=== PATIENT | male | born 1985 | race Caucasian/White ===

== ENCOUNTER 2018-01-01 16:23 | Emergency (ER) | payer MEDICAID ==
[2018-01-01 16:59] VITALS: BP 111/57; PULSE 98; RESP 16; TEMP 98.4; O2SAT 99
[2018-01-01] MEDS ORDERED: Lidocaine 5% Patch TD STA (17:43)
[2018-01-01] MEDS ORDERED: Lidocaine 5% Patch TD ONE (18:10)
--- NOTE | 2018-01-01 18:20 | ED PDOC ---
HPI: Back Time Seen by Provider: 01/01/18 17:09 Chief Complaint (Nursing): Back Pain History Per: Patient Additional Complaint(s): Pt. states for the past week he's had neck and upper back pain described as a stiffness. States he's been getting this pain since 2011 intermittently but has never sought medical attention till today. Denies trauma, chest pain, SOB, hemoptysis, fever, cough, hematuria, incontinence. Past Medical History Reviewed: Historical Data, Nursing Documentation, Vital Signs Vital Signs: Last Vital Signs Temp 98.4 F 01/01/18 16:54 Pulse 98 H 01/01/18 16:54 Resp 16 01/01/18 16:54 BP 111/57 L 01/01/18 16:54 Pulse Ox 99 01/01/18 16:54 - Surgical History Surgical History: No Surg Hx - Family History Family History: States: No Known Family Hx - Home Medications Home Medications: Ambulatory Orders Medication Instructions Recorded Naproxen [Naprosyn] 500 mg PO BID PRN #30 tab 08/03/14 Cyclobenzaprine [Cyclobenzaprine 10 mg PO Q8 PRN #10 tab 01/01/18 HCl] Naproxen [Naprosyn] 500 mg PO BID PRN #10 tab 01/01/18 - Allergies Allergies/Adverse Reactions: Allergies Allergy/AdvReac Type Severity Reaction Status Date / Time No Known Allergies Allergy Verified 01/01/18 16:54 Review of Systems ROS Statement: Except As Marked, All Systems Reviewed And Found Negative Musculoskeletal: Positive for: Back Pain Physical Exam - Physical Exam Appears: Positive for: Well, Non-toxic, No Acute Distress Skin: Positive for: Normal Color, Warm. Negative for: Rash Eye Exam: Positive for: Normal appearance Cardiovascular/Chest: Positive for: Regular Rate, Rhythm, Chest Non Tender Respiratory: Positive for: Normal Breath Sounds. Negative for: Respiratory Distress Gastrointestinal/Abdominal: Positive for: Soft. Negative for: Tenderness Back: Positive for: Normal Inspection, Decreased ROM, Muscle Spasm (b/l paracervical and parathoracic). Negative for: L CVA Tenderness, R CVA Tenderness, Vertebral Tenderness (entire spine including c-spine) Extremity: Positive for: Other (equal hand bender strenght b/l) Neurologic/Psych: Positive for: Alert, Oriented (x3). Negative for: Aphasia, Facial Droop - ECG O2 Sat by Pulse Oximetry: 99 - Radiology X-Ray: Read By Radiologist (C-spine, thoracic spine) X-Ray Interpretation: Other (moderate degenerate disc disease C6-7; reversal lordosis likely related to muscle spasm) - Progress Re-evaluation Time: 19:13 (Advised to f/u with [facility] for possible MRI. ) Condition: Re-examined, Improved Disposition - Clinical Impression Clinical Impression: Torticollis - Patient ED Disposition Is Patient to be Admitted: No - Disposition Referrals: [facility] [Outside] Disposition: Routine/Home Disposition Time: 19:13 Condition: IMPROVED Additional Instructions: FOLLOW UP WITH [facility] FOR FURTHER EVALUATION BUT RETURN TO ED IMMEDIATELY IF SYMPTOMS WORSEN. LUX AKHTAR, thank you for letting us take care of you today. Your provider was Shayy Hernandez MD and you were treated for NECK PAIN. The emergency medical care you received today was directed at your acute symptoms. If you were prescribed any medication, please fill it and take as directed. It may take several days for your symptoms to resolve. Return to the Emergency Department if your symptoms worsen, do not improve, or if you have any other problems. Please contact your doctor or call one of the physicians/clinics you have been referred to that are listed on the Patient Visit Information form that is inclu ded in your discharge packet. Bring any paperwork you were given at discharge with you along with any medications you are taking to your follow up visit. Our treatment cannot replace ongoing medical care by a primary care provider outside of the emergency department. Thank you for allowing the [facility] team to be part of your care today. If you had an X-Ray or CT scan: A Radiologist will review the ED reading if any change in treatment is needed we will contact you. If you had a blood, urine, or wound culture: It will take several days for the results, if any change in treatment is needed we will contact you. If you had an STI test: It will take 48 hours for the results. Please call after 1 week if you have not heard back. Prescriptions: Cyclobenzaprine [Cyclobenzaprine HCl] 10 mg PO Q8 PRN #10 tab PRN Reason: Muscle Spasm Naproxen [Naprosyn] 500 mg PO BID PRN #10 tab PRN Reason: Pain Instructions: Torticollis (DC) Forms: [employer] (Lebanese)
--- NOTE | 2018-01-01 18:29 | RAD ---
Date of service: 01/01/2018 PROCEDURE: Cervical Spine Radiographs. HISTORY: Pain. COMPARISON: None available. FINDINGS: BONES: There is normal alignment of the cervical vertebral bodies. There is reversal of normal cervical lordosis. Vertebral height is normal. Bone mineralization is normal. There is no acute fracture or traumatic anterior listhesis. The craniocervical junction is normal. The atlantoaxial joint normal. DISC SPACES: There is moderate degenerative disc disease at C6-7 with anterior spurring, severe reduced disc height and facet arthropathy. The remaining disc heights are maintained. SOFT TISSUES: Normal. No prevertebral soft tissue swelling. OTHER FINDINGS: None. IMPRESSION: Moderate degenerative disc disease at C6-7. Reversal of normal cervical lordosis may be related to muscle spasm.
--- NOTE | 2018-01-01 18:29 | RAD ---
Date of service: 01/01/2018 HISTORY: pain COMPARISON: No prior. FINDINGS: BONES: There is normal alignment of the thoracic vertebral bodies. There is normal thoracic kyphosis. Bone mineralization is normal. There is no acute fracture. DISC SPACES: Normal. SOFT TISSUES: Normal. OTHER FINDINGS: None. IMPRESSION: Normal radiographs of the thoracic spine.
== END 2018-01-01 19:25 | disposition home or self-care (01) ==
LOC: H.ER 16:23
DX: M43.6 Torticollis (principal)
CPT/HCPCS: 72040; 72070; 96372; 99283; J1885

== ENCOUNTER 2018-01-07 09:49 | Inpatient (IN) | payer MEDICAID ==
--- NOTE | 2018-01-07 10:34 | ED PDOC ---
HPI: Neurologic - General Time Seen by Provider: 01/07/18 10:03 Chief Complaint (Nursing): Lower Extremity Problem/Injury Chief Complaint (Provider): bilateral hand weakness, unable to ambulate Source: patient Exam Limitations: no limitations - History of Present Illness Timing/Duration: other (x4 days) Associated Symptoms: weakness (b/l hands), other Allergies/Adverse Reactions: Allergies No Known Allergies Allergy (Verified 01/01/18 16:54) Home Medications: Ambulatory Orders Cyclobenzaprine [Cyclobenzaprine HCl] 10 mg PO Q8 PRN #10 tab 01/01/18 Naproxen [Naprosyn] 500 mg PO BID PRN #10 tab 01/01/18 Additional Complaint(s): Warren Cornelius is a 32 year old male, with no significant past medical history, who was brought to the emergency department by EMS complaining of weakness in both hands and inability to ambulate onset for x4 days. Patient also reports urinary incontinence and urge to defecate but not being able to, last bowel movement was a week ago. Patient states he was seen here a week ago for neck pain. He was given a shot and Valium in the ER, and was sent home with muscle relaxants. However, patient reports symptoms got progressively worst and has not been able to ambulate since Sunday. He denies any trauma, headache or other medical complaints. PMD: Manisha Steinberg NIHSS Stroke Scale - Date/Time Evaluation Performed Date Performed: 01/07/18 Past Medical History Reviewed: Historical Data, Nursing Documentation, Vital Signs Vital Signs: Last Vital Signs Temp 98.4 F 01/07/18 09:52 Pulse 70 01/07/18 09:52 Resp 19 01/07/18 09:52 BP 127/67 01/07/18 09:52 Pulse Ox 96 01/07/18 09:52 - Medical History PMH: No Chronic Diseases - Surgical History Surgical History: Hernia Repair (umbilical) - Family History Family History: States: Unknown Family Hx - Social History Current smoker - smoking cessation education provided: Yes Alcohol: Social Drugs: Other (hx of IVDA) - Home Medications Home Medications: Ambulatory Orders Medication Instructions Recorded Cyclobenzaprine [Cyclobenzaprine 10 mg PO Q8 PRN #10 tab 01/01/18 HCl] Naproxen [Naprosyn] 500 mg PO BID PRN #10 tab 01/01/18 - Allergies Allergies/Adverse Reactions: Allergies Allergy/AdvReac Type Severity Reaction Status Date / Time No Known Allergies Allergy Verified 01/01/18 16:54 Review of Systems ROS Statement: Except As Marked, All Systems Reviewed And Found Negative Gastrointestinal: Positive for: Constipation Genitourinary Male: Positive for: Incontinence (urinary) Musculoskeletal: Positive for: Neck Pain Neurological: Positive for: Weakness (b/l hands), Other (unable to ambulate). Negative for: Headache Physical Exam - Reviewed Nursing Documentation Reviewed: Yes Vital Signs Reviewed: Yes - Physical Exam Appears: Positive for: No Acute Distress Head Exam: Positive for: ATRAUMATIC, NORMAL INSPECTION, NORMOCEPHALIC Skin: Positive for: Normal Color, Warm, Dry Eye Exam: Positive for: Normal appearance, EOMI, PERRL ENT: Positive for: Normal ENT Inspection Neck: Positive for: Normal, Painless ROM, Supple Cardiovascular/Chest: Positive for: Regular Rate, Rhythm. Negative for: Murmur Respiratory: Positive for: Normal Breath Sounds. Negative for: Respiratory Distress Gastrointestinal/Abdominal: Positive for: Normal Exam, Soft. Negative for: Tenderness, Guarding, Rebound Back: Positive for: Normal Inspection. Negative for: L CVA Tenderness, R CVA Tenderness, Vertebral Tenderness Extremity: Negative for: Deformity Neurologic/Psych: Positive for: Alert, Oriented, Motor/Sensory Deficits (Decreased hypertrichologist strength b/l. Muscle weakness to bilateral lower extremities), Other (Positive saddle anesthesia) - Laboratory Results Result Diagrams: 01/07/18 10:28 01/07/18 10:28 - ECG O2 Sat by Pulse Oximetry: 96 (RA) Pulse Ox Interpretation: Normal - Critical Care Total Time (In Min): 75 Documented Critical Care: Time excludes all time spent performint seperately billable procedures Medical Decision Making Medical Decision Making: Time: 10:03 Initial Impression: Initial Plan: --CMP --Urine dipstick --CBC w/ differential --PTT --PT --Spinal canal cervical w/o contrast [MRI] --Spinal canal lumbar w/o contrast [MRI] --Spinal canal thoracic w/o contrast [MRI] --Urinalysis --Reevaluation 10:30 -Spoke with Dr. Rosas, she recommends a cervical collar and getting an MRI of the spine. 11:15 -Patient was brought back from MRI, he is refusing secondary to neck pain. Ordered 4mg of Morphine. 11:30 -Patient refusing MRI again stating he is not sure. He agreed to try for the MRI given Ativan 2 mg. -Pt. placed on monitor. 13:31 Cervical spine MRI FINDINGS: There is a subtle reversal of the cervical curvature without fracture or spondylolisthesis appreciated. Diffuse disc desiccation is identified however, fluid is seen in the posterior and central portion of the C6-7 intervertebral disc with edema associated with the surrounding endplates posteriorly, at the same level as the fluid. Anterior disc and endplates appear unaffected at this level. Fluid is suggested at the posterior epidural space, and mildly anteriorly in a pattern suspicious for discitis osteomyelitis. Posterior epidural fluid extends as cephalad potentially as C4 and as caudad as T1. C2-C3: No disc herniation, spinal canal stenosis or neural foraminal narrowing. C3-C4: No disc herniation, spinal canal stenosis or neural foraminal narrowing. C4-C5: No disc herniation, spinal canal stenosis or neural foraminal narrowing. C5-C6: While there is no disc herniation or neural foraminal stenosis identified, epidural fluid or soft tissue is seen circumferentially but more posteriorly and toward the left and anteriorly. This is likely reflective of epidural abscess related to C6-7 discitis osteomyelitis. The cervical cord appears flattened at the left side more so than the right. C6-C7: No disc herniation or neural foraminal stenosis. Presumed fluid or epidural soft tissue impresses the thecal sac and the cervical cord greater the left and right sides stenosing the central canal. Trace reactive cord signal changes associated. There is a potential annular tear posteriorly at C6-7 disc though this is not definite. C7-T1: No disc herniation although fluid/soft tissue impresses the cord at the upper to mid T1 level with this finding minimal at the inferior T1 endplate level. No neural foraminal stenosis. OTHER FINDINGS: None. IMPRESSION: 1. C6-7 intervertebral disc fluid with edema at C6 and C7 vertebral bodies related to the mid to posterior endplate distribution suspicious for discitis osteomyelitis. Epidural fluid is identified more posteriorly than anteriorly from at least C4-T1 levels with cord compressed at C6 and C7. Contrast MRI cervical spine can be utilized for added characterization. 2. No definitive disc herniation appreciable though an annular tear is not excluded at the C6-7 disc posteriorly. 3. Mild reversal cervical curvature. Definitive fracture or spondylolisthesis appreciable. Findings discussed with Dr. Sanchez with written down and read back verification 01/07/2018 1:25 p.m.. 13:30 -Paged Dr. Granado, ID. [id number] -Paged Dr. Denny, neurosurgery. 13:38 Lumbar Spine MRI FINDINGS: Normal lumbar lordosis. Vertebral body heights are preserved. Marrow signal unremarkable. Conus medullaris unremarkable at the level of L2 vertebral body. Prevertebral and paraspinal soft tissues are unremarkable. T12-L1: No disc herniation, spinal canal stenosis or neural foraminal narrowing. L1-2: No disc herniation, spinal canal stenosis or neural foraminal narrowing. L2-3: No disc herniation, spinal canal stenosis or neural foraminal narrowing. L3-4: No disc herniation, spinal canal stenosis or neural foraminal narrowing. L4-5: No disc herniation, spinal canal stenosis or neural foraminal narrowing. Minimal disc bulge and rkgs-ct-dkoyjgre facet joint degenerative change. L5-S1: There is a small right paracentral disc protrusion without indenting the ventral thecal sac or causing significant stenosis. [id number]-pd-[id number] facet joint degenerative changes are seen symmetrically. No definite neural foraminal stenosis bilaterally. OTHER FINDINGS: None. IMPRESSION: 1. Small right paracentral disc protrusion L5-S1 without significant stenosis resulting. 2. Minimal disc bulge L4-5 without stenosis. 3. Widely patent central canal and bilateral neural foramina throughout. 13:40 -Spoke with Dr. Denny, recommends ESR, CRP, preop orders. 13:42 Thoracic Spine MRI FINDINGS: ALIGNMENT: Normal thoracic spinal alignment. Normal thoracic kyphosis. VERTEBRA: Vertebral body height are preserved. No fracture appreciable. MARROW: Marrow signal unremarkable. PARASPINAL SOFT TISSUES: Unremarkable. CORD: Unremarkable thoracic cord. No volume loss, signal abnormality or syrinx. DISCS: No disc herniation, spinal canal stenosis, or neuroforaminal narrowing. OTHER FINDINGS: Edema is identified at the C7 vertebral body with the C6 not included in this exam. Please see separate cervical spine MRI report 01/07/2018 for added details. IMPRESSION: Unremarkable non-contrast enhanced MRI of the thoracic spine. Incidental edema at C7 vertebral body is detailed in separate cervical spine MRI also performed 01/07/2018. Please see separate report. Findings discussed with Dr. Sanchez with written down and read back verification 01/07/2018 1:44 p.m.. 14:20 -Case discussed with Dr. Granado, recommends Vancomycin 1 g q8h and Cefepime 2 g q8h. 14:36 CXR FINDINGS: LUNGS: No active pulmonary disease. PLEURA: No significant pleural effusion identified, no pneumothorax apparent. CARDIOVASCULAR: No atherosclerotic calcification present Normal. OSSEOUS STRUCTURES: No significant abnormalities. VISUALIZED UPPER ABDOMEN: Normal. OTHER FINDINGS: None. IMPRESSION: No active disease. ------- Scribe Attestation: Documented by Shahram Shi, acting as a scribe for Shelley Sanchez MD. Provider Scribe Attestation: All medical record entries made by the Scribe were at my direction and per sonally dictated by me. I have reviewed the chart and agree that the record accurately reflects my personal performance of the history, physical exam, medical decision making, and the department course for this patient. I have also personally directed, reviewed, and agree with the discharge instructions and disposition. Disposition - Clinical Impression Clinical Impression: Epidural abscess, Discitis of cervical region, Osteomyelitis of cervical spine - Patient ED Disposition Is Patient to be Admitted: Yes - Disposition Disposition Time: 14:15 Condition: GUARDED - Pt Status Changed To: Hospital Disposition Of: Inpatient - Admit Certification Admit to Inpatient:: After my assessment, the patient will require hospitalization for at least two midnights. This is because of the severity of symptoms shown, intensity of services needed, and/or the medical risk in this patient being treated as an outpatient. - POA Present On Arrival: None
[2018-01-07 10:38] LABS: BASO % 0.3 % (0.0-2.0); EOS # 0.2 K/uL (0.0-0.7); EOS % 1.8 % (0.0-4.0); HEMOGLOBIN 12.4 g/dL (12.0-18.0); LYMPH # 1.1 K/uL (1.0-4.3); LYMPH % 9.4 % (20.0-40.0); MEAN CELL VOLUME 93.4 fl (80.0-94.0); MEAN CORPUSCULAR HEMOGLOBIN 30.5 pg (27.0-31.0); MEAN CORPUSCULAR HGB CONC 32.6 g/dL (33.0-37.0); MEAN PLATELET VOLUME 7.3 fl (7.2-11.7); NEUT # 9.8 K/uL (1.8-7.0); NEUT % 80.5 % (50.0-75.0); PLATELET COUNT 370 K/uL (130-400); RBC 4.06 Mil/uL (4.40-5.90); RED CELL DISTRIBUTION WIDTH 13.2 % (11.5-14.5); WHITE BLOOD COUNT 12.2 K/uL (4.8-10.8)
[2018-01-07 10:44] LABS: INR 1.2
[2018-01-07 10:46] LABS: PARTIAL THROMBOPLASTIN TIME 26.1 Seconds (25.6-37.1)
[2018-01-07 10:50] LABS: ALB/GLOB RATIO 0.9 (1.0-2.1); ALBUMIN 3.6 g/dL (3.5-5.0); ALT/SGPT 26 U/L (21-72); AST/SGOT 46 U/L (17-59); BLOOD UREA NITROGEN 11 mg/dl (9-20); CALCIUM 9.1 mg/dL (8.4-10.2); GFR NON-AFRICAN AMERICAN > 60
[2018-01-07 11:04] LABS: PROTHROMBIN TIME 14.1 Seconds (9.8-13.1)
[2018-01-07] MEDS ORDERED: Morphine 4 MG/ML VIAL ONE (11:11)
[2018-01-07] MEDS ORDERED: Morphine 4 MG/ML VIAL IVP STA (11:30)
[2018-01-07 12:25] LABS: LYMPHOCYTE 13 % (20-50); MONOCYTE 11 % (0-10); NEUTROPHIL 76 % (42-75); OVALOCYTES SLIGHT; PLATELET ESTIMATE NORMAL (NORMAL); TEARDROP CELLS SLIGHT; TOTAL CELLS COUNTED 100
--- NOTE | 2018-01-07 13:34 | MRI ---
Date of service: 01/07/2018 PROCEDURE: MR CERVICAL SPINE WITHOUT CONTRAST HISTORY: BLE weakness COMPARISON: None available. TECHNIQUE: Multiecho multiplanar sequences were performed through the cervical spine without the use of intravenous contrast. Examination was delayed to completion due to pain (primarily in the neck but also in the pelvis) with patient laying on the MR table with patient receiving pain control in the middle of the initial examination. FINDINGS: There is a subtle reversal of the cervical curvature without fracture or spondylolisthesis appreciated. Diffuse disc desiccation is identified however, fluid is seen in the posterior and central portion of the C6-7 intervertebral disc with edema associated with the surrounding endplates posteriorly, at the same level as the fluid. Anterior disc and endplates appear unaffected at this level. Fluid is suggested at the posterior epidural space, and mildly anteriorly in a pattern suspicious for discitis osteomyelitis. Posterior epidural fluid extends as cephalad potentially as C4 and as caudad as T1. C2-C3: No disc herniation, spinal canal stenosis or neural foraminal narrowing. C3-C4: No disc herniation, spinal canal stenosis or neural foraminal narrowing. C4-C5: No disc herniation, spinal canal stenosis or neural foraminal narrowing. C5-C6: While there is no disc herniation or neural foraminal stenosis identified, epidural fluid or soft tissue is seen circumferentially but more posteriorly and toward the left and anteriorly. This is likely reflective of epidural abscess related to C6-7 discitis osteomyelitis. The cervical cord appears flattened at the left side more so than the right. C6-C7: No disc herniation or neural foraminal stenosis. Presumed fluid or epidural soft tissue impresses the thecal sac and the cervical cord greater the left and right sides stenosing the central canal. Trace reactive cord signal changes associated. There is a potential annular tear posteriorly at C6-7 disc though this is not definite. C7-T1: No disc herniation although fluid/soft tissue impresses the cord at the upper to mid T1 level with this finding minimal at the inferior T1 endplate level. No neural foraminal stenosis. OTHER FINDINGS: None. IMPRESSION: 1. C6-7 intervertebral disc fluid with edema at C6 and C7 vertebral bodies related to the mid to posterior endplate distribution suspicious for discitis osteomyelitis. Epidural fluid is identified more posteriorly than anteriorly from at least C4-T1 levels with cord compressed at C6 and C7. Contrast MRI cervical spine can be utilized for added characterization. 2. No definitive disc herniation appreciable though an annular tear is not excluded at the C6-7 disc posteriorly. 3. Mild reversal cervical curvature. Definitive fracture or spondylolisthesis appreciable. Findings discussed with Dr. Sanchez with written down and read back verification 01/07/2018 1:25 p.m..
[2018-01-07] MEDS ORDERED: cefTRIAXone 2 GM in Sodium Chloride 0.9% 100 ML IVPB STA (13:38)
--- NOTE | 2018-01-07 13:41 | MRI ---
Date of service: 01/07/2018 PROCEDURE: MR LUMBAR SPINE WITHOUT CONTRAST HISTORY: BLE weakness COMPARISON: None available. TECHNIQUE: Multiecho multiplanar sequences were performed through the lumbar spine without the use of intravenous contrast. FINDINGS: Normal lumbar lordosis. Vertebral body heights are preserved. Marrow signal unremarkable. Conus medullaris unremarkable at the level of L2 vertebral body. Prevertebral and paraspinal soft tissues are unremarkable. T12-L1: No disc herniation, spinal canal stenosis or neural foraminal narrowing. L1-2: No disc herniation, spinal canal stenosis or neural foraminal narrowing. L2-3: No disc herniation, spinal canal stenosis or neural foraminal narrowing. L3-4: No disc herniation, spinal canal stenosis or neural foraminal narrowing. L4-5: No disc herniation, spinal canal stenosis or neural foraminal narrowing. Minimal disc bulge and dixd-cs-fegajqul facet joint degenerative change. L5-S1: There is a small right paracentral disc protrusion without indenting the ventral thecal sac or causing significant stenosis. Dalg-fk-xnlwhnhv facet joint degenerative changes are seen symmetrically. No definite neural foraminal stenosis bilaterally. OTHER FINDINGS: None. IMPRESSION: 1. Small right paracentral disc protrusion L5-S1 without significant stenosis resulting. 2. Minimal disc bulge L4-5 without stenosis. 3. Widely patent central canal and bilateral neural foramina throughout.
[2018-01-07] MEDS ORDERED: Vancomycin 1 g Inj ONE (13:42)
[2018-01-07] MEDS ORDERED: Cefepime 2 GM in Sodium Chloride 0.9% 100 ML IVPB STA (14:19)
--- NOTE | 2018-01-07 14:39 | RAD ---
Date of service: 01/07/2018 HISTORY: Pre-op COMPARISON: No prior. FINDINGS: LUNGS: No active pulmonary disease. PLEURA: No significant pleural effusion identified, no pneumothorax apparent. CARDIOVASCULAR: No atherosclerotic calcification present Normal. OSSEOUS STRUCTURES: No significant abnormalities. VISUALIZED UPPER ABDOMEN: Normal. OTHER FINDINGS: None. IMPRESSION: No active disease.
[2018-01-07 14:53] LABS: SQUAMOUS EPITHIAL 1 /hpf (0-5); URINE BILIRUBIN NEGATIVE (NEGATIVE); URINE BLOOD NEGATIVE (NEGATIVE); URINE CLARITY SLIGHTY-CLOUDY (Clear); URINE COLOR AMBER (YELLOW); URINE GLUCOSE (UA) NEG (Normal); URINE LEUKOCYTE ESTERASE NEG Leu/uL (Negative); URINE PROTEIN NEGATIVE (NEGATIVE)
[2018-01-07 15:04] LABS: BARBITURATES, UR NEGATIVE (NEGATIVE); BENZODIAZEPINES, UR POSITIVE (NEGATIVE); OPIATES, UR POSITIVE (NEGATIVE); PHENCYCLIDINE, UR NEGATIVE (NEGATIVE)
--- NOTE | 2018-01-07 15:59 | CP.PCM.CON ---
History of Present Illness - History of Present Illness History of Present Illness: dictated paraplegia x 4 days - c4 -7 epidural abscess rec posterior cervical decompression as best chance to preserve upper extremity function do not believe LE/B/B function can be restored at this late stage Pt wants to think over recommendation/disc with family await decision agree with Abcs,steroids,collar in interem Past Patient History - Past Social History Alcohol: Social Drugs: Other (hx of IVDA) - CARDIAC Hx Cardiac Disorders: No - PULMONARY Hx Respiratory Disorders: No - PSYCHIATRIC Hx Substance Use: Yes - SURGICAL HISTORY Hx Surgeries: Yes Other/Comment: hernia surgery Meds Allergies/Adverse Reactions: Allergies Allergy/AdvReac Type Severity Reaction Status Date / Time No Known Allergies Allergy Verified 01/01/18 16:54 Results - Vital Signs Recent Vital Signs: Last Vital Signs Temp 99.3 F 01/07/18 14:35 Pulse 60 01/07/18 14:35 Resp 18 01/07/18 14:35 BP 113/62 01/07/18 14:35 Pulse Ox 96 01/07/18 15:17 - Labs Result Diagrams: 01/07/18 10:28 01/07/18 10:28 Labs: Laboratory Results - last 24 hr 01/07/18 01/07/18 01/07/18 10:28 10:28 10:28 WBC 12.2 H RBC 4.06 L Hgb 12.4 Hct 37.9 MCV 93.4 MCH 30.5 MCHC 32.6 L RDW 13.2 Plt Count 370 MPV 7.3 Neut % (Auto) 80.5 H Lymph % (Auto) 9.4 L [place] % (Auto) 8.0 Eos % (Auto) 1.8 Baso % (Auto) 0.3 Neut # (Auto) 9.8 H Lymph # (Auto) 1.1 [place] # (Auto) 1.0 H Eos # (Auto) 0.2 Baso # (Auto) 0.0 Neutrophils % (Manual) 76 H Lymphocytes % (Manual) 13 L Monocytes % (Manual) 11 H Platelet Estimate Normal Tear Drop Cells Slight Ovalocytes Slight ESR PT 14.1 H INR 1.2 APTT 26.1 Sodium 137 Potassium 4.0 Chloride 101 Carbon Dioxide 26 Anion Gap 14 BUN 11 Creatinine 0.8 Est GFR ( Amer) > 60 Est GFR (Non-Af Amer) > 60 Random Glucose 106 Calcium 9.1 Total Bilirubin 0.5 AST 46 ALT 26 Alkaline Phosphatase 56 Total Protein 7.5 Albumin 3.6 Globulin 3.9 Albumin/Globulin Ratio 0.9 L Urine Color Urine Clarity Urine pH Ur Specific [place] Urine Protein Urine Glucose (UA) Urine Ketones Urine Blood Urine Nitrate Urine Bilirubin Urine Urobilinogen Ur Leukocyte Esterase Urine RBC (Auto) Urine Microscopic WBC Ur Squamous Epith Cells Urine Opiates Screen Urine Methadone Screen Ur Barbiturates Screen Ur Phencyclidine Scrn Ur Amphetamines Screen U Benzodiazepines Scrn U Oth Cocaine Metabols U Cannabinoids Screen 01/07/18 01/07/18 01/07/18 14:00 14:38 14:38 WBC RBC Hgb Hct MCV MCH MCHC RDW Plt Count MPV Neut % (Auto) Lymph % (Auto) [place] % (Auto) Eos % (Auto) Baso % (Auto) Neut # (Auto) Lymph # (Auto) [place] # (Auto) Eos # (Auto) Baso # (Auto) Neutrophils % (Manual) Lymphocytes % (Manual) Monocytes % (Manual) Platelet Estimate Tear Drop Cells Ovalocytes ESR 61 H PT INR APTT Sodium Potassium Chloride Carbon Dioxide Anion Gap BUN Creatinine Est GFR ( Amer) Est GFR (Non-Af Amer) Random Glucose Calcium Total Bilirubin AST ALT Alkaline Phosphatase Total Protein Albumin Globulin Albumin/Globulin Ratio Urine Color [place]en Urine Clarity Slighty-cloudy Urine pH 5.0 Ur Specific [place] 1.026 Urine Protein Negative Urine Glucose (UA) Neg Urine Ketones Trace Urine Blood Negative Urine Nitrate Negative Urine Bilirubin Negative Urine Urobilinogen 4.0 Ur Leukocyte Esterase Neg Urine RBC (Auto) 1 Urine Microscopic WBC 2 Ur Squamous Epith Cells 1 Urine Opiates Screen Positive H Urine Methadone Screen Negative Ur Barbiturates Screen Negative Ur Phencyclidine Scrn Negative Ur Amphetamines Screen Negative U Benzodiazepines Scrn Positive U Oth Cocaine Metabols Negative U Cannabinoids Screen Positive H
[2018-01-07] MEDS ORDERED: Dexamethasone 10 MG in Sodium Chloride 0.9% 50 ML IVPB ONE (16:01)
--- NOTE | 2018-01-07 16:13 | MRI ---
Date of service: 01/07/2018 PROCEDURE: MR THORACIC SPINE WITHOUT CONTRAST HISTORY: BLE weakness COMPARISON: None available. TECHNIQUE: Multiecho multiplanar sequences were performed through the thoracic spine without the use of intravenous contrast. FINDINGS: ALIGNMENT: Normal thoracic spinal alignment. Normal thoracic kyphosis. VERTEBRA: Vertebral body height are preserved. No fracture appreciable. MARROW: Marrow signal unremarkable. PARASPINAL SOFT TISSUES: Unremarkable. CORD: Unremarkable thoracic cord. No volume loss, signal abnormality or syrinx. DISCS: No disc herniation, spinal canal stenosis, or neuroforaminal narrowing. OTHER FINDINGS: Edema is identified at the C7 vertebral body with the C6 not included in this exam. Please see separate cervical spine MRI report 01/07/2018 for added details. IMPRESSION: Unremarkable non-contrast enhanced MRI of the thoracic spine. Incidental edema at C7 vertebral body is detailed in separate cervical spine MRI also performed 01/07/2018. Please see separate report. Findings discussed with Dr. Sanchez with written down and read back verification 01/07/2018 1:44 p.m..
--- NOTE | 2018-01-07 18:41 | CP.CCUPN ---
CCU Subjective - Physician Review Events Since Last Encounter (Free Text): 01/07/18 18:42 The patient was Seen and examined by me at the bedside Medical records reviewed and Management issues were discussed and formulated with the house staff. Events reviewed Mr Cornelius is a 32 Years old active smoker Male with no significant Past medical history Who was brought to the Emergency department by EMS with complaint of Bilateral lower extremities Weakness, numbness, weakness in both hands and unable to ambulate for the past 4 days. Patient also reports urinary incontinence and urge to defecate but not being able to, last bowel movement was a week ago. Also admits fall at home Patient was seen in the ER week ago for neck pain, he was given a shot, NSAIDs and muscle relaxant. Pt placed on a cervical collar and getting and underwent MRI of the spine. In the ER, he underwent MRI revealed C6-7 intervertebral disc fluid with edema at C6 and C7 vertebral bodies related to the mid to posterior endplate distribution suspicious for discitis osteomyelitis. Epidural fluid is identified more posteriorly than anteriorly from at least C4- T1 levels with cord compressed at C6 and C7. Patient was evaluated by neurology, ID and neurosurgery Pt was started on IV Vanco and Cefapime Awake, Comfortable, NAD Pt AAO x3. Afebrile, NSR on the monitor Social Hx: Tobacco - Active smoker 1PPD x 8 years Alcohol - occasional Illicit Drugs - No IVDA, + marijuana CCU Objective - Vital Signs / Intake & Output Vital Signs (Last 4 hours): Vital Signs Pulse Resp BP Pulse Ox 01/07/18 18:14 71 16 111/66 01/07/18 18:12 71 16 111/66 99 01/07/18 16:47 96 Intake and Output (Last 8hrs): Intake & Output 01/07/18 01/07/18 01/07/18 06:59 14:59 22:59 Weight 173 lb - Physical Exam Head: Positive for: Atraumatic, Normocephalic. Negative for: Tenderness, Contusion, Swelling Pupils: Positive for: PERRL. Negative for: Sluggish, Non-Reactive, Pinpoint Extroacular Muscles: Positive for: EOMI Conjunctiva: Positive for: Normal. Negative for: Injected, Icteric Neck: Positive for: Meningeal Signs, MIDLINE TENDERNESS, Paraspinal Tenderness, Trachea Midline. Negative for: Bruit Respiratory/Chest: Positive for: Clear to Auscultation, Good Air Exchange. Negative for: Respiratory Distress, Accessory Muscle Use, Wheezes, Decreased Breath Sounds, Rales, Retracting Cardiovascular: Positive for: Regular Rate and Rhythm, Normal S1, S2, Peripheal Pulses Present. Negative for: Murmurs Abdomen: Positive for: Normal Bowel Sounds. Negative for: Tenderness, Distention, Peritoneal Signs Neurological: Positive for: GCS=15, CN II-XII Intact, Speech Normal, Memory Normal, Other (Decreased photographer portrait strength). Negative for: Motor Func Grossly Intact (Muscle weakness to bilateral lower extremities), Normal Sensory Function (Decreased sensations to bilateral lower extremities), Norm Deep Tendon Reflexes, Gait Normal - Medications Active Medications: Active Medications Generic Name Dose Route Start Last Admin Trade Name Freq PRN Reason Stop Dose Admin Dexamethasone 4 mg 01/07/18 22:00 Decadron Inj IVP Q6 DEMI - Patient Studies Lab Studies: Lab Studies 01/07/18 01/07/18 01/07/18 Range/Units 15:53 14:38 14:38 WBC (4.8-10.8) K/uL RBC (4.40-5.90) Mil/uL Hgb (12.0-18.0) g/dL Hct (35.0-51.0) % MCV (80.0-94.0) fl MCH (27.0-31.0) pg MCHC (33.0-37.0) g/dL RDW (11.5-14.5) % Plt Count (130-400) K/uL MPV (7.2-11.7) fl Neut % (Auto) (50.0-75.0) % Lymph % (Auto) (20.0-40.0) % [place] % (Auto) (0.0-10.0) % Eos % (Auto) (0.0-4.0) % Baso % (Auto) (0.0-2.0) % Neut # (Auto) (1.8-7.0) K/uL Lymph # (Auto) (1.0-4.3) K/uL [place] # (Auto) (0.0-0.8) K/uL Eos # (Auto) (0.0-0.7) K/uL Baso # (Auto) (0.0-0.2) K/uL Neutrophils % (Manual) (42-75) % Lymphocytes % (Manual) (20-50) % Monocytes % (Manual) (0-10) % Platelet Estimate (NORMAL) Tear Drop Cells Ovalocytes ESR (0-15) mm/hr PT (9.8-13.1) Seconds INR APTT (25.6-37.1) Seconds Sodium (132-148) mmol/l Potassium (3.6-5.0) MMOL/L Chloride (98-107) mmol/L Carbon Dioxide (22-30) mmol/L Anion Gap (10-20) BUN (9-20) mg/dl Creatinine (0.8-1.5) mg/dl Est GFR ( Amer) Est GFR (Non-Af Amer) Random Glucose (75-110) mg/dL Calcium (8.4-10.2) mg/dL Total Bilirubin (0.2-1.3) mg/dl AST (17-59) U/L ALT (21-72) U/L Alkaline Phosphatase (38-126) U/L Total Protein (6.3-8.2) G/DL Albumin (3.5-5.0) g/dL Globulin (2.2-3.9) gm/dL Albumin/Globulin Ratio (1.0-2.1) Urine Color [place] (YELLOW) Urine Clarity Slighty-cloudy (Clear) Urine pH 5.0 (5.0-8.0) Ur Specific [place] 1.026 (1.003-1.030) Urine Protein Negative (NEGATIVE) mg/dL Urine Glucose (UA) Neg (Normal) mg/dL Urine Ketones Trace (NEGATIVE) mg/dL Urine Blood Negative (NEGATIVE) Urine Nitrate Negative (NEGATIVE) Urine Bilirubin Negative (NEGATIVE) Urine Urobilinogen 4.0 (0.2-1.0) mg/dL Ur Leukocyte Esterase Neg (Negative) [place]/uL Urine RBC (Auto) 1 (0-3) /hpf Urine Microscopic WBC 2 (0-5) /hpf Ur Squamous Epith Cells 1 (0-5) /hpf Urine Opiates Screen Positive H (NEGATIVE) Urine Methadone Screen Negative (NEGATIVE) Ur Barbiturates Screen Negative (NEGATIVE) Ur Phencyclidine Scrn Negative (NEGATIVE) Ur Amphetamines Screen Negative (NEGATIVE) U Benzodiazepines Scrn Positive (NEGATIVE) U Oth Cocaine Metabols Negative (NEGATIVE) U Cannabinoids Screen Positive H (NEGATIVE) HIV-1 Ab Rapid Screen Non reactive (NON REAC) 01/07/18 01/07/18 01/07/18 Range/Units 14:00 10:28 10:28 WBC (4.8-10.8) K/uL RBC (4.40-5.90) Mil/uL Hgb (12.0-18.0) g/dL Hct (35.0-51.0) % MCV (80.0-94.0) fl MCH (27.0-31.0) pg MCHC (33.0-37.0) g/dL RDW (11.5-14.5) % Plt Count (130-400) K/uL MPV (7.2-11.7) fl Neut % (Auto) (50.0-75.0) % Lymph % (Auto) (20.0-40.0) % [place] % (Auto) (0.0-10.0) % Eos % (Auto) (0.0-4.0) % Baso % (Auto) (0.0-2.0) % Neut # (Auto) (1.8-7.0) K/uL Lymph # (Auto) (1.0-4.3) K/uL [place] # (Auto) (0.0-0.8) K/uL Eos # (Auto) (0.0-0.7) K/uL Baso # (Auto) (0.0-0.2) K/uL Neutrophils % (Manual) (42-75) % Lymphocytes % (Manual) (20-50) % Monocytes % (Manual) (0-10) % Platelet Estimate (NORMAL) Tear Drop Cells Ovalocytes ESR 61 H (0-15) mm/hr PT 14.1 H (9.8-13.1) Seconds INR 1.2 APTT 26.1 (25.6-37.1) Seconds Sodium 137 (132-148) mmol/l Potassium 4.0 (3.6-5.0) MMOL/L Chloride 101 (98-107) mmol/L Carbon Dioxide 26 (22-30) mmol/L Anion Gap 14 (10-20) BUN 11 (9-20) mg/dl Creatinine 0.8 (0.8-1.5) mg/dl Est GFR ( Amer) > 60 Est GFR (Non-Af Amer) > 60 Random Glucose 106 (75-110) mg/dL Calcium 9.1 (8.4-10.2) mg/dL Total Bilirubin 0.5 (0.2-1.3) mg/dl AST 46 (17-59) U/L ALT 26 (21-72) U/L Alkaline Phosphatase 56 (38-126) U/L Total Protein 7.5 (6.3-8.2) G/DL Albumin 3.6 (3.5-5.0) g/dL Globulin 3.9 (2.2-3.9) gm/dL Albumin/Globulin Ratio 0.9 L (1.0-2.1) Urine Color (YELLOW) Urine Clarity (Clear) Urine pH (5.0-8.0) Ur Specific [place] (1.003-1.030) Urine Protein (NEGATIVE) mg/dL Urine Glucose (UA) (Normal) mg/dL Urine Ketones (NEGATIVE) mg/dL Urine Blood (NEGATIVE) Urine Nitrate (NEGATIVE) Urine Bilirubin (NEGATIVE) Urine Urobilinogen (0.2-1.0) mg/dL Ur Leukocyte Esterase (Negative) [place]/uL Urine RBC (Auto) (0-3) /hpf Urine Microscopic WBC (0-5) /hpf Ur Squamous Epith Cells (0-5) /hpf Urine Opiates Screen (NEGATIVE) Urine Methadone Screen (NEGATIVE) Ur Barbiturates Screen (NEGATIVE) Ur Phencyclidine Scrn (NEGATIVE) Ur Amphetamines Screen (NEGATIVE) U Benzodiazepines Scrn (NEGATIVE) U Oth Cocaine Metabols (NEGATIVE) U Cannabinoids Screen (NEGATIVE) HIV-1 Ab Rapid Screen (NON REAC) 01/07/18 Range/Units 10:28 WBC 12.2 H (4.8-10.8) K/uL RBC 4.06 L (4.40-5.90) Mil/uL Hgb 12.4 (12.0-18.0) g/dL Hct 37.9 (35.0-51.0) % MCV 93.4 (80.0-94.0) fl MCH 30.5 (27.0-31.0) pg MCHC 32.6 L (33.0-37.0) g/dL RDW 13.2 (11.5-14.5) % Plt Count 370 (130-400) K/uL MPV 7.3 (7.2-11.7) fl Neut % (Auto) 80.5 H (50.0-75.0) % Lymph % (Auto) 9.4 L (20.0-40.0) % [place] % (Auto) 8.0 (0.0-10.0) % Eos % (Auto) 1.8 (0.0-4.0) % Baso % (Auto) 0.3 (0.0-2.0) % Neut # (Auto) 9.8 H (1.8-7.0) K/uL Lymph # (Auto) 1.1 (1.0-4.3) K/uL [place] # (Auto) 1.0 H (0.0-0.8) K/uL Eos # (Auto) 0.2 (0.0-0.7) K/uL Baso # (Auto) 0.0 (0.0-0.2) K/uL Neutrophils % (Manual) 76 H (42-75) % Lymphocytes % (Manual) 13 L (20-50) % Monocytes % (Manual) 11 H (0-10) % Platelet Estimate Normal (NORMAL) Tear Drop Cells Slight Ovalocytes Slight ESR (0-15) mm/hr PT (9.8-13.1) Seconds INR APTT (25.6-37.1) Seconds Sodium (132-148) mmol/l Potassium (3.6-5.0) MMOL/L Chloride (98-107) mmol/L Carbon Dioxide (22-30) mmol/L Anion Gap (10-20) BUN (9-20) mg/dl Creatinine (0.8-1.5) mg/dl Est GFR ( Amer) Est GFR (Non-Af Amer) Random Glucose (75-110) mg/dL Calcium (8.4-10.2) mg/dL Total Bilirubin (0.2-1.3) mg/dl AST (17-59) U/L ALT (21-72) U/L Alkaline Phosphatase (38-126) U/L Total Protein (6.3-8.2) G/DL Albumin (3.5-5.0) g/dL Globulin (2.2-3.9) gm/dL Albumin/Globulin Ratio (1.0-2.1) Urine Color (YELLOW) Urine Clarity (Clear) Urine pH (5.0-8.0) Ur Specific [place] (1.003-1.030) Urine Protein (NEGATIVE) mg/dL Urine Glucose (UA) (Normal) mg/dL Urine Ketones (NEGATIVE) mg/dL Urine Blood (NEGATIVE) Urine Nitrate (NEGATIVE) Urine Bilirubin (NEGATIVE) Urine Urobilinogen (0.2-1.0) mg/dL Ur Leukocyte Esterase (Negative) [place]/uL Urine RBC (Auto) (0-3) /hpf Urine Microscopic WBC (0-5) /hpf Ur Squamous Epith Cells (0-5) /hpf Urine Opiates Screen (NEGATIVE) Urine Methadone Screen (NEGATIVE) Ur Barbiturates Screen (NEGATIVE) Ur Phencyclidine Scrn (NEGATIVE) Ur Amphetamines Screen (NEGATIVE) U Benzodiazepines Scrn (NEGATIVE) U Oth Cocaine Metabols (NEGATIVE) U Cannabinoids Screen (NEGATIVE) HIV-1 Ab Rapid Screen (NON REAC) Laboratory Results - last 24 hr 01/07/18 01/07/18 01/07/18 10:28 10:28 10:28 WBC 12.2 H RBC 4.06 L Hgb 12.4 Hct 37.9 MCV 93.4 MCH 30.5 MCHC 32.6 L RDW 13.2 Plt Count 370 MPV 7.3 Neut % (Auto) 80.5 H Lymph % (Auto) 9.4 L [place] % (Auto) 8.0 Eos % (Auto) 1.8 Baso % (Auto) 0.3 Neut # (Auto) 9.8 H Lymph # (Auto) 1.1 [place] # (Auto) 1.0 H Eos # (Auto) 0.2 Baso # (Auto) 0.0 Neutrophils % (Manual) 76 H Lymphocytes % (Manual) 13 L Monocytes % (Manual) 11 H Platelet Estimate Normal Tear Drop Cells Slight Ovalocytes Slight ESR PT 14.1 H INR 1.2 APTT 26.1 Sodium 137 Potassium 4.0 Chloride 101 Carbon Dioxide 26 Anion Gap 14 BUN 11 Creatinine 0.8 Est GFR ( Amer) > 60 Est GFR (Non-Af Amer) > 60 Random Glucose 106 Calcium 9.1 Total Bilirubin 0.5 AST 46 ALT 26 Alkaline Phosphatase 56 Total Protein 7.5 Albumin 3.6 Globulin 3.9 Albumin/Globulin Ratio 0.9 L Urine Color Urine Clarity Urine pH Ur Specific [place] Urine Protein Urine Glucose (UA) Urine Ketones Urine Blood Urine Nitrate Urine Bilirubin Urine Urobilinogen Ur Leukocyte Esterase Urine RBC (Auto) Urine Microscopic WBC Ur Squamous Epith Cells Urine Opiates Screen Urine Methadone Screen Ur Barbiturates Screen Ur Phencyclidine Scrn Ur Amphetamines Screen U Benzodiazepines Scrn U Oth Cocaine Metabols U Cannabinoids Screen HIV-1 Ab Rapid Screen 01/07/18 01/07/18 01/07/18 14:00 14:38 14:38 WBC RBC Hgb Hct MCV MCH MCHC RDW Plt Count MPV Neut % (Auto) Lymph % (Auto) [place] % (Auto) Eos % (Auto) Baso % (Auto) Neut # (Auto) Lymph # (Auto) [place] # (Auto) Eos # (Auto) Baso # (Auto) Neutrophils % (Manual) Lymphocytes % (Manual) Monocytes % (Manual) Platelet Estimate Tear Drop Cells Ovalocytes ESR 61 H PT INR APTT Sodium Potassium Chloride Carbon Dioxide Anion Gap BUN Creatinine Est GFR ( Amer) Est GFR (Non-Af Amer) Random Glucose Calcium Total Bilirubin AST ALT Alkaline Phosphatase Total Protein Albumin Globulin Albumin/Globulin Ratio Urine Color [place] Urine Clarity Slighty-cloudy Urine pH 5.0 Ur Specific [place] 1.026 Urine Protein Negative Urine Glucose (UA) Neg Urine Ketones Trace Urine Blood Negative Urine Nitrate Negative Urine Bilirubin Negative Urine Urobilinogen 4.0 Ur Leukocyte Esterase Neg Urine RBC (Auto) 1 Urine Microscopic WBC 2 Ur Squamous Epith Cells 1 Urine Opiates Screen Positive H Urine Methadone Screen Negative Ur Barbiturates Screen Negative Ur Phencyclidine Scrn Negative Ur Amphetamines Screen Negative U Benzodiazepines Scrn Positive U Oth Cocaine Metabols Negative U Cannabinoids Screen Positive H HIV-1 Ab Rapid Screen 01/07/18 15:53 WBC RBC Hgb Hct MCV MCH MCHC RDW Plt Count MPV Neut % (Auto) Lymph % (Auto) [place] % (Auto) Eos % (Auto) Baso % (Auto) Neut # (Auto) Lymph # (Auto) [place] # (Auto) Eos # (Auto) Baso # (Auto) Neutrophils % (Manual) Lymphocytes % (Manual) Monocytes % (Manual) Platelet Estimate Tear Drop Cells Ovalocytes ESR PT INR APTT Sodium Potassium Chloride Carbon Dioxide Anion Gap BUN Creatinine Est GFR ( Amer) Est GFR (Non-Af Amer) Random Glucose Calcium Total Bilirubin AST ALT Alkaline Phosphatase Total Protein Albumin Globulin Albumin/Globulin Ratio Urine Color Urine Clarity Urine pH Ur Specific [place] Urine Protein Urine Glucose (UA) Urine Ketones Urine Blood Urine Nitrate Urine Bilirubin Urine Urobilinogen Ur Leukocyte Esterase Urine RBC (Auto) Urine Microscopic WBC Ur Squamous Epith Cells Urine Opiates Screen Urine Methadone Screen Ur Barbiturates Screen Ur Phencyclidine Scrn Ur Amphetamines Screen U Benzodiazepines Scrn U Oth Cocaine Metabols U Cannabinoids Screen HIV-1 Ab Rapid Screen Non reactive EKG/Cardiology Studies: Cardiology / EKG Studies 01/07/18 13:49 EKG [ELECTROCARDIOGRAM] Stat Comment: Mode Of Transportation: PORTABLE Reason For Exam: SOB Review of Systems - Cardiovascular Cardiovascular: absent: As Per HPI, Acrocyanosis, Chest Pain, Chest Pain at Rest, Chest Pain with Activity, Claudication, Diaphoresis, Dyspnea, Dyspnea on Exertion, Edema, Irregular Heart Rhythm, Pain Radiating to Arm/Neck/Jaw, Leg Edema, Leg Ulcers, Lightheadedness, Orthopnea, Palpitations, Paroxysmal Nocturnal Dyspnea, Pedal Edema, Radiating Pain, Rapid Heart Rate, Slow Heart Rate, Syncope, Other, UNREMARKABLE - Respiratory Respiratory: absent: As Per HPI, Cough, Dyspnea, Hemoptysis, Dyspnea on Exertion, Wheezing, Snoring, Stridor, Pain on Inspiration, Chest Congestion, Excessive Mucous Production, Change in Mucous Color, Pain with Coughing, Other, UNREMARKABLE - Neurological Neurological: Abnormal Gait, Numbness, Focal Weakness (Bilateral LE), Frequent Falls, Lack of Coordination, Paresthesias, Sensory Deficit, Tingling, Weakness. absent: Abnormal Speech, Behavioral Changes, Burning Sensations, Confusion, Convulsions, Disequilibrium, Dizziness, Headaches, Loss of Vision, Memory Loss, Restless Legs, Syncope, Tremor, Vertigo Assessment/Plan (1) Discitis of cervical region Current Visit: Yes Status: Acute (2) Epidural abscess Current Visit: Yes Status: Acute (3) Osteomyelitis of cervical spine Current Visit: Yes Status: Acute (4) Back pain Current Visit: No Status: Acute - Assessment and Plan (Free Text) Assessment: On Exam, there is no symptoms or signs of raised intracranial pressure ICU care for hemodynamic and for frequent neuro checks ID/Neurology/Neurosurgery Consult appreciated Continue steroids Cefepime 2 gm IVPB Q8 DEMI Vancomycin HCl 1 gm IVPB Q8 Discussed with the Patient in details his diagnosis, treatment plans and alternative and stressed on the fact that successful treatment of usually requires a combination of Neurosurgerical drainage procedure and antibiotic therapy, He agrees with surgical intervension NPO after midnight Neurosurgery notified, OR in AM
--- NOTE | 2018-01-07 18:43 | CARD ---
APPROVED REPORT Date of service: 01/07/2018 EKG Measurement Heart [id number] <Conclusion> Sinus bradycardia Otherwise normal ECG
[2018-01-07 19:12] VITALS: BMI 18.9
[2018-01-07] MEDS: Potassium Ch 20mEq in D5-1/2NS 1,000 ML IV SCH (21:04)
[2018-01-07] MEDS: Dexamethasone 4 mg/1 ml IVP SCH (21:06)
[2018-01-07] MEDS ORDERED: Dexamethasone 4 MG in Sodium Chloride 0.9% 50 ML IVPB SCH (22:00)
[2018-01-08] MEDS: Cefepime 2 GM in Sodium Chloride 0.9% 100 ML IVPB SCH ×3 (00:22→16:04)
[2018-01-08 05:43] LABS: HEMOGLOBIN 12.8 g/dL (12.0-18.0); MEAN CELL VOLUME 93.2 fl (80.0-94.0); MEAN CORPUSCULAR HEMOGLOBIN 31.2 pg (27.0-31.0); MEAN CORPUSCULAR HGB CONC 33.5 g/dL (33.0-37.0); RBC 4.1 Mil/uL (4.40-5.90); RED CELL DISTRIBUTION WIDTH 12.9 % (11.5-14.5); WHITE BLOOD COUNT 10.2 K/uL (4.8-10.8)
[2018-01-08] MEDS: Dexamethasone 4 mg/1 ml IVP SCH ×4 (05:52→21:39)
[2018-01-08 06:02] LABS: BLOOD UREA NITROGEN 14 mg/dl (9-20); CALCIUM 9.2 mg/dL (8.4-10.2); GFR NON-AFRICAN AMERICAN > 60
--- NOTE | 2018-01-08 09:31 | CP.PCM.HP ---
History of Present Illness - History of Present Illness History of Present Illness: 32 YR OLD MALE ADMITTED TO ICU BECAUSE OF WEAKNESS OF EXTREMITIES,UNSTEADY GAIT,URINARY AND FECAL INCONTENENENCE X 4VDAYS HE WAS SEEN IN ER RECENTLY TREATED AND D/MARILIN BUT SYMPTOMS WORSENED HE WAS DIAGNOSED WITH EPIDURALM ABSCESS AND DISCITIS IN THE ER AND IS SCHEULED FOR NEOROSURGICAL INTERVENTION Present on Admission - Present on Admission Any Indicators Present on Admission: No Past Patient History - Past Medical History & Family History Past Medical History?: Yes - Past Social History Smoking Status: Heavy Smoker > 10 Cigarettes Daily - CARDIAC Hx Cardiac Disorders: No - PULMONARY Hx Respiratory Disorders: No - MUSCULOSKELETAL/RHEUMATOLOGICAL Hx Falls: Yes - PSYCHIATRIC Hx Substance Use: No - SURGICAL HISTORY Hx Surgeries: Yes Other/Comment: hernia surgery - ANESTHESIA Hx Anesthesia: Yes Hx Anesthesia Reactions: No Hx Malignant Hyperthermia: No Has any member of the family had a problem w/ anesthesia?: No Meds Allergies/Adverse Reactions: Allergies Allergy/AdvReac Type Severity Reaction Status Date / Time No Known Allergies Allergy Verified 01/01/18 16:54 Physical Exam - Constitutional Appears: Well, No Acute Distress - Head Exam Head Exam: ATRAUMATIC, NORMAL INSPECTION, NORMOCEPHALIC - Eye Exam Eye Exam: EOMI, Normal appearance, PERRL Pupil Exam: NORMAL ACCOMODATION, PERRL - ENT Exam ENT Exam: Mucous Membranes Moist, Normal Exam - Neck Exam Neck exam: Positive for: Normal Inspection - Respiratory Exam Respiratory Exam: Clear to Auscultation Bilateral, NORMAL BREATHING PATTERN - Cardiovascular Exam Cardiovascular Exam: REGULAR RHYTHM - GI/Abdominal Exam GI & Abdominal Exam: Normal Bowel Sounds, Soft. absent: Tenderness - Rectal Exam Rectal Exam: NORMAL INSPECTION - Extremities Exam Extremities exam: Positive for: normal inspection Additional comments: WEAKNESS OF EXTREMITIES[LE WORSE THAN UPPER] - Back Exam Back exam: NORMAL INSPECTION - Neurological Exam Neurological exam: Abnormal Gait, Alert, CN II-XII Intact, Motor Sensory Deficit, Oriented x3, Reflexes Normal - Psychiatric Exam Psychiatric exam: Normal Affect, Normal Mood - Skin Skin Exam: Dry, Intact, Normal Color, Warm Results - Vital Signs Recent Vital Signs: Last Vital Signs Temp 98.2 F 01/08/18 07:52 Pulse 55 L 01/08/18 08:57 Resp 21 01/08/18 08:57 BP 113/57 L 01/08/18 08:57 Pulse Ox 94 L 01/08/18 08:57 - Labs Result Diagrams: 01/08/18 04:30 01/08/18 04:30 Labs: Laboratory Results - last 24 hr 01/07/18 01/07/18 01/07/18 10:28 10:28 10:28 WBC 12.2 H RBC 4.06 L Hgb 12.4 Hct 37.9 MCV 93.4 MCH 30.5 MCHC 32.6 L RDW 13.2 Plt Count 370 MPV 7.3 Neut % (Auto) 80.5 H Lymph % (Auto) 9.4 L [place] % (Auto) 8.0 Eos % (Auto) 1.8 Baso % (Auto) 0.3 Neut # (Auto) 9.8 H Lymph # (Auto) 1.1 [place] # (Auto) 1.0 H Eos # (Auto) 0.2 Baso # (Auto) 0.0 Neutrophils % (Manual) 76 H Lymphocytes % (Manual) 13 L Monocytes % (Manual) 11 H Platelet Estimate Normal Tear Drop Cells Slight Ovalocytes Slight ESR PT 14.1 H INR 1.2 APTT 26.1 Sodium 137 Potassium 4.0 Chloride 101 Carbon Dioxide 26 Anion Gap 14 BUN 11 Creatinine 0.8 Est GFR ( Amer) > 60 Est GFR (Non-Af Amer) > 60 Random Glucose 106 Calcium 9.1 Total Bilirubin 0.5 AST 46 ALT 26 Alkaline Phosphatase 56 C-Reactive Protein Total Protein 7.5 Albumin 3.6 Globulin 3.9 Albumin/Globulin Ratio 0.9 L Urine Color Urine Clarity Urine pH Ur Specific [place] Urine Protein Urine Glucose (UA) Urine Ketones Urine Blood Urine Nitrate Urine Bilirubin Urine Urobilinogen Ur Leukocyte Esterase Urine RBC (Auto) Urine Microscopic WBC Ur Squamous Epith Cells Urine Opiates Screen Urine Methadone Screen Ur Barbiturates Screen Ur Phencyclidine Scrn Ur Amphetamines Screen U Benzodiazepines Scrn U Oth Cocaine Metabols U Cannabinoids Screen HIV-1 Ab Rapid Screen 01/07/18 01/07/18 01/07/18 14:00 14:03 14:38 WBC RBC Hgb Hct MCV MCH MCHC RDW Plt Count MPV Neut % (Auto) Lymph % (Auto) [place] % (Auto) Eos % (Auto) Baso % (Auto) Neut # (Auto) Lymph # (Auto) [place] # (Auto) Eos # (Auto) Baso # (Auto) Neutrophils % (Manual) Lymphocytes % (Manual) Monocytes % (Manual) Platelet Estimate Tear Drop Cells Ovalocytes ESR 61 H PT INR APTT Sodium Potassium Chloride Carbon Dioxide Anion Gap BUN Creatinine Est GFR ( Amer) Est GFR (Non-Af Amer) Random Glucose Calcium Total Bilirubin AST ALT Alkaline Phosphatase C-Reactive Protein 58.40 H Total Protein Albumin Globulin Albumin/Globulin Ratio Urine Color [place] Urine Clarity Slighty-cloudy Urine pH 5.0 Ur Specific [place] 1.026 Urine Protein Negative Urine Glucose (UA) Neg Urine Ketones Trace Urine Blood Negative Urine Nitrate Negative Urine Bilirubin Negative Urine Urobilinogen 4.0 Ur Leukocyte Esterase Neg Urine RBC (Auto) 1 Urine Microscopic WBC 2 Ur Squamous Epith Cells 1 Urine Opiates Screen Urine Methadone Screen Ur Barbiturates Screen Ur Phencyclidine Scrn Ur Amphetamines Screen U Benzodiazepines Scrn U Oth Cocaine Metabols U Cannabinoids Screen HIV-1 Ab Rapid Screen 01/07/18 01/07/18 01/08/18 14:38 15:53 04:30 WBC 10.2 RBC 4.10 L Hgb 12.8 Hct 38.2 MCV 93.2 MCH 31.2 H MCHC 33.5 RDW 12.9 Plt Count 412 H MPV Neut % (Auto) Lymph % (Auto) [place] % (Auto) Eos % (Auto) Baso % (Auto) Neut # (Auto) Lymph # (Auto) [place] # (Auto) Eos # (Auto) Baso # (Auto) Neutrophils % (Manual) Lymphocytes % (Manual) Monocytes % (Manual) Platelet Estimate Tear Drop Cells Ovalocytes ESR PT INR APTT Sodium Potassium Chloride Carbon Dioxide Anion Gap BUN Creatinine Est GFR ( Amer) Est GFR (Non-Af Amer) Random Glucose Calcium Total Bilirubin AST ALT Alkaline Phosphatase C-Reactive Protein Total Protein Albumin Globulin Albumin/Globulin Ratio Urine Color Urine Clarity Urine pH Ur Specific [place] Urine Protein Urine Glucose (UA) Urine Ketones Urine Blood Urine Nitrate Urine Bilirubin Urine Urobilinogen Ur Leukocyte Esterase Urine RBC (Auto) Urine Microscopic WBC Ur Squamous Epith Cells Urine Opiates Screen Positive H Urine Methadone Screen Negative Ur Barbiturates Screen Negative Ur Phencyclidine Scrn Negative Ur Amphetamines Screen Negative U Benzodiazepines Scrn Positive U Oth Cocaine Metabols Negative U Cannabinoids Screen Positive H HIV-1 Ab Rapid Screen Non reactive 01/08/18 04:30 WBC RBC Hgb Hct MCV MCH MCHC RDW Plt Count MPV Neut % (Auto) Lymph % (Auto) [place] % (Auto) Eos % (Auto) Baso % (Auto) Neut # (Auto) Lymph # (Auto) [place] # (Auto) Eos # (Auto) Baso # (Auto) Neutrophils % (Manual) Lymphocytes % (Manual) Monocytes % (Manual) Platelet Estimate Tear Drop Cells Ovalocytes ESR PT INR APTT Sodium 136 Potassium 4.6 Chloride 101 Carbon Dioxide 27 Anion Gap 13 BUN 14 Creatinine 0.8 Est GFR ( Amer) > 60 Est GFR (Non-Af Amer) > 60 Random Glucose 142 H Calcium 9.2 Total Bilirubin AST ALT Alkaline Phosphatase C-Reactive Protein Total Protein Albumin Globulin Albumin/Globulin Ratio Urine Color Urine Clarity Urine pH Ur Specific [place] Urine Protein Urine Glucose (UA) Urine Ketones Urine Blood Urine Nitrate Urine Bilirubin Urine Urobilinogen Ur Leukocyte Esterase Urine RBC (Auto) Urine Microscopic WBC Ur Squamous Epith Cells Urine Opiates Screen Urine Methadone Screen Ur Barbiturates Screen Ur Phencyclidine Scrn Ur Amphetamines Screen U Benzodiazepines Scrn U Oth Cocaine Metabols U Cannabinoids Screen HIV-1 Ab Rapid Screen Assessment & Plan - Assessment and Plan (Free Text) Assessment: EPIODURAL ABSCESS DISCITIS Plan: FOR NEUROSURGICAL INTERVENTION IV ANTIBIOTICS - Date & Time Date: 01/08/18 Time: 09:34
--- NOTE | 2018-01-08 10:35 | CP.PCM.CON ---
History of Present Illness - History of Present Illness History of Present Illness: 32 yo male admitted with 1-2 wk hx of back pain recently progressing to leg weakness and incontinence of bowel/bladder Admitted to ICU with dicitis/ epidural abscess C4-C7 Going to OR today for abscess drainage / decompression empiric IV antibiotics on board PMH- back pain SH + smoker IVDA FH N/C NKDA Review of Systems - Review of Systems All systems: reviewed and no additional remarkable complaints except - Constitutional Constitutional: As Per HPI. absent: Chills, Fever - EENT Eyes: absent: As Per HPI, Blind Spots, Blurred Vision, Change in Vision, Decreased Night Vision, Diplopia, Discharge, Dry Eye, Exophthalmos, Floaters, Irritation, Itchy Eyes, Loss of Peripheral Vision, Pain, Photophobia, Requires Corrective Lenses, Sees Flashes, Spots in Vision, Tunnel Vision, Other Visual Disturbances, Loss of Vision, Other Ears: absent: As Per HPI, Decreased Hearing, Ear Discharge, Ear Pain, Tinnitus, Abnormal Hearing, Disequilibrium, Dizziness, Other Nose/Mouth/Throat: absent: As Per HPI, Epistaxis, Nasal Congestion, Nasal Discharge, Nasal Obstruction, Nasal Trauma, Nose Pain, Post Nasal Drip, Sinus Pain, Sinus Pressure, Bleeding Gums, Change in Voice, Dental Pain, Dry Mouth, Dysphagia, Halitosis, Hoarsness, Lip Swelling, Mouth Lesions, Mouth Pain, Odynophagia, Sore Throat, Throat Swelling, Tongue Swelling, Facial Pain, Neck Pain, Neck Mass, Other - Cardiovascular Cardiovascular: absent: As Per HPI, Acrocyanosis, Chest Pain, Chest Pain at Rest, Chest Pain with Activity, Claudication, Diaphoresis, Dyspnea, Dyspnea on Exertion, Edema, Irregular Heart Rhythm, Pain Radiating to Arm/Neck/Jaw, Leg Edema, Leg Ulcers, Lightheadedness, Orthopnea, Palpitations, Paroxysmal Noctu rnal Dyspnea, Pedal Edema, Radiating Pain, Rapid Heart Rate, Slow Heart Rate, Syncope, Other - Respiratory Respiratory: absent: As Per HPI, Cough, Dyspnea, Hemoptysis, Dyspnea on Exertion, Wheezing, Snoring, Stridor, Pain on Inspiration, Chest Congestion, Excessive Mucous Production, Change in Mucous Color, Pain with Coughing, Other - Gastrointestinal Gastrointestinal: absent: As Per HPI, Abdominal Pain, Belching, Bloating, Change in Bowel Habits, Change in Stool Character, Coffee Ground Emesis, Constipation, Cramping, Diarrhea, Dyspepsia, Dysphagia, Early Satiety, Excessive Flatus, Fecal Incontinence, Heartburn, Hematemesis, Hematochezia, Loose Stools, Melena, Nausea, Odynophagia, Temesmus, Vomiting, Other - Genitourinary Genitourinary: absent: As Per HPI, Change in Urinary Stream, Difficulty Urinating, Dysuria, Flank Pain, Hematuria, Pyuria, Nocturia, Urinary Incontine nce, Urinary Frequency, Urinary Hesitance, Urinary Urgency, Voiding Freq/Small Amts, Freq UTI, Hx Renal/Bladder Calculi, Hx /Renal Surgery, Bladder Distension, Other - Musculoskeletal Musculoskeletal: As Per HPI - Integumentary Integumentary: As Per HPI - Neurological Neurological: As Per HPI - Psychiatric Psychiatric: absent: As Per HPI, Abnormal Sleep Pattern, Anhedonia, Anxiety, Auditory Hallucinations, Behavioral Changes, Change in Appetite, Change in Libido, Confusion, Depression, Difficulty Concentrating, Hallucinations, Homicidal Ideation, Hopelessness, Irritability, Memory Loss, Mood Swings, Panic Attacks, Paranoia, Suicidal Ideation, Visual Hallucinations, Tactile Hallucinations, Other - Endocrine Endocrine: absent: As Per HPI, Change in Body Appearance, Change in Libido, Cold Intolorance, Deepening of Voice, Excessive Sweating, Fatigue, Flushing, Heat Intolorance, Increase in Ring/Shoe/Hat Size, Palpitations, Polydipsia, Polyphagia, Polyuria, Other - Hematologic/Lymphatic Hematologic: absent: As Per HPI, Easy Bleeding, Easy Bruising, Lymphadenopathy, Other Past Patient History - Past Medical History & Family History Past Medical History?: Yes - Past Social History Smoking Status: Heavy Smoker > 10 Cigarettes Daily - CARDIAC Hx Cardiac Disorders: No - PULMONARY Hx Respiratory Disorders: No - MUSCULOSKELETAL/RHEUMATOLOGICAL Hx Falls: Yes - PSYCHIATRIC Hx Substance Use: No - SURGICAL HISTORY Hx Surgeries: Yes Other/Comment: hernia surgery - ANESTHESIA Hx Anesthesia: Yes Hx Anesthesia Reactions: No Hx Malignant Hyperthermia: No Has any member of the family had a problem w/ anesthesia?: No Meds Allergies/Adverse Reactions: Allergies Allergy/AdvReac Type Severity Reaction Status Date / Time No Known Allergies Allergy Verified 01/01/18 16:54 - Medications Medications: Current Medications Dexamethasone (Decadron Inj) 4 mg IVP Q6 DEMI Last Admin: 01/08/18 09:10 Dose: 4 mg Potassium Chloride/Dextrose/Sod Cl (Potassium Chl 20 Meq In D5-1/2ns) 1,000 mls @ 70 mls/hr IV .[id number] DEMI Stop: 01/08/18 19:06 Last Admin: 01/07/18 21:04 Dose: 70 mls/hr Cefepime HCl 2 gm/ Sodium (Chloride) 100 mls @ 100 mls/hr IVPB Q8 DEMI; Protocol Last Admin: 01/08/18 08:15 Dose: 100 mls/hr Vancomycin HCl 1 gm/ Sodium (Chloride) 250 mls @ 125 mls/hr IVPB Q12@0100,1300 DEMI; Protocol Last Admin: 01/08/18 00:42 Dose: 125 mls/hr Physical Exam - Constitutional Appears: Non-toxic, No Acute Distress - Head Exam Head Exam: ATRAUMATIC, NORMAL INSPECTION, NORMOCEPHALIC - Eye Exam Eye Exam: EOMI, PERRL. absent: Scleral icterus - ENT Exam ENT Exam: Mucous Membranes Dry - Neck Exam Neck exam: Negative for: Lymphadenopathy - Respiratory Exam Respiratory Exam: Decreased Breath Sounds, Clear to Auscultation Bilateral - Cardiovascular Exam Cardiovascular Exam: REGULAR RHYTHM, +S1, +S2 - GI/Abdominal Exam GI & Abdominal Exam: Diminished Bowel Sounds, Soft. absent: Tenderness - Rectal Exam Rectal Exam: Deferred - Exam Exam: NORMAL INSPECTION - Extremities Exam Extremities exam: Positive for: pedal pulses present. Negative for: calf tenderness, pedal edema, tenderness - Back Exam Back exam: absent: CVA tenderness (L), CVA tenderness (R), paraspinal tenderness - Neurological Exam Neurological exam: Alert, CN II-XII Intact, Oriented x3 Additional comments: weakness both lower extremities 1-2/5 with diminished sensation moves upper extrem 4/5 - Psychiatric Exam Psychiatric exam: Depressed - Skin Skin Exam: Dry Results - Vital Signs Recent Vital Signs: Last Vital Signs Temp 98.2 F 01/08/18 07:52 Pulse 51 L 01/08/18 09:58 Resp 22 01/08/18 09:58 BP 110/38 L 01/08/18 09:58 Pulse Ox 96 01/08/18 09:58 - Labs Result Diagrams: 01/08/18 04:30 01/08/18 04:30 Labs: Laboratory Results - last 24 hr 01/07/18 01/07/18 01/07/18 10:28 10:28 10:28 WBC 12.2 H RBC 4.06 L Hgb 12.4 Hct 37.9 MCV 93.4 MCH 30.5 MCHC 32.6 L RDW 13.2 Plt Count 370 MPV 7.3 Neut % (Auto) 80.5 H Lymph % (Auto) 9.4 L [place] % (Auto) 8.0 Eos % (Auto) 1.8 Baso % (Auto) 0.3 Neut # (Auto) 9.8 H Lymph # (Auto) 1.1 [place] # (Auto) 1.0 H Eos # (Auto) 0.2 Baso # (Auto) 0.0 Neutrophils % (Manual) 76 H Lymphocytes % (Manual) 13 L Monocytes % (Manual) 11 H Platelet Estimate Normal Tear Drop Cells Slight Ovalocytes Slight ESR PT 14.1 H INR 1.2 APTT 26.1 Sodium 137 Potassium 4.0 Chloride 101 Carbon Dioxide 26 Anion Gap 14 BUN 11 Creatinine 0.8 Est GFR ( Amer) > 60 Est GFR (Non-Af Amer) > 60 Random Glucose 106 Calcium 9.1 Total Bilirubin 0.5 AST 46 ALT 26 Alkaline Phosphatase 56 C-Reactive Protein Total Protein 7.5 Albumin 3.6 Globulin 3.9 Albumin/Globulin Ratio 0.9 L Urine Color Urine Clarity Urine pH Ur Specific [place] Urine Protein Urine Glucose (UA) Urine Ketones Urine Blood Urine Nitrate Urine Bilirubin Urine Urobilinogen Ur Leukocyte Esterase Urine RBC (Auto) Urine Microscopic WBC Ur Squamous Epith Cells Urine Opiates Screen Urine Methadone Screen Ur Barbiturates Screen Ur Phencyclidine Scrn Ur Amphetamines Screen U Benzodiazepines Scrn U Oth Cocaine Metabols U Cannabinoids Screen HIV-1 Ab Rapid Screen 01/07/18 01/07/18 01/07/18 14:00 14:03 14:38 WBC RBC Hgb Hct MCV MCH MCHC RDW Plt Count MPV Neut % (Auto) Lymph % (Auto) [place] % (Auto) Eos % (Auto) Baso % (Auto) Neut # (Auto) Lymph # (Auto) [place] # (Auto) Eos # (Auto) Baso # (Auto) Neutrophils % (Manual) Lymphocytes % (Manual) Monocytes % (Manual) Platelet Estimate Tear Drop Cells Ovalocytes ESR 61 H PT INR APTT Sodium Potassium Chloride Carbon Dioxide Anion Gap BUN Creatinine Est GFR ( Amer) Est GFR (Non-Af Amer) Random Glucose Calcium Total Bilirubin AST ALT Alkaline Phosphatase C-Reactive Protein 58.40 H Total Protein Albumin Globulin Albumin/Globulin Ratio Urine Color Eileen Urine Clarity Slighty-cloudy Urine pH 5.0 Ur Specific [place] 1.026 Urine Protein Negative Urine Glucose (UA) Neg Urine Ketones Trace Urine Blood Negative Urine Nitrate Negative Urine Bilirubin Negative Urine Urobilinogen 4.0 Ur Leukocyte Esterase Neg Urine RBC (Auto) 1 Urine Microscopic WBC 2 Ur Squamous Epith Cells 1 Urine Opiates Screen Urine Methadone Screen Ur Barbiturates Screen Ur Phencyclidine Scrn Ur Amphetamines Screen U Benzodiazepines Scrn U Oth Cocaine Metabols U Cannabinoids Screen HIV-1 Ab Rapid Screen 01/07/18 01/07/18 01/08/18 14:38 15:53 04:30 WBC 10.2 RBC 4.10 L Hgb 12.8 Hct 38.2 MCV 93.2 MCH 31.2 H MCHC 33.5 RDW 12.9 Plt Count 412 H MPV Neut % (Auto) Lymph % (Auto) [place] % (Auto) Eos % (Auto) Baso % (Auto) Neut # (Auto) Lymph # (Auto) [place] # (Auto) Eos # (Auto) Baso # (Auto) Neutrophils % (Manual) Lymphocytes % (Manual) Monocytes % (Manual) Platelet Estimate Tear Drop Cells Ovalocytes ESR PT INR APTT Sodium Potassium Chloride Carbon Dioxide Anion Gap BUN Creatinine Est GFR ( Amer) Est GFR (Non-Af Amer) Random Glucose Calcium Total Bilirubin AST ALT Alkaline Phosphatase C-Reactive Protein Total Protein Albumin Globulin Albumin/Globulin Ratio Urine Color Urine Clarity Urine pH Ur Specific [place] Urine Protein Urine Glucose (UA) Urine Ketones Urine Blood Urine Nitrate Urine Bilirubin Urine Urobilinogen Ur Leukocyte Esterase Urine RBC (Auto) Urine Microscopic WBC Ur Squamous Epith Cells Urine Opiates Screen Positive H Urine Methadone Screen Negative Ur Barbiturates Screen Negative Ur Phencyclidine Scrn Negative Ur Amphetamines Screen Negative U Benzodiazepines Scrn Positive U Oth Cocaine Metabols Negative U Cannabinoids Screen Positive H HIV-1 Ab Rapid Screen Non reactive 01/08/18 04:30 WBC RBC Hgb Hct MCV MCH MCHC RDW Plt Count MPV Neut % (Auto) Lymph % (Auto) [place] % (Auto) Eos % (Auto) Baso % (Auto) Neut # (Auto) Lymph # (Auto) [place] # (Auto) Eos # (Auto) Baso # (Auto) Neutrophils % (Manual) Lymphocytes % (Manual) Monocytes % (Manual) Platelet Estimate Tear Drop Cells Ovalocytes ESR PT INR APTT Sodium 136 Potassium 4.6 Chloride 101 Carbon Dioxide 27 Anion Gap 13 BUN 14 Creatinine 0.8 Est GFR ( Amer) > 60 Est GFR (Non-Af Amer) > 60 Random Glucose 142 H Calcium 9.2 Total Bilirubin AST ALT Alkaline Phosphatase C-Reactive Protein Total Protein Albumin Globulin Albumin/Globulin Ratio Urine Color Urine Clarity Urine pH Ur Specific [place] Urine Protein Urine Glucose (UA) Urine Ketones Urine Blood Urine Nitrate Urine Bilirubin Urine Urobilinogen Ur Leukocyte Esterase Urine RBC (Auto) Urine Microscopic WBC Ur Squamous Epith Cells Urine Opiates Screen Urine Methadone Screen Ur Barbiturates Screen Ur Phencyclidine Scrn Ur Amphetamines Screen U Benzodiazepines Scrn U Oth Cocaine Metabols U Cannabinoids Screen HIV-1 Ab Rapid Screen Assessment & Plan (1) Discitis of cervical region Status: Acute (2) Epidural abscess Status: Acute (3) Osteomyelitis of cervical spine Status: Acute - Assessment and Plan (Free Text) Assessment: 32 yo male admitted with 1-2 wk hx of back pain recently progressing to leg weakness and incontinence of bowel/bladder Admitted to ICU with dicitis/ epidural abscess C4-C7 Going to OR today for abscess drainage / decompression OR cultures to be sent consider echo / WALT when stable neurologically cont IV antibiotics / neuro eval PT /OT prognosis guarded from outset
[2018-01-08] MEDS: Potassium Ch 20mEq in D5-1/2NS 1,000 ML IV SCH (10:49)
[2018-01-08] MEDS ORDERED: Bupivacaine 0.5% Inj(30mL) ONE (10:56)
[2018-01-08] MEDS ORDERED: Absorbable Gelatin Sponge Size 12-7 ONE (10:56)
[2018-01-08] MEDS ORDERED: Lidocaine 1% w Epi 1:100,000 Inj ONE (10:56)
[2018-01-08] MEDS ORDERED: MethylPREDNISolone Depo 40 mg/ml Inj ONE (10:56)
[2018-01-08] MEDS ORDERED: Succinylcholine 200 mg/10 ml Inj IV ONE (11:03)
[2018-01-08] MEDS ORDERED: Lidocaine 2% Jelly (5 ml) TOP ONE (11:03)
[2018-01-08] MEDS ORDERED: Propofol 10 mg/ml Inj (20 ML) ONE ×3 (11:03→12:37)
[2018-01-08] MEDS ORDERED: Liquid Adhesive TOP ONE (11:09)
[2018-01-08] MEDS ORDERED: Bacitracin Ointment 30 GM TUBE ONE (11:09)
[2018-01-08] MEDS ORDERED: Remifentanil 2 MG PDS IV ONE ×2 (11:42→13:03)
[2018-01-08] MEDS ORDERED: Ketamine 50 mg/ml Inj (10 ml) ONE (11:45)
[2018-01-08] MEDS ORDERED: Midazolam 2 MG/2 ML VIAL ONE (11:46)
[2018-01-08] MEDS ORDERED: Lactated Ringer's 1,000 ML IV ONE (11:48)
[2018-01-08] MEDS ORDERED: Bacitracin OINT 15GM TOP ONE (12:30)
[2018-01-08] MEDS ORDERED: Vancomycin 1 g Inj IVPB ONE (12:30)
[2018-01-08] MEDS ORDERED: Lidocaine/Epi 1% 1:100000 20 ML IJ ONE (12:35)
[2018-01-08] MEDS ORDERED: HEMOSTATIC MATRIX 10 ML DIS.NEEDLE TOP ONE (12:40)
[2018-01-08] MEDS ORDERED: APROTININ/FIBRINOGEN(TISSEEL) ONE (12:53)
[2018-01-08] MEDS ORDERED: Desflurane Inhalation Anesthetic Liq (240 ml) ONE (13:30)
[2018-01-08] MEDS: Lactated Ringer's 1,000 ML IV SCH (14:10)
[2018-01-08] MEDS ORDERED: HYDROmorphone 0.5 mg/0.5 ml ISec IVP PRN (14:17)
[2018-01-08] MEDS ORDERED: Naloxone 0.4 mg/ml Inj (Adult) IVP PRN (14:19)
--- NOTE | 2018-01-08 15:37 | CP.CCUPN ---
CCU Subjective - Physician Review Events Since Last Encounter (Free Text): 01/08/18 15:38 The patient was Seen and examined by me at the bedside Medical records reviewed and Management issues were discussed and formulated with the house staff. Events reviewed Mr Cornelius is a 32 Years old active smoker Male with no significant Past medical history Who was brought to the Emergency department by EMS with complaint of Bilateral lower extremities Weakness, numbness, weakness in both hands and unable to ambulate for the past 4 days. Patient also reports urinary incontinence and urge to defecate but not being able to, last bowel movement was a week ago. Also admits fall at home Patient was seen in the ER week ago for neck pain, he was given a shot, NSAIDs and muscle relaxant. Pt placed on a cervical collar and getting and underwent MRI of the spine. In the ER, he underwent MRI revealed C6-7 intervertebral disc fluid with edema at C6 and C7 vertebral bodies related to the mid to posterior endplate distribution suspicious for discitis osteomyelitis. Epidural fluid is identified more posteriorly than anteriorly from at least C4- T1 levels with cord compressed at C6 and C7. Patient was evaluated by neurology, ID and neurosurgery Pt was started on IV Vanco and Cefapime Patient underwent Neurosurgerical drainage procedure and just returned back to ICU Procedure done under General Anesthesia and was uneventful Minimal EBL Awake, denies any chest pain or SOB Comfortable, NAD Pt AAO x3. Afebrile, NSR on the monitor Has DELIVERER FOOD for pain On Exam, there is no symptoms or signs of raised intracranial pressure CCU Objective - Vital Signs / Intake & Output Vital Signs (Last 4 hours): Vital Signs Temp Pulse Resp BP Pulse Ox 01/08/18 14:55 97.6 F 62 19 125/67 100 01/08/18 14:40 97.3 F L 65 18 125/73 100 01/08/18 14:25 97 F L 70 18 126/77 100 01/08/18 14:10 96.8 F L 88 16 134/78 100 Intake and Output (Last 8hrs): Intake & Output 01/08/18 01/08/18 01/08/18 06:59 14:59 22:59 Intake Total 770 1310 Balance 770 1310 Weight 165 lb Intake: IV 420 1210 Intake, Piggyback 350 100 - Physical Exam Head: Positive for: Atraumatic, Normocephalic. Negative for: Tenderness, Contusion, Swelling Pupils: Positive for: PERRL. Negative for: Sluggish, Non-Reactive, Pinpoint Extroacular Muscles: Positive for: EOMI Conjunctiva: Positive for: Normal. Negative for: Injected, Icteric Neck: Positive for: Meningeal Signs, MIDLINE TENDERNESS, Paraspinal Tenderness, Trachea Midline. Negative for: Bruit Respiratory/Chest: Positive for: Clear to Auscultation, Good Air Exchange. Negative for: Respiratory Distress, Accessory Muscle Use, Wheezes, Decreased Breath Sounds, Rales, Retracting Cardiovascular: Positive for: Regular Rate and Rhythm, Normal S1, S2, Peripheal Pulses Present. Negative for: Murmurs Abdomen: Positive for: Normal Bowel Sounds. Negative for: Tenderness, Distention, Peritoneal Signs Back: Negative for: CVA Tenderness, Midline Tenderness Upper Extremity: Positive for: Normal Inspection, NORMAL PULSES, Other (Decreased union organizer strength, B/L hands Weakness ). Negative for: Cyanosis, Edema, Tenderness, Swelling Lower Extremity: Positive for: Normal Inspection, NORMAL PULSES, Other (Decreased sensations and power to bilateral lower extremities). Negative for: Edema, CALF TENDERNESS, Cyanosis Neurological: Positive for: GCS=15, CN II-XII Intact, Speech Normal, Memory Normal, Other (Decreased union organizer strength, B/L hands Weakness ). Negative for: Motor Func Grossly Intact (Muscle weakness to bilateral lower extremities), Normal Sensory Function (Decreased sensations and power to bilateral lower extremities), Norm Deep Tendon Reflexes, Gait Normal Psychiatric: Positive for: Alert, Oriented x 3, Normal Insight, Normal Concentration, Normal Affect, Normal Mood. Negative for: Anxious, Agitated - Medications Active Medications: Active Medications Generic Name Dose Route Start Last Admin Trade Name Freq PRN Reason Stop Dose Admin Dexamethasone 4 mg 01/07/18 22:00 01/08/18 09:10 Decadron Inj IVP 4 mg Q6 DEMI Administration Hydromorphone HCl 0.5 mg 01/08/18 14:17 Dilaudid IVP 01/08/18 16:18 Q5M PRN Pain, moderate (4-7) Hydromorphone HCl 0 mg 01/08/18 14:19 01/08/18 14:46 Dilaudid 0.2 Mg/Ml Log Data Technician IV 0 mg PRN PRN Administration Pain, moderate (4-7) Protocol Potassium Chloride/Dextrose/Sod Cl 1,000 mls @ 70 mls/hr 01/07/18 19:15 01/08/18 10:49 Potassium Chl 20 Meq In D5-1/2ns IV 01/08/18 19:06 70 mls/hr .[id number] DEMI Administration Cefepime HCl 2 gm/ Sodium 100 mls @ 100 mls/hr 01/08/18 01:00 01/08/18 08:15 Chloride IVPB 100 mls/hr Q8 DEMI Administration Protocol Vancomycin HCl 1 gm/ Sodium 250 mls @ 125 mls/hr 01/08/18 01:00 01/08/18 00:42 Chloride IVPB 125 mls/hr Q12@0100,1300 DEMI Administration Protocol Lactated Ringer's 1,000 mls @ 100 mls/hr 01/08/18 14:30 01/08/18 14:10 Lactated Ringer's IV 0 mls .Q10H DEMI Administration Naloxone HCl 0.1 mg 01/08/18 14:19 Narcan IVP Q2M PRN Shortness of Breath Ondansetron HCl 4 mg 01/08/18 14:17 Zofran Inj IVP 01/08/18 16:18 ONCE PRN Nausea/Vomiting - Patient Studies Lab Studies: Microbiology Studies 01/07/18 14:00 Blood Culture - Preliminary Blood NO GROWTH AFTER 24 HOURS 01/07/18 14:00 Blood Culture - Preliminary Blood NO GROWTH AFTER 24 HOURS Lab Studies 01/08/18 01/08/18 01/07/18 Range/Units 04:30 04:30 15:53 WBC 10.2 (4.8-10.8) K/uL RBC 4.10 L (4.40-5.90) Mil/uL Hgb 12.8 (12.0-18.0) g/dL Hct 38.2 (35.0-51.0) % MCV 93.2 (80.0-94.0) fl MCH 31.2 H (27.0-31.0) pg MCHC 33.5 (33.0-37.0) g/dL RDW 12.9 (11.5-14.5) % Plt Count 412 H (130-400) K/uL Sodium 136 (132-148) mmol/l Potassium 4.6 (3.6-5.0) MMOL/L Chloride 101 (98-107) mmol/L Carbon Dioxide 27 (22-30) mmol/L Anion Gap 13 (10-20) BUN 14 (9-20) mg/dl Creatinine 0.8 (0.8-1.5) mg/dl Est GFR ( Amer) > 60 Est GFR (Non-Af Amer) > 60 Random Glucose 142 H (75-110) mg/dL Calcium 9.2 (8.4-10.2) mg/dL C-Reactive Protein (0.0-9.9) mg/L HIV-1 Ab Rapid Screen Non reactive (NON REAC) 01/07/18 Range/Units 14:03 WBC (4.8-10.8) K/uL RBC (4.40-5.90) Mil/uL Hgb (12.0-18.0) g/dL Hct (35.0-51.0) % MCV (80.0-94.0) fl MCH (27.0-31.0) pg MCHC (33.0-37.0) g/dL RDW (11.5-14.5) % Plt Count (130-400) K/uL Sodium (132-148) mmol/l Potassium (3.6-5.0) MMOL/L Chloride (98-107) mmol/L Carbon Dioxide (22-30) mmol/L Anion Gap (10-20) BUN (9-20) mg/dl Creatinine (0.8-1.5) mg/dl Est GFR ( Amer) Est GFR (Non-Af Amer) Random Glucose (75-110) mg/dL Calcium (8.4-10.2) mg/dL C-Reactive Protein 58.40 H (0.0-9.9) mg/L HIV-1 Ab Rapid Screen (NON REAC) Laboratory Results - last 24 hr 01/07/18 01/07/18 01/08/18 14:03 15:53 04:30 WBC 10.2 RBC 4.10 L Hgb 12.8 Hct 38.2 MCV 93.2 MCH 31.2 H MCHC 33.5 RDW 12.9 Plt Count 412 H Sodium Potassium Chloride Carbon Dioxide Anion Gap BUN Creatinine Est GFR ( Amer) Est GFR (Non-Af Amer) Random Glucose Calcium C-Reactive Protein 58.40 H HIV-1 Ab Rapid Screen Non reactive 01/08/18 04:30 WBC RBC Hgb Hct MCV MCH MCHC RDW Plt Count Sodium 136 Potassium 4.6 Chloride 101 Carbon Dioxide 27 Anion Gap 13 BUN 14 Creatinine 0.8 Est GFR ( Amer) > 60 Est GFR (Non-Af Amer) > 60 Random Glucose 142 H Calcium 9.2 C-Reactive Protein HIV-1 Ab Rapid Screen Critical Care Progress Note - Nutrition Nutrition: Nutrition Category Date Time Status NPO Diet [DIET] Diets 01/08/18 Breakfast Active Assessment/Plan (1) Discitis of cervical region Current Visit: Yes Status: Acute (2) Epidural abscess Current Visit: Yes Status: Acute (3) Osteomyelitis of cervical spine Current Visit: Yes Status: Acute (4) Back pain Current Visit: No Status: Acute - Assessment and Plan (Free Text) Assessment: Neurosurgerical drainage procedure for dicitis/ epidural abscess C4-C7 ICU care for hemodynamic and for frequent neuro checks IV Hydration NPO until fully awake and can pass the nurse bedside swallow evaluation. Pain control with MORPHIN DELIVERER FOOD Continue steroids Cefepime 2 gm IVPB Q8 DEMI Vancomycin HCl 1 gm IVPB Q8 ID/Neurology/Neurosurgery Consult appreciated Fall/aspiration /Seizures precautions GI/DVT PPX with SCDs PT/OT Discussed with the Patient in details his diagnosis, treatment plans and alternative.
[2018-01-09] MEDS: Cefepime 2 GM in Sodium Chloride 0.9% 100 ML IVPB SCH ×3 (01:10→16:00)
[2018-01-09] MEDS: Lactated Ringer's 1,000 ML IV SCH ×2 (02:10→10:38)
[2018-01-09] MEDS: Dexamethasone 4 mg/1 ml IVP SCH ×4 (03:45→21:06)
[2018-01-09 05:20] LABS: BASO % 0.1 % (0.0-2.0); HEMOGLOBIN 11.7 g/dL (12.0-18.0); LYMPH # 0.6 K/uL (1.0-4.3); LYMPH % 3.2 % (20.0-40.0); MEAN CELL VOLUME 93.5 fl (80.0-94.0); MEAN CORPUSCULAR HEMOGLOBIN 30.1 pg (27.0-31.0); MEAN CORPUSCULAR HGB CONC 32.2 g/dL (33.0-37.0); MEAN PLATELET VOLUME 7.8 fl (7.2-11.7); MONO # 1.1 K/uL (0.0-0.8); NEUT % 90.7 % (50.0-75.0); PLATELET COUNT 388 K/uL (130-400); RBC 3.89 Mil/uL (4.40-5.90); RED CELL DISTRIBUTION WIDTH 13.2 % (11.5-14.5); WHITE BLOOD COUNT 17.6 K/uL (4.8-10.8)
[2018-01-09 05:39] LABS: ALB/GLOB RATIO 0.8 (1.0-2.1); ALT/SGPT 36 U/L (21-72); AST/SGOT 46 U/L (17-59); BLOOD UREA NITROGEN 16 mg/dl (9-20); CALCIUM 8.8 mg/dL (8.4-10.2); GFR NON-AFRICAN AMERICAN > 60
--- NOTE | 2018-01-09 08:32 | OP ---
PROCEDURE DATE: 01/08/2018 PREOPERATIVE DIAGNOSIS: Cervical epidural abscess. POSTOPERATIVE DIAGNOSIS: Cervical epidural abscess. PROCEDURES: C4 through T1 laminectomy, debridement of epidural abscess. SURGEON: Derrell Denny MD BEAM MACHINE OPERATOR: Daniel Coreas MD ANESTHESIA: General endotracheal. ESTIMATED BLOOD LOSS: 50 mL. COMPLICATIONS: None. JUSTIFICATION: The patient unfortunately developed severe leg weakness, bowel and bladder incontinence 5 days prior he only presented himself to the hospital after 4 days of being unable to walk, urinate, etc. He was found to have a diskitis at C6-C7 with a posterior epidural abscess, predominantly from C5 through C7. The patient was offered the possibility of decompression by a posterior laminectomy debridement with the understanding that this would really not benefit him as far as his lower extremities or bowel or bladder function go but hopefully preserved his upper extremity function and to treat the nature of the procedure, the rationale behind it, potential risks, complications, and alternatives were discussed with the patient at length. All his questions were answered. He fully understood all of the above and elected to proceed as offered. DESCRIPTION OF PROCEDURE: The patient was taken to the operating room. He was intubated, anesthetized, hooked up to the neurophysiological monitoring, he was placed in a Jean head fixator. He was turned into a prone position on chest bolsters on the OR table and placed in a prone position with head fixated in neutral position. The entire cervical region was then scrubbed with acetone and scrub painted and draped in the usual sterile manner. Incision was localized with lateral fluoroscopy overlying the spinous processes at C4 through T1. Incision was made with 10-blade knife, carried down to the level of the fascia. The Bovie cautery was used to incise the fascia and then stripped the paraspinal muscles off the spinous processes or lamina of C4 through T1. Confirmatory x-ray was taken. The self-retaining retractors were placed. At this point, we selected our rongeurs to remove the spinous processes of C5, C6, and C7 as well as double down the bottom of C4 and top of C1. We then used a high speed drill to thin down the lamina. At this point, a 2 mm Kerrison rongeur was used to begin the laminectomy at the inferior margin of C7, this was taken through C7. I used a blunt nerve hook between the ligamentum flavum, which unroofed a rather fibrinous abscess like material. A laminectomy was then carried out through C6, C5, and the inferior C4, at which point we noticed that there was far more room between the lamina and dura. Similarly, the top of C1 was removed as well, but again noted to be relatively not compressed. At this point, I nerve hook directly into the middle of the abscess which was quite thick and adherent to the dura, but able to cut upon it. I removed several pieces of piecemeal, which were sent for pathology. This was done after a standard culture was taken. I was able to gently put it down the middle of fair amount of abscess of the posterior dura on both sides, thereby revealing normal dura. Lastly, at this point, we slightly widen our decompression which was done on both sides, but not to really violate much of the facet joints on either side. Lastly, we paid particular attention to the foramina on the left at C6-C7 and C7-T1, which is where we did have a little bit of weakness where we performed a foraminotomy with the Kerrison rongeurs. We used little bit amounts of antibiotic irrigation after which a layer of Gelfoam was placed in the posterior epidural space. Retractors were removed. The muscle was reapproximated using interrupted 0 Vicryl. The fascia was closed using a tight interrupted 0 Vicryl stitch. The wound was again irrigated with antibiotic solution. Subcutaneous was closed in two separate layers and interrupted inverted 2-0 Vicryl, and the skin was closed with marina. Bacitracin ointment and a self-securing dressing was placed. The patient was [place] J collar. He was disconnected from the table, carefully turned back in supine position on the bed. Warren head fixator was removed. The patient was aroused from the anesthesia, brought to recovery room in satisfactory condition. He was noted to be moving his upper extremities with excellent strength throughout as he did preop with no movement at all in lower extremities in the recovery room. All counts were correct. Neurophysiological monitoring which was only able to obtain motor and sensory responses in the upper extremities remained stable over the procedure. There were no complications. Derrell Denny MD [facility] # [id number]
--- NOTE | 2018-01-09 08:37 | CON ---
DATE: 01/08/2018 HISTORY OF PRESENT ILLNESS: This is a 32-year-old individual that apparently noticed left leg weakness, difficulty walking, already on Thanksgiving that is 4 days before, being seen in the [facility] ER. He states that he had been unable to walk since then. The next day, he developed urinary incontinence, and basically inability to move his leg. He has not had a bowel movement now for a week, and for a completely unclear reason, he has delayed it 4 days, but presenting himself to the emergency room where he was found to be incontinent and paraplegic. The patient is complaining of neck pain. He also notes a little bit of weakness in the fingers of his left hand, but otherwise, does not have upper extremity symptoms. The patient denies any IV drug use; however, his urine positive for opiates. He does admit to significant marijuana use. He also smokes tobacco. PAST MEDICAL HISTORY: Denies other medical history. PHYSICAL EXAMINATION: GENERAL: The patient has minimal twitches of his quads. MUSCULATURE: Cannot break gravity with anything in his lower extremities, states he has vague sensation, but it is quite inconsistent. His proprioception is quite well bilaterally. Right upper extremity is completely intact as is the left upper extremity but has some very mild questionable weakness in the interossei. LABORATORY DATA: MRI of the cervical spine documents a posterior epidural abscess, especially from the bottom of C4 through C7. There is significant posterior spinal cord compression. There is diskitis involving the C7, a little bit of anterior compression but that is relatively minimal compared to the posterior. IMPRESSION AND PLAN: I did have a long talk with the patient. I explained to him that after 4 days of not walking, his chances of recovery or his ordinary function is close to nil. However, I still as dictated posterior decompression by multilevel laminectomy to get him perhaps the best chance of preventing loss of function in the upper extremities. He indicated he want to think about it and discuss with his family. Overnight, he did study, wants to go ahead with the procedure and thus he will be brought to the operating room in the a.m. for the above. The nature of the procedure, the role of the chance of success, potential risks and complications were discussed with the family, and questions were answered. Derrell Denny MD
[2018-01-09 10:24] LABS: HYPOCHROMIC SLIGHT; LYMPHOCYTE 5 % (20-50); MONOCYTE 5 % (0-10); NEUTROPHIL 90 % (42-75); PLATELET ESTIMATE NORMAL (NORMAL); TOTAL CELLS COUNTED 100
--- NOTE | 2018-01-09 10:49 | CP.PCM.PN ---
Subjective - Date & Time of Evaluation Date of Evaluation: 01/09/18 Time of Evaluation: 10:51 - Subjective Subjective: S/P NEROSURGICAL INTERVENTION STILL UNABLE TO MOVE LOWER EXTREMITIES SOME MOVEMENT OF ARMS AWAKE AND ALERT PAIN CONTROLLED BY MS VSS Objective - Vital Signs/Intake and Output Vital Signs (last 24 hours): Temp Pulse Resp BP Pulse Ox 98.5 F 56 L 18 108/66 99 01/09/18 08:00 01/09/18 10:00 01/09/18 10:00 01/09/18 10:00 01/09/18 10:00 Intake and Output: 01/09/18 01/09/18 06:59 18:59 Intake Total 1550 760 Output Total 1300 Balance 250 760 - Medications Medications: Current Medications Dexamethasone (Decadron Inj) 4 mg IVP Q6 DEMI Last Admin: 01/09/18 09:16 Dose: 4 mg Docusate Sodium (Colace) 100 mg PO BID DEMI Last Admin: 01/09/18 08:14 Dose: 100 mg Hydromorphone HCl (Dilaudid 0.2 Mg/Ml Director Financial Planning) 0 mg IV PRN PRN; Protocol PRN Reason: Pain, moderate (4-7) Last Admin: 01/08/18 15:25 Dose: 6 mg Cefepime HCl 2 gm/ Sodium (Chloride) 100 mls @ 100 mls/hr IVPB Q8 DEMI; Protocol Last Admin: 01/09/18 08:15 Dose: 100 mls/hr Vancomycin HCl 1 gm/ Sodium (Chloride) 250 mls @ 125 mls/hr IVPB Q12@0100,1300 DEMI; Protocol Last Admin: 01/09/18 01:09 Dose: 125 mls/hr Lactated Ringer's (Lactated Ringer's) 1,000 mls @ 100 mls/hr IV .Q10H DEMI Last Admin: 01/09/18 10:38 Dose: 100 mls/hr Naloxone HCl (Narcan) 0.1 mg IVP Q2M PRN PRN Reason: Shortness of Breath - Labs Labs: 01/09/18 04:35 01/09/18 04:35 PT 14.1 Seconds (9.8-13.1) H 01/07/18 10:28 INR 1.2 01/07/18 10:28 APTT 26.1 Seconds (25.6-37.1) 01/07/18 10:28 - Constitutional Appears: No Acute Distress - Head Exam Head Exam: ATRAUMATIC, NORMAL INSPECTION, NORMOCEPHALIC - Eye Exam Eye Exam: EOMI, Normal appearance, PERRL Pupil Exam: NORMAL ACCOMODATION, PERRL - ENT Exam ENT Exam: Mucous Membranes Moist, Normal Exam - Neck Exam Neck Exam: Full ROM, Normal Inspection. absent: Lymphadenopathy - Respiratory Exam Respiratory Exam: Clear to Ausculation Bilateral, NORMAL BREATHING PATTERN - Cardiovascular Exam Cardiovascular Exam: REGULAR RHYTHM, +S1, +S2. absent: Murmur - GI/Abdominal Exam GI & Abdominal Exam: Soft, Normal Bowel Sounds. absent: Tenderness - Rectal Exam Rectal Exam: NORMAL INSPECTION - Extremities Exam Extremities Exam: Full ROM, Normal Capillary Refill, Normal Inspection. absent: Joint Swelling, Pedal Edema Additional comments: POOR RANGE OF MOTION OF LEGS - Back Exam Back Exam: NORMAL INSPECTION - Neurological Exam Neurological Exam: Alert, Awake, CN II-XII Intact, Oriented x3 - Psychiatric Exam Psychiatric exam: Normal Affect, Normal Mood - Skin Skin Exam: Dry, Intact, Normal Color, Warm Assessment and Plan - Assessment and Plan (Free Text) Assessment: DISCITIS EPIDUARAL ABSCESS PARAPLEGIA Plan: CONTINUE CURRENT RX PT/OT EVAL WILL NEED ACUTE REHAB
--- NOTE | 2018-01-09 12:21 | CP.PCM.PN ---
Subjective - Date & Time of Evaluation Date of Evaluation: 01/09/18 Time of Evaluation: 07:00 - Subjective Subjective: awake alert moving upper extremities lower extrem weak but lifting off bed Objective - Vital Signs/Intake and Output Vital Signs (last 24 hours): Temp Pulse Resp BP Pulse Ox 98 F 54 L 18 114/60 99 01/09/18 12:00 01/09/18 12:00 01/09/18 12:00 01/09/18 12:00 01/09/18 12:00 Intake and Output: 01/09/18 01/09/18 06:59 18:59 Intake Total 1550 1080 Output Total 1300 Balance 250 1080 - Medications Medications: Current Medications Dexamethasone (Decadron Inj) 4 mg IVP Q6 DEMI Last Admin: 01/09/18 09:16 Dose: 4 mg Docusate Sodium (Colace) 100 mg PO BID DEMI Last Admin: 01/09/18 08:14 Dose: 100 mg Hydromorphone HCl (Dilaudid 0.2 Mg/Ml Rubber Trimmer) 0 mg IV PRN PRN; Protocol PRN Reason: Pain, moderate (4-7) Last Admin: 01/08/18 15:25 Dose: 6 mg Cefepime HCl 2 gm/ Sodium (Chloride) 100 mls @ 100 mls/hr IVPB Q8 DEMI; Protocol Last Admin: 01/09/18 08:15 Dose: 100 mls/hr Vancomycin HCl 1 gm/ Sodium (Chloride) 250 mls @ 125 mls/hr IVPB Q12@0100,1300 DEMI; Protocol Last Admin: 01/09/18 12:02 Dose: 125 mls/hr Lactated Ringer's (Lactated Ringer's) 1,000 mls @ 100 mls/hr IV .Q10H DEMI Last Admin: 01/09/18 10:38 Dose: 100 mls/hr Naloxone HCl (Narcan) 0.1 mg IVP Q2M PRN PRN Reason: Shortness of Breath - Labs Labs: 01/09/18 04:35 01/09/18 04:35 PT 14.1 Seconds (9.8-13.1) H 01/07/18 10:28 INR 1.2 01/07/18 10:28 APTT 26.1 Seconds (25.6-37.1) 01/07/18 10:28 - Constitutional Appears: Non-toxic, Chronically Ill - Head Exam Head Exam: NORMOCEPHALIC - Eye Exam Eye Exam: absent: Scleral icterus - ENT Exam ENT Exam: Mucous Membranes Dry - Neck Exam Neck Exam: absent: Lymphadenopathy - Respiratory Exam Respiratory Exam: Decreased Breath Sounds - Cardiovascular Exam Cardiovascular Exam: REGULAR RHYTHM - GI/Abdominal Exam GI & Abdominal Exam: Distended, Soft - Rectal Exam Rectal Exam: Deferred - Back Exam Back Exam: absent: CVA tenderness (L), CVA tenderness (R) - Neurological Exam Neurological Exam: Alert, Awake, Oriented x3 Neuro motor strength exam: Left Upper Extremity: 4, Right Upper Extremity: 4, Left Lower Extremity: 2/1, Right Lower Extremity: 2/1 - Psychiatric Exam Psychiatric exam: Depressed - Skin Skin Exam: Dry Assessment and Plan (1) Discitis of cervical region Status: Acute (2) Epidural abscess Status: Acute (3) Osteomyelitis of cervical spine Status: Acute - Assessment and Plan (Free Text) Assessment: will repeat vanco level needs echo consider WALT when stable neurologically
--- NOTE | 2018-01-09 12:44 | CP.PCM.PN ---
Subjective - Date & Time of Evaluation Date of Evaluation: 01/09/18 Time of Evaluation: 12:40 - Subjective Subjective: SPINE - POD #1 Pt OOB in chair. [place]-J collar in place. States post-op pain not too bad. VSS. Afebrile. Moves both upper extremities actively. Neiro grossly intact. Remarkably, he is now actively moving both LE's! Has good quad strength bilat, able to lift each leg off the chair. Not much ant tib movement but does have EHL activity bilat. Plan: OK from our viewpoint for pt to be on Med/Surg floor. Needs extensive rehab now that he has appeared to regain motor in his legs. Objective - Vital Signs/Intake and Output Vital Signs (last 24 hours): Temp Pulse Resp BP Pulse Ox 98 F 54 L 18 114/60 99 01/09/18 12:00 01/09/18 12:00 01/09/18 12:00 01/09/18 12:00 01/09/18 12:00 Intake and Output: 01/09/18 01/09/18 06:59 18:59 Intake Total 1550 1080 Output Total 1300 Balance 250 1080 - Medications Medications: Current Medications Dexamethasone (Decadron Inj) 4 mg IVP Q6 DEMI Last Admin: 01/09/18 09:16 Dose: 4 mg Docusate Sodium (Colace) 100 mg PO BID DEMI Last Admin: 01/09/18 08:14 Dose: 100 mg Hydromorphone HCl (Dilaudid 0.2 Mg/Ml Reference And Instruction Librarian) 0 mg IV PRN PRN; Protocol PRN Reason: Pain, moderate (4-7) Last Admin: 01/08/18 15:25 Dose: 6 mg Cefepime HCl 2 gm/ Sodium (Chloride) 100 mls @ 100 mls/hr IVPB Q8 DEMI; Protocol Last Admin: 01/09/18 08:15 Dose: 100 mls/hr Vancomycin HCl 1 gm/ Sodium (Chloride) 250 mls @ 125 mls/hr IVPB Q12@0100,1300 DEMI; Protocol Last Admin: 01/09/18 12:02 Dose: 125 mls/hr Lactated Ringer's (Lactated Ringer's) 1,000 mls @ 100 mls/hr IV .Q10H DEMI Last Admin: 01/09/18 10:38 Dose: 100 mls/hr Naloxone HCl (Narcan) 0.1 mg IVP Q2M PRN PRN Reason: Shortness of Breath - Labs Labs: 01/09/18 04:35 01/09/18 04:35 PT 14.1 Seconds (9.8-13.1) H 01/07/18 10:28 INR 1.2 01/07/18 10:28 APTT 26.1 Seconds (25.6-37.1) 01/07/18 10:28
--- NOTE | 2018-01-09 14:02 | CP.PCM.PN ---
<Trudi Minaya - Last Filed: 01/09/18 14:22> Subjective - Date & Time of Evaluation Date of Evaluation: 01/09/18 Time of Evaluation: 13:59 - Subjective Subjective: Neurology Consultation Follow-Up Note: Mr. Cornelius was seen this afternoon in ICU with significant other at bedside. He is POD#1 C4-T1 laminectomy and debridement of epidural abscess with neurosurgery. Today he states he is feeling "much better" and he is in a much better mood (more talkative during interview/exam). He admits that he still has neck pain, however, it is improving. He is happy that he has regained movement in his lower extremities. Currently, he denies headache, dizziness, visual changes, chest pain, shortness of breath, nausea/vomiting, paresthesias. Per patient, he attempted to ambulate with PT today but found it painful and difficult. Objective - Vital Signs/Intake and Output Vital Signs (last 24 hours): Temp Pulse Resp BP Pulse Ox 98 F 60 18 110/55 L 97 01/09/18 12:00 01/09/18 13:33 01/09/18 13:00 01/09/18 13:00 01/09/18 13:33 Intake and Output: 01/09/18 01/09/18 06:59 18:59 Intake Total 1550 1080 Output Total 1300 Balance 250 1080 - Medications Medications: Current Medications Dexamethasone (Decadron Inj) 4 mg IVP Q6 [facility] Last Admin: 01/09/18 09:16 Dose: 4 mg Docusate Sodium (Colace) 100 mg PO BID [facility] Last Admin: 01/09/18 08:14 Dose: 100 mg Hydromorphone HCl (Dilaudid 0.2 Mg/Ml Medical Office Supervisor) 0 mg IV PRN PRN; Protocol PRN Reason: Pain, moderate (4-7) Last Admin: 01/08/18 15:25 Dose: 6 mg Cefepime HCl 2 gm/ Sodium (Chloride) 100 mls @ 100 mls/hr IVPB Q8 [facility]; Protocol Last Admin: 01/09/18 08:15 Dose: 100 mls/hr Vancomycin HCl 1 gm/ Sodium (Chloride) 250 mls @ 125 mls/hr IVPB Q12@0100,1300 [facility]; Protocol Last Admin: 01/09/18 12:02 Dose: 125 mls/hr Lactated Ringer's (Lactated Ringer's) 1,000 mls @ 100 mls/hr IV .Q10H [facility] Last Admin: 01/09/18 10:38 Dose: 100 mls/hr Naloxone HCl (Narcan) 0.1 mg IVP Q2M PRN PRN Reason: Shortness of Breath - Labs Labs: 01/09/18 04:35 01/09/18 04:35 PT 14.1 Seconds (9.8-13.1) H 01/07/18 10:28 INR 1.2 01/07/18 10:28 APTT 26.1 Seconds (25.6-37.1) 01/07/18 10:28 - Constitutional Appears: Well, Non-toxic, No Acute Distress - Head Exam Head Exam: ATRAUMATIC, NORMAL INSPECTION, NORMOCEPHALIC Additional comments: patient has on [place] J-collar. - Eye Exam Eye Exam: EOMI, Normal appearance, PERRL Pupil Exam: NORMAL ACCOMODATION, PERRL - ENT Exam ENT Exam: Mucous Membranes Moist - Neck Exam Additional comments: patient has on [place] J-Collar, limited movement. - Respiratory Exam Respiratory Exam: NORMAL BREATHING PATTERN - Extremities Exam Extremities Exam: Normal Inspection. absent: Pedal Edema - Neurological Exam Neurological Exam: Alert, Awake, CN II-XII Intact, Oriented x3 Neuro motor strength exam: Left Upper Extremity: 5, Right Upper Extremity: 5, Le ft Lower Extremity: 5 (see additional comments), Right Lower Extremity: 5 (see additional comments) Additional comments: Speech clear, fluid. Sensation intact and equal bilaterally, however, slightly diminished to both LE compared to UE and face. Able to raise LLE and RLE independently and against resistance 5/5. Bilateral quad strength 5/5. Dorsiflexion bilaterally 5/5. Anterior tibial movement 3/5 against resistance bilaterally. Overall strength is strong and equal which is a huge improvement compared to day of admission. Reflexes brisk. Gait not assessed due to patient's condition. - Psychiatric Exam Psychiatric exam: Normal Affect, Normal Mood - Skin Skin Exam: Normal Color Assessment and Plan (1) Epidural abscess Assessment & Plan: Imaging: -MRI C-Spine (01/07/18): 1. C6-7 intervertebral disc fluid with edema at C6 and C7 vertebral bodies related to the mid to posterior endplate distribution suspicious for discitis osteomyelitis. Epidural fluid is identified more posteriorly than anteriorly from at least C4-T1 levels with cord compressed at C6 and C7. Contrast MRI cervical spine can be utilized for added characte rization. 2. No definitive disc herniation appreciable though an annular tear is not excluded at the C6-7 disc posteriorly. 3. Mild reversal cervical curvature. Definitive fracture or spondylolisthesis appreciable. -MRI L-Spine (01/07/18): 1. Small right paracentral disc protrusion L5-S1 withou t significant stenosis resulting. 2. Minimal disc bulge L4-5 without stenosis. 3. Widely patent central canal and bilateral neural foramina throughout. -MRI T-Spine (01/07/18): Unremarkable non-contrast enhanced MRI of the thoracic spine. Incidental edema at C7 vertebral body is detailed in separate cervical spine MRI also performed 01/07/2018. Please see separate report. -Mr. Cornelius is improving. He is POD#1 C4-T1 laminectomy and debridement of epidural abscess with neurosurgery. -Maintain [place] J-Collar per neurosurgery -PT/OT -Fall precautions. -ID on case for antibiotic management. Recommending a WALT once patient is stable. -Please notify neuro team of any acute changes in patient's condition -We will continue to follow the patient while he is in the hospital. Case discussed with Dr. Álvarez. Thank you for allowing us to participate in this patient's care. Status: Acute <Kerri Álvarez - Last Filed: 01/11/18 00:47> Objective - Vital Signs/Intake and Output Vital Signs (last 24 hours): Temp Pulse Resp BP Pulse Ox 98.2 F 51 L 14 118/71 98 01/10/18 20:00 01/10/18 20:00 01/10/18 20:00 01/10/18 20:00 01/10/18 20:00 Intake and Output: 01/10/18 01/11/18 18:59 06:59 Intake Total 1667 120 Output Total 1150 Balance 517 120 - Medications Medications: Current Medications Dexamethasone (Decadron Inj) 4 mg IVP Q6 [facility] Last Admin: 01/10/18 21:29 Dose: 4 mg Docusate Sodium (Colace) 100 mg PO BID [facility] Last Admin: 01/10/18 17:27 Dose: 100 mg Hydromorphone HCl (Dilaudid) 1 mg IVP Q6 PRN PRN Reason: Pain, moderate (4-7) Last Admin: 01/10/18 21:48 Dose: 1 mg Cefepime HCl 2 gm/ Sodium (Chloride) 100 mls @ 100 mls/hr IVPB Q8 [facility]; Protocol Last Admin: 01/11/18 00:31 Dose: 100 mls/hr Vancomycin HCl 1 gm/ Sodium (Chloride) 250 mls @ 125 mls/hr IVPB Q12@0100,1300 [facility]; Protocol Last Admin: 01/11/18 00:32 Dose: 125 mls/hr Lactated Ringer's (Lactated Ringer's) 1,000 mls @ 100 mls/hr IV .Q10H [facility] Last Admin: 01/09/18 10:38 Dose: 100 mls/hr Naloxone HCl (Narcan) 0.1 mg IVP Q2M PRN PRN Reason: Shortness of Breath - Labs Labs: 01/10/18 04:40 01/10/18 04:40 PT 14.1 Seconds (9.8-13.1) H 01/07/18 10:28 INR 1.2 01/07/18 10:28 APTT 26.1 Seconds (25.6-37.1) 01/07/18 10:28 Assessment and Plan - Assessment and Plan (Free Text) Assessment: agree with assessment and plan. Thank you Dr. álvarez
[2018-01-10] MEDS: Cefepime 2 GM in Sodium Chloride 0.9% 100 ML IVPB SCH ×3 (01:43→17:32)
[2018-01-10] MEDS: Dexamethasone 4 mg/1 ml IVP SCH ×4 (04:58→21:29)
[2018-01-10 05:14] LABS: HEMOGLOBIN 11.2 g/dL (12.0-18.0); MEAN CELL VOLUME 93.4 fl (80.0-94.0); MEAN CORPUSCULAR HEMOGLOBIN 30.8 pg (27.0-31.0); RBC 3.63 Mil/uL (4.40-5.90); RED CELL DISTRIBUTION WIDTH 13.1 % (11.5-14.5); WHITE BLOOD COUNT 14.6 K/uL (4.8-10.8)
[2018-01-10 05:23] LABS: BLOOD UREA NITROGEN 17 mg/dl (9-20); GFR NON-AFRICAN AMERICAN > 60
--- NOTE | 2018-01-10 08:53 | CP.PCM.PN ---
Subjective - Date & Time of Evaluation Date of Evaluation: 01/10/18 Time of Evaluation: 08:54 - Subjective Subjective: AWAKE/ALERT AND ORIENTED X 3 FEELS BETTER MOVES ALL EXTREMITIES AGAINST GRAVITY ALL CULTURES PENDING Objective - Vital Signs/Intake and Output Vital Signs (last 24 hours): Temp Pulse Resp BP Pulse Ox 97.9 F 47 L 17 117/64 100 01/10/18 08:00 01/10/18 08:00 01/10/18 08:00 01/10/18 08:00 01/10/18 08:00 Intake and Output: 01/10/18 01/10/18 06:59 18:59 Intake Total 1390 Output Total 800 Balance 590 - Medications Medications: Current Medications Dexamethasone (Decadron Inj) 4 mg IVP Q6 [facility] Last Admin: 01/10/18 04:58 Dose: 4 mg Docusate Sodium (Colace) 100 mg PO BID [facility] Last Admin: 01/09/18 15:59 Dose: 100 mg Cefepime HCl 2 gm/ Sodium (Chloride) 100 mls @ 100 mls/hr IVPB Q8 [facility]; Protocol Last Admin: 01/10/18 01:43 Dose: 100 mls/hr Vancomycin HCl 1 gm/ Sodium (Chloride) 250 mls @ 125 mls/hr IVPB Q12@0100,1300 [facility]; Protocol Last Admin: 01/10/18 02:13 Dose: 125 mls/hr Lactated Ringer's (Lactated Ringer's) 1,000 mls @ 100 mls/hr IV .Q10H [facility] Last Admin: 01/09/18 10:38 Dose: 100 mls/hr Naloxone HCl (Narcan) 0.1 mg IVP Q2M PRN PRN Reason: Shortness of Breath - Labs Labs: 01/10/18 04:40 01/10/18 04:40 PT 14.1 Seconds (9.8-13.1) H 01/07/18 10:28 INR 1.2 01/07/18 10:28 APTT 26.1 Seconds (25.6-37.1) 01/07/18 10:28 - Constitutional Appears: No Acute Distress - Head Exam Head Exam: ATRAUMATIC, NORMAL INSPECTION, NORMOCEPHALIC - Eye Exam Eye Exam: EOMI, Normal appearance, PERRL Pupil Exam: NORMAL ACCOMODATION, PERRL - ENT Exam ENT Exam: Mucous Membranes Moist, Normal Exam - Neck Exam Neck Exam: Full ROM, Normal Inspection. absent: Lymphadenopathy - Respiratory Exam Respiratory Exam: Clear to Ausculation Bilateral, NORMAL BREATHING PATTERN - Cardiovascular Exam Cardiovascular Exam: REGULAR RHYTHM, +S1, +S2. absent: Murmur - GI/Abdominal Exam GI & Abdominal Exam: Soft, Normal Bowel Sounds. absent: Tenderness - Rectal Exam Rectal Exam: NORMAL INSPECTION - Extremities Exam Extremities Exam: Full ROM, Normal Capillary Refill, Normal Inspection. absent: Joint Swelling, Pedal Edema - Back Exam Back Exam: NORMAL INSPECTION - Neurological Exam Neurological Exam: Alert, Awake, CN II-XII Intact, Oriented x3 Neuro motor strength exam: Left Upper Extremity: 3, Right Upper Extremity: 2/1, Left Lower Extremity: 3, Right Lower Extremity: 2/1 - Psychiatric Exam Psychiatric exam: Normal Affect, Normal Mood - Skin Skin Exam: Dry, Intact, Normal Color, Warm Assessment and Plan - Assessment and Plan (Free Text) Assessment: S/P LAMINECTOMY AND DRAINAGE OF ABSCESS PARAPARESES IMPROVING Plan: MAY GO TO ACUTE REHAB CONTINUE IV ANTIBIOTIC RX
--- NOTE | 2018-01-10 14:18 | CP.PCM.CON ---
History of Present Illness - History of Present Illness History of Present Illness: Dr Goldberg PMR consultation on Warren Cornelius, born 1985 who has been admitted to [facility] for acute onset of LE>UE weakness and urinary incont. Noted to have a cervical epidural abscess and underwent urgent surgery and has already had a very good LE recovery. Still with catheter for urinary issue, not sure if it was overflow incontinence. Seen by ID and on ABX treatment. Having some spasms but not constant spasticity and no real pain. Review of Systems - Constitutional Constitutional: absent: Chills, Excessive Sweating - EENT Eyes: absent: Change in Vision Ears: absent: Ear Discharge, Ear Pain Nose/Mouth/Throat: absent: Nasal Congestion, Nasal Discharge - Cardiovascular Cardiovascular: absent: Chest Pain - Respiratory Respiratory: absent: Dyspnea, Hemoptysis - Gastrointestinal Gastrointestinal: Constipation - Musculoskeletal Musculoskeletal: Muscle Weakness - Neurological Neurological: Paresthesias, Weakness. absent: Dizziness, Radicular Pain Past Patient History - Past Medical History & Family History Past Medical History?: Yes - Past Social History Smoking Status: Heavy Smoker > 10 Cigarettes Daily Drugs: Cannabis Home Situation {Lives}: With Family - CARDIAC Hx Cardiac Disorders: No - PULMONARY Hx Respiratory Disorders: No - MUSCULOSKELETAL/RHEUMATOLOGICAL Hx Falls: Yes - PSYCHIATRIC Hx Substance Use: No - SURGICAL HISTORY Hx Surgeries: Yes Other/Comment: hernia surgery - ANESTHESIA Hx Anesthesia: Yes Hx Anesthesia Reactions: No Hx Malignant Hyperthermia: No Has any member of the family had a problem w/ anesthesia?: No Meds Allergies/Adverse Reactions: Allergies Allergy/AdvReac Type Severity Reaction Status Date / Time No Known Allergies Allergy Verified 01/01/18 16:54 - Medications Medications: Current Medications Cyclobenzaprine HCl (Flexeril) 10 mg PO Q8 [facility] Last Admin: 01/10/18 12:52 Dose: 10 mg Dexamethasone (Decadron Inj) 4 mg IVP Q6 [facility] Last Admin: 01/10/18 09:33 Dose: 4 mg Docusate Sodium (Colace) 100 mg PO BID [facility] Last Admin: 01/10/18 08:49 Dose: 100 mg Cefepime HCl 2 gm/ Sodium (Chloride) 100 mls @ 100 mls/hr IVPB Q8 [facility]; Protocol Last Admin: 01/10/18 08:51 Dose: 100 mls/hr Vancomycin HCl 1 gm/ Sodium (Chloride) 250 mls @ 125 mls/hr IVPB Q12@0100,1300 [facility]; Protocol Last Admin: 01/10/18 12:52 Dose: 125 mls/hr Lactated Ringer's (Lactated Ringer's) 1,000 mls @ 100 mls/hr IV .Q10H [facility] Last Admin: 01/09/18 10:38 Dose: 100 mls/hr Naloxone HCl (Narcan) 0.1 mg IVP Q2M PRN PRN Reason: Shortness of Breath Physical Exam - Constitutional Appears: Non-toxic - Head Exam Head Exam: ATRAUMATIC, NORMAL INSPECTION, NORMOCEPHALIC - Eye Exam Eye Exam: EOMI - ENT Exam ENT Exam: Mucous Membranes Moist - Respiratory Exam Respiratory Exam: NORMAL BREATHING PATTERN - Cardiovascular Exam Cardiovascular Exam: REGULAR RHYTHM - GI/Abdominal Exam GI & Abdominal Exam: absent: Distended, Firm, Guarding - Rectal Exam Rectal Exam: Deferred (he was sitting at this time) - Extremities Exam Extremities exam: Negative for: calf tenderness, joint swelling, pedal edema - Neurological Exam Neurological exam: Alert, CN II-XII Intact, Oriented x3 - Psychiatric Exam Psychiatric exam: Normal Affect, Normal Mood - Skin Skin Exam: Warm Results - Vital Signs Recent Vital Signs: Last Vital Signs Temp 97.9 F 01/10/18 08:00 Pulse 62 01/10/18 12:00 Resp 14 01/10/18 09:00 BP 117/64 01/10/18 08:00 Pulse Ox 100 01/10/18 09:00 - Labs Result Diagrams: 01/10/18 04:40 01/10/18 04:40 Labs: Laboratory Results - last 24 hr 01/09/18 01/10/18 01/10/18 18:30 04:40 04:40 WBC 14.6 H RBC 3.63 L Hgb 11.2 L Hct 33.9 L MCV 93.4 MCH 30.8 MCHC 33.0 RDW 13.1 Plt Count 361 Sodium 134 Potassium 4.5 Chloride 101 Carbon Dioxide 29 Anion Gap 9 L BUN 17 Creatinine 0.8 Est GFR ( Amer) > 60 Est GFR (Non-Af Amer) > 60 Random Glucose 138 H Calcium 9.0 Vancomycin Trough 12.4 H Assessment & Plan - Assessment and Plan (Free Text) Assessment: 32 year old male with cervical epidural abscess s/p debridement and fixation. Post op early recovery is impressive based on the early documentation. He is an ideal rehab candidate and I hope that each day will provide further significant neurological return. I do not want to give anything for these occasional spasms and no need for pain medication at this time. I strongly recommend [facility] transfer when medically ready.
--- NOTE | 2018-01-10 15:00 | CP.PCM.PN ---
<Trudi Minaya - Last Filed: 01/10/18 16:10> Subjective - Date & Time of Evaluation Date of Evaluation: 01/10/18 Time of Evaluation: 15:00 - Subjective Subjective: Neurology Consultation Follow-Up Note: Attempted to see Mr. Cornelius this afternoon in ICU. He is POD#2 C4-T1 laminectomy and debridement of epidural abscess with neurosurgery. He could not be assessed by me; pt was asleep. Per nursing staff pt was OOB to chair today with PT for approximately 4-5 hours today and just just polaced back in bed prior to my arrival to the unit. Per nursing, the plan is to observe him in the ICU for one more night then d/c him to rehab on the 6th floor tomorrow. Objective - Vital Signs/Intake and Output Vital Signs (last 24 hours): Temp Pulse Resp BP Pulse Ox 97.9 F 62 14 117/64 100 01/10/18 08:00 01/10/18 12:00 01/10/18 09:00 01/10/18 08:00 01/10/18 09:00 Intake and Output: 01/10/18 01/10/18 06:59 18:59 Intake Total 1390 1079 Output Total 800 Balance 590 1079 - Medications Medications: Current Medications Cyclobenzaprine HCl (Flexeril) 10 mg PO Q8 [facility] Last Admin: 01/10/18 12:52 Dose: 10 mg Dexamethasone (Decadron Inj) 4 mg IVP Q6 [facility] Last Admin: 01/10/18 09:33 Dose: 4 mg Docusate Sodium (Colace) 100 mg PO BID [facility] Last Admin: 01/10/18 08:49 Dose: 100 mg Cefepime HCl 2 gm/ Sodium (Chloride) 100 mls @ 100 mls/hr IVPB Q8 [facility]; Protocol Last Admin: 01/10/18 08:51 Dose: 100 mls/hr Vancomycin HCl 1 gm/ Sodium (Chloride) 250 mls @ 125 mls/hr IVPB Q12@0100,1300 [facility]; Protocol Last Admin: 01/10/18 12:52 Dose: 125 mls/hr Lactated Ringer's (Lactated Ringer's) 1,000 mls @ 100 mls/hr IV .Q10H [facility] Last Admin: 01/09/18 10:38 Dose: 100 mls/hr Naloxone HCl (Narcan) 0.1 mg IVP Q2M PRN PRN Reason: Shortness of Breath - Labs Labs: 01/10/18 04:40 01/10/18 04:40 PT 14.1 Seconds (9.8-13.1) H 01/07/18 10:28 INR 1.2 01/07/18 10:28 APTT 26.1 Seconds (25.6-37.1) 01/07/18 10:28 - Constitutional Appears: Well (sleeping; could not assess), Toxic, No Acute Distress Assessment and Plan (1) Epidural abscess Assessment & Plan: Imaging: -MRI C-Spine (01/07/18): 1. C6-7 intervertebral disc fluid with edema at C6 and C7 vertebral bodies related to the mid to posterior endplate distribution suspicious for discitis osteomyelitis. Epidural fluid is identified more posteriorly than anteriorly from at least C4-T1 levels with cord compressed at C6 and C7. Contrast MRI cervical spine can be utilized for added characterization. 2. No definitive disc herniation appreciable though an annular tear is not excluded at the C6-7 disc posteriorly. 3. Mild reversal cervical curvature. Definitive fracture or spondylolisthesis appreciable. -MRI L-Spine (01/07/18): 1. Small right paracentral disc protrusion L5-S1 without significant stenosis resulting. 2. Minimal disc bulge L4-5 without stenosis. 3. Widely patent central canal and bilateral neural foramina throughout. -MRI T-Spine (01/07/18): Unremarkable non-contrast enhanced MRI of the thoracic spine. Incidental edema at C7 vertebral body is detailed in separate cervical spine MRI also performed 01/07/2018. Please see separate report. -Mr. Cornelius is doing well considering his condition upon admission. He is POD#2 C4-T1 laminectomy and debridement of epidural abscess with neurosurgery. -Maintain [place] J-Collar per neurosurgery -PT/OT; discharge to rehab is planned for tomorrow. -Fall precautions. -ID on case for antibiotic management and is recommending a WALT once patient is stable. -Please notify neuro team of any acute changes in patient's condition -We will continue to follow the patient while he is in the hospital as well as in rehab if consulted. -Dr. Álvarez to see the pt this evening for full physical exam. Case discussed with Dr. Álvarez. Thank you for allowing us to participate in this patient's care. Status: Acute <Kerri Álvarez - Last Filed: 01/10/18 23:45> Objective - Vital Signs/Intake and Output Vital Signs (last 24 hours): Temp Pulse Resp BP Pulse Ox 98.2 F 51 L 14 118/71 98 01/10/18 20:00 01/10/18 20:00 01/10/18 20:00 01/10/18 20:00 01/10/18 20:00 Intake and Output: 01/10/18 01/11/18 18:59 06:59 Intake Total 1667 120 Output Total 1150 Balance 517 120 - Medications Medications: Current Medications Dexamethasone (Decadron Inj) 4 mg IVP Q6 [facility] Last Admin: 01/10/18 21:29 Dose: 4 mg Docusate Sodium (Colace) 100 mg PO BID [facility] Last Admin: 01/10/18 17:27 Dose: 100 mg Hydromorphone HCl (Dilaudid) 1 mg IVP Q6 PRN PRN Reason: Pain, moderate (4-7) Last Admin: 01/10/18 21:48 Dose: 1 mg Cefepime HCl 2 gm/ Sodium (Chloride) 100 mls @ 100 mls/hr IVPB Q8 [facility]; Protocol Last Admin: 01/10/18 17:32 Dose: 100 mls/hr Vancomycin HCl 1 gm/ Sodium (Chloride) 250 mls @ 125 mls/hr IVPB Q12@0100,1300 [facility]; Protocol Last Admin: 01/10/18 12:52 Dose: 125 mls/hr Lactated Ringer's (Lactated Ringer's) 1,000 mls @ 100 mls/hr IV .Q10H [facility] Last Admin: 01/09/18 10:38 Dose: 100 mls/hr Naloxone HCl (Narcan) 0.1 mg IVP Q2M PRN PRN Reason: Shortness of Breath - Labs Labs: 01/10/18 04:40 01/10/18 04:40 PT 14.1 Seconds (9.8-13.1) H 01/07/18 10:28 INR 1.2 01/07/18 10:28 APTT 26.1 Seconds (25.6-37.1) 01/07/18 10:28 Assessment and Plan - Assessment and Plan (Free Text) Assessment: Agree with above assessment and plan. Patient examined and noted to be 3+/5 proximally in lower limbs with brisk reflexes. 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 G[address] not tested. Dr. álvarez
[2018-01-10] MEDS ORDERED: HYDROmorphone 1 mg/ml ISec IVP PRN (18:03)
--- NOTE | 2018-01-10 18:19 | CP.PCM.PN ---
Subjective - Date & Time of Evaluation Date of Evaluation: 01/10/18 Time of Evaluation: 10:00 - Subjective Subjective: moving all 4 extrmities cultures so far negative echo pending Objective - Vital Signs/Intake and Output Vital Signs (last 24 hours): Temp Pulse Resp BP Pulse Ox 97.8 F 48 L 14 117/66 100 01/10/18 16:00 01/10/18 17:00 01/10/18 09:00 01/10/18 16:00 01/10/18 09:00 Intake and Output: 01/10/18 01/10/18 06:59 18:59 Intake Total 1390 1667 Output Total 800 1150 Balance 590 517 - Medications Medications: Current Medications Dexamethasone (Decadron Inj) 4 mg IVP Q6 [facility] Last Admin: 01/10/18 17:27 Dose: 4 mg Docusate Sodium (Colace) 100 mg PO BID [facility] Last Admin: 01/10/18 17:27 Dose: 100 mg Hydromorphone HCl (Dilaudid) 1 mg IVP Q6 PRN PRN Reason: Pain, moderate (4-7) Cefepime HCl 2 gm/ Sodium (Chloride) 100 mls @ 100 mls/hr IVPB Q8 [facility]; Protocol Last Admin: 01/10/18 17:32 Dose: 100 mls/hr Vancomycin HCl 1 gm/ Sodium (Chloride) 250 mls @ 125 mls/hr IVPB Q12@0100,1300 [facility]; Protocol Last Admin: 01/10/18 12:52 Dose: 125 mls/hr Lactated Ringer's (Lactated Ringer's) 1,000 mls @ 100 mls/hr IV .Q10H [facility] Last Admin: 01/09/18 10:38 Dose: 100 mls/hr Naloxone HCl (Narcan) 0.1 mg IVP Q2M PRN PRN Reason: Shortness of Breath - Labs Labs: 01/10/18 04:40 01/10/18 04:40 PT 14.1 Seconds (9.8-13.1) H 01/07/18 10:28 INR 1.2 01/07/18 10:28 APTT 26.1 Seconds (25.6-37.1) 01/07/18 10:28 - Constitutional Appears: Non-toxic, Chronically Ill - Head Exam Head Exam: NORMOCEPHALIC - Eye Exam Eye Exam: absent: Scleral icterus - ENT Exam ENT Exam: Mucous Membranes Dry - Neck Exam Neck Exam: absent: Lymphadenopathy - Respiratory Exam Respiratory Exam: Decreased Breath Sounds - Cardiovascular Exam Cardiovascular Exam: REGULAR RHYTHM - GI/Abdominal Exam GI & Abdominal Exam: Distended, Soft - Rectal Exam Rectal Exam: Deferred - Exam Exam: NORMAL INSPECTION - Extremities Exam Extremities Exam: absent: Pedal Edema - Back Exam Back Exam: absent: CVA tenderness (L), CVA tenderness (R) - Neurological Exam Neurological Exam: Alert, Awake, Oriented x3 Neuro motor strength exam: Left Upper Extremity: 4, Right Upper Extremity: 4, Left Lower Extremity: 3, Right Lower Extremity: 3 - Psychiatric Exam Psychiatric exam: Normal Mood - Skin Skin Exam: Dry Assessment and Plan (1) Discitis of cervical region Status: Acute (2) Epidural abscess Status: Acute (3) Osteomyelitis of cervical spine Status: Acute
--- NOTE | 2018-01-10 18:34 | CARD ---
APPROVED REPORT Date of service: 01/10/2018 EXAM: Two-dimensional and M-mode echocardiogram with Doppler and color Doppler. Other Information Quality : ExcellentRhythm : NSR INDICATION Infection:Subacute bacterial endocarditis 2D DIMENSIONS IVSd1.15 (0.7-1.1cm)LVDd5.39 (3.9-5.9cm) LVOT Diameter2.35 (1.8-2.4cm)PWd0.85 (0.7-1.1cm) IVSs1.31 (0.8-1.2cm)LVDs3.65 (2.5-4.0cm) FS (%) 32.3 %PWs1.52 (0.8-1.2cm) M-Mode DIMENSIONS Left Atrium (MM)3.53 (2.5-4.0cm)IVSd0.50 (0.7-1.1cm) Aortic Root3.20 (2.2-3.7cm)LVDd6.09 (4.0-5.6cm) Aortic Cusp Exc.2.59 (1.5-2.0cm)PWd0.83 (0.7-1.1cm) IVSs1.38 cmFS (%) 36 % LVDs3.89 (2.0-3.8cm)PWs1.32 cm Aortic Valve AoV Peak Veksqghy115.7cm/sAoV VTI19.6cmAO Peak GR.4mmHg LVOT Peak Gvtobiuo76.9cm/sLVOT VTI18.50cmAO Mean GR.2mmHg CELIO (VMAX)1.86az2HZI (VTI)1.95cm2 Mitral Valve MV E Kfsywnie03.4cm/sMV DECEL [id number] A Kfaceebo47.7cm/s MV HJQ84iwK/A ratio1.7MVA (PHT)2.25cm2 TDI Lateral E' Peak V16.30cm/sMedial E' Peak V14.67cm/sE/Lateral E'3.6 E/Medial E'4.0 Tricuspid Valve TR Peak Kiazdikf708nh/sRAP QLPDGIRN50qnXePA Peak Gr.17mmHg QKON09yjEl LEFT VENTRICLE The left ventricle is normal size. There is normal left ventricular wall thickness. The left ventricular systolic function is normal. The estimated ejection fraction is 55-60% No regional wall motion abnormalities noted.. The left ventricular diastolic function is normal. No left ventricle thrombus noted on this study. There is no ventricular septal defect visualized. There is no left ventricular aneurysm. There is no mass noted in the left ventricle. RIGHT VENTRICLE The right ventricle is normal size. There is normal right ventricular wall thickness. The right ventricular systolic function is normal. ATRIA The left atrium size is normal. The right atrium size is normal. The interatrial septum is intact with no evidence for an atrial septal defect. AORTIC VALVE The aortic valve is normal in structure. No aortic regurgitation is present. There is no aortic valvular stenosis. There is no aortic valvular vegetation. MITRAL VALVE The mitral valve is normal in structure. There is no evidence of mitral valve prolapse. There is no mitral valve stenosis. There is no mitral valve regurgitation noted. TRICUSPID VALVE The tricuspid valve is normal in structure. There is mild tricuspid valve regurgitation noted. RVSP is calculated at 26 mm Hg. There is no tricuspid valve prolapse or vegetation. There is no tricuspid valve stenosis. PULMONIC VALVE The pulmonary valve is normal in structure. There is no pulmonic valvular regurgitation. There is no pulmonic valvular stenosis. GREAT VESSELS The aortic root is normal in size. The ascending aorta is normal in size. The pulmonary artery is normal. The IVC is normal in size and collapses >50% with inspiration. PERICARDIAL EFFUSION There is no pericardial effusion. There is no pleural effusion. <Conclusion> The estimated ejection fraction is 55-60% The left ventricular diastolic function is normal. The left atrium size is normal. There is mild tricuspid valve regurgitation noted. RVSP is calculated at 26 mm Hg. No valvular vegetations are found on this study. Correlate clinically.
[2018-01-11] MEDS: Cefepime 2 GM in Sodium Chloride 0.9% 100 ML IVPB SCH ×2 (00:31→08:57)
[2018-01-11 00:45] VITALS: O2SAT 97
[2018-01-11] MEDS: Dexamethasone 4 mg/1 ml IVP SCH ×2 (04:40→09:00)
[2018-01-11 05:24] LABS: HEMOGLOBIN 11.6 g/dL (12.0-18.0); MEAN CELL VOLUME 93.6 fl (80.0-94.0); MEAN CORPUSCULAR HEMOGLOBIN 30.6 pg (27.0-31.0); MEAN CORPUSCULAR HGB CONC 32.7 g/dL (33.0-37.0); RBC 3.79 Mil/uL (4.40-5.90)
[2018-01-11 05:32] LABS: ALB/GLOB RATIO 0.9 (1.0-2.1); ALBUMIN 3.1 g/dL (3.5-5.0); ALT/SGPT 36 U/L (21-72); AST/SGOT 46 U/L (17-59); BLOOD UREA NITROGEN 15 mg/dl (9-20); CALCIUM 9.3 mg/dL (8.4-10.2); GFR NON-AFRICAN AMERICAN > 60
--- NOTE | 2018-01-11 10:06 | RAD ---
Date of service: 01/08/2018 PROCEDURE: Fluoroscopy up to 1 hr. HISTORY: Discitis/osteomyelitis lower cervical spine COMPARISON: None TECHNIQUE: Standard protocol for this study/examination. FINDINGS: Total fluoroscopic time (continuous mode) utilized during the procedure 9.3 seconds. Total exam DLP: 0.65 (mGy). IMPRESSION: Less than 1 hr fluoroscopic assistance provided during performance of the procedure.
--- NOTE | 2018-01-11 12:44 | CP.PCM.PN ---
Subjective - Date & Time of Evaluation Date of Evaluation: 01/11/18 Time of Evaluation: 12:43 - Subjective Subjective: POD 3 doing well breaks gravity throughout BLEs ex DF excellent proprioception bilat agree with trans to rehab susu Objective - Vital Signs/Intake and Output Vital Signs (last 24 hours): Temp Pulse Resp BP Pulse Ox 97.9 F 50 L 12 131/62 97 01/11/18 09:00 01/11/18 04:00 01/11/18 04:00 01/11/18 04:00 01/11/18 04:00 Intake and Output: 01/11/18 01/11/18 06:59 18:59 Intake Total 830 286 Output Total 1200 700 Balance -370 -414 - Medications Medications: Current Medications Dexamethasone (Decadron Inj) 4 mg IVP Q6 DEMI Last Admin: 01/11/18 09:00 Dose: 4 mg Docusate Sodium (Colace) 100 mg PO BID DEMI Last Admin: 01/11/18 08:57 Dose: 100 mg Hydromorphone HCl (Dilaudid) 1 mg IVP Q6 PRN PRN Reason: Pain, moderate (4-7) Last Admin: 01/11/18 11:24 Dose: 1 mg Cefepime HCl 2 gm/ Sodium (Chloride) 100 mls @ 100 mls/hr IVPB Q8 DEMI; Protocol Last Admin: 01/11/18 08:57 Dose: 100 mls/hr Vancomycin HCl 1 gm/ Sodium (Chloride) 250 mls @ 125 mls/hr IVPB Q12@0100,1300 DEMI; Protocol Last Admin: 01/11/18 12:32 Dose: 125 mls/hr Lactated Ringer's (Lactated Ringer's) 1,000 mls @ 100 mls/hr IV .Q10H DEMI Last Admin: 01/09/18 10:38 Dose: 100 mls/hr Naloxone HCl (Narcan) 0.1 mg IVP Q2M PRN PRN Reason: Shortness of Breath - Labs Labs: 01/11/18 04:45 01/11/18 04:45 PT 14.1 Seconds (9.8-13.1) H 01/07/18 10:28 INR 1.2 01/07/18 10:28 APTT 26.1 Seconds (25.6-37.1) 01/07/18 10:28
--- NOTE | 2018-01-11 12:56 | CP.PCM.PN ---
Subjective - Date & Time of Evaluation Date of Evaluation: 01/11/18 Time of Evaluation: 07:00 - Subjective Subjective: neuro status improving growing Acinetobacter from wound- source unclear May need to r/o Perforated Foramen Ovale - consider cardio eval ? contraindication for WALT Objective - Vital Signs/Intake and Output Vital Signs (last 24 hours): Temp Pulse Resp BP Pulse Ox 97.9 F 50 L 12 131/62 97 01/11/18 09:00 01/11/18 04:00 01/11/18 04:00 01/11/18 04:00 01/11/18 04:00 Intake and Output: 01/11/18 01/11/18 06:59 18:59 Intake Total 830 286 Output Total 1200 700 Balance -370 -414 - Medications Medications: Current Medications Dexamethasone (Decadron Inj) 4 mg IVP Q6 DEMI Last Admin: 01/11/18 09:00 Dose: 4 mg Docusate Sodium (Colace) 100 mg PO BID DEMI Last Admin: 01/11/18 08:57 Dose: 100 mg Hydromorphone HCl (Dilaudid) 1 mg IVP Q6 PRN PRN Reason: Pain, moderate (4-7) Last Admin: 01/11/18 11:24 Dose: 1 mg Cefepime HCl 2 gm/ Sodium (Chloride) 100 mls @ 100 mls/hr IVPB Q8 DEMI; Protocol Last Admin: 01/11/18 08:57 Dose: 100 mls/hr Vancomycin HCl 1 gm/ Sodium (Chloride) 250 mls @ 125 mls/hr IVPB Q12@0100,1300 DEMI; Protocol Last Admin: 01/11/18 12:32 Dose: 125 mls/hr Lactated Ringer's (Lactated Ringer's) 1,000 mls @ 100 mls/hr IV .Q10H DEMI Last Admin: 01/09/18 10:38 Dose: 100 mls/hr Naloxone HCl (Narcan) 0.1 mg IVP Q2M PRN PRN Reason: Shortness of Breath - Labs Labs: 01/11/18 04:45 01/11/18 04:45 PT 14.1 Seconds (9.8-13.1) H 01/07/18 10:28 INR 1.2 01/07/18 10:28 APTT 26.1 Seconds (25.6-37.1) 01/07/18 10:28 - Constitutional Appears: Non-toxic, Chronically Ill - Head Exam Head Exam: NORMOCEPHALIC - Eye Exam Eye Exam: absent: Scleral icterus - ENT Exam ENT Exam: Mucous Membranes Dry - Neck Exam Neck Exam: absent: Lymphadenopathy - Respiratory Exam Respiratory Exam: Decreased Breath Sounds - Cardiovascular Exam Cardiovascular Exam: REGULAR RHYTHM - GI/Abdominal Exam GI & Abdominal Exam: Distended, Soft - Rectal Exam Rectal Exam: Deferred - Extremities Exam Extremities Exam: absent: Pedal Edema - Back Exam Back Exam: absent: CVA tenderness (L), CVA tenderness (R) Assessment and Plan (1) Discitis of cervical region Status: Acute (2) Epidural abscess Status: Acute (3) Osteomyelitis of cervical spine Status: Acute - Assessment and Plan (Free Text) Assessment: neuro status improving growing Acinetobacter from wound- source unclear as all blood cultures negative - consider CT abd / pelvis May need to r/o Perforated Foramen Ovale - consider cardio eval ? contraindica tion for WALT
--- NOTE | 2018-01-11 13:17 | CP.PCM.PN ---
Subjective - Date & Time of Evaluation Date of Evaluation: 01/11/18 Time of Evaluation: 13:17 - Subjective Subjective: CLINICALLY IMPROVING FAIR RANGE OF MOTION OVER EXTREMITIES WOUND CULTURE=ACINETOBACTER WILL CONTINUE ANTIBIOTIC TX FOR TRANSFER TO ACUTE REHAB Objective - Vital Signs/Intake and Output Vital Signs (last 24 hours): Temp Pulse Resp BP Pulse Ox 97.9 F 50 L 12 131/62 97 01/11/18 09:00 01/11/18 04:00 01/11/18 04:00 01/11/18 04:00 01/11/18 04:00 Intake and Output: 01/11/18 01/11/18 06:59 18:59 Intake Total 830 286 Output Total 1200 700 Balance -370 -414 - Medications Medications: Current Medications Dexamethasone (Decadron Inj) 4 mg IVP Q6 DEMI Last Admin: 01/11/18 09:00 Dose: 4 mg Docusate Sodium (Colace) 100 mg PO BID DEMI Last Admin: 01/11/18 08:57 Dose: 100 mg Hydromorphone HCl (Dilaudid) 1 mg IVP Q6 PRN PRN Reason: Pain, moderate (4-7) Last Admin: 01/11/18 11:24 Dose: 1 mg Cefepime HCl 2 gm/ Sodium (Chloride) 100 mls @ 100 mls/hr IVPB Q8 DEMI; Protocol Last Admin: 01/11/18 08:57 Dose: 100 mls/hr Vancomycin HCl 1 gm/ Sodium (Chloride) 250 mls @ 125 mls/hr IVPB Q12@0100,1300 DEMI; Protocol Last Admin: 01/11/18 12:32 Dose: 125 mls/hr Lactated Ringer's (Lactated Ringer's) 1,000 mls @ 100 mls/hr IV .Q10H DEMI Last Admin: 01/09/18 10:38 Dose: 100 mls/hr Naloxone HCl (Narcan) 0.1 mg IVP Q2M PRN PRN Reason: Shortness of Breath - Labs Labs: 01/11/18 04:45 01/11/18 04:45 PT 14.1 Seconds (9.8-13.1) H 01/07/18 10:28 INR 1.2 01/07/18 10:28 APTT 26.1 Seconds (25.6-37.1) 01/07/18 10:28
[2018-01-11 14:38] VITALS: BP 118/62; PULSE 65; RESP 16; TEMP 98.2
--- NOTE | 2018-01-11 16:19 | CP.PCM.PN ---
Subjective - Date & Time of Evaluation Date of Evaluation: 01/11/18 Time of Evaluation: 16:17 - Subjective Subjective: Neurology Consultation Follow-Up Note: Mr. Cornelius was seen this afternoon in acute rehab. He is POD#3 C4-T1 laminectomy and debridement of epidural abscess with neurosurgery. Today he is in great spirits, he is smiling, laughing, and generally looks happy. He states that he is feeling much better and feels great considering recent events. He admits that his neck pain is mild and it is improving. Today he denies headache, dizziness, visual changes, chest pain, shortness of breath, nausea/vomiting, paresthesias. He participated in PT today. No acute events overnight per nursing. Objective - Vital Signs/Intake and Output Vital Signs (last 24 hours): Temp Pulse Resp BP Pulse Ox 98.2 F 65 16 118/62 97 01/11/18 14:00 01/11/18 14:00 01/11/18 14:00 01/11/18 14:00 01/11/18 04:00 Intake and Output: 01/11/18 01/11/18 06:59 18:59 Intake Total 830 616 Output Total 1200 830 Balance -370 -214 - Medications Medications: Current Medications Dexamethasone (Decadron Inj) 4 mg IVP Q6 DEMI Last Admin: 01/11/18 09:00 Dose: 4 mg Docusate Sodium (Colace) 100 mg PO BID DEMI Last Admin: 01/11/18 08:57 Dose: 100 mg Hydromorphone HCl (Dilaudid) 1 mg IVP Q6 PRN PRN Reason: Pain, moderate (4-7) Last Admin: 01/11/18 11:24 Dose: 1 mg Cefepime HCl 2 gm/ Sodium (Chloride) 100 mls @ 100 mls/hr IVPB Q8 DEMI; Protocol Last Admin: 01/11/18 08:57 Dose: 100 mls/hr Vancomycin HCl 1 gm/ Sodium (Chloride) 250 mls @ 125 mls/hr IVPB Q12@0100,1300 DEMI; Protocol Last Admin: 01/11/18 12:32 Dose: 125 mls/hr Lactated Ringer's (Lactated Ringer's) 1,000 mls @ 100 mls/hr IV .Q10H DEMI Last Admin: 01/09/18 10:38 Dose: 100 mls/hr Naloxone HCl (Narcan) 0.1 mg IVP Q2M PRN PRN Reason: Shortness of Breath - Labs Labs: 01/11/18 04:45 01/11/18 04:45 PT 14.1 Seconds (9.8-13.1) H 01/07/18 10:28 INR 1.2 01/07/18 10:28 APTT 26.1 Seconds (25.6-37.1) 01/07/18 10:28 - Constitutional Appears: Well, Non-toxic, No Acute Distress - Head Exam Head Exam: ATRAUMATIC, NORMAL INSPECTION, NORMOCEPHALIC - Eye Exam Eye Exam: EOMI, Normal appearance, PERRL Pupil Exam: NORMAL ACCOMODATION, PERRL - ENT Exam ENT Exam: Mucous Membranes Moist - Neck Exam Additional comments: [place] J- Collar on; limited movement. - Respiratory Exam Respiratory Exam: NORMAL BREATHING PATTERN - Extremities Exam Extremities Exam: Normal Inspection. absent: Calf Tenderness, Pedal Edema Additional comments: Decreased ROM to BLE; FROM BUE - Neurological Exam Neurological Exam: Alert, Awake, CN II-XII Intact, Oriented x3 Neuro motor strength exam: Left Upper Extremity: 5, Right Upper Extremity: 5, Left Lower Extremity: 5 (see additional comments), Right Lower Extremity: 5 (see additional comments) Additional comments: Speech is clear, fluid. Sensation intact and equal bilaterally, however, still slightly diminished to both LE compared to UE and face. Able to raise LLE and RLE independently and against resistance 4/5. Bilateral quad strength 5/5. Dorsiflexion bilaterally 5/5. Anterior tibial still 3/5 against resistance bilaterally. Label Stamper b/l 4/5. Overall huge improvement compared to day of admission. Reflexes brisk b/l. Gait not assessed due to patient's condition, however, PT notes reviewed. - Psychiatric Exam Psychiatric exam: Normal Affect, Normal Mood - Skin Skin Exam: Normal Color Assessment and Plan (1) Epidural abscess Assessment & Plan: Imaging: -MRI C-Spine (01/07/18): 1. C6-7 intervertebral disc fluid with edema at C6 and C7 vertebral bodies related to the mid to posterior endplate distribution suspicious for discitis osteomyelitis. Epidural fluid is identified more po steriorly than anteriorly from at least C4-T1 levels with cord compressed at C6 and C7. Contrast MRI cervical spine can be utilized for added characterization. 2. No definitive disc herniation appreciable though an annular tear is not excluded at the C6-7 disc posteriorly. 3. Mild reversal cervical curvature. Definitive fracture or spondylolisthesis appreciable. -MRI L-Spine (01/07/18): 1. Small right paracentral disc protrusion L5-S1 without significant stenosis resulting. 2. Minimal disc bulge L4-5 without stenosis. 3. Widely patent central canal and bilateral neural foramina througho ut. -MRI T-Spine (01/07/18): Unremarkable non-contrast enhanced MRI of the thoracic spine. Incidental edema at C7 vertebral body is detailed in separate cervical spine MRI also performed 01/07/2018. Please see separate report. -Mr. Cornelius is doing well considering his condition upon admission. He is POD#3 C4-T1 laminectomy and debridement of epidural abscess with neurosurgery. -Maintain [place] J-Collar per neurosurgery -Continue PT/OT in acute rehab. -Fall precautions. -Please notify neuro team of any acute changes in patient's condition -We will continue to follow the patient. Case discussed with Dr. Rosas. Thank you for allowing us to participate in this patient's care. Status: Acute
--- NOTE | 2018-01-13 11:16 | CP.PCM.DIS ---
Provider - Provider Date of Admission: 01/07/18 14:30 Attending physician: Ryder Guerra MD Consults: 01/07/18 14:50 Infectious Disease Consult Stat Comment: Consulting Provider: Ant Granado Consulting Physician: Ant Granado Reason for Consult: Epidural abscess Neuro Surgery Consult Stat Comment: Consulting Provider: Derrell Denny Consulting Physician: Derrell Denny Reason for Consult: Epidural abscess Neurology Consult Stat Comment: Consulting Provider: Kerri Rosas Consulting Physician: Kerri Rosas Reason for Consult: Epidural abscess 01/08/18 09:00 Nursing Referral for Wound Care Routine Comment: Physician Instructions: Reason For Exam: nsg screen Pastoral Care Referral Routine Comment: Physician Instructions: Reason For Exam: nsg screen Social Work Referral Routine Comment: advance directive Physician Instructions: Reason For Exam: nsg screen 01/08/18 10:00 Nursing Referral for Palliative Care Routine Comment: Consulting Provider: Cintia Ritter Physician Instructions: Reason For Exam: nsg screen 01/10/18 10:08 Physiatry Consult Routine Comment: Consulting Provider: Yoandy Goldberg Consulting Physician: Yoandy Goldberg Reason for Consult: s/p Cervical Lami C4-C7 Time Spent in preparation of Discharge (in minutes): 30 Diagnosis - Discharge Diagnosis (1) Back pain Status: Acute (2) Discitis of cervical region Status: Acute (3) Epidural abscess Status: Acute (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 (5) Torticollis Status: Acute Hospital Course - Lab Results Lab Results: Micro Results 01/07/18 14:00 Blood Blood Culture - Final NO GROWTH AFTER 5 DAYS 01/07/18 14:00 Blood Gram Stain - Final TEST NOT PERFORMED 01/07/18 14:00 Blood Blood Culture - Final NO GROWTH AFTER 5 DAYS 01/07/18 14:00 Blood Gram Stain - Final TEST NOT PERFORMED 01/09/18 14:00 Other: Please Indicate Gram Stain - Final 01/09/18 14:00 Other: Please Indicate Wound Culture - Final Acinetobacter Baumannii 01/07/18 17:37 Naris MRSA Culture (Admit) - Final MRSA NOT DETECTED Most Recent Lab Values WBC 13.0 K/uL (4.8-10.8) H 01/11/18 04:45 RBC 3.79 Mil/uL (4.40-5.90) L 01/11/18 04:45 Hgb 11.6 g/dL (12.0-18.0) L 01/11/18 04:45 Hct 35.4 % (35.0-51.0) 01/11/18 04:45 MCV 93.6 fl (80.0-94.0) 01/11/18 04:45 MCH 30.6 pg (27.0-31.0) 01/11/18 04:45 MCHC 32.7 g/dL (33.0-37.0) L 01/11/18 04:45 RDW 13.0 % (11.5-14.5) 01/11/18 04:45 Plt Count 361 K/uL (130-400) 01/11/18 04:45 MPV 7.8 fl (7.2-11.7) 01/09/18 04:35 Neut % (Auto) 90.7 % (50.0-75.0) H 01/09/18 04:35 Lymph % (Auto) 3.2 % (20.0-40.0) L 01/09/18 04:35 [place] % (Auto) 6.0 % (0.0-10.0) 01/09/18 04:35 Eos % (Auto) 0.0 % (0.0-4.0) 01/09/18 04:35 Baso % (Auto) 0.1 % (0.0-2.0) 01/09/18 04:35 Neut # (Auto) 16.0 K/uL (1.8-7.0) H 01/09/18 04:35 Lymph # (Auto) 0.6 K/uL (1.0-4.3) L 01/09/18 04:35 [place] # (Auto) 1.1 K/uL (0.0-0.8) H 01/09/18 04:35 Eos # (Auto) 0.0 K/uL (0.0-0.7) 01/09/18 04:35 Baso # (Auto) 0.0 K/uL (0.0-0.2) 01/09/18 04:35 Neutrophils % (Manual) 90 % (42-75) H 01/09/18 04:35 Lymphocytes % (Manual) 5 % (20-50) L 01/09/18 04:35 Monocytes % (Manual) 5 % (0-10) 01/09/18 04:35 Platelet Estimate Normal (NORMAL) 01/09/18 04:35 Hypochromasia (manual) Slight 01/09/18 04:35 Tear Drop Cells Slight 01/07/18 10:28 Ovalocytes Slight 01/07/18 10:28 ESR 61 mm/hr (0-15) H 01/07/18 14:00 PT 14.1 Seconds (9.8-13.1) H 01/07/18 10:28 INR 1.2 01/07/18 10:28 APTT 26.1 Seconds (25.6-37.1) 01/07/18 10:28 Sodium 136 mmol/l (132-148) 01/11/18 04:45 Potassium 4.4 MMOL/L (3.6-5.0) 01/11/18 04:45 Chloride 101 mmol/L (98-107) 01/11/18 04:45 Carbon Dioxide 30 mmol/L (22-30) 01/11/18 04:45 Anion Gap 9 (10-20) L 01/11/18 04:45 BUN 15 mg/dl (9-20) 01/11/18 04:45 Creatinine 0.7 mg/dl (0.8-1.5) L 01/11/18 04:45 Est GFR ( Amer) > 60 01/11/18 04:45 Est GFR (Non-Af Amer) > 60 01/11/18 04:45 Random Glucose 117 mg/dL (75-110) H 01/11/18 04:45 Calcium 9.3 mg/dL (8.4-10.2) 01/11/18 04:45 Total Bilirubin 0.1 mg/dl (0.2-1.3) L 01/11/18 04:45 AST 46 U/L (17-59) 01/11/18 04:45 ALT 36 U/L (21-72) 01/11/18 04:45 Alkaline Phosphatase 47 U/L (38-126) 01/11/18 04:45 C-Reactive Protein 58.40 mg/L (0.0-9.9) H 01/07/18 14:03 Total Protein 6.7 G/DL (6.3-8.2) 01/11/18 04:45 Albumin 3.1 g/dL (3.5-5.0) L 01/11/18 04:45 Globulin 3.6 gm/dL (2.2-3.9) 01/11/18 04:45 Albumin/Globulin Ratio 0.9 (1.0-2.1) L 01/11/18 04:45 Procalcitonin < 0.05 NG/ML (0.19-0.49) L 01/11/18 14:05 Urine Color Eileen (YELLOW) 01/07/18 14:38 Urine Clarity Slighty-cloudy (Clear) 01/07/18 14:38 Urine pH 5.0 (5.0-8.0) 01/07/18 14:38 Ur Specific [place] 1.026 (1.003-1.030) 01/07/18 14:38 Urine Protein Negative mg/dL (NEGATIVE) 01/07/18 14:38 Urine Glucose (UA) Neg mg/dL (Normal) 01/07/18 14:38 Urine Ketones Trace mg/dL (NEGATIVE) 01/07/18 14:38 Urine Blood Negative (NEGATIVE) 01/07/18 14:38 Urine Nitrate Negative (NEGATIVE) 01/07/18 14:38 Urine Bilirubin Negative (NEGATIVE) 01/07/18 14:38 Urine Urobilinogen 4.0 mg/dL (0.2-1.0) 01/07/18 14:38 Ur Leukocyte Esterase Neg Carolyn/uL (Negative) 01/07/18 14:38 Urine RBC (Auto) 1 /hpf (0-3) 01/07/18 14:38 Urine Microscopic WBC 2 /hpf (0-5) 01/07/18 14:38 Ur Squamous Epith Cells 1 /hpf (0-5) 01/07/18 14:38 Vancomycin Trough 12.4 ug/mL (5.0-10.0) H 01/09/18 18:30 Urine Opiates Screen Positive (NEGATIVE) H 01/07/18 14:38 Urine Methadone Screen Negative (NEGATIVE) 01/07/18 14:38 Ur Barbiturates Screen Negative (NEGATIVE) 01/07/18 14:38 Ur Phencyclidine Scrn Negative (NEGATIVE) 01/07/18 14:38 Ur Amphetamines Screen Negative (NEGATIVE) 01/07/18 14:38 U Benzodiazepines Scrn Positive (NEGATIVE) 01/07/18 14:38 U Oth Cocaine Metabols Negative (NEGATIVE) 01/07/18 14:38 U Cannabinoids Screen Positive (NEGATIVE) H 01/07/18 14:38 HIV-1 Ab Rapid Screen Non reactive (NON REAC) 01/07/18 15:53 TB Test (QFT) Nil 0.21 IU/mL 01/10/18 10:56 TB Test Mitogen - Nil 0.07 IU/mL 01/10/18 10:56 TB Test TB - Nil <0.00 IU/mL 01/10/18 10:56 TB Test (QFT) Indeterminate (Negative) H 01/10/18 10:56 - Hospital Course Hospital Course: MOVEMENT OF EXTREMITIES IMPROVED WITH SURGERY Discharge Exam - Head Exam Head Exam: ATRAUMATIC, NORMAL INSPECTION, NORMOCEPHALIC - Eye Exam Eye Exam: EOMI, Normal appearance, PERRL Pupil Exam: NORMAL ACCOMODATION, PERRL - GI/Abdominal Exam GI & Abdominal Exam: Normal Bowel Sounds - Rectal Exam Rectal Exam: NORMAL INSPECTION - Extremities Exam Additional comments: RANGE OF MOTION IMPROVED - Neurological Exam Neurological exam: Abnormal Gait, Alert, CN II-XII Intact, Oriented x3, Reflexes Normal - Psychiatric Exam Psychiatric exam: Normal Affect, Normal Mood - Skin Skin Exam: Dry, Intact, Normal Color, Warm Discharge Plan - Follow Up Plan Condition: GUARDED Disposition: REHAB FACILITY/REHAB UNIT Patient education suggested?: Yes Additional Instructions: TRANSFER TO ACUTE REHAB
== END 2018-01-11 18:09 | DRG 836 ==
LOC: H.ER 09:49 → H.ERHOLD 14:30 → H.ICU/CCU 18:30
PROVIDERS: ADMIT Internal Medicine Pulmonary Disease; ATTEND Internal Medicine Pulmonary Disease
PROC: 0RB10ZZ Excision of Cervical Vertebral Joint, Open Approach (ICD-10-PCS; 2018-01-08)
PROC: 00BW0ZZ Excision of Cervical Spinal Cord, Open Approach (ICD-10-PCS; principal; 2018-01-08 11:30)
DX: G06.1 Intraspinal abscess and granuloma (principal); R32 Unspecified urinary incontinence; M46.22 Osteomyelitis of vertebra, cervical region; M46.42 Discitis, unspecified, cervical region; G82.20 Paraplegia, unspecified; M43.6 Torticollis; F12.90 Cannabis use, unspecified, uncomplicated; F17.210 Nicotine dependence, cigarettes, uncomplicated

== ENCOUNTER 2018-01-11 15:49 | Inpatient (IN) | payer MEDICAID ==
[2018-01-11 15:54] VITALS: BMI 19.5
[2018-01-11] MEDS ORDERED: Naloxone HCl 2mg/2ml syr IVP PRN (16:49)
[2018-01-11] MEDS ORDERED: Cefepime 2 GM in Sodium Chloride 0.9% 100 ML IVPB SCH (17:00)
--- NOTE | 2018-01-11 17:04 | CP.PCM.CON ---
History of Present Illness - History of Present Illness History of Present Illness: Dr Goldberg PMR consultation on Warren Cornelius, born 1985 who has been admitted to [facility] for acute onset of LE>UE weakness and urinary incont. Noted to have a cervical epidural abscess and underwent urgent surgery and has already had a very good LE recovery. Still with catheter for urinary issue, not sure if it was overflow incontinence. Seen by ID and on ABX treatment. Having some spasms but not constant spasticity and no real pain. He has come up from the ICU to the [facility] acute rehab floor Review of Systems - Constitutional Constitutional: absent: Chills, Daytime Sleepiness - EENT Eyes: absent: Blurred Vision, Change in Vision Ears: absent: Ear Discharge, Ear Pain, Dizziness Nose/Mouth/Throat: absent: Nasal Congestion, Nasal Discharge - Cardiovascular Cardiovascular: absent: Chest Pain - Respiratory Respiratory: absent: Cough, Hemoptysis - Gastrointestinal Gastrointestinal: Constipation (likely neurogenic bowel). absent: Belching - Genitourinary Genitourinary: Other (+ acosta) - Musculoskeletal Musculoskeletal: absent: Back Pain - Integumentary Integumentary: absent: Bleeding Lesions - Neurological Neurological: Abnormal Movements (goes into spasms typically when attempting weight bearing). absent: Abnormal Hearing, Behavioral Changes - Psychiatric Psychiatric: absent: Anxiety Past Patient History - Past Medical History & Family History Past Medical History?: Yes - Past Social History Smoking Status: Current Some Days Smoker Alcohol: < 2 Drinks/Day Drugs: Cannabis Home Situation {Lives}: With Family - CARDIAC Hx Cardiac Disorders: No - PULMONARY Hx Respiratory Disorders: No - HEMATOLOGICAL/ONCOLOGICAL Hx AIDS: No Hx Human Immunodeficiency Virus (HIV): No - MUSCULOSKELETAL/RHEUMATOLOGICAL Hx Falls: Yes (few days ago) - PSYCHIATRIC Hx Substance Use: Yes (claimed smoke Marijuana) - SURGICAL HISTORY Hx Surgeries: Yes Other/Comment: hernia surgery - ANESTHESIA Hx Anesthesia: Yes Hx Anesthesia Reactions: No Hx Malignant Hyperthermia: No Meds Allergies/Adverse Reactions: Allergies Allergy/AdvReac Type Severity Reaction Status Date / Time No Known Allergies Allergy Verified 01/11/18 15:54 - Medications Medications: Current Medications Dexamethasone (Decadron Inj) 4 mg IVP Q6 DEMI Docusate Sodium (Colace) 100 mg PO BID DEMI Hydromorphone HCl (Dilaudid) 1 mg IVP Q6 PRN PRN Reason: Pain, moderate (4-7) Cefepime HCl 2 gm/ Sodium (Chloride) 100 mls @ 100 mls/hr IVPB Q8@0600,1400,2200 DEMI Vancomycin HCl 1 gm/ Sodium (Chloride) 250 mls @ 166.667 mls/hr IVPB Q12H DEMI Naloxone HCl (Narcan 2mg/2ml) 1 mg IVP Q2M PRN PRN Reason: Shortness of Breath Physical Exam - Constitutional Appears: Non-toxic, No Acute Distress - Head Exam Head Exam: ATRAUMATIC, NORMAL INSPECTION, NORMOCEPHALIC - Eye Exam Eye Exam: EOMI - ENT Exam ENT Exam: Mucous Membranes Moist - Respiratory Exam Respiratory Exam: NORMAL BREATHING PATTERN - Cardiovascular Exam Cardiovascular Exam: REGULAR RHYTHM - GI/Abdominal Exam GI & Abdominal Exam: absent: Distended - Extremities Exam Extremities exam: Negative for: calf tenderness, pedal edema - Neurological Exam Neurological exam: Alert, CN II-XII Intact, Oriented x3 - Psychiatric Exam Psychiatric exam: Normal Affect, Normal Mood - Skin Skin Exam: Warm Results - Vital Signs Recent Vital Signs: Last Vital Signs Temp Pulse Resp 20 01/11/18 15:58 BP Pulse Ox 98 01/11/18 15:58 Assessment & Plan - Assessment and Plan (Free Text) Assessment: 32 year old with SCI neurogenic bowel and bladder he is able to activate his gluteal muscles more than his sphincter he has sensation but reduced to light touch. I did not have time to do a complete SHANA examination at this time. will get a trapeze consider d/c acosta trial sunday depending on examination. pain is controlled will give a dulcolax supp in the -am to have a BM Patient is an excellent acute rehabilitation candidate and will have focused SCI, pain management, wound care, PT, OT and recreational therapy to help facilitate a safe and appropriate d/c plan Impairment code: 04.111
--- NOTE | 2018-01-11 17:13 | PCM.OPOC ---
Physiatry Overall Plan of Care - Overall Plan of Care Estimated Length of Stay in Weeks: 6 Rehab Impairment: Mobility, Gait, Coordination Etiologic Diagnosis: Other (SCI) - Anticipated Interventions Physical Therapy:: Yes Occupational Therapy:: Yes Speech Therapy:: No Recreational Therapy:: Yes - Therapy Goals Bed Mobility: Supervision Ambulation: Contact Guard - Discharge Plan Discharge Destination: Home
[2018-01-11] MEDS: Dexamethasone 4 mg/1 ml IVP SCH (18:29)
[2018-01-11] MEDS ORDERED: Patient's Own Med (Cefepime Iv 2 Gm In Ns [Maxipime 2gm] 2 GM) IVPB SCH (22:00)
[2018-01-11] MEDS: Cefepime 2 GM in Sodium Chloride 0.9% 100 ML IVPB SCH (22:01)
[2018-01-12] MEDS: Dexamethasone 4 mg/1 ml IVP SCH ×5 (00:02→23:09)
[2018-01-12] MEDS ORDERED: Patient's Own Med (Vancomycin 1gm In Ns 250ml [Vancomycin 1gm] 1 GM) IVPB SCH (01:00)
[2018-01-12] MEDS: Cefepime 2 GM in Sodium Chloride 0.9% 100 ML IVPB SCH ×3 (06:27→21:34)
[2018-01-12 07:20] LABS: HEMOGLOBIN 11.6 g/dL (12.0-18.0); MEAN CELL VOLUME 93.8 fl (80.0-94.0); MEAN CORPUSCULAR HEMOGLOBIN 30.2 pg (27.0-31.0); MEAN CORPUSCULAR HGB CONC 32.3 g/dL (33.0-37.0); RBC 3.84 Mil/uL (4.40-5.90); WHITE BLOOD COUNT 11.9 K/uL (4.8-10.8)
[2018-01-12 07:24] LABS: BLOOD UREA NITROGEN 16 mg/dl (9-20); CALCIUM 9.2 mg/dL (8.4-10.2); GFR NON-AFRICAN AMERICAN > 60
--- NOTE | 2018-01-12 12:28 | CP.PCM.HP ---
History of Present Illness - History of Present Illness History of Present Illness: 32 yr old male admitted from the icu following therapy for epidural abscess--s/p neurosurgery intervention.He had paralysis of lower extremities which has improved with surgery. Present on Admission - Present on Admission Any Indicators Present on Admission: Yes Past Patient History - Past Medical History & Family History Past Medical History?: Yes - Past Social History Smoking Status: Current Some Days Smoker Alcohol: < 2 Drinks/Day Drugs: Cannabis Home Situation {Lives}: With Family - CARDIAC Hx Cardiac Disorders: No - PULMONARY Hx Respiratory Disorders: No - HEMATOLOGICAL/ONCOLOGICAL Hx AIDS: No Hx Human Immunodeficiency Virus (HIV): No - MUSCULOSKELETAL/RHEUMATOLOGICAL Hx Falls: Yes (few days ago) - PSYCHIATRIC Hx Substance Use: Yes (claimed smoke Marijuana) - SURGICAL HISTORY Hx Surgeries: Yes Other/Comment: hernia surgery - ANESTHESIA Hx Anesthesia: Yes Hx Anesthesia Reactions: No Hx Malignant Hyperthermia: No Meds Allergies/Adverse Reactions: Allergies Allergy/AdvReac Type Severity Reaction Status Date / Time No Known Allergies Allergy Verified 01/11/18 15:54 Physical Exam - Constitutional Appears: No Acute Distress - Head Exam Head Exam: ATRAUMATIC, NORMAL INSPECTION, NORMOCEPHALIC - Eye Exam Eye Exam: EOMI, Normal appearance, PERRL Pupil Exam: NORMAL ACCOMODATION, PERRL - ENT Exam ENT Exam: Mucous Membranes Moist, Normal Exam - Neck Exam Neck exam: Positive for: Normal Inspection Additional comments: brace in place - Respiratory Exam Respiratory Exam: Clear to Auscultation Bilateral, NORMAL BREATHING PATTERN - Cardiovascular Exam Cardiovascular Exam: REGULAR RHYTHM - GI/Abdominal Exam GI & Abdominal Exam: Normal Bowel Sounds, Soft. absent: Tenderness - Rectal Exam Rectal Exam: NORMAL INSPECTION - Extremities Exam Extremities exam: Positive for: normal inspection - Back Exam Back exam: NORMAL INSPECTION - Neurological Exam Neurological exam: Alert, CN II-XII Intact, Oriented x3, Reflexes Normal Additional comments: moves all extremities against gravity - Psychiatric Exam Psychiatric exam: Normal Affect, Normal Mood - Skin Skin Exam: Dry, Intact, Normal Color, Warm Results - Vital Signs Recent Vital Signs: Last Vital Signs Temp 98 F 01/12/18 09:00 Pulse 89 01/12/18 09:00 Resp 20 01/12/18 09:00 BP 120/80 01/12/18 09:00 Pulse Ox 98 01/12/18 09:00 - Labs Result Diagrams: 01/12/18 06:30 01/12/18 06:30 Labs: Laboratory Results - last 24 hr 01/12/18 01/12/18 01/12/18 06:30 06:30 08:00 WBC 11.9 H RBC 3.84 L Hgb 11.6 L Hct 36.1 MCV 93.8 MCH 30.2 MCHC 32.3 L RDW 13.0 Plt Count 360 Sodium 137 Potassium 4.2 Chloride 100 Carbon Dioxide 31 H Anion Gap 10 BUN 16 Creatinine 0.7 L Est GFR ( Amer) > 60 Est GFR (Non-Af Amer) > 60 Random Glucose 109 Calcium 9.2 Vancomycin Trough 8.3 Assessment & Plan - Assessment and Plan (Free Text) Assessment: discitis epidural abscess--s/p neurosurgical intervention paraplegia improving iv antibiotics Plan: agressive pt/ot - Date & Time Date: 01/12/18 Time: 12:31
[2018-01-12] MEDS: oxyCODONE 5 mg Immediate Release Tab PO PRN (16:54)
[2018-01-13] MEDS: oxyCODONE 5 mg Immediate Release Tab PO PRN (04:57)
[2018-01-13] MEDS: Dexamethasone 4 mg/1 ml IVP SCH ×4 (05:16→23:53)
[2018-01-13] MEDS: Cefepime 2 GM in Sodium Chloride 0.9% 100 ML IVPB SCH ×3 (05:22→21:06)
--- NOTE | 2018-01-13 10:36 | CP.PCM.PN ---
Subjective - Date & Time of Evaluation Date of Evaluation: 01/13/18 Time of Evaluation: 10:36 - Subjective Subjective: DENIES PAIN MOVING ALL EXTREMITIES MOVED BOWELS ALERT AND ORIENTED X 3 Objective - Vital Signs/Intake and Output Vital Signs (last 24 hours): Temp Pulse Resp BP Pulse Ox 97.9 F 64 19 122/70 98 01/13/18 09:50 01/13/18 09:50 01/13/18 09:50 01/13/18 09:50 01/13/18 09:50 Intake and Output: 01/13/18 01/13/18 06:59 18:59 Intake Total 1200 Output Total 2100 Balance -900 - Medications Medications: Current Medications Acetaminophen (Tylenol 325mg Tab) 650 mg PO Q6 PRN PRN Reason: for pain scale 3-4 Baclofen (Lioresal) 5 mg PO TID [facility] Last Admin: 01/13/18 08:26 Dose: 5 mg Dexamethasone (Decadron Inj) 4 mg IVP Q6 [facility] Last Admin: 01/13/18 05:16 Dose: 4 mg Docusate Sodium (Colace) 100 mg PO BID [facility] Last Admin: 01/13/18 08:25 Dose: 100 mg Cefepime HCl 2 gm/ Sodium (Chloride) 100 mls @ 100 mls/hr IVPB Q8@0600,1400,2200 [facility] Last Admin: 01/13/18 05:22 Dose: 100 mls/hr Vancomycin HCl 1 gm/ Sodium (Chloride) 250 mls @ 166.667 mls/hr IVPB Q12H [facility] Last Admin: 01/13/18 00:06 Dose: 166.667 mls/hr Oxycodone HCl (Oxycodone Immediate Release Tab) 5 mg PO Q6 PRN PRN Reason: pain 5-10/10 Last Admin: 01/13/18 04:57 Dose: 5 mg - Labs Labs: 01/12/18 06:30 01/12/18 06:30 - Constitutional Appears: No Acute Distress - Head Exam Head Exam: ATRAUMATIC, NORMAL INSPECTION, NORMOCEPHALIC - Eye Exam Eye Exam: EOMI, Normal appearance, PERRL Pupil Exam: NORMAL ACCOMODATION, PERRL - ENT Exam ENT Exam: Mucous Membranes Moist, Normal Exam - Neck Exam Neck Exam: Full ROM, Normal Inspection. absent: Lymphadenopathy - Respiratory Exam Respiratory Exam: Clear to Ausculation Bilateral, NORMAL BREATHING PATTERN - Cardiovascular Exam Cardiovascular Exam: REGULAR RHYTHM, +S1, +S2. absent: Murmur - GI/Abdominal Exam GI & Abdominal Exam: Soft, Normal Bowel Sounds. absent: Tenderness - Rectal Exam Rectal Exam: NORMAL INSPECTION - Extremities Exam Extremities Exam: Full ROM, Normal Capillary Refill, Normal Inspection. absent: Joint Swelling, Pedal Edema - Back Exam Back Exam: NORMAL INSPECTION - Neurological Exam Neurological Exam: Alert, Awake, CN II-XII Intact, Normal Gait, Oriented x3 Neuro motor strength exam: Left Upper Extremity: 3, Right Upper Extremity: 3, Left Lower Extremity: 3, Right Lower Extremity: 3 - Psychiatric Exam Psychiatric exam: Normal Affect, Normal Mood - Skin Skin Exam: Dry, Intact, Normal Color, Warm Assessment and Plan - Assessment and Plan (Free Text) Assessment: DISCITIS S/P NEUROSURGICAL DECOMPRESSION AND RAINAGE OF ABSCESS PARAPLEGIA IMPROVED Plan: CONTINUE AGGRESSIVE PT/OT
--- NOTE | 2018-01-13 13:23 | CP.PCM.CON ---
History of Present Illness - History of Present Illness History of Present Illness: 32 yo male admitted to rehab from ICU Presented here with 1-2 wk hx of back pain progressing to leg weakness and incontinence of bowel/bladder Admitted to ICU with discitis/ epidural abscess C4-C7 Went to OR today for abscess drainage / decompression Post op course shows improvement in weakness and cultures + for Acinetobacter Now transferreed to rehab for aggressive PT and continuation of antibiotic rx PMH- back pain SH + smoker génesis IVDA FH N/C NKDA Review of Systems - Review of Systems All systems: reviewed and no additional remarkable complaints except - Constitutional Constitutional: As Per HPI. absent: Chills, Fever - EENT Eyes: absent: As Per HPI, Blind Spots, Blurred Vision, Change in Vision, Decreased Night Vision, Diplopia, Discharge, Dry Eye, Exophthalmos, Floaters, Irritation, Itchy Eyes, Loss of Peripheral Vision, Pain, Photophobia, Requires Corrective Lenses, Sees Flashes, Spots in Vision, Tunnel Vision, Other Visual Disturbances, Loss of Vision, Other Ears: absent: As Per HPI, Decreased Hearing, Ear Discharge, Ear Pain, Tinnitus, Abnormal Hearing, Disequilibrium, Dizziness, Other Nose/Mouth/Throat: absent: As Per HPI, Epistaxis, Nasal Congestion, Nasal Discharge, Nasal Obstruction, Nasal Trauma, Nose Pain, Post Nasal Drip, Sinus Pain, Sinus Pressure, Bleeding Gums, Change in Voice, Dental Pain, Dry Mouth, Dysphagia, Halitosis, Hoarsness, Lip Swelling, Mouth Lesions, Mouth Pain, Odynophagia, Sore Throat, Throat Swelling, Tongue Swelling, Facial Pain, Neck Pain, Neck Mass, Other - Cardiovascular Cardiovascular: absent: As Per HPI, Acrocyanosis, Chest Pain, Chest Pain at Rest, Chest Pain with Activity, Claudication, Diaphoresis, Dyspnea, Dyspnea on Exertion, Edema, Irregular Heart Rhythm, Pain Radiating to Arm/Neck/Jaw, Leg Edema, Leg Ulcers, Lightheadedness, Orthopnea, Palpitations, Paroxysmal Nocturnal Dyspnea, Pedal Edema, Radiating Pain, Rapid Heart Rate, Slow Heart Rate, Syncope, Other - Respiratory Respiratory: absent: As Per HPI, Cough, Dyspnea, Hemoptysis, Dyspnea on Exertion, Wheezing, Snoring, Stridor, Pain on Inspiration, Chest Congestion, Excessive Mucous Production, Change in Mucous Color, Pain with Coughing, Other - Gastrointestinal Gastrointestinal: absent: As Per HPI, Abdominal Pain, Belching, Bloating, Change in Bowel Habits, Change in Stool Character, Coffee Ground Emesis, Constipation, Cramping, Diarrhea, Dyspepsia, Dysphagia, Early Satiety, Excessive Flatus, Fecal Incontinence, Heartburn, Hematemesis, Hematochezia, Loose Stools, Melena, Nausea, Odynophagia, Temesmus, Vomiting, Other - Genitourinary Genitourinary: absent: As Per HPI, Change in Urinary Stream, Difficulty Urinating, Dysuria, Flank Pain, Hematuria, Pyuria, Nocturia, Urinary Incontinence, Urinary Frequency, Urinary Hesitance, Urinary Urgency, Voiding Freq/Small Amts, Freq UTI, Hx Renal/Bladder Calculi, Hx /Renal Surgery, Bladder Distension, Other - Musculoskeletal Musculoskeletal: As Per HPI - Integumentary Integumentary: As Per HPI - Neurological Neurological: As Per HPI - Psychiatric Psychiatric: absent: As Per HPI, Abnormal Sleep Pattern, Anhedonia, Anxiety, Auditory Hallucinations, Behavioral Changes, Change in Appetite, Change in Libido, Confusion, Depression, Difficulty Concentrating, Hallucinations, Homicidal Ideation, Hopelessness, Irritability, Memory Loss, Mood Swings, Panic Attacks, Paranoia, Suicidal Ideation, Visual Hallucinations, Tactile Hallucinations, Other - Endocrine Endocrine: absent: As Per HPI, Change in Body Appearance, Change in Libido, Cold Intolorance, Deepening of Voice, Excessive Sweating, Fatigue, Flushing, Heat Intolorance, Increase in Ring/Shoe/Hat Size, Palpitations, Polydipsia, Polyphagia, Polyuria, Other - Hematologic/Lymphatic Hematologic: absent: As Per HPI, Easy Bleeding, Easy Bruising, Lymphadenopathy, Other Past Patient History - Past Medical History & Family History Past Medical History?: Yes - Past Social History Smoking Status: Current Some Days Smoker Alcohol: < 2 Drinks/Day Drugs: Cannabis Home Situation {Lives}: With Family - CARDIAC Hx Cardiac Disorders: No - PULMONARY Hx Respiratory Disorders: No - HEMATOLOGICAL/ONCOLOGICAL Hx AIDS: No Hx Human Immunodeficiency Virus (HIV): No - MUSCULOSKELETAL/RHEUMATOLOGICAL Hx Falls: Yes (few days ago) - PSYCHIATRIC Hx Substance Use: Yes (claimed smoke Marijuana) - SURGICAL HISTORY Hx Surgeries: Yes Other/Comment: hernia surgery - ANESTHESIA Hx Anesthesia: Yes Hx Anesthesia Reactions: No Hx Malignant Hyperthermia: No Meds Allergies/Adverse Reactions: Allergies Allergy/AdvReac Type Severity Reaction Status Date / Time No Known Allergies Allergy Verified 01/11/18 15:54 - Medications Medications: Current Medications Acetaminophen (Tylenol 325mg Tab) 650 mg PO Q6 PRN PRN Reason: for pain scale 3-4 Baclofen (Lioresal) 5 mg PO TID [facility] Last Admin: 01/13/18 08:26 Dose: 5 mg Dexamethasone (Decadron Inj) 4 mg IVP Q6 [facility] Last Admin: 01/13/18 12:05 Dose: 4 mg Docusate Sodium (Colace) 100 mg PO BID [facility] Last Admin: 01/13/18 08:25 Dose: 100 mg Cefepime HCl 2 gm/ Sodium (Chloride) 100 mls @ 100 mls/hr IVPB Q 8@0600,1400,2200 [facility] Last Admin: 01/13/18 05:22 Dose: 100 mls/hr Vancomycin HCl 1 gm/ Sodium (Chloride) 250 mls @ 166.667 mls/hr IVPB Q12H [facility] Last Admin: 01/13/18 12:14 Dose: 166.667 mls/hr Lactulose (Enulose) 20 gm PO DAILY PRN PRN Reason: Constipation Oxycodone HCl (Oxycodone Immediate Release Tab) 5 mg PO Q6 PRN PRN Reason: pain 5-10/10 Last Admin: 01/13/18 04:57 Dose: 5 mg Physical Exam - Constitutional Appears: Non-toxic, No Acute Distress - Head Exam Head Exam: ATRAUMATIC, NORMAL INSPECTION, NORMOCEPHALIC - Eye Exam Eye Exam: EOMI, PERRL. absent: Scleral icterus - ENT Exam ENT Exam: Mucous Membranes Dry Additional comments: Neck collar in place - Neck Exam Neck exam: Negative for: Lymphadenopathy - Respiratory Exam Respiratory Exam: Decreased Breath Sounds, Clear to Auscultation Bilateral - Cardiovascular Exam Cardiovascular Exam: REGULAR RHYTHM, +S1, +S2 - GI/Abdominal Exam GI & Abdominal Exam: Diminished Bowel Sounds, Soft. absent: Tenderness - Rectal Exam Rectal Exam: Deferred - Exam Exam: NORMAL INSPECTION - Extremities Exam Extremities exam: Negative for: pedal edema - Back Exam Back exam: absent: CVA tenderness (L), CVA tenderness (R) - Neurological Exam Neurological exam: Alert, CN II-XII Intact, Motor Sensory Deficit, Oriented x3 Additional comments: weakness in lower extremities persists 4/5 upper 3/5 lower - Psychiatric Exam Psychiatric exam: Normal Mood - Skin Skin Exam: Dry Results - Vital Signs Recent Vital Signs: Last Vital Signs Temp 97.9 F 01/13/18 09:50 Pulse 64 01/13/18 09:50 Resp 19 01/13/18 09:50 BP 122/70 01/13/18 09:50 Pulse Ox 98 01/13/18 09:50 - Labs Result Diagrams: 01/12/18 06:30 01/12/18 06:30 Assessment & Plan (1) Back pain Status: Acute (2) Discitis of cervical region Status: Acute (3) Epidural abscess Status: Acute (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 - Assessment and Plan (Free Text) Assessment: cont iv antibiotics for min 6 weeks consider WALT if neuro status allows
--- NOTE | 2018-01-13 21:24 | CP.PCM.CON ---
History of Present Illness - History of Present Illness History of Present Illness: 32 yr old male, well known to our service, who was initially admitted to [facility] with a several day onset of neck pain with progressive weakness and inability to walk. MRI showed epidural abcess, which was subsequently evacuated by neur osurgery Dr. Denny, and he was in the ICU for several days. He recovered strength well and is now in rehab for further management. PMH/PSH: as above, no hiv or hepatitits. FH/SH: no tobacco, no etoh. ALl: nkda. ON exam: AAOx3. PERRL. CN 2-12normal. NO facial asymmetry. Past Patient History - Past Medical History & Family History Past Medical History?: Yes - Past Social History Smoking Status: Current Some Days Smoker Alcohol: < 2 Drinks/Day Drugs: Cannabis Home Situation {Lives}: With Family - CARDIAC Hx Cardiac Disorders: No - PULMONARY Hx Respiratory Disorders: No - HEMATOLOGICAL/ONCOLOGICAL Hx AIDS: No Hx Human Immunodeficiency Virus (HIV): No - MUSCULOSKELETAL/RHEUMATOLOGICAL Hx Falls: Yes (few days ago) - PSYCHIATRIC Hx Substance Use: Yes (claimed smoke Marijuana) - SURGICAL HISTORY Hx Surgeries: Yes Other/Comment: hernia surgery - ANESTHESIA Hx Anesthesia: Yes Hx Anesthesia Reactions: No Hx Malignant Hyperthermia: No Meds Allergies/Adverse Reactions: Allergies Allergy/AdvReac Type Severity Reaction Status Date / Time No Known Allergies Allergy Verified 01/11/18 15:54 - Medications Medications: Current Medications Acetaminophen (Tylenol 325mg Tab) 650 mg PO Q6 PRN PRN Reason: for pain scale 3-4 Baclofen (Lioresal) 5 mg PO TID [facility] Last Admin: 01/13/18 17:21 Dose: 5 mg Dexamethasone (Decadron Inj) 4 mg IVP Q6 [facility] Last Admin: 01/13/18 17:37 Dose: 4 mg Docusate Sodium (Colace) 100 mg PO BID [facility] Last Admin: 01/13/18 17:20 Dose: 100 mg Cefepime HCl 2 gm/ Sodium (Chloride) 100 mls @ 100 mls/hr IVPB Q8@060 0,1400,2200 [facility] Last Admin: 01/13/18 21:06 Dose: 100 mls/hr Vancomycin HCl 1 gm/ Sodium (Chloride) 250 mls @ 166.667 mls/hr IVPB Q12H [facility] Last Admin: 12/02/18 12:14 Dose: 166.667 mls/hr Lactulose (Enulose) 20 gm PO DAILY PRN PRN Reason: Constipation Last Admin: 01/13/18 13:29 Dose: 20 gm Oxycodone HCl (Oxycodone Immediate Release Tab) 5 mg PO Q6 PRN PRN Reason: pain 5-10/10 Last Admin: 01/13/18 04:57 Dose: 5 mg Results - Vital Signs Recent Vital Signs: Last Vital Signs Temp 98.6 F 01/13/18 19:52 Pulse 52 L 01/13/18 19:52 Resp 16 01/13/18 19:52 BP 123/65 01/13/18 19:52 Pulse Ox 97 01/13/18 19:52 - Labs Result Diagrams: 01/14/18 05:35 01/14/18 05:35 Assessment & Plan - Assessment and Plan (Free Text) Assessment: 32 yr old male who is s/p epidural abcess removal, now stable and in rehab. Plan: 1. Rehab as per protocol. 2. Neurontin 300 mg po daily for neuropathic pain. Our team will follow Thank you Dr. Rosas
[2018-01-14] MEDS: Cefepime 2 GM in Sodium Chloride 0.9% 100 ML IVPB SCH ×3 (05:00→21:43)
[2018-01-14] MEDS: Dexamethasone 4 mg/1 ml IVP SCH ×3 (06:21→17:01)
[2018-01-14 06:35] LABS: EOS % 0.1 % (0.0-4.0); HEMOGLOBIN 12.2 g/dL (12.0-18.0); LYMPH # 0.8 K/uL (1.0-4.3); LYMPH % 4.7 % (20.0-40.0); MEAN CELL VOLUME 93.5 fl (80.0-94.0); MEAN CORPUSCULAR HEMOGLOBIN 30.9 pg (27.0-31.0); MEAN CORPUSCULAR HGB CONC 33.1 g/dL (33.0-37.0); MEAN PLATELET VOLUME 7.6 fl (7.2-11.7); MONO # 0.9 K/uL (0.0-0.8); MONO % 5.4 % (0.0-10.0); NEUT # 15.2 K/uL (1.8-7.0); NEUT % 89.8 % (50.0-75.0); PLATELET COUNT 413 K/uL (130-400); RBC 3.94 Mil/uL (4.40-5.90); WHITE BLOOD COUNT 16.9 K/uL (4.8-10.8)
[2018-01-14 07:04] LABS: ALB/GLOB RATIO 0.9 (1.0-2.1); ALBUMIN 3.1 g/dL (3.5-5.0); ALT/SGPT 43 U/L (21-72); AST/SGOT 26 U/L (17-59); BLOOD UREA NITROGEN 13 mg/dl (9-20); CALCIUM 9.2 mg/dL (8.4-10.2); GFR NON-AFRICAN AMERICAN > 60
[2018-01-14 07:20] LABS: ERYTHROCYTE SEDIMENTATION RATE 33 mm/hr (0-15)
--- NOTE | 2018-01-14 09:17 | CP.PCM.PN ---
Subjective - Date & Time of Evaluation Date of Evaluation: 01/14/18 Time of Evaluation: 09:17 - Subjective Subjective: UPSET AND REFUSING TO SPEAK PER NURSES,WANTS TO GO HOME NO NEW CLINICAL FINDINGS WILL OBTAIN PSYCH CONSULT NURSES TO REACH OUT TO FAMILY RE-DISPOSITION Objective - Vital Signs/Intake and Output Vital Signs (last 24 hours): Temp Pulse Resp BP Pulse Ox 98.4 F 50 L 18 126/77 97 01/14/18 08:35 01/14/18 08:35 01/14/18 08:35 01/14/18 08:35 01/14/18 08:35 Intake and Output: 01/14/18 01/14/18 06:59 18:59 Intake Total 1450 Output Total 1500 Balance -50 - Medications Medications: Current Medications Acetaminophen (Tylenol 325mg Tab) 650 mg PO Q6 PRN PRN Reason: for pain scale 3-4 Baclofen (Lioresal) 5 mg PO TID [facility] Last Admin: 01/14/18 08:08 Dose: 5 mg Dexamethasone (Decadron Inj) 4 mg IVP Q6 [facility] Last Admin: 01/14/18 06:21 Dose: 4 mg Docusate Sodium (Colace) 100 mg PO BID [facility] Last Admin: 01/14/18 08:07 Dose: 100 mg Cefepime HCl 2 gm/ Sodium (Chloride) 100 mls @ 100 mls/hr IVPB Q8@0600,1400,2200 [facility] Last Admin: 01/14/18 05:00 Dose: 100 mls/hr Vancomycin HCl 1 gm/ Sodium (Chloride) 250 mls @ 166.667 mls/hr IVPB Q12H [facility] Last Admin: 01/14/18 00:02 Dose: 166.667 mls/hr Lactulose (Enulose) 20 gm PO DAILY PRN PRN Reason: Constipation Last Admin: 01/13/18 13:29 Dose: 20 gm Oxycodone HCl (Oxycodone Immediate Release Tab) 5 mg PO Q6 PRN PRN Reason: pain 5-10/10 Last Admin: 01/13/18 04:57 Dose: 5 mg - Labs Labs: 01/14/18 05:35 01/14/18 05:35
[2018-01-14 09:41] LABS: LYMPHOCYTE 6 % (20-50); MONOCYTE 5 % (0-10); NEUTROPHIL 89 % (42-75); TOTAL CELLS COUNTED 100
[2018-01-14 09:42] LABS: PLATELET ESTIMATE SLIGHTLY INCREASED (NORMAL)
[2018-01-14] MEDS: oxyCODONE 5 mg Immediate Release Tab PO PRN (11:25)
--- NOTE | 2018-01-14 12:15 | CP.PCM.PN ---
Subjective - Date & Time of Evaluation Date of Evaluation: 01/14/18 Time of Evaluation: 12:15 - Subjective Subjective: Neurology Consultation Follow-Up Note: Mr. Cornelius is well known to our service. He was initially admitted to [facility] with a several day onset of neck pain with progressive weakness and inability to walk. MRI showed epidural abcess, which was evacuated by neurosurgery (today he is POD # 6). Mr. Cornelius was in the ICU for several days, recovered strength, and now being managed in acute rehab. Today pt is in good spirits. He was evaluated during PT session but is doing well overall. Pt admits that his neck pain has resolved. He admits to left hand and fingers tingling/numbness. Dr. Rosas's note reviewed from the weekend and she recommends Neurontin daily. Pt denies headache, dizziness, visual changes, chest pain, shortness of breath, abd pain, n/v/d. Objective - Vital Signs/Intake and Output Vital Signs (last 24 hours): Temp Pulse Resp BP Pulse Ox 98.4 F 50 L 18 126/77 97 01/14/18 08:35 01/14/18 08:35 01/14/18 08:35 01/14/18 08:35 01/14/18 08:35 Intake and Output: 01/14/18 01/14/18 06:59 18:59 Intake Total 1450 Output Total 1500 Balance -50 - Medications Medications: Current Medications Acetaminophen (Tylenol 325mg Tab) 650 mg PO Q6 PRN PRN Reason: for pain scale 3-4 Baclofen (Lioresal) 5 mg PO TID [facility] Last Admin: 01/14/18 08:08 Dose: 5 mg Dexamethasone (Decadron Inj) 4 mg IVP Q6 [facility] Last Admin: 01/14/18 11:26 Dose: 4 mg Docusate Sodium (Colace) 100 mg PO BID [facility] Last Admin: 01/14/18 08:07 Dose: 100 mg Cefepime HCl 2 gm/ Sodium (Chloride) 100 mls @ 100 mls/hr IVPB Q8@0600,1400,2200 [facility] Last Admin: 01/14/18 05:00 Dose: 100 mls/hr Vancomycin HCl 1 gm/ Sodium (Chloride) 250 mls @ 166.667 mls/hr IVPB Q12H [facility] Last Admin: 01/14/18 00:02 Dose: 166.667 mls/hr Lactulose (Enulose) 20 gm PO DAILY PRN PRN Reason: Constipation Last Admin: 01/13/18 13:29 Dose: 20 gm Oxycodone HCl (Oxycodone Immediate Release Tab) 5 mg PO Q6 PRN PRN Reason: pain 5-10/10 Last Admin: 01/14/18 11:25 Dose: 5 mg - Labs Labs: 01/14/18 05:35 01/14/18 05:35 - Constitutional Appears: Well, Non-toxic, No Acute Distress - Head Exam Head Exam: ATRAUMATIC, NORMAL INSPECTION, NORMOCEPHALIC - Eye Exam Eye Exam: EOMI, Normal appearance, PERRL Pupil Exam: NORMAL ACCOMODATION, PERRL - ENT Exam ENT Exam: Mucous Membranes Moist - Neck Exam Additional comments: [place] j-collar maintained - Respiratory Exam Respiratory Exam: NORMAL BREATHING PATTERN - Extremities Exam Extremities Exam: Full ROM (FROM to all extremities; still has weakness to BLE), Normal Inspection. absent: Calf Tenderness, Pedal Edema - Neurological Exam Neurological Exam: Alert, Awake, CN II-XII Intact, Oriented x3 Neuro motor strength exam: Left Upper Extremity: 5 (web services developer 4/5), Right Upper E xtremity: 5 (web services developer 4/5), Left Lower Extremity: 3 (hypertonicity noted), Right Lower Extremity: 3 (hypertonicity noted) Additional comments: speech clear and fluid sensation intact and equal BLE and BUE hyperflexia BLE - Psychiatric Exam Psychiatric exam: Normal Affect, Normal Mood - Skin Skin Exam: Normal Color Assessment and Plan (1) Epidural abscess Assessment & Plan: -Mr. Cornelius is improving. -Paresthesias to left hand and fingers likely neuropathic---will start Neurontin [address] Rosas's recommendations over the weekend--pt agrees. -Continue PT/OT therapy. -Please notify neuro team of any acute changes in condition. -We will continue to follow the pt while in rehab. Case discussed with Dr. Brown. Status: Acute
--- NOTE | 2018-01-14 18:13 | CP.PCM.PN ---
Subjective - Date & Time of Evaluation Date of Evaluation: 01/14/18 Time of Evaluation: 18:11 - Subjective Subjective: Patient seen in the room. C-collar in place discussed with staff that he had some increased spasms in the mid back with UE erg. + constipation. Will give dulcolax supp. suspected neurogenic bladder with retention will maintain acosta over the next couple of days then will consider to d/c acosta and do a PVR check. 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 Objective - Vital Signs/Intake and Output Vital Signs (last 24 hours): Temp Pulse Resp BP Pulse Ox 98.4 F 50 L 18 126/77 97 01/14/18 08:35 01/14/18 08:35 01/14/18 08:35 01/14/18 08:35 01/14/18 08:35 Intake and Output: 01/14/18 01/14/18 06:59 18:59 Intake Total 1450 1250 Output Total 1500 1120 Balance -50 130 - Medications Medications: Current Medications Acetaminophen (Tylenol 325mg Tab) 650 mg PO Q6 PRN PRN Reason: for pain scale 3-4 Baclofen (Lioresal) 5 mg PO TID [facility] Last Admin: 01/14/18 17:01 Dose: 5 mg Bisacodyl (Dulcolax) 10 mg [place] DAILY PRN PRN Reason: Constipation Dexamethasone (Decadron Inj) 4 mg IVP Q6 [facility] Last Admin: 01/14/18 17:01 Dose: 4 mg Docusate Sodium (Colace) 100 mg PO BID [facility] Last Admin: 01/14/18 17:01 Dose: 100 mg Gabapentin (Neurontin) 300 mg PO HS [facility] Cefepime HCl 2 gm/ Sodium (Chloride) 100 mls @ 100 mls/hr IVPB Q8@0600,1400,220 0 [facility] Last Admin: 01/14/18 14:14 Dose: 100 mls/hr Vancomycin HCl 1 gm/ Sodium (Chloride) 250 mls @ 166.667 mls/hr IVPB Q12H [facility] Last Admin: 01/14/18 12:34 Dose: 166.667 mls/hr Lactulose (Enulose) 20 gm PO DAILY PRN PRN Reason: Constipation Last Admin: 01/14/18 12:35 Dose: 20 gm Oxycodone HCl (Oxycodone Immediate Release Tab) 5 mg PO Q6 PRN PRN Reason: pain -11/21 Last Admin: 01/14/18 11:25 Dose: 5 mg - Labs Labs: 01/14/18 05:35 01/14/18 05:35
[2018-01-15] MEDS: Dexamethasone 4 mg/1 ml IVP SCH ×3 (00:16→12:47)
[2018-01-15] MEDS: Cefepime 2 GM in Sodium Chloride 0.9% 100 ML IVPB SCH ×3 (06:17→21:28)
--- NOTE | 2018-01-15 09:10 | CP.PCM.CON ---
History of Present Illness - History of Present Illness History of Present Illness: consult requested for depression 32 yr old male admitted from the icu following therapy for epidural abscess--s/p neurosurgery intervention.He had paralysis of lower extremities which has improved with surgery. on reviewing the chart pt has history of cannabis abuse pt on evaluation denied any current symptoms of depression and declined to be interviewed by psychiatry Past Patient History - Past Medical History & Family History Past Medical History?: Yes - Past Social History Smoking Status: Current Some Days Smoker Alcohol: < 2 Drinks/Day Drugs: Cannabis Home Situation {Lives}: With Family - CARDIAC Hx Cardiac Disorders: No - PULMONARY Hx Respiratory Disorders: No - HEMATOLOGICAL/ONCOLOGICAL Hx AIDS: No Hx Human Immunodeficiency Virus (HIV): No - MUSCULOSKELETAL/RHEUMATOLOGICAL Hx Falls: Yes (few days ago) - PSYCHIATRIC Hx Substance Use: Yes (claimed smoke Marijuana) - SURGICAL HISTORY Hx Surgeries: Yes Other/Comment: hernia surgery - ANESTHESIA Hx Anesthesia: Yes Hx Anesthesia Reactions: No Hx Malignant Hyperthermia: No Meds Allergies/Adverse Reactions: Allergies Allergy/AdvReac Type Severity Reaction Status Date / Time No Known Allergies Allergy Verified 01/11/18 15:54 - Medications Medications: Current Medications Acetaminophen (Tylenol 325mg Tab) 650 mg PO Q6 PRN PRN Reason: for pain scale 3-4 Baclofen (Lioresal) 5 mg PO TID [facility] Last Admin: 01/15/18 08:10 Dose: 5 mg Bisacodyl (Dulcolax) 10 mg [place] DAILY PRN PRN Reason: Constipation Last Admin: 01/15/18 06:15 Dose: 10 mg Dexamethasone (Decadron Inj) 4 mg IVP Q6 [facility] Last Admin: 01/15/18 06:14 Dose: 4 mg Docusate Sodium (Colace) 100 mg PO BID [facility] Last Admin: 01/15/18 08:09 Dose: 100 mg Gabapentin (Neurontin) 300 mg PO HS [facility] Last Admin: 01/14/18 21:43 Dose: 300 mg Cefepime HCl 2 gm/ Sodium (Chloride) 100 mls @ 100 mls/hr IVPB Q8@0600,1400,2200 [facility] Last Admin: 01/15/18 06:17 Dose: 100 mls/hr Vancomycin HCl 1 gm/ Sodium (Chloride) 250 mls @ 166.667 mls/hr IVPB Q12H [facility] Last Admin: 01/15/18 00:20 Dose: 166.667 mls/hr Lactulose (Enulose) 20 gm PO DAILY PRN PRN Reason: Constipation Last Admin: 01/14/18 12:35 Dose: 20 gm Oxycodone HCl (Oxycodone Immediate Release Tab) 5 mg PO Q6 PRN PRN Reason: pain 5-11/21 Last Admin: 01/14/18 11:25 Dose: 5 mg Results - Vital Signs Recent Vital Signs: Last Vital Signs Temp 98.1 F 01/15/18 08:40 Pulse 51 L 01/15/18 08:40 Resp 20 01/15/18 08:40 BP 128/57 L 01/15/18 08:40 Pulse Ox 97 01/14/18 21:00 - Labs Result Diagrams: 01/14/18 05:35 01/14/18 05:35 Labs: Laboratory Results - last 24 hr 01/14/18 01/14/18 01/14/18 05:35 05:35 12:22 Neutrophils % (Manual) 89 H Lymphocytes % (Manual) 6 L Monocytes % (Manual) 5 Platelet Estimate Slightly increased H RBC Morphology Normal C-Reactive Protein 5.50 Vancomycin Trough 5.4
--- NOTE | 2018-01-15 10:06 | CP.PCM.PN ---
Subjective - Date & Time of Evaluation Date of Evaluation: 01/15/18 Time of Evaluation: 10:06 - Subjective Subjective: RESPONDS TO VERBAL COMMANDS TODAY BUT IS APPREHENSIVE--WANTS MORE FOOD AND CLAIMS THAT THE FOOD IS NASTY ANYWAY MOVING ALL EXTREMITIES Objective - Vital Signs/Intake and Output Vital Signs (last 24 hours): Temp Pulse Resp BP Pulse Ox 98.1 F 51 L 20 128/57 L 97 01/15/18 08:40 01/15/18 08:40 01/15/18 08:40 01/15/18 08:40 01/14/18 21:00 Intake and Output: 01/15/18 01/15/18 06:59 18:59 Intake Total 880 Output Total 1600 Balance -720 - Medications Medications: Current Medications Acetaminophen (Tylenol 325mg Tab) 650 mg PO Q6 PRN PRN Reason: for pain scale 3-4 Baclofen (Lioresal) 5 mg PO TID [facility] Last Admin: 01/15/18 08:10 Dose: 5 mg Bisacodyl (Dulcolax) 10 mg [place] DAILY PRN PRN Reason: Constipation Last Admin: 01/15/18 06:15 Dose: 10 mg Dexamethasone (Decadron Inj) 4 mg IVP Q6 [facility] Last Admin: 01/15/18 06:14 Dose: 4 mg Docusate Sodium (Colace) 100 mg PO BID [facility] Last Admin: 01/15/18 08:09 Dose: 100 mg Gabapentin (Neurontin) 300 mg PO HS [facility] Last Admin: 01/14/18 21:43 Dose: 300 mg Cefepime HCl 2 gm/ Sodium (Chloride) 100 mls @ 100 mls/hr IVPB Q8@0600,1400,2200 [facility] Last Admin: 01/15/18 06:17 Dose: 100 mls/hr Vancomycin HCl 1 gm/ Sodium (Chloride) 250 mls @ 166.667 mls/hr IVPB Q12H [facility] Last Admin: 01/15/18 00:20 Dose: 166.667 mls/hr Lactulose (Enulose) 20 gm PO DAILY PRN PRN Reason: Constipation Last Admin: 01/14/18 12:35 Dose: 20 gm Oxycodone HCl (Oxycodone Immediate Release Tab) 5 mg PO Q6 PRN PRN Reason: pain 5-10/10 Last Admin: 01/14/18 11:25 Dose: 5 mg - Labs Labs: 01/14/18 05:35 01/14/18 05:35 - Constitutional Appears: No Acute Distress - Head Exam Head Exam: ATRAUMATIC, NORMAL INSPECTION, NORMOCEPHALIC - Eye Exam Eye Exam: EOMI, Normal appearance, PERRL Pupil Exam: NORMAL ACCOMODATION, PERRL - ENT Exam ENT Exam: Mucous Membranes Moist, Normal Exam - Neck Exam Neck Exam: Full ROM, Normal Inspection. absent: Lymphadenopathy - Respiratory Exam Respiratory Exam: Clear to Ausculation Bilateral, NORMAL BREATHING PATTERN - Cardiovascular Exam Cardiovascular Exam: REGULAR RHYTHM, +S1, +S2. absent: Murmur - GI/Abdominal Exam GI & Abdominal Exam: Soft, Normal Bowel Sounds. absent: Tenderness - Rectal Exam Rectal Exam: NORMAL INSPECTION - Extremities Exam Extremities Exam: Full ROM, Normal Capillary Refill, Normal Inspection. absent: Joint Swelling, Pedal Edema - Back Exam Back Exam: NORMAL INSPECTION - Neurological Exam Neurological Exam: Alert, Awake, CN II-XII Intact, Oriented x3 - Psychiatric Exam Psychiatric exam: Normal Affect, Normal Mood - Skin Skin Exam: Dry, Intact, Normal Color, Warm Assessment and Plan - Assessment and Plan (Free Text) Assessment: S/P SPINE SURGERY DISCITIS--IMPROVED Plan: CONTINUE AGGRESSIVE PT/OT
--- NOTE | 2018-01-15 12:59 | CP.PCM.PN ---
Subjective - Date & Time of Evaluation Date of Evaluation: 01/15/18 Time of Evaluation: 12:59 - Subjective Subjective: Neurology Consultation Follow-Up Note: Mr. Cornelius was evaluated this afternoon sitting OOB in a chair with family at bedside. Today pt is in good spirits, smiling and laughing. He states that he was able to stand up today with PT. Pt admits that his neck pain has resolved. He admits that he still has left hand and fingers tingling/numbness. Pt denies headache, dizziness, visual changes, chest pain, shortness of breath, abd pain, n/v/d. Objective - Vital Signs/Intake and Output Vital Signs (last 24 hours): Temp Pulse Resp BP Pulse Ox 98.1 F 51 L 20 128/57 L 98 01/15/18 10:00 01/15/18 10:00 01/15/18 10:00 01/15/18 10:00 01/15/18 10:00 Intake and Output: 01/15/18 01/15/18 06:59 18:59 Intake Total 880 Output Total 1600 Balance -720 - Medications Medications: Current Medications Acetaminophen (Tylenol 325mg Tab) 650 mg PO Q6 PRN PRN Reason: for pain scale 3-4 Baclofen (Lioresal) 5 mg PO TID [facility] Last Admin: 01/15/18 12:51 Dose: 5 mg Bisacodyl (Dulcolax) 10 mg [place] DAILY PRN PRN Reason: Constipation Last Admin: 01/15/18 06:15 Dose: 10 mg Dexamethasone (Decadron Inj) 4 mg IVP Q6 [facility] Last Admin: 01/15/18 12:47 Dose: 4 mg Docusate Sodium (Colace) 100 mg PO BID [facility] Last Admin: 01/15/18 08:09 Dose: 100 mg Gabapentin (Neurontin) 300 mg PO HS [facility] Last Admin: 01/14/18 21:43 Dose: 300 mg Cefepime HCl 2 gm/ Sodium (Chloride) 100 mls @ 100 mls/hr IVPB Q8@0600,1400,2200 [facility] Last Admin: 01/15/18 06:17 Dose: 100 mls/hr Vancomycin HCl 1 gm/ Sodium (Chloride) 250 mls @ 166.667 mls/hr IVPB Q12H [facility] Last Admin: 01/15/18 12:47 Dose: 166.667 mls/hr Lactulose (Enulose) 20 gm PO DAILY PRN PRN Reason: Constipation Last Admin: 01/14/18 12:35 Dose: 20 gm Oxycodone HCl (Oxycodone Immediate Release Tab) 5 mg PO Q6 PRN PRN Reason: pain 5-10/10 Last Admin: 01/14/18 11:25 Dose: 5 mg - Labs Labs: 01/14/18 05:35 01/14/18 05:35 - Constitutional Appears: Well, Non-toxic, No Acute Distress - Head Exam Head Exam: ATRAUMATIC, NORMAL INSPECTION, NORMOCEPHALIC - Eye Exam Eye Exam: EOMI, Normal appearance, PERRL Pupil Exam: NORMAL ACCOMODATION, PERRL - ENT Exam ENT Exam: Mucous Membranes Moist - Neck Exam Additional comments: [place] j-collar maintained. - Respiratory Exam Respiratory Exam: NORMAL BREATHING PATTERN - Extremities Exam Extremities Exam: absent: Calf Tenderness, Pedal Edema - Neurological Exam Neurological Exam: Alert, Awake, Oriented x3 Neuro motor strength exam: Left Upper Extremity: 5 (operating room technologist 4/5), Right Upper Extremity: 5 (operating room technologist 4/5), Left Lower Extremity: 3 (hypertonicity still present but less than yesterday), Right Lower Extremity: 3 (hypertonicity still present but less than yesterday) Additional comments: Speech clear and fluid. Sensation intact and equal BLE and BUE. Still slightly decreased over T12, which he had upon admission. Vibration intact BUE. Hyperflexia BLE noted; hypertonicity is still present but less/improved compared to yesterday. - Psychiatric Exam Psychiatric exam: Normal Affect, Normal Mood - Skin Skin Exam: Normal Color Assessment and Plan (1) Epidural abscess Assessment & Plan: -Mr. Cornelius is improving and coming along well. -Paresthesias to left hand and fingers likely neuropathic---continue Neurontin 300 mg PO HS. -Continue PT/OT therapy. -Decadron taper recommendations: Decardon 4mg IV Q8 x2 days (started today, last day to be given is on 01/17/18), followed by Decadron 4 mg IV Q12 x2 days (start on 01/18/18; last day to be given is on 01/20/18), followed by Decadron 4 mg IV daily x2 days (start on 01/20/18, last day to be given is on 01/22/18), followed by Decadron 2 mg IV daily x2 days (start on 01/23/18, last day to be given is 01/25/18). -Please notify neuro team of any acute changes in condition. -We will continue to follow the pt while in rehab. Case discussed with Dr. Brown. Status: Acute
--- NOTE | 2018-01-15 13:29 | PCM.PSYTMC ---
Acute Rehab Team Conference - - Vital Signs: Vital Signs (Last 8 Hours): Vital Signs 01/15/18 01/15/18 08:40 10:00 Temperature 98.1 F 98.1 F Pulse Rate 51 L 51 L Respiratory 20 20 Rate Blood Pressure 128/57 L 128/57 L O2 Sat by Pulse 98 Oximetry Pain: 0 - Precautions: Precautions: Fall Prevention - Medications/Other Issues: Comment: - Last BM 01/08/18, Despite Lactulose dose and colace. Started on Dulcolax supp daily. - On Baclofen, no drowsiness noted. - Started on Neurontin last night. - Consults: Comment: Dr. Goldberg, Dr. Rosas ,Dr. Rivas, Dr. Granado, Dr. Denny, Dr. Katherine Sheth - Toileting: Toileting: Dependent - Bladder Management: Bladder Pattern: Retention Voiding Method: Indwelling Catheter Bladder Management: Dependent Other Intervention:: 0 - Transfers: Transfers: Dependent - ADL's: ADL's: Dependent - Pain Management: Other Intervention:: MSIR q6h PRN - Patient/Family Teaching: Other Intervention:: Care post Laminectomy and safety precautions - Goals/Time Frame: Comment: per multidisciplinary care plan and goals - Provider: Registered Nurse:: Debra Galvan Physical Therapy - Bed Mobility Comment: -rolling L: CG. -rolling R: min/mod A. -supine to sit: min A. -sit to supine: total A. -supine to/from long sit: min A - Transfers Wheelchair to Mat: Maximum Assistance, Dependent Sit to Stand: Dependent Comment: -slide board transfer with assist of 2; min/CG A of 1 anterior and 1 posterior - Ambulation Level of Assistance: Not Tested - Stair Negotiation Stairs: Level of Assistance: Not Tested - Standing Balance Static Stand: Unable to perform Comment: static standing limited by flexor tone in LEs with trunk flexion in sitting - Pain Pain (assessed during therapy session): 4 Alleviating Techniques: Medication, Distraction, Relaxation Techniques Comment: cervical region - Insight/Carryover Insight/Carryover: Fair - Patient/Family Education Comment: -safety, therapy schedule, therapy goals, mobility, pain management, WC propulsion, transfers, use of collar, importance of family encouragement - Assessment/Plan Assessment: Mr. Cornelius presents with impaired strength, impaired sensation, poor postural control, alterations in tone from normal and pain s/p cervical abscess with subsequent cervical laminectomy. Patients impairments are more evident in the LEs and pelvis compared to UEs and abdomen and more prominent on the left side than the right side. Patients primarily barrier to participate in functional mobility at this time is his hypertonicity and spasms in the LE. Patient is slowly improving but continues to be limited by this motions as he is unable to maintain feet in contact with the ground to progress towards any mobility or weight bearing with maximal assistance and presence of 2 people. PT recommends medical management to assist with tone to improve patients ability to actively participate in functional mobility as well as psychology and psychiatry consultation to assist patient with adjustment s/p acute injury and resulting impairments. PT recommends intensive skilled therapy services 5-6x per week for 5-6 weeks to maximize safety and I with all mobility with emphasis on education and reduction of burden of care. PT recommends discharge home with 24 hour care vs. [facility] pending progress and care-taker/family support. Pt will require continued therapy services in the appropriate setting to continue addressing skilled needs. PT also recommends social support groups for patients manage life with a similar injury to assist with community re-integration. Recommended discharge DME (to be updated as appropriate): specialized WC & hospital bed; possible need for bracing, slide board and gait devices - Goals Timeframe: 7 days Goals: -TRANSFERS: lateral transfers with slide board with consistent CG A of 1 to both R and L side. -TRANSFERS: SPT with max A of 1 and mod A of 2nd person for safety. -BED MOBILITY: rolling L w/ CS. -BED MOBILITY: rolling R w/ CG. - BED MOBILITY: supine to sit w/ CG. -BED MOBILITY: sit to supine w/ mod A with use of appropriate assistive/lifting device. -BED MOBILITY: supine to/from long sitting w/ supervision without use of bed rails. -BALANCE: dynamic long sitting with alternating UE support: x 10 minutes with supervision. -BALANCE: sitting edge of bed with posterior UE propping x 15 minutes with supervision. -BALANCE: sitting edge of bed with UE support lateral to patient x 5 minutes with min A. -BALANCE: standing tolerance in standing frame for 10 minutes with stable vitals. -BALANCE: static standing with max A of 1 and mod A of 2nd person for safety x 30 seconds. -WHEELCHAIR: propel manual wheelchair x 200 feet on level surface with BUE with supervision. -WHEELCHAIR: manage brakes & seatbelt on manual WC with supervision without cueing. -WHEELCHAIR: perform pressure relief with cueing with min A and assistance to ensure stability of wheelchair. - EDUCATION: care-taker to assist patient with bed/mat mobility and positioning with contact guard assistance from therapist - Provider Physical Therapist:: Melia Gómez License Number:: [id number] Occupational Therapy - Arousal/Attention/Orientation Level of Consciousness: Awake, Alert Patient Orientation: Person, Place, Time, Appropriate to Age, Appropriate to Situation - ADL/IADL Self Feeding: Independent, Set-up Help Grooming: Independent, Set-up Help Dressing-Upper Ext: Supervision, Verbal Cues, Set-up Help Dressing-Lower Ext: Verbal Cues, Set-up Help, Moderate Assistance Comment: uses assistive devices for lower body dressing--dressing stick & editor managing newspaper - Sitting Balance Static Sitting: Contact Guard Assist Dynamic Sitting: Reaches across midline, Reaches out of base of support, Reaches within base of support, Minimal Assistance, Moderate Assistance Comment: seated unsupported - Transfers Wheelchair to Bed Transfers: Verbal Cues, Set-up Help, Contact Guard, Minimal Assistance Comment: commode transfers TBA whn safe, spasms under control - Wheelchair Management Level of Assistance: Supervision, Verbal Cues, Set-up Help Distance (ft.): 75 - Upper Extremity Status Right Upper Extremity Comment: AROM is WNLS, 4/5 Left Upper Extremity Comment: ROMis WNLS, 4/5 - Pain Pain (assessed during therapy session): 5 Alleviating Techniques: Position Change, Distraction, Inactivity Comment: cervical region, upper back - Insight/Carryover Insight/Carryover: Good - Patient/Family Education Comment: -rehab/OT goals, limitations & plan of care. -self care, transfers/mobility training uisng adaptive/compensatory strategies. -w/c propulsion/management. -pressure relief techniques in w/c & bed. -adaptive devices: editor managing newspaper, dressing for lower body dressing, leglifter for bed mobility/positioning BLES while in bed. -caregiver education-bed & w/c positioning(Geovanni 2 cushion). -skin checks/inspections B heel, sacral area - Assessment/Plan Assessment: Pt is a 32 year old R handed male with dx: cervical abcess, osteomylelitis s/p C5-C6 and C6-C7 laminectomy. *Precautions: falls, spinal precautions, pressure relief considerations,. +spasms in BLES & trunk, pressure relief strategies. Pt limited by the following impairments: ++spasms in B LEs & trunk. -impaired BUES core/trunk strength. -impaired BLES strength, involuntary movements. -impaired safety. -impaired activity tolerance/endurance--which imapct on functional performance of self care, transfers/mobility and IAdls. Pt will continue skilled OT to adddress functional impairments to maxmize function in self care/mobility using compensatory strategies. Pt will benefit from intensive acute rehab to maximize function in self care, transfers/mobility. Pt seated in 18x18 high back recliner with Geovanni 2 cushion, slight recline with seatbelt; pt able to maintain body in w/c with BLES on floor with intermittent min assist today. Pt may benefit from dycem palcement to minimize sliding & increase safety/positioning. Pt presents with increased B LES spasms with weightbearing thus slide board transfers safer a this time. Pt benefits from inhibitory stretches/weightbearing prior to transfers & bed mobility. Pt continues to demostrate increased overall function in self care, transfers during today's treatment session. Pt with increased fatigue /sleepiness this pm along with increased trunk, BLES spasms thus more sliding in w/c. Pt able to correct posture in w/c--may benfit from dycem on cushion to minimize sliding. Skin on sacral area, BLES/heels continue to be intact. *Goal: Mod I from w/c level for self care, transfers/mobility and Iadls with assistive devices & Caregiver to be I assisting pt as needed with adls, functional transfers/mobility - Goals Timeframe: 8 days Comment: *UPPER BODY DRESSING: I/setup. *LOWER BODY DRESSING: Min assist and verbal cues with assistive devices. *TRANSFERS:w/c<->bed with Supervision/CS and verbal cues setup of slide board; min assist slide board to commode OR mod assist lateral transfers. *BED MOBILITY: supine->sit with Close S & verbal cues with bedrails, sit->supine with min assist and verbal cues with bedrails, leglifter. *BATHING: moderate assist and verbal cues--sponge bathe. *STATIC SItTING: Mod I with BUE support, DYNAMIC with min displacement Bilaterally, anteriorly/posteriorly with min assist and verbal cues--compensatory strategies. *TOILETING: Mod assist & verbal cues. *PRESSURE RELIEF COMPLETION WITH CS and verbal cues while in bed and/or w/c. *W/C PROPULSION/MANAGEMENT: 150 feet with [place], manage B brakes with Mod I - Provider Occupational Therapist:: Nellie Paredes License Number: [id number] Recreational Therapy - Participation Participation: Participates in Individual and/or Group Sessions, Monitors His/Her Own Leisure Time - Attendance Attendance: 3-5 times per week - Activities Leisure Activities: Cards and Games - Socialization Level of Socialization: Initiates/interacts freely with care givers and peer - Diversional Time Diversional Time: likes to watch television, play video games - Assessment Assessment/Plan: Pt was oriented to benefits and purpose of participating in recreation therapy sessions throughout stay on unit. Pt verbalized understanding and agreement to participate in sessions throughout stay on unit. Encouraged pt to stay out of bed longer throughout the day for pt to participate in recreation therapy sessions. Pt would benefit from participating in sessions to improve diversion from pain, improve activity tolerance level, and improve leisure awareness level. Pt will benefit from leisure education for leisure alternatives at home. Pt with hx of cannabis use as per PMH. Problems Currently Limiting Participation: spinal precautions, neck collar brace to be worn at all times, B/L LE weakness, decrease leisure awareness level, decrease leisure awareness level, decrease activity tolerance level Goals and Time Frame: Pt will be encouraged to participate in 1:1 and group recreation therapy sessions in wheelchair or at bedside 3-5x week to improve activity tolerance level, leisure awareness level, diversion, and attention to task by date of discharge. - Provider Therapist: Nidhi Garces Nutrition - Current Diet Current Diet/Supplement/Feedings: Regular Diet - Appetite Percent Meal Consumed: 75-100% - Comments Comments: Pt reports constipation x 1 week. - Assessment/Goals/Time Frame Assessments/Goals/Time Frame: Seen 01/14, planned follow up 01/21. Goals: 1) Pt to consume at least 75% meals without GI upset x 5-7 days. 2) Pt to have resolution of constipation by follow up. - Provider Provider: Ganga Latham Case Management - Psychosocial Assessment Support Systems: Meredithleonela Mercado (significant other)- Psychological Interventions/Needs: Patient is AAOx3 and able to verbalize needs. Discharge Concerns: Patient has 12 steps to navigate to enter his building. Patient is unemployed. Patient/Family Meeting: CM met with patient and rehab team. Intervention/Goal/Outcome: 1. Goal: Contact guard 2. Plan: meet with team to discuss 3. DME needs 4. schedule f/u appointments 5. continued emotional support 6. continued authorization - Discharge Plan Discharge Plan: Home with significant other/family Home Services: [facility]? - Provider Provider: June Ramírez License Number: [id number] Rehabilitation Plan - Treatment Plan Treatment Plan: Physical Therapy, Occupational Therapy, Dietary, Patient/Family Education - Discharge Plan Discharge to: Home
--- NOTE | 2018-01-15 19:03 | CP.PCM.PN ---
Subjective - Date & Time of Evaluation Date of Evaluation: 01/15/18 Time of Evaluation: 19:01 - Subjective Subjective: discussed with Warren at length issues that are important to him I will increase the Baclofen to 10mg tid to help with his tone issues and will increase as necessary I will also give him zanaflex at night and go up to 8mg if necessary as he usually is smoking marijuana throughout the day and has some prior psych issues and anger issues that he uses this to help control I will consider Valium if necessary as well at night NO BM yet and I have written for fleets enema Objective - Vital Signs/Intake and Output Vital Signs (last 24 hours): Temp Pulse Resp BP Pulse Ox 98.1 F 51 L 20 128/57 L 98 01/15/18 10:00 01/15/18 10:00 01/15/18 10:00 01/15/18 10:00 01/15/18 10:00 Intake and Output: 01/15/18 01/16/18 18:59 06:59 Intake Total 1250 Output Total 1050 Balance 200 - Medications Medications: Current Medications Acetaminophen (Tylenol 325mg Tab) 650 mg PO Q6 PRN PRN Reason: for pain scale 3-4 Baclofen (Lioresal) 10 mg PO TID [facility] Last Admin: 01/15/18 17:09 Dose: 10 mg Bisacodyl (Dulcolax) 10 mg [place] DAILY PRN PRN Reason: Constipation Last Admin: 01/15/18 06:15 Dose: 10 mg Dexamethasone (Decadron) 4 mg PO Q8 [facility] Docusate Sodium (Colace) 100 mg PO BID [facility] Last Admin: 01/15/18 17:09 Dose: 100 mg Gabapentin (Neurontin) 300 mg PO HS [facility] Last Admin: 01/14/18 21:43 Dose: 300 mg Cefepime HCl 2 gm/ Sodium (Chloride) 100 mls @ 100 mls/hr IVPB Q8@0600,1400,2200 [facility] Last Admin: 01/15/18 14:23 Dose: 100 mls/hr Vancomycin HCl 1 gm/ Sodium (Chloride) 250 mls @ 166.667 mls/hr IVPB Q12H [facility] Last Admin: 01/15/18 12:47 Dose: 166.667 mls/hr Lactulose (Enulose) 20 gm PO DAILY PRN PRN Reason: Constipation Last Admin: 01/15/18 17:11 Dose: 20 gm Oxycodone HCl (Oxycodone Immediate Release Tab) 5 mg PO Q6 PRN PRN Reason: pain 5-11/21 Last Admin: 01/14/18 11:25 Dose: 5 mg Tizanidine HCl (Zanaflex) 4 mg PO DEMI - Labs Labs: 01/14/18 05:35 01/14/18 05:35
[2018-01-16] MEDS: Cefepime 2 GM in Sodium Chloride 0.9% 100 ML IVPB SCH ×3 (05:27→21:59)
--- NOTE | 2018-01-16 08:26 | CP.PCM.CON ---
History of Present Illness - History of Present Illness History of Present Illness: Podiatry consult note for Dr. Sheth 32 yr old male was seen and evaluated at bedside for elongated, dystrophic toenails X 10. Patient was resting comfortably in bed, denied any pain to his feet and was in NAD. Patient was admitted from the icu for therapy for epidural abscess--s/p neurosurgery intervention. He had paralysis of lower extremities. Patient still reports numbness to bilaterally lower extremities with muscle spasms, that he states he is unable control. Review of Systems - Review of Systems All systems: reviewed and no additional remarkable complaints except Review of Systems: As per HPI Past Patient History - Past Medical History & Family History Past Medical History?: Yes - Past Social History Smoking Status: Current Some Days Smoker Alcohol: < 2 Drinks/Day Drugs: Cannabis Home Situation {Lives}: With Family - CARDIAC Hx Cardiac Disorders: No - PULMONARY Hx Respiratory Disorders: No - HEMATOLOGICAL/ONCOLOGICAL Hx AIDS: No Hx Human Immunodeficiency Virus (HIV): No - MUSCULOSKELETAL/RHEUMATOLOGICAL Hx Falls: Yes (few days ago) - PSYCHIATRIC Hx Substance Use: Yes (claimed smoke Marijuana) - SURGICAL HISTORY Hx Surgeries: Yes Other/Comment: hernia surgery - ANESTHESIA Hx Anesthesia: Yes Hx Anesthesia Reactions: No Hx Malignant Hyperthermia: No Meds Allergies/Adverse Reactions: Allergies Allergy/AdvReac Type Severity Reaction Status Date / Time No Known Allergies Allergy Verified 01/11/18 15:54 - Medications Medications: Current Medications Acetaminophen (Tylenol 325mg Tab) 650 mg PO Q6 PRN PRN Reason: for pain scale 3-4 Baclofen (Lioresal) 10 mg PO TID [facility] Last Admin: 01/15/18 17:09 Dose: 10 mg Bisacodyl (Dulcolax) 10 mg [place] DAILY PRN PRN Reason: Constipation Last Admin: 01/15/18 06:15 Dose: 10 mg Dexamethasone (Decadron) 4 mg PO Q8 [facility] Last Admin: 01/16/18 05:30 Dose: 4 mg Docusate Sodium (Colace) 100 mg PO BID [facility] Last Admin: 01/15/18 17:09 Dose: 100 mg Gabapentin (Neurontin) 300 mg PO HS [facility] Last Admin: 01/15/18 21:27 Dose: 300 mg Cefepime HCl 2 gm/ Sodium (Chloride) 100 mls @ 100 mls/hr IVPB Q8@0600,1400,2200 [facility] Last Admin: 01/16/18 05:27 Dose: 100 mls/hr Vancomycin HCl 1 gm/ Sodium (Chloride) 250 mls @ 166.667 mls/hr IVPB Q12H [facility] Last Admin: 01/16/18 00:15 Dose: 166.667 mls/hr Lactulose (Enulose) 20 gm PO DAILY PRN PRN Reason: Constipation Last Admin: 01/15/18 17:11 Dose: 20 gm Oxycodone HCl (Oxycodone Immediate Release Tab) 5 mg PO Q6 PRN PRN Reason: pain 5-1010 Last Admin: 01/14/18 11:25 Dose: 5 mg Tizanidine HCl (Zanaflex) 4 mg PO HS [facility] Last Admin: 01/15/18 21:27 Dose: 4 mg Physical Exam - Constitutional Appears: Well, Non-toxic, No Acute Distress - Head Exam Head Exam: ATRAUMATIC, NORMOCEPHALIC - Extremities Exam Additional comments: Bilateral Lower Extremity Exam VASC: DP/PT 2/4 B/L; CFT < 3sec X10; Temperature gradient warm to cool; no erythema, no edema, no varicosities. NEURO: Diminished sensation B/L. ORTHO: Contracted digits 2-5 B/L. Mild HAV B/L. Muscular spasms to LE B/L. DERM: Diffuse xerosis to anterior tibia, dorsal and plantar foot B/L. Hyperkeratosis submet 1 on right and at PIPJ of digit 3 on left. Toe nails dyst rophic and elongated X10. No open lesions; no clinical signs of infection. - Neurological Exam Neurological exam: Alert, Oriented x3 - Psychiatric Exam Psychiatric exam: Normal Affect, Normal Mood Results - Vital Signs Recent Vital Signs: Last Vital Signs Temp 97.2 F L 01/16/18 08:03 Pulse 64 01/16/18 08:03 Resp 19 01/16/18 08:03 BP 120/67 01/16/18 08:03 Pulse Ox 98 01/16/18 08:03 - Labs Result Diagrams: 01/14/18 05:35 01/14/18 05:35 Assessment & Plan - Assessment and Plan (Free Text) Assessment: 32 y.o male patient seen and evaluated for elongated, dystrophic toenails X 10 Plan: Patient seen and evaluated Plan discussed with Dr. Sheth Chart, labs and vitals were reviewed- positive leukocytosis, not from lower extremities Patient toenails and calluses debrided with sterile instruments Patient tolerated well Ordered ammonium lactate for xerosis bilaterally NO other podiatric intervention at this time Please re consult as needed Thank you for the consult
--- NOTE | 2018-01-16 11:09 | CP.PCM.PN ---
Subjective - Date & Time of Evaluation Date of Evaluation: 01/16/18 Time of Evaluation: 11:09 - Subjective Subjective: CLINICALLY IMPROVING NO NEW CLINICAL FINDINGS WILL CONTINUE RX ORDERED WILL REPEAT LABS Objective - Vital Signs/Intake and Output Vital Signs (last 24 hours): Temp Pulse Resp BP Pulse Ox 97.2 F L 64 19 120/67 98 01/16/18 08:03 01/16/18 08:03 01/16/18 08:03 01/16/18 08:03 01/16/18 08:03 Intake and Output: 01/16/18 01/16/18 06:59 18:59 Intake Total 950 Output Total 1600 Balance -650 - Medications Medications: Current Medications Acetaminophen (Tylenol 325mg Tab) 650 mg PO Q6 PRN PRN Reason: for pain scale 3-4 Baclofen (Lioresal) 10 mg PO TID [facility] Last Admin: 01/16/18 08:46 Dose: 10 mg Bisacodyl (Dulcolax) 10 mg [place] DAILY PRN PRN Reason: Constipation Last Admin: 01/15/18 06:15 Dose: 10 mg Dexamethasone (Decadron) 4 mg PO Q8 [facility] Last Admin: 01/16/18 05:30 Dose: 4 mg Docusate Sodium (Colace) 100 mg PO BID [facility] Last Admin: 01/16/18 08:46 Dose: 100 mg Gabapentin (Neurontin) 300 mg PO HS [facility] Last Admin: 01/15/18 21:27 Dose: 300 mg Cefepime HCl 2 gm/ Sodium (Chloride) 100 mls @ 100 mls/hr IVPB Q8@0600,1400,2200 [facility] Last Admin: 01/16/18 05:27 Dose: 100 mls/hr Vancomycin HCl 1 gm/ Sodium (Chloride) 250 mls @ 166.667 mls/hr IVPB Q12H [facility] Last Admin: 01/16/18 00:15 Dose: 166.667 mls/hr Lactulose (Enulose) 20 gm PO DAILY PRN PRN Reason: Constipation Last Admin: 01/15/18 17:11 Dose: 20 gm Oxycodone HCl (Oxycodone Immediate Release Tab) 5 mg PO Q6 PRN PRN Reason: pain 5-10/10 Last Admin: 01/14/18 11:25 Dose: 5 mg Tizanidine HCl (Zanaflex) 4 mg PO HS [facility] Last Admin: 01/15/18 21:27 Dose: 4 mg - Labs Labs: 01/14/18 05:35 01/14/18 05:35
--- NOTE | 2018-01-16 12:25 | CP.PCM.PN ---
Subjective - Date & Time of Evaluation Date of Evaluation: 01/16/18 Time of Evaluation: 07:00 - Subjective Subjective: afebrile on IV antibiotics still wheel chair bound but legs are stronger Objective - Vital Signs/Intake and Output Vital Signs (last 24 hours): Temp Pulse Resp BP Pulse Ox 97.2 F L 64 19 120/67 98 01/16/18 08:03 01/16/18 08:03 01/16/18 08:03 01/16/18 08:03 01/16/18 08:03 Intake and Output: 01/16/18 01/16/18 06:59 18:59 Intake Total 950 Output Total 1600 Balance -650 - Medications Medications: Current Medications Acetaminophen (Tylenol 325mg Tab) 650 mg PO Q6 PRN PRN Reason: for pain scale 3-4 Baclofen (Lioresal) 10 mg PO TID [facility] Last Admin: 01/16/18 08:46 Dose: 10 mg Bisacodyl (Dulcolax) 10 mg [place] DAILY PRN PRN Reason: Constipation Last Admin: 01/15/18 06:15 Dose: 10 mg Dexamethasone (Decadron) 4 mg PO Q8 [facility] Last Admin: 01/16/18 05:30 Dose: 4 mg Docusate Sodium (Colace) 100 mg PO BID [facility] Last Admin: 01/16/18 08:46 Dose: 100 mg Gabapentin (Neurontin) 300 mg PO HS [facility] Last Admin: 01/15/18 21:27 Dose: 300 mg Cefepime HCl 2 gm/ Sodium (Chloride) 100 mls @ 100 mls/hr IVPB Q8@0600,1400,2200 [facility] Last Admin: 01/16/18 05:27 Dose: 100 mls/hr Vancomycin HCl 1 gm/ Sodium (Chloride) 250 mls @ 166.667 mls/hr IVPB Q12H [facility] Last Admin: 01/16/18 00:15 Dose: 166.667 mls/hr Lactulose (Enulose) 20 gm PO DAILY PRN PRN Reason: Constipation Last Admin: 01/15/18 17:11 Dose: 20 gm Oxycodone HCl (Oxycodone Immediate Release Tab) 5 mg PO Q6 PRN PRN Reason: pain 5-10/10 Last Admin: 01/14/18 11:25 Dose: 5 mg Tizanidine HCl (Zanaflex) 4 mg PO HS [facility] Last Admin: 01/15/18 21:27 Dose: 4 mg - Labs Labs: 01/14/18 05:35 01/14/18 05:35 - Constitutional Appears: Non-toxic, Chronically Ill - Head Exam Head Exam: NORMOCEPHALIC - Eye Exam Eye Exam: absent: Scleral icterus - ENT Exam ENT Exam: Mucous Membranes Dry - Neck Exam Neck Exam: absent: Lymphadenopathy - Respiratory Exam Respiratory Exam: Decreased Breath Sounds - Cardiovascular Exam Cardiovascular Exam: REGULAR RHYTHM - GI/Abdominal Exam GI & Abdominal Exam: Distended - Rectal Exam Rectal Exam: Deferred - Exam Exam: NORMAL INSPECTION - Extremities Exam Extremities Exam: absent: Pedal Edema - Back Exam Back Exam: absent: CVA tenderness (L), CVA tenderness (R) - Neurological Exam Neurological Exam: Alert, Awake, CN II-XII Intact, Motor Sensory Deficit, Oriented x3. 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
[2018-01-16] MEDS ORDERED: Magnesium Citrate Oral SOL (300 ml) PO ONE (17:23)
--- NOTE | 2018-01-16 17:36 | CP.PCM.PN ---
Subjective - Date & Time of Evaluation Date of Evaluation: 01/16/18 Time of Evaluation: 17:28 - Subjective Subjective: Patient with a much better day in therapy today and slept much better at night. still with no BM could not hold the enema. I will order a "magic bullet" supp. will reach out to pharmacy Objective - Vital Signs/Intake and Output Vital Signs (last 24 hours): Temp Pulse Resp BP Pulse Ox 97.2 F L 64 19 120/67 98 01/16/18 08:03 01/16/18 08:03 01/16/18 08:03 01/16/18 08:03 01/16/18 08:03 Intake and Output: 01/16/18 01/16/18 06:59 18:59 Intake Total 950 1350 Output Total 1600 1200 Balance -650 150 - Medications Medications: Current Medications Acetaminophen (Tylenol 325mg Tab) 650 mg PO Q6 PRN PRN Reason: for pain scale 3-4 Baclofen (Lioresal) 10 mg PO TID [facility] Last Admin: 01/16/18 17:00 Dose: 10 mg Bisacodyl (Dulcolax) 10 mg [place] DAILY PRN PRN Reason: Constipation Last Admin: 01/15/18 06:15 Dose: 10 mg Dexamethasone (Decadron) 4 mg PO Q8 [facility] Last Admin: 01/16/18 14:18 Dose: 4 mg Docusate Sodium (Colace) 100 mg PO BID [facility] Last Admin: 01/16/18 17:00 Dose: 100 mg Gabapentin (Neurontin) 300 mg PO HS [facility] Last Admin: 01/15/18 21:27 Dose: 300 mg Cefepime HCl 2 gm/ Sodium (Chloride) 100 mls @ 100 mls/hr IVPB Q8@0600,1400,2200 [facility] Last Admin: 01/16/18 14:15 Dose: 100 mls/hr Vancomycin HCl 1 gm/ Sodium (Chloride) 250 mls @ 166.667 mls/hr IVPB Q12H [facility] Last Admin: 01/16/18 12:25 Dose: 166.667 mls/hr Lactulose (Enulose) 20 gm PO DAILY PRN PRN Reason: Constipation Last Admin: 01/16/18 12:24 Dose: 20 gm Magnesium Citrate (Citrate Of Mag) 150 ml PO ONCE ONE Stop: 01/16/18 17:24 Magnesium Citrate (Citrate Of Mag) 150 ml PO ONCE ONE Stop: 01/17/18 12:01 Oxycodone HCl (Oxycodone Immediate Release Tab) 5 mg PO Q6 PRN PRN Reason: pain -11/21 Last Admin: 01/14/18 11:25 Dose: 5 mg Tizanidine HCl (Zanaflex) 4 mg PO HS [facility] Last Admin: 01/15/18 21:27 Dose: 4 mg - Labs Labs: 01/14/18 05:35 01/14/18 05:35
[2018-01-17] MEDS: Cefepime 2 GM in Sodium Chloride 0.9% 100 ML IVPB SCH ×3 (06:05→21:47)
[2018-01-17 06:15] LABS: BASO % 0.1 % (0.0-2.0); EOS % 0.1 % (0.0-4.0); HEMOGLOBIN 11.4 g/dL (12.0-18.0); LYMPH # 0.9 K/uL (1.0-4.3); LYMPH % 5.1 % (20.0-40.0); MEAN CELL VOLUME 94.7 fl (80.0-94.0); MEAN CORPUSCULAR HEMOGLOBIN 30.6 pg (27.0-31.0); MEAN CORPUSCULAR HGB CONC 32.3 g/dL (33.0-37.0); MEAN PLATELET VOLUME 7.6 fl (7.2-11.7); MONO # 1.2 K/uL (0.0-0.8); MONO % 7.4 % (0.0-10.0); NEUT # 14.5 K/uL (1.8-7.0); NEUT % 87.3 % (50.0-75.0); NRBC % 0.1 % (0.0-0.0); RBC 3.73 Mil/uL (4.40-5.90); RED CELL DISTRIBUTION WIDTH 13.1 % (11.5-14.5); WHITE BLOOD COUNT 16.6 K/uL (4.8-10.8)
--- NOTE | 2018-01-17 09:34 | CP.PCM.PN ---
Subjective - Date & Time of Evaluation Date of Evaluation: 01/17/18 Time of Evaluation: 09:33 - Subjective Subjective: NO COMPLAINTS EXCEPT FOR CONSTIPATION Objective - Vital Signs/Intake and Output Vital Signs (last 24 hours): Temp Pulse Resp BP Pulse Ox 97.3 F L 55 L 20 126/72 97 01/17/18 08:32 01/17/18 08:32 01/17/18 08:32 01/17/18 08:32 01/17/18 08:32 Intake and Output: 01/17/18 01/17/18 06:59 18:59 Intake Total 930 Output Total 1600 Balance -670 - Medications Medications: Current Medications Acetaminophen (Tylenol 325mg Tab) 650 mg PO Q6 PRN PRN Reason: for pain scale 3-4 Baclofen (Lioresal) 10 mg PO TID [facility] Last Admin: 01/16/18 17:00 Dose: 10 mg Bisacodyl (Dulcolax) 10 mg [place] DAILY PRN PRN Reason: Constipation Last Admin: 01/15/18 06:15 Dose: 10 mg Dexamethasone (Decadron) 4 mg PO Q8 [facility] Last Admin: 01/17/18 06:04 Dose: 4 mg Docusate Sodium (Colace) 100 mg PO BID [facility] Last Admin: 01/16/18 17:00 Dose: 100 mg Gabapentin (Neurontin) 300 mg PO HS [facility] Last Admin: 01/16/18 21:59 Dose: 300 mg Cefepime HCl 2 gm/ Sodium (Chloride) 100 mls @ 100 mls/hr IVPB Q8@0600,1400,2200 [facility] Last Admin: 01/17/18 06:05 Dose: 100 mls/hr Vancomycin HCl 1 gm/ Sodium (Chloride) 250 mls @ 166.667 mls/hr IVPB Q12H [facility] Last Admin: 01/17/18 01:00 Dose: 166.667 mls/hr Lactic Acid (Lac-Hydrin 12% Lotion (225 G)) 1 applic TOP 0600,1800 [facility] Last Admin: 01/17/18 06:06 Dose: 1 applic Lactulose (Enulose) 20 gm PO DAILY PRN PRN Reason: Constipation Last Admin: 01/16/18 12:24 Dose: 20 gm Magnesium Citrate (Citrate Of Mag) 150 ml PO ONCE ONE Stop: 12/06/18 12:01 Oxycodone HCl (Oxycodone Immediate Release Tab) 5 mg PO Q6 PRN PRN Reason: pain 5-11/21 Last Admin: 01/14/18 11:25 Dose: 5 mg Tizanidine HCl (Zanaflex) 4 mg PO HS [facility] Last Admin: 01/16/18 21:59 Dose: 4 mg - Labs Labs: 01/17/18 05:15 01/14/18 05:35 - Constitutional Appears: No Acute Distress - Head Exam Head Exam: ATRAUMATIC, NORMAL INSPECTION, NORMOCEPHALIC - Eye Exam Eye Exam: EOMI, Normal appearance, PERRL Pupil Exam: NORMAL ACCOMODATION, PERRL - ENT Exam ENT Exam: Mucous Membranes Moist, Normal Exam - Neck Exam Neck Exam: Full ROM, Normal Inspection. absent: Lymphadenopathy - Respiratory Exam Respiratory Exam: Clear to Ausculation Bilateral, NORMAL BREATHING PATTERN - Cardiovascular Exam Cardiovascular Exam: REGULAR RHYTHM, +S1, +S2. absent: Murmur - GI/Abdominal Exam GI & Abdominal Exam: Soft, Normal Bowel Sounds. absent: Tenderness - Rectal Exam Rectal Exam: NORMAL INSPECTION - Extremities Exam Extremities Exam: Full ROM, Normal Capillary Refill, Normal Inspection. absent: Joint Swelling, Pedal Edema - Back Exam Back Exam: NORMAL INSPECTION - Neurological Exam Neurological Exam: Alert, Awake, CN II-XII Intact, Oriented x3 - Psychiatric Exam Psychiatric exam: Normal Affect, Normal Mood - Skin Skin Exam: Dry, Intact, Normal Color, Warm Assessment and Plan - Assessment and Plan (Free Text) Assessment: DISCITIS S/P SPINE SURGERY CONSTIPATION Plan: LAXATIVES CONTINUE PRESENT RX
[2018-01-17] MEDS ORDERED: Magnesium Citrate Oral SOL (300 ml) PO ONE (12:00)
--- NOTE | 2018-01-17 16:40 | CP.PCM.PN ---
Subjective - Date & Time of Evaluation Date of Evaluation: 01/17/18 Time of Evaluation: 16:39 - Subjective Subjective: Patient seen in rec room in good spirits discussed at length with PT and having issues with flexor tone On Baclofen 10mg tid I will look to increase this as well tomorrow didn't sleep increasing the zanaflex to 8mg qhs Objective - Vital Signs/Intake and Output Vital Signs (last 24 hours): Temp Pulse Resp BP Pulse Ox 97.3 F L 55 L 20 126/72 97 01/17/18 08:32 01/17/18 08:32 01/17/18 08:32 01/17/18 08:32 01/17/18 08:32 Intake and Output: 01/17/18 01/17/18 06:59 18:59 Intake Total 930 Output Total 1600 Balance -670 - Medications Medications: Current Medications Acetaminophen (Tylenol 325mg Tab) 650 mg PO Q6 PRN PRN Reason: for pain scale 3-4 Baclofen (Lioresal) 10 mg PO TID [facility] Last Admin: 01/17/18 12:56 Dose: 10 mg Bisacodyl (Dulcolax) 10 mg [place] DAILY PRN PRN Reason: Constipation Last Admin: 01/15/18 06:15 Dose: 10 mg Dexamethasone (Decadron) 4 mg PO Q8 [facility] Last Admin: 01/17/18 13:06 Dose: 4 mg Docusate Sodium (Colace) 100 mg PO BID [facility] Last Admin: 01/17/18 09:00 Dose: 100 mg Gabapentin (Neurontin) 300 mg PO HS [facility] Last Admin: 01/16/18 21:59 Dose: 300 mg Cefepime HCl 2 gm/ Sodium (Chloride) 100 mls @ 100 mls/hr IVPB Q8@06 00,1400,2200 [facility] Last Admin: 01/17/18 14:31 Dose: 100 mls/hr Vancomycin HCl 1 gm/ Sodium (Chloride) 250 mls @ 166.667 mls/hr IVPB Q12H [facility] Last Admin: 01/17/18 12:57 Dose: 166.667 mls/hr Lactic Acid (Lac-Hydrin 12% Lotion (225 G)) 1 applic TOP 0600,1800 [facility] Last Admin: 01/17/18 06:06 Dose: 1 applic Lactulose (Enulose) 20 gm PO DAILY PRN PRN Reason: Constipation Last Admin: 01/16/18 12:24 Dose: 20 gm Oxycodone HCl (Oxycodone Immediate Release Tab) 5 mg PO Q6 PRN PRN Reason: pain 5-11/21 Last Admin: 01/14/18 11:25 Dose: 5 mg - Labs Labs: 01/17/18 05:15 01/14/18 05:35
[2018-01-17] MEDS ORDERED: Alum-Mag Hydrox-Simethicone Susp (30 mL) PO ONE (22:03)
[2018-01-18] MEDS: Cefepime 2 GM in Sodium Chloride 0.9% 100 ML IVPB SCH ×3 (06:12→21:40)
--- NOTE | 2018-01-18 11:40 | CP.PCM.CON ---
History of Present Illness - History of Present Illness History of Present Illness: consult requested for depression pt is a 32 yo male , no previous formal psychiatric treatment , admitted to ICU with discitis/ epidural abscess pt had abscess drainage / decompression and transferred to rehab for aggressive PT and continuation of antibiotic on evaluation pt reported feeling depressed and down, relates that to his current medical condition as he has a hard time to ambulate and hard time to adjusting being in the hospital for a long time pt denied any previous formal psychiatric treatment, reported he has always had mood swings with episodes of depression alternating with episodes of anger and irritability, pt reported having self harm behaviour by superficially cutting his arm , last was about three years ago, pt has been in custodial for three years for burglary , was placed on medications but was non compliant , stated he self medicates by using cannabis almost daily at the current mental status patient reported feeling down, no reported changes in sleep or appetite, mood reported upset, affect constricted , thought form coherent denied any current suicidal or homicidal ideation, denied perceptual disturbances, non elicited alert awake ox3 Past Patient History - Past Medical History & Family History Past Medical History?: Yes - Past Social History Smoking Status: Current Some Days Smoker Alcohol: < 2 Drinks/Day Drugs: Cannabis Home Situation {Lives}: With Family - CARDIAC Hx Cardiac Disorders: No - PULMONARY Hx Respiratory Disorders: No - HEMATOLOGICAL/ONCOLOGICAL Hx AIDS: No Hx Human Immunodeficiency Virus (HIV): No - MUSCULOSKELETAL/RHEUMATOLOGICAL Hx Falls: Yes (few days ago) - PSYCHIATRIC Hx Substance Use: Yes (claimed smoke Marijuana) - SURGICAL HISTORY Hx Surgeries: Yes Other/Comment: hernia surgery - ANESTHESIA Hx Anesthesia: Yes Hx Anesthesia Reactions: No Hx Malignant Hyperthermia: No Meds Allergies/Adverse Reactions: Allergies Allergy/AdvReac Type Severity Reaction Status Date / Time No Known Allergies Allergy Verified 01/11/18 15:54 - Medications Medications: Current Medications Acetaminophen (Tylenol 325mg Tab) 650 mg PO Q6 PRN PRN Reason: for pain scale 3-4 Baclofen (Lioresal) 10 mg PO TID [facility] Last Admin: 01/18/18 09:15 Dose: 10 mg Bisacodyl (Dulcolax) 10 mg [place] DAILY PRN PRN Reason: Constipation Last Admin: 01/15/18 06:15 Dose: 10 mg Dexamethasone (Decadron) 4 mg PO Q8 [facility] Last Admin: 01/18/18 06:12 Dose: 4 mg Docusate Sodium (Colace) 100 mg PO BID [facility] Last Admin: 01/18/18 09:13 Dose: 100 mg Gabapentin (Neurontin) 300 mg PO [facility] Last Admin: 01/17/18 21:46 Dose: 300 mg Cefepime HCl 2 gm/ Sodium (Chloride) 100 mls @ 100 mls/hr IVPB Q8@0600,1400,2200 [facility] Last Admin: 01/18/18 06:12 Dose: 100 mls/hr Vancomycin HCl 1 gm/ Sodium (Chloride) 250 mls @ 166.667 mls/hr IVPB Q12H [facility] Last Admin: 01/18/18 01:04 Dose: 166.667 mls/hr Lactic Acid (Lac-Hydrin 12% Lotion (225 G)) 1 applic TOP 0600,1800 [facility] Last Admin: 01/18/18 06:47 Dose: 1 applic Lactulose (Enulose) 20 gm PO DAILY PRN PRN Reason: Constipation Last Admin: 01/17/18 17:10 Dose: 20 gm Oxycodone HCl (Oxycodone Immediate Release Tab) 5 mg PO Q6 PRN PRN Reason: pain 5-1010 Last Admin: 01/14/18 11:25 Dose: 5 mg Tizanidine HCl (Zanaflex) 8 mg PO [facility] Last Admin: 01/17/18 21:46 Dose: 8 mg Results - Vital Signs Recent Vital Signs: Last Vital Signs Temp 98.2 F 01/17/18 20:06 Pulse 66 01/17/18 20:06 Resp 20 01/17/18 20:06 BP 131/78 01/17/18 20:06 Pulse Ox 99 01/17/18 20:06 - Labs Result Diagrams: 01/17/18 05:15 01/14/18 05:35 Assessment & Plan - Assessment and Plan (Free Text) Assessment: depression rule out bipolar disorder depressed cannabis abuse continuous Plan: recommend to start abilify 5mg daily for depression and mood stabilization recommend that social studies department chair to arrange for outpatient psychiatric treatment / and therapy on discharge
--- NOTE | 2018-01-18 12:16 | CP.PCM.PN ---
Subjective - Date & Time of Evaluation Date of Evaluation: 01/18/18 Time of Evaluation: 12:14 - Subjective Subjective: Neurology Consultation Follow-Up Note: Mr. Cornelius was evaluated this afternoon sitting in chair and participating with therapy. He is in good spirits, smiling and laughing. He admits that his left hand paresthesias are improving with the Gabapentin. However, he now admits to same paresthesias to the left foot. He is requesting Hinds J-collar to be removed as his skin feels irritated. Pt denies headache, dizziness, neck pain, visual changes, chest pain, shortness of breath, abd pain, n/v/d. Objective - Vital Signs/Intake and Output Vital Signs (last 24 hours): Temp Pulse Resp BP Pulse Ox 98.2 F 66 20 131/78 99 01/17/18 20:06 01/17/18 20:06 01/17/18 20:06 01/17/18 20:06 01/17/18 20:06 Intake and Output: 01/18/18 01/18/18 06:59 18:59 Intake Total 950 Output Total 2400 Balance -1450 - Medications Medications: Current Medications Acetaminophen (Tylenol 325mg Tab) 650 mg PO Q6 PRN PRN Reason: for pain scale 3-4 Baclofen (Lioresal) 10 mg PO TID [facility] Last Admin: 01/18/18 09:15 Dose: 10 mg Bisacodyl (Dulcolax) 10 mg [place] DAILY PRN PRN Reason: Constipation Last Admin: 01/15/18 06:15 Dose: 10 mg Dexamethasone (Decadron) 4 mg PO Q8 [facility] Last Admin: 01/18/18 06:12 Dose: 4 mg Docusate Sodium (Colace) 100 mg PO BID [facility] Last Admin: 01/18/18 09:13 Dose: 100 mg Gabapentin (Neurontin) 300 mg PO HS [facility] Last Admin: 01/17/18 21:46 Dose: 300 mg Cefepime HCl 2 gm/ Sodium (Chloride) 100 mls @ 100 mls/hr IVPB Q8@0600,1400,2200 [facility] Last Admin: 01/18/18 06:12 Dose: 100 mls/hr Vancomycin HCl 1 gm/ Sodium (Chloride) 250 mls @ 166.667 mls/hr IVPB Q12H [facility] Last Admin: 01/18/18 01:04 Dose: 166.667 mls/hr Lactic Acid (Lac-Hydrin 12% Lotion (225 G)) 1 applic TOP 0600,1800 [facility] Last Admin: 01/18/18 06:47 Dose: 1 applic Lactulose (Enulose) 20 gm PO DAILY PRN PRN Reason: Constipation Last Admin: 01/17/18 17:10 Dose: 20 gm Oxycodone HCl (Oxycodone Immediate Release Tab) 5 mg PO Q6 PRN PRN Reason: pain 5-10/10 Last Admin: 01/14/18 11:25 Dose: 5 mg Tizanidine HCl (Zanaflex) 8 mg PO HS [facility] Last Admin: 01/17/18 21:46 Dose: 8 mg - Labs Labs: 01/17/18 05:15 01/14/18 05:35 - Constitutional Appears: Well, Non-toxic, No Acute Distress - Head Exam Head Exam: ATRAUMATIC, NORMOCEPHALIC - Eye Exam Eye Exam: EOMI, Normal appearance, PERRL Pupil Exam: NORMAL ACCOMODATION, PERRL - ENT Exam ENT Exam: Mucous Membranes Moist - Neck Exam Neck Exam: absent: Full ROM Additional comments: has [place] j-collar maintained - Respiratory Exam Respiratory Exam: NORMAL BREATHING PATTERN - Extremities Exam Extremities Exam: absent: Calf Tenderness, Pedal Edema - Neurological Exam Neurological Exam: Abnormal Gait, Alert, Awake, Oriented x3. absent: Reflexes Normal (hyperflexia BLE) Neuro motor strength exam: Left Upper Extremity: 5 (program trainer 4/5), Right Upper Extremity: 5 (program trainer 5/5), Left Lower Extremity: 3 (hypertonicity still present but improving), Right Lower Extremity: 5 (hypertonicity still present but improving) Additional comments: speech clear, fluid sensation is intact and equal b/l. Pt states sensation improving over T12 area Hyperflexia noted BLE and hypertonicity is still note BLE but it is improving. - Psychiatric Exam Psychiatric exam: Normal Affect, Normal Mood - Skin Skin Exam: Normal Color Assessment and Plan (1) Epidural abscess Assessment & Plan: Mr. Cornelius is improving and coming along well since admission with epidural abscess. -Paresthesias to left hand and left foot likely neuropathic. Pt has no sensory loss on exam to LUE and LLE---We will increase Neurontin to 600 mg PO HS. If pt becomes too sleepy in the morning following the medication and has difficulty participating in therapy, we can decrease the dose to 300 mg po hs again. -Continue PT/OT therapy. -Decadron taper ordered and dates adjusted: Decadron 4 mg PO Q12 x2 days (01/18/18-01/20/18), followed by Decadron 4 mg PO daily x2 days (01/21/18-01/23/18), followed by Decadron 2 mg PO daily x2 days (01/24/18-01/26/18). -Recommend that acosta be removed to prevent any unwanted infection. Bladder scan orders placed as well as indications to reinsert acosta if needed. -Removal of Hinds J-collar deferred to neurosurgery. -Please notify neuro team of any acute changes in condition. -We will continue to follow the pt while in rehab. -Plan discussed with nursing. Case discussed in detail with Dr. Rosas Status: Acute
--- NOTE | 2018-01-18 12:46 | CP.PCM.PN ---
Subjective - Date & Time of Evaluation Date of Evaluation: 01/18/18 Time of Evaluation: 12:50 - Subjective Subjective: ATTITUDE IMPROVING MOVED BOWELS STILL HAS A BARTLETT IN PLACE Objective - Vital Signs/Intake and Output Vital Signs (last 24 hours): Temp Pulse Resp BP Pulse Ox 98.2 F 66 20 131/78 99 01/17/18 20:06 01/17/18 20:06 01/17/18 20:06 01/17/18 20:06 01/17/18 20:06 Intake and Output: 01/18/18 01/18/18 06:59 18:59 Intake Total 950 Output Total 2400 Balance -1450 - Medications Medications: Current Medications Acetaminophen (Tylenol 325mg Tab) 650 mg PO Q6 PRN PRN Reason: for pain scale 3-4 Aripiprazole (Abilify) 5 mg PO DAILY [facility] Baclofen (Lioresal) 10 mg PO TID [facility] Last Admin: 01/18/18 09:15 Dose: 10 mg Bisacodyl (Dulcolax) 10 mg [place] DAILY PRN PRN Reason: Constipation Last Admin: 01/15/18 06:15 Dose: 10 mg Dexamethasone (Decadron) 4 mg PO Q12 [facility] Stop: 01/20/18 18:01 Dexamethasone (Decadron) 4 mg PO DAILY [facility] Stop: 01/23/18 09:01 Dexamethasone (Decadron) 2 mg PO DAILY [facility] Stop: 01/26/18 09:01 Docusate Sodium (Colace) 100 mg PO BID [facility] Last Admin: 01/18/18 09:13 Dose: 100 mg Gabapentin (Neurontin) 300 mg PO HS [facility] Last Admin: 01/17/18 21:46 Dose: 300 mg Cefepime HCl 2 gm/ Sodium (Chloride) 100 mls @ 100 mls/hr IVPB Q8@0600,1400 ,2200 [facility] Last Admin: 01/18/18 06:12 Dose: 100 mls/hr Vancomycin HCl 1 gm/ Sodium (Chloride) 250 mls @ 166.667 mls/hr IVPB Q12H [facility] Last Admin: 01/18/18 01:04 Dose: 166.667 mls/hr Lactic Acid (Lac-Hydrin 12% Lotion (225 G)) 1 applic TOP 0600,1800 [facility] Last Admin: 01/18/18 06:47 Dose: 1 applic Lactulose (Enulose) 20 gm PO DAILY PRN PRN Reason: Constipation Last Admin: 01/17/18 17:10 Dose: 20 gm Oxycodone HCl (Oxycodone Immediate Release Tab) 5 mg PO Q6 PRN PRN Reason: pain 5-10/10 Last Admin: 01/14/18 11:25 Dose: 5 mg Tizanidine HCl (Zanaflex) 8 mg PO HS [facility] Last Admin: 01/17/18 21:46 Dose: 8 mg - Labs Labs: 01/17/18 05:15 01/14/18 05:35 - Constitutional Appears: No Acute Distress - Head Exam Head Exam: ATRAUMATIC, NORMAL INSPECTION, NORMOCEPHALIC - Eye Exam Eye Exam: EOMI, Normal appearance, PERRL Pupil Exam: NORMAL ACCOMODATION, PERRL - ENT Exam ENT Exam: Mucous Membranes Moist, Normal Exam - Neck Exam Neck Exam: Full ROM, Normal Inspection. absent: Lymphadenopathy - Respiratory Exam Respiratory Exam: Clear to Ausculation Bilateral, NORMAL BREATHING PATTERN - Cardiovascular Exam Cardiovascular Exam: REGULAR RHYTHM, +S1, +S2. absent: Murmur - GI/Abdominal Exam GI & Abdominal Exam: Soft, Normal Bowel Sounds. absent: Tenderness - Rectal Exam Rectal Exam: NORMAL INSPECTION - Extremities Exam Extremities Exam: Full ROM, Normal Capillary Refill, Normal Inspection. absent: Joint Swelling, Pedal Edema - Back Exam Back Exam: NORMAL INSPECTION - Neurological Exam Neurological Exam: Alert, Awake, CN II-XII Intact, Normal Gait, Oriented x3 Additional comments: MOVING EXTREMITIES AGAINST GRAVITY - Psychiatric Exam Psychiatric exam: Normal Affect, Normal Mood - Skin Skin Exam: Dry, Intact, Normal Color, Warm Assessment and Plan - Assessment and Plan (Free Text) Assessment: S/P SPINE SURGERY DISCITIS URINARY RETENTION CONSTIPATION DEPRESSION Plan: BLADDER TRAIN AND D/C BARTLETT CATH LAXATIVES FOR CONSTIPATION ABILIFY FOR DEPRESSION
--- NOTE | 2018-01-18 12:48 | CP.PCM.PN ---
Subjective - Date & Time of Evaluation Date of Evaluation: 01/18/18 Time of Evaluation: 09:00 - Subjective Subjective: IV rx renewed will check vanco level Objective - Vital Signs/Intake and Output Vital Signs (last 24 hours): Temp Pulse Resp BP Pulse Ox 98.2 F 66 20 131/78 99 01/17/18 20:06 01/17/18 20:06 01/17/18 20:06 01/17/18 20:06 01/17/18 20:06 Intake and Output: 01/18/18 01/18/18 06:59 18:59 Intake Total 950 Output Total 2400 Balance -1450 - Medications Medications: Current Medications Acetaminophen (Tylenol 325mg Tab) 650 mg PO Q6 PRN PRN Reason: for pain scale 3-4 Aripiprazole (Abilify) 5 mg PO DAILY [facility] Baclofen (Lioresal) 10 mg PO TID [facility] Last Admin: 01/18/18 09:15 Dose: 10 mg Bisacodyl (Dulcolax) 10 mg [place] DAILY PRN PRN Reason: Constipation Last Admin: 01/15/18 06:15 Dose: 10 mg Dexamethasone (Decadron) 4 mg PO Q12 [facility] Stop: 01/20/18 18:01 Dexamethasone (Decadron) 4 mg PO DAILY [facility] Stop: 01/23/18 09:01 Dexamethasone (Decadron) 2 mg PO DAILY [facility] Stop: 01/26/18 09:01 Docusate Sodium (Colace) 100 mg PO BID [facility] Last Admin: 01/18/18 09:13 Dose: 100 mg Gabapentin (Neurontin) 300 mg PO HS [facility] Last Admin: 01/17/18 21:46 Dose: 300 mg Cefepime HCl 2 gm/ Sodium (Chloride) 100 mls @ 100 mls/hr IVPB Q8@0600,1400,2200 [facility] Last Admin: 01/18/18 06:12 Dose: 100 mls/hr Vancomycin HCl 1 gm/ Sodium (Chloride) 250 mls @ 166.667 mls/hr IVPB Q12H [facility] Last Admin: 01/18/18 01:04 Dose: 166.667 mls/hr Lactic Acid (Lac-Hydrin 12% Lotion (225 G)) 1 applic TOP 0600,1800 [facility] Last Admin: 01/18/18 06:47 Dose: 1 applic Lactulose (Enulose) 20 gm PO DAILY PRN PRN Reason: Constipation Last Admin: 01/17/18 17:10 Dose: 20 gm Oxycodone HCl (Oxycodone Immediate Release Tab) 5 mg PO Q6 PRN PRN Reason: pain 5-11/21 Last Admin: 01/14/18 11:25 Dose: 5 mg Tizanidine HCl (Zanaflex) 8 mg PO HS [facility] Last Admin: 01/17/18 21:46 Dose: 8 mg - Labs Labs: 01/17/18 05:15 01/14/18 05:35 Assessment and Plan (1) Back pain Status: Acute (2) Discitis of cervical region Status: Acute (3) Epidural abscess Status: Acute (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
--- NOTE | 2018-01-18 17:57 | CP.PCM.PN ---
Subjective - Date & Time of Evaluation Date of Evaluation: 01/18/18 Time of Evaluation: 17:56 - Subjective Subjective: Patient seen in the room had a good night sleep with the Zanaflex 8mg very happy had a BM as well may have contributed to a decrease in tone today did well in therapies and documented improvement with longer and better standing continue current care Objective - Vital Signs/Intake and Output Vital Signs (last 24 hours): Temp Pulse Resp BP Pulse Ox 98 F 82 20 140/80 98 01/18/18 08:00 01/18/18 08:00 01/18/18 08:00 01/18/18 08:00 01/18/18 08:00 Intake and Output: 01/18/18 01/18/18 06:59 18:59 Intake Total 950 950 Output Total 2400 800 Balance -1450 150 - Medications Medications: Current Medications Acetaminophen (Tylenol 325mg Tab) 650 mg PO Q6 PRN PRN Reason: for pain scale 3-4 Aripiprazole (Abilify) 5 mg PO HS [facility] Baclofen (Lioresal) 10 mg PO TID [facility] Last Admin: 01/18/18 13:41 Dose: 10 mg Bisacodyl (Dulcolax) 10 mg [place] DAILY PRN PRN Reason: Constipation Last Admin: 01/15/18 06:15 Dose: 10 mg Dexamethasone (Decadron) 4 mg PO Q12 [facility] Stop: 01/20/18 18:01 Dexamethasone (Decadron) 4 mg PO DAILY [facility] Stop: 01/23/18 09:01 Dexamethasone (Decadron) 2 mg PO DAILY [facility] Stop: 01/26/18 09:01 Docusate Sodium (Colace) 100 mg PO BID [facility] Last Admin: 01/18/18 09:13 Dose: 100 mg Gabapentin (Neurontin) 600 mg PO HS [facility] Cefepime HCl 2 gm/ Sodium (Chloride) 100 mls @ 100 mls/hr IVPB Q8@0600,1400,2200 [facility] Last Admin: 01/18/18 15:22 Dose: 100 mls/hr Vancomycin HCl 1 gm/ Sodium (Chloride) 250 mls @ 166.667 mls/hr IVPB Q12H [facility] Last Admin: 01/18/18 13:00 Dose: 166.667 mls/hr Lactic Acid (Lac-Hydrin 12% Lotion (225 G)) 1 applic TOP 0600,1800 [facility] Last Admin: 01/18/18 06:47 Dose: 1 applic Lactulose (Enulose) 20 gm PO DAILY PRN PRN Reason: Constipation Last Admin: 01/17/18 17:10 Dose: 20 gm Oxycodone HCl (Oxycodone Immediate Release Tab) 5 mg PO Q6 PRN PRN Reason: pain 5-11/21 Last Admin: 01/14/18 11:25 Dose: 5 mg Tizanidine HCl (Zanaflex) 8 mg PO HS [facility] Last Admin: 01/17/18 21:46 Dose: 8 mg - Labs Labs: 01/17/18 05:15 01/14/18 05:35
[2018-01-19] MEDS: Cefepime 2 GM in Sodium Chloride 0.9% 100 ML IVPB SCH ×3 (05:57→21:08)
--- NOTE | 2018-01-19 11:00 | CP.PCM.PN ---
Subjective - Date & Time of Evaluation Date of Evaluation: 01/19/18 Time of Evaluation: 11:06 - Subjective Subjective: [place] CATH REMOVED ABLE TO VOID Objective - Vital Signs/Intake and Output Vital Signs (last 24 hours): Temp Pulse Resp BP Pulse Ox 97.9 F 57 L 20 116/61 98 01/19/18 08:00 01/19/18 08:00 01/19/18 08:00 01/19/18 08:00 01/19/18 08:00 Intake and Output: 01/19/18 01/19/18 06:59 18:59 Intake Total 980 Output Total 1750 Balance -770 - Medications Medications: Current Medications Acetaminophen (Tylenol 325mg Tab) 650 mg PO Q6 PRN PRN Reason: for pain scale 3-4 Aripiprazole (Abilify) 5 mg PO HS [facility] Last Admin: 01/18/18 21:36 Dose: 5 mg Baclofen (Lioresal) 10 mg PO TID [facility] Last Admin: 01/19/18 08:25 Dose: 10 mg Bisacodyl (Dulcolax) 10 mg [place] DAILY PRN PRN Reason: Constipation Last Admin: 01/15/18 06:15 Dose: 10 mg Dexamethasone (Decadron) 4 mg PO Q12 [facility] Stop: 01/20/18 18:01 Last Admin: 01/19/18 08:25 Dose: 4 mg Dexamethasone (Decadron) 4 mg PO DAILY [facility] Stop: 01/23/18 09:01 Dexamethasone (Decadron) 2 mg PO DAILY [facility] Stop: 01/26/18 09:01 Docusate Sodium (Colace) 100 mg PO BID [facility] Last Admin: 01/19/18 08:24 Dose: 100 mg Gabapentin (Neurontin) 600 mg PO HS [facility] Last Admin: 01/18/18 21:46 Dose: 600 mg Cefepime HCl 2 gm/ Sodium (Chloride) 100 mls @ 100 mls/hr IVPB Q8@0600,1400,2200 [facility] Last Admin: 01/19/18 05:57 Dose: 100 mls/hr Vancomycin HCl 1 gm/ Sodium (Chloride) 250 mls @ 166.667 mls/hr IVPB Q12H [facility] Last Admin: 01/19/18 00:30 Dose: 166.667 mls/hr Lactic Acid (Lac-Hydrin 12% Lotion (225 G)) 1 applic TOP 0600,1800 [facility] Last Admin: 01/19/18 05:57 Dose: 1 applic Lactulose (Enulose) 20 gm PO DAILY PRN PRN Reason: Constipation Last Admin: 01/17/18 17:10 Dose: 20 gm Oxycodone HCl (Oxycodone Immediate Release Tab) 5 mg PO Q6 PRN PRN Reason: pain 5-10/10 Last Admin: 01/14/18 11:25 Dose: 5 mg Tizanidine HCl (Zanaflex) 8 mg PO HS [facility] Last Admin: 01/18/18 21:37 Dose: 8 mg - Labs Labs: 01/17/18 05:15 01/14/18 05:35 - Constitutional Appears: No Acute Distress - Head Exam Head Exam: ATRAUMATIC, NORMAL INSPECTION, NORMOCEPHALIC - Eye Exam Eye Exam: EOMI, Normal appearance, PERRL Pupil Exam: NORMAL ACCOMODATION, PERRL - ENT Exam ENT Exam: Mucous Membranes Moist, Normal Exam - Neck Exam Neck Exam: Full ROM, Normal Inspection. absent: Lymphadenopathy - Respiratory Exam Respiratory Exam: Clear to Ausculation Bilateral, NORMAL BREATHING PATTERN - Cardiovascular Exam Cardiovascular Exam: REGULAR RHYTHM, +S1, +S2. absent: Murmur - GI/Abdominal Exam GI & Abdominal Exam: Soft, Normal Bowel Sounds. absent: Tenderness - Rectal Exam Rectal Exam: NORMAL INSPECTION - Extremities Exam Extremities Exam: Full ROM, Normal Capillary Refill, Normal Inspection. absent: Joint Swelling, Pedal Edema - Back Exam Back Exam: NORMAL INSPECTION - Neurological Exam Neurological Exam: Abnormal Gait, Alert, Awake, CN II-XII Intact, Oriented x3 - Psychiatric Exam Psychiatric exam: Normal Affect, Normal Mood - Skin Skin Exam: Dry, Intact, Normal Color, Warm Assessment and Plan - Assessment and Plan (Free Text) Assessment: DISCITIS S/P SPINE SURGERY WITH EVACUATION OF ABSCESS Plan: CONTINUE CURRENT RX
[2018-01-20] MEDS: Cefepime 2 GM in Sodium Chloride 0.9% 100 ML IVPB SCH ×3 (05:22→21:28)
[2018-01-20 07:39] LABS: BASO % 0.2 % (0.0-2.0); EOS # 0.1 K/uL (0.0-0.7); EOS % 0.5 % (0.0-4.0); HEMOGLOBIN 11.7 g/dL (12.0-18.0); LYMPH % 6.2 % (20.0-40.0); MEAN CELL VOLUME 95.5 fl (80.0-94.0); MEAN CORPUSCULAR HEMOGLOBIN 30.8 pg (27.0-31.0); MEAN CORPUSCULAR HGB CONC 32.3 g/dL (33.0-37.0); MEAN PLATELET VOLUME 7.1 fl (7.2-11.7); MONO # 1.3 K/uL (0.0-0.8); MONO % 7.6 % (0.0-10.0); NEUT # 14.1 K/uL (1.8-7.0); NEUT % 85.5 % (50.0-75.0); PLATELET COUNT 298 K/uL (130-400); RBC 3.78 Mil/uL (4.40-5.90); RED CELL DISTRIBUTION WIDTH 13.8 % (11.5-14.5); WHITE BLOOD COUNT 16.5 K/uL (4.8-10.8)
[2018-01-20 07:59] LABS: ALBUMIN 3.3 g/dL (3.5-5.0); ALT/SGPT 34 U/L (21-72); AST/SGOT 22 U/L (17-59); BLOOD UREA NITROGEN 20 mg/dl (9-20); CALCIUM 9.1 mg/dL (8.4-10.2); GFR NON-AFRICAN AMERICAN > 60
[2018-01-20 08:49] LABS: LYMPHOCYTE 6 % (20-50); MONOCYTE 4 % (0-10); NEUTROPHIL 90 % (42-75); PLATELET ESTIMATE NORMAL (NORMAL); TOTAL CELLS COUNTED 100
[2018-01-20 08:50] LABS: ANISOCYTOSIS SLIGHT; MICROCYTOSIS SLIGHT
--- NOTE | 2018-01-20 10:12 | CP.PCM.PN ---
Subjective - Date & Time of Evaluation Date of Evaluation: 01/20/18 Time of Evaluation: 10:12 - Subjective Subjective: clinically improving denies pain able to move all extremities poor bowel movement but able to urinate labs reviewed Objective - Vital Signs/Intake and Output Vital Signs (last 24 hours): Temp Pulse Resp BP Pulse Ox 97.9 F 67 20 130/68 98 01/20/18 09:58 01/20/18 09:58 01/20/18 09:58 01/20/18 09:58 01/20/18 09:58 - Medications Medications: Current Medications Acetaminophen (Tylenol 325mg Tab) 650 mg PO Q6 PRN PRN Reason: for pain scale 3-4 Aripiprazole (Abilify) 5 mg PO HS [facility] Last Admin: 01/19/18 21:08 Dose: 5 mg Baclofen (Lioresal) 10 mg PO TID [facility] Last Admin: 01/20/18 08:31 Dose: 10 mg Bisacodyl (Dulcolax) 10 mg [place] DAILY PRN PRN Reason: Constipation Last Admin: 01/15/18 06:15 Dose: 10 mg Dexamethasone (Decadron) 4 mg PO Q12 [facility] Stop: 01/20/18 18:01 Last Admin: 01/20/18 08:32 Dose: 4 mg Dexamethasone (Decadron) 4 mg PO DAILY [facility] Stop: 01/23/18 09:01 Dexamethasone (Decadron) 2 mg PO DAILY [facility] Stop: 01/26/18 09:01 Docusate Sodium (Colace) 100 mg PO BID [facility] Last Admin: 01/20/18 08:31 Dose: 100 mg Gabapentin (Neurontin) 600 mg PO HS [facility] Last Admin: 01/19/18 21:08 Dose: 600 mg Cefepime HCl 2 gm/ Sodium (Chloride) 100 mls @ 100 mls/hr IVPB Q8@0600,1400,2200 [facility] Last Admin: 01/20/18 05:22 Dose: 100 mls/hr Vancomycin HCl 1 gm/ Sodium (Chloride) 250 mls @ 166.667 mls/hr IVPB Q12H [facility] Last Admin: 01/20/18 00:14 Dose: 166.667 mls/hr Lactic Acid (Lac-Hydrin 12% Lotion (225 G)) 1 applic TOP 0600,1800 [facility] Last Admin: 01/20/18 05:23 Dose: 1 applic Lactulose (Enulose) 20 gm PO DAILY PRN PRN Reason: Constipation Last Admin: 01/19/18 17:35 Dose: 20 gm Oxycodone HCl (Oxycodone Immediate Release Tab) 5 mg PO Q6 PRN PRN Reason: pain 5-10/10 Last Admin: 01/14/18 11:25 Dose: 5 mg Tizanidine HCl (Zanaflex) 8 mg PO HS [facility] Last Admin: 01/19/18 21:08 Dose: 8 mg - Labs Labs: 01/20/18 06:00 01/20/18 06:00 - Constitutional Appears: No Acute Distress - Head Exam Head Exam: ATRAUMATIC, NORMAL INSPECTION, NORMOCEPHALIC - Eye Exam Eye Exam: EOMI, Normal appearance, PERRL Pupil Exam: NORMAL ACCOMODATION, PERRL - ENT Exam ENT Exam: Mucous Membranes Moist, Normal Exam - Neck Exam Neck Exam: Full ROM, Normal Inspection. absent: Lymphadenopathy - Respiratory Exam Respiratory Exam: Clear to Ausculation Bilateral, NORMAL BREATHING PATTERN - Cardiovascular Exam Cardiovascular Exam: REGULAR RHYTHM, +S1, +S2. absent: Murmur - GI/Abdominal Exam GI & Abdominal Exam: Soft, Normal Bowel Sounds. absent: Tenderness - Rectal Exam Rectal Exam: NORMAL INSPECTION - Extremities Exam Extremities Exam: Full ROM, Normal Capillary Refill, Normal Inspection. absent: Joint Swelling, Pedal Edema - Back Exam Back Exam: NORMAL INSPECTION - Neurological Exam Neurological Exam: Alert, Awake, CN II-XII Intact, Oriented x3 Neuro motor strength exam: Left Upper Extremity: 3, Right Upper Extremity: 2/1, Left Lower Extremity: 3, Right Lower Extremity: 2/1 - Psychiatric Exam Psychiatric exam: Normal Affect, Normal Mood - Skin Skin Exam: Dry, Intact, Normal Color, Warm Assessment and Plan - Assessment and Plan (Free Text) Assessment: s/p spine surgery and evacuation of abscess paraplegia--improving leukocytosis due to spine abscess and steroids Plan: continue current rx
--- NOTE | 2018-01-20 12:25 | CP.PCM.PN ---
Subjective - Date & Time of Evaluation Date of Evaluation: 01/20/18 Time of Evaluation: 08:00 - Subjective Subjective: improved but still not ambulatory no fever or pain moves all extremities Objective - Vital Signs/Intake and Output Vital Signs (last 24 hours): Temp Pulse Resp BP Pulse Ox 97.9 F 67 20 130/68 98 01/20/18 09:58 01/20/18 09:58 01/20/18 09:58 01/20/18 09:58 01/20/18 09:58 - Medications Medications: Current Medications Acetaminophen (Tylenol 325mg Tab) 650 mg PO Q6 PRN PRN Reason: for pain scale 3-4 Aripiprazole (Abilify) 5 mg PO HS [facility] Last Admin: 01/19/18 21:08 Dose: 5 mg Baclofen (Lioresal) 10 mg PO TID [facility] Last Admin: 01/20/18 12:04 Dose: 10 mg Bisacodyl (Dulcolax) 10 mg [place] DAILY PRN PRN Reason: Constipation Last Admin: 01/15/18 06:15 Dose: 10 mg Dexamethasone (Decadron) 4 mg PO Q12 [facility] Stop: 01/20/18 18:01 Last Admin: 01/20/18 08:32 Dose: 4 mg Dexamethasone (Decadron) 4 mg PO DAILY [facility] Stop: 01/23/18 09:01 Dexamethasone (Decadron) 2 mg PO DAILY [facility] Stop: 01/26/18 09:01 Docusate Sodium (Colace) 100 mg PO BID [facility] Last Admin: 01/20/18 08:31 Dose: 100 mg Gabapentin (Neurontin) 600 mg PO [facility] Last Admin: 01/19/18 21:08 Dose: 600 mg Cefepime HCl 2 gm/ Sodium (Chloride) 100 mls @ 100 mls/hr IVPB Q8@0600,1400,2200 [facility] Last Admin: 01/20/18 05:22 Dose: 100 mls/hr Vancomycin HCl 1 gm/ Sodium (Chloride) 250 mls @ 166.667 mls/hr IVPB Q12H [facility] Last Admin: 01/20/18 12:05 Dose: 166.667 mls/hr Lactic Acid (Lac-Hydrin 12% Lotion (225 G)) 1 applic TOP 0600,1800 [facility] Last Admin: 01/20/18 05:23 Dose: 1 applic Lactulose (Enulose) 20 gm PO DAILY PRN PRN Reason: Constipation Last Admin: 01/19/18 17:35 Dose: 20 gm Oxycodone HCl (Oxycodone Immediate Release Tab) 5 mg PO Q6 PRN PRN Reason: pain 5-10/10 Last Admin: 01/14/18 11:25 Dose: 5 mg Tizanidine HCl (Zanaflex) 8 mg PO HS [facility] Last Admin: 01/19/18 21:08 Dose: 8 mg - Labs Labs: 01/20/18 06:00 01/20/18 06:00 - Constitutional Appears: Non-toxic, Chronically Ill - Head Exam Head Exam: NORMOCEPHALIC - Eye Exam Eye Exam: absent: Scleral icterus - ENT Exam ENT Exam: Mucous Membranes Dry - Neck Exam Neck Exam: absent: Lymphadenopathy - Respiratory Exam Respiratory Exam: Decreased Breath Sounds - Cardiovascular Exam Cardiovascular Exam: REGULAR RHYTHM - GI/Abdominal Exam GI & Abdominal Exam: Distended, Soft - Rectal Exam Rectal Exam: Deferred - Exam Exam: NORMAL INSPECTION - Extremities Exam Extremities Exam: absent: Pedal Edema - Back Exam Back Exam: absent: CVA tenderness (L), CVA tenderness (R) - Neurological Exam Neurological Exam: Alert, Awake, CN II-XII Intact, Motor Sensory Deficit, Oriented x3. 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
[2018-01-21] MEDS: Cefepime 2 GM in Sodium Chloride 0.9% 100 ML IVPB SCH ×3 (05:57→21:38)
--- NOTE | 2018-01-21 09:30 | CP.PCM.PN ---
Subjective - Date & Time of Evaluation Date of Evaluation: 01/21/18 Time of Evaluation: 09:31 - Subjective Subjective: STILL UNABLE TO MOVE BOWELS LOWER EXTREMITIES STILL WEAK BUT IMPROVING Objective - Vital Signs/Intake and Output Vital Signs (last 24 hours): Temp Pulse Resp BP Pulse Ox 98.1 F 83 19 128/68 97 01/21/18 08:20 01/21/18 08:20 01/21/18 08:20 01/21/18 08:20 01/21/18 08:20 - Medications Medications: Current Medications Acetaminophen (Tylenol 325mg Tab) 650 mg PO Q6 PRN PRN Reason: for pain scale 3-4 Aripiprazole (Abilify) 5 mg PO HS [facility] Last Admin: 01/20/18 21:28 Dose: 5 mg Baclofen (Lioresal) 10 mg PO TID [facility] Last Admin: 01/21/18 08:15 Dose: 10 mg Bisacodyl (Dulcolax) 10 mg [place] DAILY PRN PRN Reason: Constipation Last Admin: 01/15/18 06:15 Dose: 10 mg Dexamethasone (Decadron) 4 mg PO DAILY [facility] Stop: 01/23/18 09:01 Last Admin: 01/21/18 08:15 Dose: 4 mg Dexamethasone (Decadron) 2 mg PO DAILY [facility] Stop: 01/26/18 09:01 Docusate Sodium (Colace) 100 mg PO BID [facility] Last Admin: 01/21/18 08:15 Dose: 100 mg Gabapentin (Neurontin) 600 mg PO [facility] Last Admin: 01/20/18 21:28 Dose: 600 mg Cefepime HCl 2 gm/ Sodium (Chloride) 100 mls @ 100 mls/hr IVPB Q8@0600,1400,2200 [facility] Last Admin: 01/21/18 05:57 Dose: 100 mls/hr Vancomycin HCl 1 gm/ Sodium (Chloride) 250 mls @ 166.667 mls/hr IVPB Q12H [facility] Last Admin: 01/21/18 00:05 Dose: 166.667 mls/hr Lactic Acid (Lac-Hydrin 12% Lotion (225 G)) 1 applic TOP 0600,1800 [facility] Last Admin: 01/21/18 05:59 Dose: 1 applic Lactulose (Enulose) 20 gm PO DAILY PRN PRN Reason: Constipation Last Admin: 01/19/18 17:35 Dose: 20 gm Oxycodone HCl (Oxycodone Immediate Release Tab) 5 mg PO Q6 PRN PRN Reason: pain 5-11/21 Last Admin: 01/14/18 11:25 Dose: 5 mg Tizanidine HCl (Zanaflex) 8 mg PO HS [facility] Last Admin: 01/20/18 21:28 Dose: 8 mg - Labs Labs: 01/20/18 06:00 01/20/18 06:00 - Constitutional Appears: No Acute Distress - Head Exam Head Exam: ATRAUMATIC, NORMAL INSPECTION, NORMOCEPHALIC - Eye Exam Eye Exam: EOMI, Normal appearance, PERRL Pupil Exam: NORMAL ACCOMODATION, PERRL - ENT Exam ENT Exam: Mucous Membranes Moist, Normal Exam - Neck Exam Neck Exam: Full ROM, Normal Inspection. absent: Lymphadenopathy - Respiratory Exam Respiratory Exam: Clear to Ausculation Bilateral, NORMAL BREATHING PATTERN - Cardiovascular Exam Cardiovascular Exam: REGULAR RHYTHM, +S1, +S2. absent: Murmur - GI/Abdominal Exam GI & Abdominal Exam: Soft, Normal Bowel Sounds. absent: Tenderness - Rectal Exam Rectal Exam: NORMAL INSPECTION - Extremities Exam Extremities Exam: Full ROM, Normal Capillary Refill, Normal Inspection. absent: Joint Swelling, Pedal Edema - Back Exam Back Exam: NORMAL INSPECTION - Neurological Exam Neurological Exam: Abnormal Gait, Alert, Awake, CN II-XII Intact, Oriented x3 Neuro motor strength exam: Left Upper Extremity: 3, Right Upper Extremity: 2/1, Left Lower Extremity: 3, Right Lower Extremity: 2/1 - Psychiatric Exam Psychiatric exam: Normal Affect, Normal Mood - Skin Skin Exam: Dry, Intact, Normal Color, Warm Assessment and Plan - Assessment and Plan (Free Text) Assessment: S/P SPINE SURGERY S/P DRAINAGE OF EPIDURAL ABSCESS PARAPLEGIA IMPROVING CONSTIPATION--PROBABLY NEUROGENIC IN ORIGIN Plan: CONTINUE CURRENT RX MAY NEED TRIAL OF LINZES IF CONSTIPATION PERSISTS
--- NOTE | 2018-01-21 18:04 | CP.PCM.PN ---
Subjective - Date & Time of Evaluation Date of Evaluation: 01/21/18 Time of Evaluation: 18:02 - Subjective Subjective: Patient seen in the room no pain at this time in good spirits working on AROM of the LEs throughout the day No BM for 4 days again I have given his friend a script for the magic bullet since the pharmacy cannot get this voiding now without acosta. will get f/u PVR continue current care Objective - Vital Signs/Intake and Output Vital Signs (last 24 hours): Temp Pulse Resp BP Pulse Ox 98.1 F 83 19 128/68 97 01/21/18 08:20 01/21/18 08:20 01/21/18 08:20 01/21/18 08:20 01/21/18 08:20 Intake and Output: 01/21/18 01/21/18 06:59 18:59 Intake Total 1190 Output Total 960 Balance 230 - Medications Medications: Current Medications Acetaminophen (Tylenol 325mg Tab) 650 mg PO Q6 PRN PRN Reason: for pain scale 3-4 Aripiprazole (Abilify) 5 mg PO HS [facility] Last Admin: 01/20/18 21:28 Dose: 5 mg Baclofen (Lioresal) 10 mg PO TID [facility] Last Admin: 01/21/18 16:58 Dose: 10 mg Bisacodyl (Dulcolax) 10 mg [place] DAILY PRN PRN Reason: Constipation Last Admin: 01/15/18 06:15 Dose: 10 mg Dexamethasone (Decadron) 4 mg PO DAILY [facility] Stop: 01/23/18 09:01 Last Admin: 01/21/18 08:15 Dose: 4 mg Dexamethasone (Decadron) 2 mg PO DAILY [facility] Stop: 01/26/18 09:01 Docusate Sodium (Colace) 100 mg PO BID [facility] Last Admin: 01/21/18 16:58 Dose: 100 mg Gabapentin (Neurontin) 600 mg PO HS [facility] Last Admin: 01/20/18 21:28 Dose: 600 mg Cefepime HCl 2 gm/ Sodium (Chloride) 100 mls @ 100 mls/hr IVPB Q8@0600,1400,2200 [facility] Last Admin: 01/21/18 14:28 Dose: 100 mls/hr Vancomycin HCl 1 gm/ Sodium (Chloride) 250 mls @ 166.667 mls/hr IVPB Q12H [facility] Last Admin: 01/21/18 12:50 Dose: 166.667 mls/hr Lactic Acid (Lac-Hydrin 12% Lotion (225 G)) 1 applic TOP 0600,1800 [facility] Last Admin: 01/21/18 17:01 Dose: 1 applic Lactulose (Enulose) 20 gm PO DAILY PRN PRN Reason: Constipation Last Admin: 01/21/18 16:57 Dose: 20 gm Oxycodone HCl (Oxycodone Immediate Release Tab) 5 mg PO Q6 PRN PRN Reason: pain -11/21 Last Admin: 01/14/18 11:25 Dose: 5 mg Tizanidine HCl (Zanaflex) 8 mg PO HS [facility] Last Admin: 01/20/18 21:28 Dose: 8 mg - Labs Labs: 01/20/18 06:00 01/20/18 06:00
[2018-01-22] MEDS: Cefepime 2 GM in Sodium Chloride 0.9% 100 ML IVPB SCH ×3 (06:17→22:05)
[2018-01-22] MEDS ORDERED: Magnesium Citrate Oral SOL (300 ml) PO ONE (08:40)
--- NOTE | 2018-01-22 08:40 | CP.PCM.PN ---
Subjective - Date & Time of Evaluation Date of Evaluation: 01/22/18 Time of Evaluation: 08:40 - Subjective Subjective: still constipated no apparent distress Objective - Vital Signs/Intake and Output Vital Signs (last 24 hours): Temp Pulse Resp BP Pulse Ox 98.1 F 76 20 127/78 97 01/21/18 20:00 01/21/18 20:00 01/21/18 20:00 01/21/18 20:00 01/21/18 20:00 - Medications Medications: Current Medications Acetaminophen (Tylenol 325mg Tab) 650 mg PO Q6 PRN PRN Reason: for pain scale 3-4 Aripiprazole (Abilify) 5 mg PO HS [facility] Last Admin: 01/21/18 21:37 Dose: 5 mg Baclofen (Lioresal) 10 mg PO TID [facility] Last Admin: 01/21/18 16:58 Dose: 10 mg Bisacodyl (Dulcolax) 10 mg [place] DAILY PRN PRN Reason: Constipation Last Admin: 01/22/18 06:18 Dose: 10 mg Dexamethasone (Decadron) 4 mg PO DAILY [facility] Stop: 01/23/18 09:01 Last Admin: 01/21/18 08:15 Dose: 4 mg Dexamethasone (Decadron) 2 mg PO DAILY [facility] Stop: 01/26/18 09:01 Docusate Sodium (Colace) 100 mg PO BID [facility] Last Admin: 01/21/18 16:58 Dose: 100 mg Gabapentin (Neurontin) [address] [facility] Last Admin: 01/21/18 21:39 Dose: 600 mg Cefepime HCl 2 gm/ Sodium (Chloride) 100 mls @ 100 mls/hr IVPB Q8@0600,1400,2200 [facility] Last Admin: 01/22/18 06:17 Dose: 100 mls/hr Vancomycin HCl 1 gm/ Sodium (Chloride) 250 mls @ 166.667 mls/hr IVPB Q12H [facility] Last Admin: 01/22/18 01:09 Dose: 166.667 mls/hr Lactic Acid (Lac-Hydrin 12% Lotion (225 G)) 1 applic TOP 0600,1800 [facility] Last Admin: 01/22/18 06:17 Dose: 1 applic Lactulose (Enulose) 20 gm PO DAILY PRN PRN Reason: Constipation Last Admin: 01/21/18 16:57 Dose: 20 gm Oxycodone HCl (Oxycodone Immediate Release Tab) 5 mg PO Q6 PRN PRN Reason: pain -11/21 Last Admin: 01/14/18 11:25 Dose: 5 mg Tizanidine HCl (Zanaflex) 8 mg PO HS [facility] Last Admin: 01/21/18 21:39 Dose: 8 mg - Labs Labs: 01/20/18 06:00 01/20/18 06:00 - Constitutional Appears: No Acute Distress - Head Exam Head Exam: ATRAUMATIC, NORMAL INSPECTION, NORMOCEPHALIC - Eye Exam Eye Exam: EOMI, Normal appearance, PERRL Pupil Exam: NORMAL ACCOMODATION, PERRL - ENT Exam ENT Exam: Mucous Membranes Moist, Normal Exam - Neck Exam Neck Exam: Full ROM, Normal Inspection. absent: Lymphadenopathy - Respiratory Exam Respiratory Exam: Clear to Ausculation Bilateral, NORMAL BREATHING PATTERN - Cardiovascular Exam Cardiovascular Exam: REGULAR RHYTHM, +S1, +S2. absent: Murmur - GI/Abdominal Exam GI & Abdominal Exam: Soft, Normal Bowel Sounds. absent: Tenderness - Rectal Exam Rectal Exam: NORMAL INSPECTION - Extremities Exam Extremities Exam: Full ROM, Normal Capillary Refill, Normal Inspection. absent: Joint Swelling, Pedal Edema - Back Exam Back Exam: NORMAL INSPECTION - Neurological Exam Neurological Exam: Abnormal Gait, Alert, Awake, CN II-XII Intact, Oriented x3 - Psychiatric Exam Psychiatric exam: Normal Affect, Normal Mood - Skin Skin Exam: Dry, Intact, Normal Color, Warm Assessment and Plan - Assessment and Plan (Free Text) Assessment: s/p evacuation of epidural abscess constipation Plan: laxativws,prn
--- NOTE | 2018-01-22 13:35 | PCM.PSYTMC ---
Acute Rehab Team Conference - - Vital Signs: Vital Signs (Last 8 Hours): Vital Signs 01/22/18 01/22/18 09:00 09:38 Temperature 98.1 F 98.1 F Pulse Rate 91 H 91 H Respiratory 20 20 Rate Blood Pressure 130/71 130/71 O2 Sat by Pulse 97 Oximetry Pain: 0 - Precautions: Precautions: Fall Prevention, Pressure Ulcer - Medications/Other Issues: Comment: - still constipated despite Lactulose PRN, Colace BID and Dulcolax Supp PRN. Dr. Guerra aware, with new orders made. Dr. Goldberg prescribed Enemeez, pt will pick it up from their pharmacy. - 2wayFC removed 01/18, pt voiding freely. - Seen by Dr. Rivas, started pt on Abilify 5 mg @[facility] on 01/18/2018 - Consults: Comment: Dr. Goldberg, Dr. Rivas, Dr. Granado, Dr. Rosas, Dr. Denny, Dr. Katherine Sheth - Skin: Incision Site: Posterior neck ( Nape ) Dressing Status: Clean, Dry, Intact Incision: Healing Well, Ry Intact, No Drainage Noted Incision Line Treatment: Cleansed with NSS and covered with dry dressing BID. - Toileting: Toileting: Dependent - Bladder Management: Bladder Pattern: Normal Voiding Method: Urinal, Diaper Bladder Management: Supervision Other Intervention:: 0 - Transfers: Transfers: Minimal Assistance - ADL's: ADL's: Maximal Assistance - Pain Management: Other Intervention:: MSIR q6h PRN - Patient/Family Teaching: Other Intervention:: Care post Laminectomy, spinal and safety precautions - Goals/Time Frame: Comment: Per multidisciplinary care plan and goals - Provider: Registered Nurse:: Debra Galvan Physical Therapy - Bed Mobility Bed Mobility: Verbal Cues, Contact Guard, Minimal Assistance - Transfers Wheelchair to Mat: Verbal Cues, Minimal Assistance Sit to Stand: Verbal Cues, Moderate Assistance Comment: impulsive with transfers; requires assisatnce to set up wheelchair and assistance to ensure safety. -pull to stand using B knee immobilizers in // bars - Ambulation Level of Assistance: Dependent Comment: -static standing in // bars at this time -- plan to progress as able this week - Stair Negotiation Stairs: Level of Assistance: Not Tested - Standing Balance Static Stand: Minimal Assistance Comment: // bars, B knee immobilizers, uses BUE for support, limited LE weigh tbearing noted with limited LE activation - Pain Pain (assessed during therapy session): 5 Alleviating Techniques: Medication, Distraction, Exercise Comment: cervical pain at surgical site - Insight/Carryover Insight/Carryover: Poor - Patient/Family Education Comment: -education completed on: therapy schedule, therapy goals, postural control, use of Atka J collar, integumentary changes, sensation changes, realistic goals, WC mobility, use of brakes, use of call reinoso. -patient expressed to PT that he is waiting for the nerve medication he gets to work so that he can again begin to feel his lower extremities and regain control; this process description writer educated patient on purpose of his neurotin and explained to patient that some of the impairments he is experience including sensation and motor impair ments is likely being caused by the injury at his neck due to compression on his spinal cord from the abscess - Assessment/Plan Assessment: Patients mood continues to fluctuate largely from start of session to end of session with changes from anger and agitation to jovial laughing and joking. 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 Patient is making slow but steady progress in therapy as he is learning to mobilize with use of BUEs and learning how to manage spasm and postural control. Pt continues to require assistance for set-up of all transfers and is able to tolerate standing frame for 15 minutes and static standing in // bars with B knee immobilizers and mod A for 1- 2 minutes. Patient remains limited by impaired sensation, impaired strength, impaired proprioception, impaired insight, impaired mood, impaired safety and hypertonicity. PT recommends continued skilled PT to continue addressing skilled needs s/p spinal cord injury. PT recommends discharge to [facility] as patient will require further medical and rehabilitation management prior to home discharge at a level. - Goals Timeframe: 7 days Goals: -TRANSFERS: lateral transfers without board with CG to each side with min A for set-up. -TRANSFERS: SPT with max A of 1 and mod A of 2nd person for safety. -BED MOBILITY: rolling L w/ S. -BED MOBILITY: rolling R w/ S. -BED MOBILITY: supine to sit w/ S. -BED MOBILITY: sit to supine w/ min A with use of appropriate assistive/lifting device. -BED MOBILITY: supine to/from long sitting w/ mod I with use of bed rails. -BALANCE: dynamic long sitting with alternating UE support: x 10 minutes with supervision. -BALANCE: sitting edge of bed with posterior UE propping x 15 minutes with supervision. -BALANCE: sitting edge of bed with UE support lateral to patient x 5 minutes with min A. -BALANCE: static standing with min A of 1 with B knee immobilizers x 3 minutes. -GAIT: begin to take steps with B knee immobilizers with max A in // bars. - WHEELCHAIR: propel manual wheelchair x 200 feet on all surfaces with BUE with S. -WHEELCHAIR: manage brakes & seatbelt on manual WC with supervision without cueing. -WHEELCHAIR: perform pressure relief with cueing with CGA and assistance to ensure stability of wheelchair. -EDUCATION: care-taker to assist patient with bed/mat mobility and positioning with contact guard assistance from therapist - Provider Physical Therapist:: Melia Gómez License Number:: [id number] Occupational Therapy - Arousal/Attention/Orientation Level of Consciousness: Awake, Alert Patient Orientation: Person, Place, Time, Appropriate to Age, Appropriate to Situation - ADL/IADL Self Feeding: Independent Grooming: Set-up Help Bathing-Upper Ext: Set-up Help Bathing-Lower Ext: Moderate Assistance Dressing-Upper Ext: Independent, Set-up Help Dressing-Lower Ext: Verbal Cues, Set-up Help, Minimal Assistance, Moderate Assistance Comment: --uses aadapive devices--dressing stick, sockaide, accounting manager; pt needs continue training to increase carryover - Sitting Balance Static Sitting: Contact Guard Assist Dynamic Sitting: Reaches across midline, Reaches out of base of support, Reaches within base of support, Minimal Assistance Comment: setaed unsupported - Transfers Wheelchair to Bed Transfers: Verbal Cues, Set-up Help, Contact Guard, Minimal Assistance Comment: with slide board or lateral transfer after setup - Wheelchair Management Level of Assistance: Modified Independent Distance (ft.): 150 - Upper Extremity Status Right Upper Extremity Comment: AROM is WNLS, 4/5. R gripper machine operator: 35-lbs. R tripod: 7- lbs. R lateral: 6-lbs Left Upper Extremity Comment: AROM is WNLS, 4/5. L gripper machine operator: 30-lbs. L tripod: 7- lbs. L: lateral 5-lbs - Pain Pain (assessed during therapy session): 0 - Insight/Carryover Insight/Carryover: Fair - Patient/Family Education Comment: -rehab/OT goals, limitations & plan of care. -self care, transfers/mobility training uisng adaptive/compensatory strategies. -inhibitory strategies, weightbearng for spasms & flexor tone in BLES, extensor tone in trunk. -w/c propulsion/management. -pressure relief techniques in w/c & bed; continued education. -adaptive devices: accounting manager, dressing for lower body dressing, leglifter for bed mobility/positioning BLES while in bed. -w/c & bed positioning. -skin checks/inspections B heel, sacral area - Assessment/Plan Assessment: Pt is a 32 year old R handed male with dx: cervical abcess, osteomylelitis s/p C5-C6 and C6-C7 laminectomy. *Precautions: falls, cervical collar at all times, spinal precautions, pressure relief considerations,. +spasms in BLES & trunk, pressure relief strategies. Pt limited by the following impairments: ++spasms in B LEs & trunk. -impaired BUES core/trunk strength. -impaired BLES strength, involuntary movements. -impaired safety. - impaired activity tolerance/endurance--which imapct on functional performance of self care, transfers/mobility and IAdls. Pt will continue skilled Occupational Therapy T to adddress functional impairments to maxmize function in self care/mobility using compensatory strategies. Pt will benefit from intensive acute rehab to maximize function in self care, transfers/mobility. Pt continues to demostrate increased overall function in lower bodyself care, activity tolerance & BUES during today's treatment session. Pt requires less rest breaks to complete therapeutic tasks. Pt continues to benefit from inhibitory stretches/weightbearing prior to functional activities. Pt continues to demonstrate increased overall function in self care, activity tolerance during today's treatment session. *Pt with fair adherance to spinal precautions as evidenced turning haed and loosening Atka J collar. Pt motivated to complete therapy tasks. Goals to be adjusted & updated accordingly due to complexity of this case. Pt may benefit from NÉSTOR 2' extent of deficts and time needed to p rogress to established goals--to reassess needs. - Goals Timeframe: 8 days Comment: *LOWER BODY DRESSING: Min assist and verbal cues with assistive devices. *TRANSFERS:w/c<->bed with Supervision/CS and verbal cues setup of slide board; min assist slide board to commode OR CG/CS assist lateral transfers. *BED MOBILITY: supine->sit with Close S & verbal cues with bedrails, sit->supine with min assist and verbal cues with bedrails, leglifter. *BATHING: moderate assist and verbal cues--sponge bathe. *STATIC SItTING: Mod I with BUE support, DYNAMIC with min displacement Bilaterally, anteriorly/posteriorly with min assist and verbal cues--compensatory strategies. *TOILETING: Mod assist & verbal cues. *PRESSURE RELIEF COMPLETION WITH CS and verbal cues while in bed and/or w/c - Provider Occupational Therapist:: Nellie Paredes License Number: [id number] Recreational Therapy - Participation Participation: Participates in Individual and/or Group Sessions - Attendance Attendance: 3-5 times per week - Activities Leisure Activities: Cards and Games - Socialization Level of Socialization: Initiates/interacts freely with care givers and peer - Diversional Time Diversional Time: video games, dominoes, television - Assessment Assessment/Plan: Pt is agreeable to participate in recreation therapy sessions. Pt will self-propel to recreation room and participate in dominoes task and oriented to rummikub and other leisure tasks. Pt verbalizes enjoyment and is independent with leisure tasks following demonstration. Pt plays video games during his free time for diversion. Pt will continue to benefit from participating in recreation therapy sessions following encouragement. Problems Currently Limiting Participation: spinal precautions, neck collar brace to be worn at all times, B/L LE weakness, decrease leisure awareness level, decrease leisure awareness level, decrease activity tolerance level Goals and Time Frame: Pt will be encouraged to participate in 1:1 and group recreation therapy sessions in wheelchair or at bedside 3-5x week to improve activity tolerance level, leisure awareness level, diversion, and attention to task by date of discharge. - Provider Therapist: Nidhi Garces Nutrition - Current Diet Current Diet/Supplement/Feedings: Regular diet - Appetite Percent Meal Consumed: 75-100% - Comments Comments: Pt reports constipation x 1 week. - Assessment/Goals/Time Frame Assessments/Goals/Time Frame: Pt at moderate nutritional risk. goals:Pt to consume at least 75% meals without GI upset x 5-7 days.(met,continue). Pt to have resolution of constipation by follow up.(partially met, continue). Follow- up due on 11/28/2017 - Provider Provider: Jocelin Potts Case Management - Psychosocial Assessment Support Systems: Meredith Rogelio (significant other)- Psychological Interventions/Needs: Patient is AAOx3 and able to verbalize needs. Discharge Concerns: Subacute is recommended for patient and patient will likely not be agreeable with this recommendation. Patient/Family Meeting: CM met with patient and rehab team. Intervention/Goal/Outcome: 1. Goal: contact guard 2. Plan: discuss possibility NÉSTOR with patient or the capabilities of significant other to provide and care for him in the event he decides to go home 3. DME needs 4. f/u appointments 5. continued auth from insurance 6. continued emotional support - Discharge Plan Discharge Plan: Subacute care - Provider Provider: June Ramírez License Number: [id number] Rehabilitation Plan - Treatment Plan Treatment Plan: Physical Therapy, Occupational Therapy, Dietary, Pain Management, Patient/Family Education - Discharge Plan Estimated Date of Discharge: 01/31/18 Discharge to: Subacute
--- NOTE | 2018-01-22 13:55 | CP.PCM.PN ---
Subjective - Date & Time of Evaluation Date of Evaluation: 01/22/18 Time of Evaluation: 13:54 - Subjective Subjective: Patient seen in the room doing ok no pain bowel magic bullet came and will restart regimen Objective - Vital Signs/Intake and Output Vital Signs (last 24 hours): Temp Pulse Resp BP Pulse Ox 98.1 F 91 H 20 130/71 97 01/22/18 09:38 01/22/18 09:38 01/22/18 09:38 01/22/18 09:38 01/22/18 09:38 - Medications Medications: Current Medications Acetaminophen (Tylenol 325mg Tab) 650 mg PO Q6 PRN PRN Reason: for pain scale 3-4 Aripiprazole (Abilify) 5 mg PO HS [facility] Last Admin: 01/21/18 21:37 Dose: 5 mg Baclofen (Lioresal) 10 mg PO TID [facility] Last Admin: 01/22/18 12:27 Dose: 10 mg Bisacodyl (Dulcolax) 10 mg [place] DAILY PRN PRN Reason: Constipation Last Admin: 01/22/18 06:18 Dose: 10 mg Dexamethasone (Decadron) 4 mg PO DAILY [facility] Stop: 01/23/18 09:01 Last Admin: 01/22/18 08:44 Dose: 4 mg Dexamethasone (Decadron) 2 mg PO DAILY [facility] Stop: 01/26/18 09:01 Docusate Sodium (Colace) 100 mg PO BID [facility] Last Admin: 01/22/18 08:44 Dose: 100 mg Gabapentin (Neurontin) 600 mg PO HS [facility] Last Admin: 01/21/18 21:39 Dose: 600 mg Home Med (Enemeez) 5 ml [place] [facility] Cefepime HCl 2 gm/ Sodium (Chloride) 100 mls @ 100 mls/hr IVPB Q8@0600,1400,2200 [facility] Last Admin: 01/22/18 06:17 Dose: 100 mls/hr Vancomycin HCl 1 gm/ Sodium (Chloride) 250 mls @ 166.667 mls/hr IVPB Q12H [facility] Last Admin: 01/22/18 12:18 Dose: 166.667 mls/hr Lactic Acid (Lac-Hydrin 12% Lotion (225 G)) 1 applic TOP 0600,1800 [facility] Last Admin: 01/22/18 06:17 Dose: 1 applic Lactulose (Enulose) 20 gm PO DAILY PRN PRN Reason: Constipation Last Admin: 01/21/18 16:57 Dose: 20 gm Oxycodone HCl (Oxycodone Immediate Release Tab) 5 mg PO Q6 PRN PRN Reason: pain -11/21 Last Admin: 01/14/18 11:25 Dose: 5 mg Tizanidine HCl (Zanaflex) 8 mg PO HS [facility] Last Admin: 01/21/18 21:39 Dose: 8 mg - Labs Labs: 01/20/18 06:00 01/20/18 06:00
[2018-01-22] MEDS ORDERED: DOCUSATE PR SCH (22:00)
[2018-01-23] MEDS: Cefepime 2 GM in Sodium Chloride 0.9% 100 ML IVPB SCH ×3 (05:24→21:37)
[2018-01-23] MEDS: DOCUSATE PR SCH (05:44)
--- NOTE | 2018-01-23 13:17 | CP.PCM.PN ---
Subjective - Date & Time of Evaluation Date of Evaluation: 01/23/18 Time of Evaluation: 08:00 - Subjective Subjective: afeb still non ambulatory Objective - Vital Signs/Intake and Output Vital Signs (last 24 hours): Temp Pulse Resp BP Pulse Ox 96.8 F L 82 18 124/75 97 01/23/18 09:13 01/23/18 09:13 01/23/18 09:13 01/23/18 09:13 01/23/18 09:13 - Medications Medications: Current Medications Acetaminophen (Tylenol 325mg Tab) 650 mg PO Q6 PRN PRN Reason: for pain scale 3-4 Aripiprazole (Abilify) 5 mg PO HS [facility] Last Admin: 01/22/18 22:05 Dose: 5 mg Baclofen (Lioresal) 10 mg PO TID [facility] Last Admin: 01/23/18 12:44 Dose: 10 mg Bisacodyl (Dulcolax) 10 mg [place] DAILY PRN PRN Reason: Constipation Last Admin: 01/22/18 06:18 Dose: 10 mg Dexamethasone (Decadron) 2 mg PO DAILY [facility] Stop: 01/26/18 09:01 Docusate Sodium (Colace) 100 mg PO BID [facility] Last Admin: 01/23/18 08:03 Dose: 100 mg Gabapentin (Neurontin) 600 mg PO HS [facility] Last Admin: 01/22/18 22:05 Dose: 600 mg Home Med (Enemeez) 5 ml [place] 0600 [facility] Last Admin: 01/23/18 05:44 Dose: 5 ml Cefepime HCl 2 gm/ Sodium (Chloride) 100 mls @ 100 mls/hr IVPB Q8@0 600,1400,2200 [facility] Last Admin: 01/23/18 05:24 Dose: 100 mls/hr Vancomycin HCl 1 gm/ Sodium (Chloride) 250 mls @ 166.667 mls/hr IVPB Q12H [facility] Last Admin: 01/23/18 12:38 Dose: 166.667 mls/hr Lactic Acid (Lac-Hydrin 12% Lotion (225 G)) 1 applic TOP 0600,1800 [facility] Last Admin: 01/23/18 05:24 Dose: 1 applic Lactulose (Enulose) 20 gm PO DAILY PRN PRN Reason: Constipation Last Admin: 01/21/18 16:57 Dose: 20 gm Oxycodone HCl (Oxycodone Immediate Release Tab) 5 mg PO Q6 PRN PRN Reason: pain 5-11/21 Last Admin: 01/14/18 11:25 Dose: 5 mg Tizanidine HCl (Zanaflex) 8 mg PO HS [facility] Last Admin: 01/22/18 22:05 Dose: 8 mg - Labs Labs: 01/20/18 06:00 01/20/18 06:00 - Constitutional Appears: Non-toxic, Chronically Ill - Head Exam Head Exam: NORMOCEPHALIC - Eye Exam Eye Exam: PERRL - ENT Exam ENT Exam: Mucous Membranes Dry - Neck Exam Neck Exam: absent: Thyromegaly - Respiratory Exam Respiratory Exam: Decreased Breath Sounds - Cardiovascular Exam Cardiovascular Exam: REGULAR RHYTHM - GI/Abdominal Exam GI & Abdominal Exam: Distended, Soft - Rectal Exam Rectal Exam: Deferred - Exam Exam: NORMAL INSPECTION - Extremities Exam Extremities Exam: absent: Pedal Edema - Back Exam Back Exam: absent: CVA tenderness (L), CVA tenderness (R) - Neurological Exam Neurological Exam: Alert, Awake, Oriented x3 Neuro motor strength exam: Left Upper Extremity: 5, Right Upper Extremity: 5, Left Lower Extremity: 3, Right Lower Extremity: 3 - Psychiatric Exam Psychiatric exam: Depressed - Skin Skin Exam: Dry Assessment and Plan (1) Back pain Status: Acute (2) Discitis of cervical region Status: Acute (3) Epidural abscess Status: Acute (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
--- NOTE | 2018-01-23 17:24 | CP.PCM.PN ---
Subjective - Date & Time of Evaluation Date of Evaluation: 01/23/18 Time of Evaluation: 17:22 - Subjective Subjective: Patient seen earlier in therapy had a successful bowel movement after the magic bullet and feels better continues to work hard able to position feet better and improved standing not able to take a step yet. continue current meds Objective - Vital Signs/Intake and Output Vital Signs (last 24 hours): Temp Pulse Resp BP Pulse Ox 96.8 F L 82 18 124/75 97 01/23/18 09:13 01/23/18 09:13 01/23/18 09:13 01/23/18 09:13 01/23/18 09:13 - Medications Medications: Current Medications Acetaminophen (Tylenol 325mg Tab) 650 mg PO Q6 PRN PRN Reason: for pain scale 3-4 Aripiprazole (Abilify) 5 mg PO HS [facility] Last Admin: 01/22/18 22:05 Dose: 5 mg Baclofen (Lioresal) 10 mg PO TID [facility] Last Admin: 01/23/18 17:18 Dose: 10 mg Bisacodyl (Dulcolax) 10 mg [place] DAILY PRN PRN Reason: Constipation Last Admin: 01/22/18 06:18 Dose: 10 mg Dexamethasone (Decadron) 2 mg PO DAILY [facility] Stop: 01/26/18 09:01 Docusate Sodium (Colace) 100 mg PO BID [facility] Last Admin: 01/23/18 17:21 Dose: 100 mg Gabapentin (Neurontin) 600 mg PO [facility] Last Admin: 01/22/18 22:05 Dose: 600 mg Home Med (Enemeez) 5 ml [place] 0600 [facility] Last Admin: 01/23/18 05:44 Dose: 5 ml Cefepime HCl 2 gm/ Sodium (Chloride) 100 mls @ 100 mls/hr IVPB Q 8@0600,1400,2200 [facility] Last Admin: 01/23/18 17:20 Dose: 100 mls/hr Vancomycin HCl 1 gm/ Sodium (Chloride) 250 mls @ 166.667 mls/hr IVPB Q12H [facility] Last Admin: 01/23/18 12:38 Dose: 166.667 mls/hr Lactic Acid (Lac-Hydrin 12% Lotion (225 G)) 1 applic TOP 0600,1800 [facility] Last Admin: 01/23/18 17:18 Dose: 1 applic Lactulose (Enulose) 20 gm PO DAILY PRN PRN Reason: Constipation Last Admin: 01/21/18 16:57 Dose: 20 gm Oxycodone HCl (Oxycodone Immediate Release Tab) 5 mg PO Q6 PRN PRN Reason: pain -11/21 Last Admin: 01/14/18 11:25 Dose: 5 mg Tizanidine HCl (Zanaflex) 8 mg PO HS [facility] Last Admin: 01/22/18 22:05 Dose: 8 mg - Labs Labs: 01/20/18 06:00 01/20/18 06:00
[2018-01-24] MEDS: Cefepime 2 GM in Sodium Chloride 0.9% 100 ML IVPB SCH ×3 (05:11→21:55)
[2018-01-24] MEDS: DOCUSATE PR SCH (05:27)
[2018-01-24] MEDS ORDERED: Dexamethasone elixir 0.5 MG/5 ML UDC PO SCH (09:00)
--- NOTE | 2018-01-24 09:47 | CP.PCM.PN ---
Subjective - Date & Time of Evaluation Date of Evaluation: 01/24/18 Time of Evaluation: 09:47 - Subjective Subjective: CONTINUES TO SHOW CLINICAL IMPROVEMENT WITH PT/OT STILL UNABLE TO AMBULATE URINE AND BOWEL MOVEMENTS BETTER WILL CONTINUE CURRENT RX REPEAT LABS IN A FEW DAYS Objective - Vital Signs/Intake and Output Vital Signs (last 24 hours): Temp Pulse Resp BP Pulse Ox 97.1 F L 78 19 129/78 98 01/24/18 08:28 01/24/18 08:28 01/24/18 08:28 01/24/18 08:28 01/24/18 08:28 - Medications Medications: Current Medications Acetaminophen (Tylenol 325mg Tab) 650 mg PO Q6 PRN PRN Reason: for pain scale 3-4 Aripiprazole (Abilify) 5 mg PO [facility] Last Admin: 01/23/18 21:37 Dose: 5 mg Baclofen (Lioresal) 10 mg PO TID [facility] Last Admin: 01/24/18 08:04 Dose: 10 mg Bisacodyl (Dulcolax) 10 mg [place] DAILY PRN PRN Reason: Constipation Last Admin: 01/22/18 06:18 Dose: 10 mg Dexamethasone (Decadron) 2 mg PO DAILY [facility] Stop: 01/26/18 09:01 Last Admin: 01/24/18 08:04 Dose: 2 mg Docusate Sodium (Colace) 100 mg PO BID [facility] Last Admin: 01/24/18 08:04 Dose: 100 mg Gabapentin (Neurontin) 600 mg PO [facility] Last Admin: 01/23/18 21:37 Dose: 600 mg Home Med (Enemeez) 5 ml [place] 0600 [facility] Last Admin: 01/24/18 05:27 Dose: 5 ml Cefepime HCl 2 gm/ Sodium (Chloride) 100 mls @ 100 mls/hr IVPB Q8@0600,1400,2200 [facility] Last Admin: 01/24/18 05:11 Dose: 100 mls/hr Vancomycin HCl 1 gm/ Sodium (Chloride) 250 mls @ 166.667 mls/hr IVPB Q12H [facility] Last Admin: 01/24/18 00:12 Dose: 166.667 mls/hr Lactic Acid (Lac-Hydrin 12% Lotion (225 G)) 1 applic TOP 0600,1800 [facility] Last Admin: 01/24/18 05:27 Dose: 1 applic Lactulose (Enulose) 20 gm PO DAILY PRN PRN Reason: Constipation Last Admin: 01/21/18 16:57 Dose: 20 gm Oxycodone HCl (Oxycodone Immediate Release Tab) 5 mg PO Q6 PRN PRN Reason: pain -11/21 Last Admin: 01/14/18 11:25 Dose: 5 mg Tizanidine HCl (Zanaflex) 8 mg PO HS [facility] Last Admin: 01/23/18 21:37 Dose: 8 mg - Labs Labs: 01/20/18 06:00 01/20/18 06:00
--- NOTE | 2018-01-24 11:04 | CP.PCM.PN ---
Subjective - Date & Time of Evaluation Date of Evaluation: 01/24/18 Time of Evaluation: 11:03 - Subjective Subjective: Neurology Follow-Up Note: Mr. Cornelius was evaluated this afternoon sitting OOB in chair. He has no complaints today. Admits that his left hand and left foot paresthesias have been improving since starting the higher dose of Gabapentin. He still has [place] J-Collar on. Pt denies headache, dizziness, neck pain, visual changes, chest pain, shortness of breath, abd pain, n/v/d. Objective - Vital Signs/Intake and Output Vital Signs (last 24 hours): Temp Pulse Resp BP Pulse Ox 97.1 F L 78 19 129/78 98 01/24/18 08:28 01/24/18 08:28 01/24/18 08:28 01/24/18 08:28 01/24/18 08:28 - Medications Medications: Current Medications Acetaminophen (Tylenol 325mg Tab) 650 mg PO Q6 PRN PRN Reason: for pain scale 3-4 Aripiprazole (Abilify) 5 mg PO HS [facility] Last Admin: 01/23/18 21:37 Dose: 5 mg Baclofen (Lioresal) 10 mg PO TID [facility] Last Admin: 01/24/18 08:04 Dose: 10 mg Bisacodyl (Dulcolax) 10 mg [place] DAILY PRN PRN Reason: Constipation Last Admin: 01/22/18 06:18 Dose: 10 mg Dexamethasone (Decadron) 2 mg PO DAILY [facility] Stop: 01/26/18 09:01 Last Admin: 01/24/18 08:04 Dose: 2 mg Docusate Sodium (Colace) 100 mg PO BID [facility] Last Admin: 01/24/18 08:04 Dose: 100 mg Gabapentin (Neurontin) 600 mg PO HS [facility] Last Admin: 01/23/18 21:37 Dose: 600 mg Home Med (Enemeez) 5 ml [place] 0600 [facility] Last Admin: 01/24/18 05:27 Dose: 5 ml Cefepime HCl 2 gm/ Sodium (Chloride) 100 mls @ 100 mls/hr IVPB Q8@0600,14 00,2200 [facility] Last Admin: 01/24/18 05:11 Dose: 100 mls/hr Vancomycin HCl 1 gm/ Sodium (Chloride) 250 mls @ 166.667 mls/hr IVPB Q12H [facility] Last Admin: 01/24/18 00:12 Dose: 166.667 mls/hr Lactic Acid (Lac-Hydrin 12% Lotion (225 G)) 1 applic TOP 0600,1800 [facility] Last Admin: 01/24/18 05:27 Dose: 1 applic Lactulose (Enulose) 20 gm PO DAILY PRN PRN Reason: Constipation Last Admin: 01/21/18 16:57 Dose: 20 gm Oxycodone HCl (Oxycodone Immediate Release Tab) 5 mg PO Q6 PRN PRN Reason: pain 5-1010 Last Admin: 01/14/18 11:25 Dose: 5 mg Tizanidine HCl (Zanaflex) 8 mg PO HS [facility] Last Admin: 01/23/18 21:37 Dose: 8 mg - Labs Labs: 01/20/18 06:00 01/20/18 06:00 - Constitutional Appears: Well, Non-toxic, No Acute Distress - Head Exam Head Exam: ATRAUMATIC, NORMAL INSPECTION, NORMOCEPHALIC - Eye Exam Eye Exam: EOMI, Normal appearance, PERRL Pupil Exam: PERRL - ENT Exam ENT Exam: Mucous Membranes Moist - Neck Exam Neck Exam: Normal Inspection Additional comments: [place] J-Collar on - Respiratory Exam Respiratory Exam: NORMAL BREATHING PATTERN - Extremities Exam Extremities Exam: absent: Calf Tenderness, Full ROM (decreased rom to BLE but improving), Pedal Edema - Neurological Exam Neurological Exam: Abnormal Gait, Alert, Awake, Oriented x3. 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 Improving sensation over T12 area. - Psychiatric Exam Psychiatric exam: Normal Affect, Normal Mood - Skin Skin Exam: Normal Color Assessment and Plan (1) Epidural abscess Assessment & Plan: Mr. Cornelius is still improving and looks very well. -Paresthesias to left hand and left foot likely neuropathic. Continue Neurontin to 600 mg PO HS. -Continue PT/OT therapy. -Decadron taper to end on 01/26/18. -Removal of [place] J-collar deferred to neurosurgery. -Please notify neuro team of any acute changes in condition. -We will continue to follow the pt while in rehab. -Plan discussed with nursing. Case discussed in detail with Dr. Brown Status: Acute
--- NOTE | 2018-01-24 18:07 | CP.PCM.PN ---
Subjective - Date & Time of Evaluation Date of Evaluation: 01/24/18 Time of Evaluation: 18:05 - Subjective Subjective: Patient seen in the room. In good spirits staff continues to report improved effort and attitude he was able to varnish thinner the standing frame today without leaning on the support attempts to progress into the parallel bars were successful as well with ability to weight bear without excessive tone kicking in Continue current care Objective - Vital Signs/Intake and Output Vital Signs (last 24 hours): Temp Pulse Resp BP Pulse Ox 97.1 F L 78 19 129/78 98 01/24/18 08:28 01/24/18 08:28 01/24/18 08:28 01/24/18 08:28 01/24/18 08:28 - Medications Medications: Current Medications Acetaminophen (Tylenol 325mg Tab) 650 mg PO Q6 PRN PRN Reason: for pain scale 3-4 Aripiprazole (Abilify) 5 mg PO [facility] Last Admin: 01/23/18 21:37 Dose: 5 mg Baclofen (Lioresal) 10 mg PO TID [facility] Last Admin: 01/24/18 17:54 Dose: 10 mg Bisacodyl (Dulcolax) 10 mg [place] DAILY PRN PRN Reason: Constipation Last Admin: 01/22/18 06:18 Dose: 10 mg Dexamethasone (Decadron) 2 mg PO DAILY [facility] Stop: 01/26/18 09:01 Last Admin: 01/24/18 08:04 Dose: 2 mg Docusate Sodium (Colace) 100 mg PO BID [facility] Last Admin: 01/24/18 17:51 Dose: 100 mg Gabapentin (Neurontin) 600 mg PO [facility] Last Admin: 01/23/18 21:37 Dose: 600 mg Home Med (Enemeez) 5 ml [place] 0600 [facility] Last Admin: 01/24/18 05:27 Dose: 5 ml Cefepime HCl 2 gm/ Sodium (Chloride) 100 mls @ 100 mls/hr IVPB Q8@0600,1400,2200 [facility] Last Admin: 01/24/18 14:50 Dose: 100 mls/hr Vancomycin HCl 1 gm/ Sodium (Chloride) 250 mls @ 166.667 mls/hr IVPB Q12H [facility] Last Admin: 01/24/18 12:11 Dose: 166.667 mls/hr Lactic Acid (Lac-Hydrin 12% Lotion (225 G)) 1 applic TOP 0600,1800 [facility] Last Admin: 01/24/18 17:54 Dose: 1 applic Lactulose (Enulose) 20 gm PO DAILY PRN PRN Reason: Constipation Last Admin: 01/21/18 16:57 Dose: 20 gm Oxycodone HCl (Oxycodone Immediate Release Tab) 5 mg PO Q6 PRN PRN Reason: pain -11/21 Last Admin: 01/14/18 11:25 Dose: 5 mg Tizanidine HCl (Zanaflex) 8 mg PO HS [facility] Last Admin: 01/23/18 21:37 Dose: 8 mg - Labs Labs: 01/20/18 06:00 01/20/18 06:00
[2018-01-25] MEDS: Cefepime 2 GM in Sodium Chloride 0.9% 100 ML IVPB SCH ×3 (05:05→22:02)
[2018-01-25] MEDS: DOCUSATE PR SCH (06:08)
[2018-01-25 06:13] LABS: BASO # 0.1 K/uL (0.0-0.2); BASO % 0.8 % (0.0-2.0); EOS # 0.4 K/uL (0.0-0.7); EOS % 4.3 % (0.0-4.0); HEMOGLOBIN 11.8 g/dL (12.0-18.0); LYMPH # 1.4 K/uL (1.0-4.3); LYMPH % 15.4 % (20.0-40.0); MEAN CELL VOLUME 94.3 fl (80.0-94.0); MEAN CORPUSCULAR HEMOGLOBIN 30.9 pg (27.0-31.0); MEAN CORPUSCULAR HGB CONC 32.8 g/dL (33.0-37.0); MEAN PLATELET VOLUME 6.9 fl (7.2-11.7); MONO % 11.2 % (0.0-10.0); NEUT # 6.4 K/uL (1.8-7.0); NEUT % 68.3 % (50.0-75.0); RBC 3.8 Mil/uL (4.40-5.90); RED CELL DISTRIBUTION WIDTH 14.2 % (11.5-14.5); WHITE BLOOD COUNT 9.3 K/uL (4.8-10.8)
[2018-01-25 06:33] LABS: ALB/GLOB RATIO 1.1 (1.0-2.1); ALBUMIN 3.3 g/dL (3.5-5.0); ALT/SGPT 39 U/L (21-72); AST/SGOT 24 U/L (17-59); BLOOD UREA NITROGEN 24 mg/dl (9-20); CALCIUM 8.9 mg/dL (8.4-10.2); GFR NON-AFRICAN AMERICAN > 60
--- NOTE | 2018-01-25 10:47 | CP.PCM.PN ---
Subjective - Date & Time of Evaluation Date of Evaluation: 01/25/18 Time of Evaluation: 10:47 - Subjective Subjective: Neurology Follow-Up Note: Mr. Cornelius was evaluated this morning after his therapy session. Today he states that he has some discomfort to right forearm and admits that his heplock was just removed from that site this morning. He also c/o mild swelling to his ankles. He still has [place] J-Collar on. Pt denies headache, dizziness, neck pain, visual changes, chest pain, shortness of breath, calf pain/swelling, abd pain, n/v/d. Objective - Vital Signs/Intake and Output Vital Signs (last 24 hours): Temp Pulse Resp BP Pulse Ox 97.5 F L 71 20 124/73 98 01/25/18 07:38 01/25/18 07:38 01/25/18 07:38 01/25/18 07:38 01/25/18 07:38 - Medications Medications: Current Medications Acetaminophen (Tylenol 325mg Tab) 650 mg PO Q6 PRN PRN Reason: for pain scale 3-4 Aripiprazole (Abilify) 5 mg PO HS [facility] Last Admin: 01/24/18 21:45 Dose: 5 mg Baclofen (Lioresal) 10 mg PO TID [facility] Last Admin: 01/25/18 08:34 Dose: 10 mg Bisacodyl (Dulcolax) 10 mg [place] DAILY PRN PRN Reason: Constipation Last Admin: 01/22/18 06:18 Dose: 10 mg Dexamethasone (Decadron) 2 mg PO DAILY [facility] Stop: 01/26/18 09:01 Last Admin: 01/25/18 08:34 Dose: 2 mg Docusate Sodium (Colace) 100 mg PO BID [facility] Last Admin: 01/25/18 08:34 Dose: 100 mg Gabapentin (Neurontin) 600 mg PO [facility] Last Admin: 01/24/18 21:45 Dose: 600 mg Home Med (Enemeez) 5 ml [place] 0600 [facility] Last Admin: 01/25/18 06:08 Dose: 5 ml Cefepime HCl 2 gm/ Sodium (Chloride) 100 mls @ 100 mls/hr IVPB Q8@0600,1400,2200 [facility] Last Admin: 01/25/18 05:05 Dose: 100 mls/hr Vancomycin HCl 1 gm/ Sodium (Chloride) 250 mls @ 166.667 mls/hr IVPB Q12H [facility] Last Admin: 01/25/18 00:21 Dose: 166.667 mls/hr Lactic Acid (Lac-Hydrin 12% Lotion (225 G)) 1 applic TOP 0600,1800 [facility] Last Admin: 01/25/18 06:08 Dose: 1 applic Lactulose (Enulose) 20 gm PO DAILY PRN PRN Reason: Constipation Last Admin: 01/21/18 16:57 Dose: 20 gm Oxycodone HCl (Oxycodone Immediate Release Tab) 5 mg PO Q6 PRN PRN Reason: pain 5-11/21 Last Admin: 01/14/18 11:25 Dose: 5 mg Tizanidine HCl (Zanaflex) 8 mg PO HS [facility] Last Admin: 01/24/18 21:45 Dose: 8 mg - Labs Labs: 01/25/18 06:00 01/25/18 06:00 - Constitutional Appears: Well, Non-toxic, No Acute Distress - Head Exam Head Exam: NORMAL INSPECTION - Eye Exam Eye Exam: EOMI, Normal appearance Pupil Exam: PERRL - ENT Exam ENT Exam: Mucous Membranes Moist - Neck Exam Neck Exam: Normal Inspection Additional comments: [place] j-collar maintained - Respiratory Exam Respiratory Exam: NORMAL BREATHING PATTERN - Extremities Exam Extremities Exam: absent: Calf Tenderness, Full ROM, Normal Inspection, Pedal Edema, Tenderness Additional comments: neg farhan's sign b/l; + mild swelling noted to b/l ankles, non tender, non pitting. overall decreased rom to BLE, however, much improving - Neurological Exam Neurological Exam: Alert, Awake, Oriented x3 Neuro motor strength exam: Left Upper Extremity: 5, Right Upper Extremity: 5, Left Lower Extremity: 4, Right Lower Extremity: 5 Additional comments: still has hyperflexia ble sensation intact, imrpving sensation to t12 area no hypertonicity - Psychiatric Exam Psychiatric exam: Normal Affect, Normal Mood - Skin Skin Exam: Normal Color Assessment and Plan (1) Epidural abscess Assessment & Plan: Mr. Cornelius continues to improve. -Paresthesias to left hand and left foot likely neuropathic. Continue Neurontin to 600 mg PO HS. -Continue PT/OT therapy. -Decadron taper to end on 01/26/18. -Removal of [place] J-collar deferred to neurosurgery. -Elevate BLE while in bed at night to decrease swelling to ankles -Please notify neuro team of any acute changes in condition. -We will continue to follow the pt while in rehab. Case discussed in detail with Dr. Brown Status: Acute
--- NOTE | 2018-01-25 13:53 | CP.PCM.PN ---
Subjective - Date & Time of Evaluation Date of Evaluation: 01/25/18 Time of Evaluation: 13:53 - Subjective Subjective: TOOK 2 STEPS TODAY FEELS BETTER Objective - Vital Signs/Intake and Output Vital Signs (last 24 hours): Temp Pulse Resp BP Pulse Ox 97.5 F L 71 20 124/73 98 01/25/18 07:38 01/25/18 07:38 01/25/18 07:38 01/25/18 07:38 01/25/18 07:38 - Medications Medications: Current Medications Acetaminophen (Tylenol 325mg Tab) 650 mg PO Q6 PRN PRN Reason: for pain scale 3-4 Aripiprazole (Abilify) 5 mg PO HS [facility] Last Admin: 01/24/18 21:45 Dose: 5 mg Baclofen (Lioresal) 10 mg PO TID [facility] Last Admin: 01/25/18 12:36 Dose: 10 mg Bisacodyl (Dulcolax) 10 mg [place] DAILY PRN PRN Reason: Constipation Last Admin: 01/22/18 06:18 Dose: 10 mg Dexamethasone (Decadron) 2 mg PO DAILY [facility] Stop: 01/26/18 09:01 Last Admin: 01/25/18 08:34 Dose: 2 mg Docusate Sodium (Colace) 100 mg PO BID [facility] Last Admin: 01/25/18 08:34 Dose: 100 mg Gabapentin (Neurontin) 600 mg PO [facility] Last Admin: 01/24/18 21:45 Dose: 600 mg Home Med (Enemeez) 5 ml [place] 0600 [facility] Last Admin: 01/25/18 06:08 Dose: 5 ml Cefepime HCl 2 gm/ Sodium (Chloride) 100 mls @ 100 mls/hr IVPB Q8@0600,1400,2200 [facility] Last Admin: 01/25/18 05:05 Dose: 100 mls/hr Vancomycin HCl 1 gm/ Sodium (Chloride) 250 mls @ 166.667 mls/hr IVPB Q12H [facility] Last Admin: 01/25/18 13:30 Dose: 166.667 mls/hr Lactic Acid (Lac-Hydrin 12% Lotion (225 G)) 1 applic TOP 0600,1800 [facility] Last Admin: 01/25/18 06:08 Dose: 1 applic Lactulose (Enulose) 20 gm PO DAILY PRN PRN Reason: Constipation Last Admin: 01/21/18 16:57 Dose: 20 gm Oxycodone HCl (Oxycodone Immediate Release Tab) 5 mg PO Q6 PRN PRN Reason: pain 5-11/21 Last Admin: 01/14/18 11:25 Dose: 5 mg Tizanidine HCl (Zanaflex) 8 mg PO HS [facility] Last Admin: 01/24/18 21:45 Dose: 8 mg - Labs Labs: 01/25/18 06:00 01/25/18 06:00 - Constitutional Appears: No Acute Distress - Head Exam Head Exam: ATRAUMATIC, NORMAL INSPECTION, NORMOCEPHALIC - Eye Exam Eye Exam: EOMI, Normal appearance, PERRL Pupil Exam: NORMAL ACCOMODATION, PERRL - ENT Exam ENT Exam: Mucous Membranes Moist, Normal Exam - Neck Exam Neck Exam: Full ROM, Normal Inspection. absent: Lymphadenopathy - Respiratory Exam Respiratory Exam: Clear to Ausculation Bilateral, NORMAL BREATHING PATTERN - Cardiovascular Exam Cardiovascular Exam: REGULAR RHYTHM, +S1, +S2. absent: Murmur - GI/Abdominal Exam GI & Abdominal Exam: Soft, Normal Bowel Sounds. absent: Tenderness - Rectal Exam Rectal Exam: NORMAL INSPECTION - Extremities Exam Extremities Exam: Full ROM, Normal Capillary Refill, Normal Inspection. absent: Joint Swelling, Pedal Edema - Back Exam Back Exam: NORMAL INSPECTION - Neurological Exam Neurological Exam: Alert, Awake, CN II-XII Intact, Oriented x3 - Psychiatric Exam Psychiatric exam: Normal Affect, Normal Mood - Skin Skin Exam: Dry, Intact, Normal Color, Warm Assessment and Plan - Assessment and Plan (Free Text) Assessment: S/P EVACUATION OF EPIDURAL ABSCESS PARAPLEGIA IMPROVING Plan: CONTINUE CURRENT RX
--- NOTE | 2018-01-25 13:54 | CP.PCM.PN ---
Subjective - Date & Time of Evaluation Date of Evaluation: 01/25/18 Time of Evaluation: 08:00 - Subjective Subjective: making progress able to stand some hyperreflexia present WBC decreasing off steroids ESR slowly comningh down cont iv rx as ordered Objective - Vital Signs/Intake and Output Vital Signs (last 24 hours): Temp Pulse Resp BP Pulse Ox 97.5 F L 71 20 124/73 98 01/25/18 07:38 01/25/18 07:38 01/25/18 07:38 01/25/18 07:38 01/25/18 07:38 - Medications Medications: Current Medications Acetaminophen (Tylenol 325mg Tab) 650 mg PO Q6 PRN PRN Reason: for pain scale 3-4 Aripiprazole (Abilify) [address] [facility] Last Admin: 01/24/18 21:45 Dose: 5 mg Baclofen (Lioresal) 10 mg PO TID [facility] Last Admin: 01/25/18 12:36 Dose: 10 mg Bisacodyl (Dulcolax) 10 mg [place] DAILY PRN PRN Reason: Constipation Last Admin: 01/22/18 06:18 Dose: 10 mg Dexamethasone (Decadron) 2 mg PO DAILY [facility] Stop: 01/26/18 09:01 Last Admin: 01/25/18 08:34 Dose: 2 mg Docusate Sodium (Colace) 100 mg PO BID [facility] Last Admin: 01/25/18 08:34 Dose: 100 mg Gabapentin (Neurontin) [address] [facility] Last Admin: 01/24/18 21:45 Dose: 600 mg Home Med (Enemeez) 5 ml [place] 0600 [facility] Last Admin: 01/25/18 06:08 Dose: 5 ml Cefepime HCl 2 gm/ Sodium (Chloride) 100 mls @ 100 mls/hr IVPB Q8@0600,1400,2200 [facility] Last Admin: 01/25/18 05:05 Dose: 100 mls/hr Vancomycin HCl 1 gm/ Sodium (Chloride) 250 mls @ 166.667 mls/hr IVPB Q12H [facility] Last Admin: 01/25/18 13:30 Dose: 166.667 mls/hr Lactic Acid (Lac-Hydrin 12% Lotion (225 G)) 1 applic TOP 0600,1800 [facility] Last Admin: 01/25/18 06:08 Dose: 1 applic Lactulose (Enulose) 20 gm PO DAILY PRN PRN Reason: Constipation Last Admin: 01/21/18 16:57 Dose: 20 gm Oxycodone HCl (Oxycodone Immediate Release Tab) 5 mg PO Q6 PRN PRN Reason: pain -11/21 Last Admin: 01/14/18 11:25 Dose: 5 mg Tizanidine HCl (Zanaflex) 8 mg PO HS [facility] Last Admin: 01/24/18 21:45 Dose: 8 mg - Labs Labs: 01/25/18 06:00 01/25/18 06:00 Assessment and Plan (1) Back pain Status: Acute (2) Discitis of cervical region Status: Acute (3) Epidural abscess Status: Acute (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
[2018-01-26] MEDS: DOCUSATE PR SCH (05:17)
[2018-01-26] MEDS: Cefepime 2 GM in Sodium Chloride 0.9% 100 ML IVPB SCH ×3 (05:17→21:48)
--- NOTE | 2018-01-26 10:38 | CP.PCM.PN ---
Subjective - Date & Time of Evaluation Date of Evaluation: 01/26/18 Time of Evaluation: 10:41 - Subjective Subjective: FEELS BETTER DENIES BACK PAINS MOVING BOWELS AND URINATING WITHOUT DISCOMFORT Objective - Vital Signs/Intake and Output Vital Signs (last 24 hours): Temp Pulse Resp BP Pulse Ox 97.7 F 64 20 116/79 99 01/26/18 08:50 01/26/18 08:50 01/26/18 08:50 01/26/18 08:50 01/26/18 08:50 - Medications Medications: Current Medications Acetaminophen (Tylenol 325mg Tab) 650 mg PO Q6 PRN PRN Reason: for pain scale 3-4 Aripiprazole (Abilify) 5 mg PO [facility] Last Admin: 01/25/18 22:01 Dose: 5 mg Baclofen (Lioresal) 10 mg PO TID [facility] Last Admin: 01/26/18 09:06 Dose: 10 mg Bisacodyl (Dulcolax) 10 mg [place] DAILY PRN PRN Reason: Constipation Last Admin: 01/22/18 06:18 Dose: 10 mg Docusate Sodium (Colace) 100 mg PO BID [facility] Last Admin: 01/26/18 09:06 Dose: 100 mg Gabapentin (Neurontin) 600 mg PO [facility] Last Admin: 01/25/18 22:02 Dose: 600 mg Home Med (Enemeez) 5 ml [place] 0600 [facility] Last Admin: 01/26/18 05:17 Dose: 5 ml Cefepime HCl 2 gm/ Sodium (Chloride) 100 mls @ 100 mls/hr IVPB Q8@0600,1400,2200 [facility] Last Admin: 01/26/18 05:17 Dose: 100 mls/hr Vancomycin HCl 1 gm/ Sodium (Chloride) 250 mls @ 166.667 mls/hr IVPB Q12H [facility] Last Admin: 01/26/18 00:17 Dose: 166.667 mls/hr Lactic Acid (Lac-Hydrin 12% Lotion (225 G)) 1 applic TOP 0600,1800 [facility] Last Admin: 01/26/18 05:31 Dose: 1 applic Lactulose (Enulose) 20 gm PO DAILY PRN PRN Reason: Constipation Last Admin: 01/21/18 16:57 Dose: 20 gm Oxycodone HCl (Oxycodone Immediate Release Tab) 5 mg PO Q6 PRN PRN Reason: pain 5-10/10 Last Admin: 01/14/18 11:25 Dose: 5 mg Tizanidine HCl (Zanaflex) 8 mg PO HS [facility] Last Admin: 01/25/18 22:02 Dose: 8 mg - Labs Labs: 01/25/18 06:00 01/25/18 06:00 - Constitutional Appears: No Acute Distress - Head Exam Head Exam: ATRAUMATIC, NORMAL INSPECTION, NORMOCEPHALIC - Eye Exam Eye Exam: EOMI, Normal appearance, PERRL Pupil Exam: NORMAL ACCOMODATION, PERRL - ENT Exam ENT Exam: Mucous Membranes Moist, Normal Exam - Neck Exam Neck Exam: Full ROM, Normal Inspection. absent: Lymphadenopathy - Respiratory Exam Respiratory Exam: Clear to Ausculation Bilateral, NORMAL BREATHING PATTERN - Cardiovascular Exam Cardiovascular Exam: REGULAR RHYTHM, +S1, +S2. absent: Murmur - GI/Abdominal Exam GI & Abdominal Exam: Soft, Normal Bowel Sounds. absent: Tenderness - Rectal Exam Rectal Exam: NORMAL INSPECTION - Extremities Exam Extremities Exam: Full ROM, Normal Capillary Refill, Normal Inspection. absent: Joint Swelling, Pedal Edema - Back Exam Back Exam: NORMAL INSPECTION - Neurological Exam Neurological Exam: Abnormal Gait, Alert, Awake, CN II-XII Intact, Oriented x3 Additional comments: WEAKNESS OF LOWER EXTREMITIES - Psychiatric Exam Psychiatric exam: Normal Affect, Normal Mood - Skin Skin Exam: Dry, Intact, Normal Color, Warm Assessment and Plan - Assessment and Plan (Free Text) Assessment: DISCITIS OSTEOMYELITIS OF SPINE EPIDURAL ABSCESS Plan: CONTINUE CURRENT RX
--- NOTE | 2018-01-26 16:46 | CP.PCM.PN ---
Subjective - Date & Time of Evaluation Date of Evaluation: 01/26/18 Time of Evaluation: 16:45 - Subjective Subjective: Patient seen in the room in good spirits denies sob/cp no significant pain issue currently making progress everyday Objective - Vital Signs/Intake and Output Vital Signs (last 24 hours): Temp Pulse Resp BP Pulse Ox 97.7 F 64 20 116/79 99 01/26/18 08:50 01/26/18 08:50 01/26/18 08:50 01/26/18 08:50 01/26/18 08:50 - Medications Medications: Current Medications Acetaminophen (Tylenol 325mg Tab) 650 mg PO Q6 PRN PRN Reason: for pain scale 3-4 Aripiprazole (Abilify) 5 mg PO [facility] Last Admin: 01/25/18 22:01 Dose: 5 mg Baclofen (Lioresal) 10 mg PO TID [facility] Last Admin: 01/26/18 12:49 Dose: 10 mg Bisacodyl (Dulcolax) 10 mg [place] DAILY PRN PRN Reason: Constipation Last Admin: 01/22/18 06:18 Dose: 10 mg Docusate Sodium (Colace) 100 mg PO BID [facility] Last Admin: 01/26/18 09:06 Dose: 100 mg Gabapentin (Neurontin) 600 mg PO [facility] Last Admin: 01/25/18 22:02 Dose: 600 mg Home Med (Enemeez) 5 ml [place] 0600 [facility] Last Admin: 01/26/18 05:17 Dose: 5 ml Cefepime HCl 2 gm/ Sodium (Chloride) 100 mls @ 100 mls/hr IVPB Q8@0600,1400,2200 [facility] Last Admin: 01/26/18 15:00 Dose: 100 mls/hr Vancomycin HCl 1 gm/ Sodium (Chloride) 250 mls @ 166.667 mls/hr IVPB Q12H [facility] Last Admin: 01/26/18 12:41 Dose: 166.667 mls/hr Lactic Acid (Lac-Hydrin 12% Lotion (225 G)) 1 applic TOP 0600,1800 [facility] Last Admin: 01/26/18 05:31 Dose: 1 applic Lactulose (Enulose) 20 gm PO DAILY PRN PRN Reason: Constipation Last Admin: 01/21/18 16:57 Dose: 20 gm Oxycodone HCl (Oxycodone Immediate Release Tab) 5 mg PO Q6 PRN PRN Reason: pain -11/21 Last Admin: 01/14/18 11:25 Dose: 5 mg Tizanidine HCl (Zanaflex) 8 mg PO HS [facility] Last Admin: 01/25/18 22:02 Dose: 8 mg - Labs Labs: 01/25/18 06:00 01/25/18 06:00
[2018-01-27] MEDS: Cefepime 2 GM in Sodium Chloride 0.9% 100 ML IVPB SCH ×3 (06:16→21:18)
[2018-01-27] MEDS: DOCUSATE PR SCH (06:17)
--- NOTE | 2018-01-27 10:19 | CP.PCM.PN ---
Subjective - Date & Time of Evaluation Date of Evaluation: 01/27/18 Time of Evaluation: 10:19 - Subjective Subjective: NO APPARENT DISTRESS MOVED BOWELS YESTERDAY Objective - Vital Signs/Intake and Output Vital Signs (last 24 hours): Temp Pulse Resp BP Pulse Ox 97.3 F L 77 20 123/75 98 01/27/18 07:58 01/27/18 07:58 01/27/18 07:58 01/27/18 07:58 01/27/18 07:58 - Medications Medications: Current Medications Acetaminophen (Tylenol 325mg Tab) 650 mg PO Q6 PRN PRN Reason: for pain scale 3-4 Aripiprazole (Abilify) 5 mg PO [facility] Last Admin: 01/26/18 21:48 Dose: 5 mg Baclofen (Lioresal) 10 mg PO TID [facility] Last Admin: 01/27/18 08:44 Dose: 10 mg Bisacodyl (Dulcolax) 10 mg [place] DAILY PRN PRN Reason: Constipation Last Admin: 01/22/18 06:18 Dose: 10 mg Docusate Sodium (Colace) 100 mg PO BID [facility] Last Admin: 01/27/18 08:44 Dose: 100 mg Gabapentin (Neurontin) 600 mg PO [facility] Last Admin: 01/26/18 21:49 Dose: 600 mg Home Med (Enemeez) 5 ml [place] 0600 [facility] Last Admin: 01/27/18 06:17 Dose: 5 ml Cefepime HCl 2 gm/ Sodium (Chloride) 100 mls @ 100 mls/hr IVPB Q8@0600,1400,2200 [facility] Last Admin: 01/27/18 06:16 Dose: 100 mls/hr Vancomycin HCl 1 gm/ Sodium (Chloride) 250 mls @ 166.667 mls/hr IVPB Q12H [facility] Last Admin: 01/27/18 01:18 Dose: 166.667 mls/hr Lactic Acid (Lac-Hydrin 12% Lotion (225 G)) 1 applic TOP 0600,1800 [facility] Last Admin: 01/27/18 06:16 Dose: 1 applic Lactulose (Enulose) 20 gm PO DAILY PRN PRN Reason: Constipation Last Admin: 01/21/18 16:57 Dose: 20 gm Oxycodone HCl (Oxycodone Immediate Release Tab) 5 mg PO Q6 PRN PRN Reason: pain 5-10/10 Last Admin: 01/14/18 11:25 Dose: 5 mg Tizanidine HCl (Zanaflex) 8 mg PO HS [facility] Last Admin: 01/26/18 21:49 Dose: 8 mg - Labs Labs: 01/25/18 06:00 01/25/18 06:00 - Constitutional Appears: No Acute Distress - Head Exam Head Exam: ATRAUMATIC, NORMAL INSPECTION, NORMOCEPHALIC - Eye Exam Eye Exam: EOMI, Normal appearance, PERRL Pupil Exam: NORMAL ACCOMODATION, PERRL - ENT Exam ENT Exam: Mucous Membranes Moist, Normal Exam - Neck Exam Neck Exam: Full ROM, Normal Inspection. absent: Lymphadenopathy - Respiratory Exam Respiratory Exam: Clear to Ausculation Bilateral, NORMAL BREATHING PATTERN - Cardiovascular Exam Cardiovascular Exam: REGULAR RHYTHM, +S1, +S2. absent: Murmur - GI/Abdominal Exam GI & Abdominal Exam: Soft, Normal Bowel Sounds. absent: Tenderness - Rectal Exam Rectal Exam: NORMAL INSPECTION - Extremities Exam Extremities Exam: Full ROM, Normal Capillary Refill, Normal Inspection. absent: Joint Swelling, Pedal Edema - Back Exam Back Exam: NORMAL INSPECTION - Neurological Exam Neurological Exam: Alert, Awake, CN II-XII Intact, Oriented x3 Additional comments: STILL HAS WEAKNESS OF LOWER EXTREMITIES - Psychiatric Exam Psychiatric exam: Normal Affect, Normal Mood - Skin Skin Exam: Dry, Intact, Normal Color, Warm Assessment and Plan - Assessment and Plan (Free Text) Assessment: DISCITIS OSTEOMYELITIS OF SPINE S/P EVACUATION OF EPIDURAL ABSCESS Plan: CONTINUE IV ANTIBIOTIC THERAPY PT /OT
--- NOTE | 2018-01-27 12:59 | CP.PCM.PN ---
Subjective - Date & Time of Evaluation Date of Evaluation: 01/27/18 Time of Evaluation: 08:00 - Subjective Subjective: making progress WBC decreasing off steroids Objective - Vital Signs/Intake and Output Vital Signs (last 24 hours): Temp Pulse Resp BP Pulse Ox 97.3 F L 77 20 123/75 98 01/27/18 07:58 01/27/18 07:58 01/27/18 07:58 01/27/18 07:58 01/27/18 07:58 - Medications Medications: Current Medications Acetaminophen (Tylenol 325mg Tab) 650 mg PO Q6 PRN PRN Reason: for pain scale 3-4 Aripiprazole (Abilify) 5 mg PO HS [facility] Last Admin: 01/26/18 21:48 Dose: 5 mg Baclofen (Lioresal) 10 mg PO TID [facility] Last Admin: 01/27/18 12:38 Dose: 10 mg Bisacodyl (Dulcolax) 10 mg [place] DAILY PRN PRN Reason: Constipation Last Admin: 01/22/18 06:18 Dose: 10 mg Docusate Sodium (Colace) 100 mg PO BID [facility] Last Admin: 01/27/18 08:44 Dose: 100 mg Gabapentin (Neurontin) 600 mg PO HS [facility] Last Admin: 01/26/18 21:49 Dose: 600 mg Home Med (Enemeez) 5 ml [place] 0600 [facility] Last Admin: 01/27/18 06:17 Dose: 5 ml Cefepime HCl 2 gm/ Sodium (Chloride) 100 mls @ 100 mls/hr IVPB Q8@0600,1400,2200 [facility] Last Admin: 01/27/18 06:16 Dose: 100 mls/hr Vancomycin HCl 1 gm/ Sodium (Chloride) 250 mls @ 166.667 mls/hr IVPB Q12H [facility] Last Admin: 01/27/18 12:39 Dose: 166.667 mls/hr Lactic Acid (Lac-Hydrin 12% Lotion (225 G)) 1 applic TOP 0600,1800 [facility] Last Admin: 01/27/18 06:16 Dose: 1 applic Lactulose (Enulose) 20 gm PO DAILY PRN PRN Reason: Constipation Last Admin: 01/21/18 16:57 Dose: 20 gm Oxycodone HCl (Oxycodone Immediate Release Tab) 5 mg PO Q6 PRN PRN Reason: pain 5-11/21 Last Admin: 01/14/18 11:25 Dose: 5 mg Tizanidine HCl (Zanaflex) 8 mg PO HS [facility] Last Admin: 01/26/18 21:49 Dose: 8 mg - Labs Labs: 01/25/18 06:00 01/25/18 06:00 - Constitutional Appears: Non-toxic, Chronically Ill - Head Exam Head Exam: NORMOCEPHALIC - Eye Exam Eye Exam: absent: Scleral icterus - ENT Exam ENT Exam: Mucous Membranes Dry - Neck Exam Neck Exam: absent: Lymphadenopathy - Respiratory Exam Respiratory Exam: Decreased Breath Sounds - Cardiovascular Exam Cardiovascular Exam: REGULAR RHYTHM - GI/Abdominal Exam GI & Abdominal Exam: Distended - Rectal Exam Rectal Exam: Deferred Assessment and Plan (1) Back pain Status: Acute (2) Discitis of cervical region Status: Acute (3) Epidural abscess Status: Acute (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 - Assessment and Plan (Free Text) Assessment: will renew IV antibiotics cont rx for min 6-8 weeks with Neurosurg follow up
[2018-01-28] MEDS: Cefepime 2 GM in Sodium Chloride 0.9% 100 ML IVPB SCH ×3 (05:37→21:20)
[2018-01-28] MEDS: DOCUSATE PR SCH ×2 (05:37→21:45)
--- NOTE | 2018-01-28 09:28 | CP.PCM.PN ---
Subjective - Date & Time of Evaluation Date of Evaluation: 01/28/18 Time of Evaluation: 09:28 - Subjective Subjective: CONTINUES TO IMPROVE WITH PT/OT STILL HAS PROBLEMS WITH BOWEL MOVEMENTS ABLE TO STAND WITH ASSISTANCE BUT UNABLE TO AMBULATE Objective - Vital Signs/Intake and Output Vital Signs (last 24 hours): Temp Pulse Resp BP Pulse Ox 98.2 F 82 20 114/65 95 01/28/18 08:05 01/28/18 08:05 01/28/18 08:05 01/28/18 08:05 01/28/18 08:05 - Medications Medications: Current Medications Acetaminophen (Tylenol 325mg Tab) 650 mg PO Q6 PRN PRN Reason: for pain scale 3-4 Aripiprazole (Abilify) 5 mg PO [facility] Last Admin: 01/27/18 21:18 Dose: 5 mg Baclofen (Lioresal) 10 mg PO TID [facility] Last Admin: 01/28/18 08:06 Dose: 10 mg Bisacodyl (Dulcolax) 10 mg [place] DAILY PRN PRN Reason: Constipation Last Admin: 01/22/18 06:18 Dose: 10 mg Docusate Sodium (Colace) 100 mg PO BID [facility] Last Admin: 01/28/18 08:07 Dose: 100 mg Gabapentin (Neurontin) 600 mg PO [facility] Last Admin: 01/27/18 21:19 Dose: 600 mg Home Med (Enemeez) 5 ml [place] 0600 [facility] Last Admin: 01/28/18 05:37 Dose: 5 ml Cefepime HCl 2 gm/ Sodium (Chloride) 100 mls @ 100 mls/hr IVPB Q8@0600,1400,2200 [facility] Last Admin: 01/28/18 05:37 Dose: 100 mls/hr Vancomycin HCl 1 gm/ Sodium (Chloride) 250 mls @ 166.667 mls/hr IVPB Q12H [facility] Last Admin: 01/28/18 01:01 Dose: 166.667 mls/hr Lactic Acid (Lac-Hydrin 12% Lotion (225 G)) 1 applic TOP 0600,1800 [facility] Last Admin: 01/28/18 05:37 Dose: 1 applic Lactulose (Enulose) 20 gm PO DAILY PRN PRN Reason: Constipation Last Admin: 01/21/18 16:57 Dose: 20 gm Oxycodone HCl (Oxycodone Immediate Release Tab) 5 mg PO Q6 PRN PRN Reason: pain 5-11/21 Last Admin: 01/14/18 11:25 Dose: 5 mg Tizanidine HCl (Zanaflex) 8 mg PO HS [facility] Last Admin: 01/27/18 21:19 Dose: 8 mg - Labs Labs: 01/25/18 06:00 01/25/18 06:00 - Constitutional Appears: No Acute Distress - Head Exam Head Exam: ATRAUMATIC, NORMAL INSPECTION, NORMOCEPHALIC - Eye Exam Eye Exam: EOMI, Normal appearance, PERRL Pupil Exam: NORMAL ACCOMODATION, PERRL - ENT Exam ENT Exam: Mucous Membranes Moist, Normal Exam - Neck Exam Neck Exam: Full ROM, Normal Inspection. absent: Lymphadenopathy - Respiratory Exam Respiratory Exam: Clear to Ausculation Bilateral, NORMAL BREATHING PATTERN - Cardiovascular Exam Cardiovascular Exam: REGULAR RHYTHM, +S1, +S2. absent: Murmur - GI/Abdominal Exam GI & Abdominal Exam: Soft, Normal Bowel Sounds. absent: Tenderness - Rectal Exam Rectal Exam: NORMAL INSPECTION - Extremities Exam Extremities Exam: Full ROM, Normal Capillary Refill, Normal Inspection. absent: Joint Swelling, Pedal Edema - Back Exam Back Exam: NORMAL INSPECTION - Neurological Exam Neurological Exam: Abnormal Gait, Alert, Awake, CN II-XII Intact, Oriented x3 Additional comments: WEAK LOWER EXTREMITIES - Psychiatric Exam Psychiatric exam: Normal Affect, Normal Mood - Skin Skin Exam: Dry, Intact, Normal Color, Warm Assessment and Plan - Assessment and Plan (Free Text) Assessment: DISCITIS OSTEOMYELITIS Plan: CONTINUE OT/PT IV ANTIBIOTICS
--- NOTE | 2018-01-28 18:56 | CP.PCM.PN ---
Subjective - Date & Time of Evaluation Date of Evaluation: 01/28/18 Time of Evaluation: 18:54 - Subjective Subjective: Patient seen in the room in good spirits not really taking the pain medications got up in the parallel bars and even started with the platform RW magic bullet is working well and will change to the evening around 10pm and see if he will then have a BM in the-am instead of during therapy Ry to come out Objective - Vital Signs/Intake and Output Vital Signs (last 24 hours): Temp Pulse Resp BP Pulse Ox 98.2 F 82 20 114/65 95 01/28/18 08:05 01/28/18 08:05 01/28/18 08:05 01/28/18 08:05 01/28/18 08:05 - Medications Medications: Current Medications Acetaminophen (Tylenol 325mg Tab) 650 mg PO Q6 PRN PRN Reason: for pain scale 3-4 Aripiprazole (Abilify) 5 mg PO HS [facility] Last Admin: 01/27/18 21:18 Dose: 5 mg Baclofen (Lioresal) 10 mg PO TID [facility] Last Admin: 01/28/18 17:02 Dose: 10 mg Bisacodyl (Dulcolax) 10 mg [place] DAILY PRN PRN Reason: Constipation Last Admin: 01/22/18 06:18 Dose: 10 mg Docusate Sodium (Colace) 100 mg PO BID [facility] Last Admin: 01/28/18 17:02 Dose: 100 mg Gabapentin (Neurontin) 600 mg PO HS [facility] Last Admin: 01/27/18 21:19 Dose: 600 mg Home Med (Enemeez) 5 ml [place] 0600 [facility] Last Admin: 01/28/18 05:37 Dose: 5 ml Cefepime HCl 2 gm/ Sodium (Chloride) 100 mls @ 100 mls/hr IVPB Q8@0600,1400,2200 [facility] Last Admin: 01/28/18 14:19 Dose: 100 mls/hr Vancomycin HCl 1 gm/ Sodium (Chloride) 250 mls @ 166.667 mls/hr IVPB Q12H [facility] Last Admin: 01/28/18 12:32 Dose: 166.667 mls/hr Lactic Acid (Lac-Hydrin 12% Lotion (225 G)) 1 applic TOP 0600,1800 [facility] Last Admin: 01/28/18 17:04 Dose: 1 applic Lactulose (Enulose) 20 gm PO DAILY PRN PRN Reason: Constipation Last Admin: 01/21/18 16:57 Dose: 20 gm Oxycodone HCl (Oxycodone Immediate Release Tab) 5 mg PO Q6 PRN PRN Reason: pain -11/21 Last Admin: 01/14/18 11:25 Dose: 5 mg Tizanidine HCl (Zanaflex) 8 mg PO HS [facility] Last Admin: 01/27/18 21:19 Dose: 8 mg - Labs Labs: 01/25/18 06:00 01/25/18 06:00
[2018-01-29] MEDS: Cefepime 2 GM in Sodium Chloride 0.9% 100 ML IVPB SCH ×3 (05:17→21:27)
--- NOTE | 2018-01-29 08:36 | CP.PCM.PN ---
Subjective - Date & Time of Evaluation Date of Evaluation: 01/29/18 Time of Evaluation: 08:37 - Subjective Subjective: no complaints no distress vss Objective - Vital Signs/Intake and Output Vital Signs (last 24 hours): Temp Pulse Resp BP Pulse Ox 97.5 F L 69 18 124/72 97 01/29/18 07:53 01/29/18 07:53 01/29/18 07:53 01/29/18 07:53 01/28/18 19:54 - Medications Medications: Current Medications Acetaminophen (Tylenol 325mg Tab) 650 mg PO Q6 PRN PRN Reason: for pain scale 3-4 Aripiprazole (Abilify) 5 mg PO [facility] Last Admin: 01/28/18 21:20 Dose: 5 mg Baclofen (Lioresal) 10 mg PO TID [facility] Last Admin: 01/29/18 08:28 Dose: 10 mg Docusate Sodium (Colace) 100 mg PO BID [facility] Last Admin: 01/29/18 08:27 Dose: 100 mg Gabapentin (Neurontin) 600 mg PO [facility] Last Admin: 01/28/18 21:20 Dose: 600 mg Home Med (Enemeez) 5 ml [place] HS [facility] Last Admin: 01/28/18 21:45 Dose: 5 ml Cefepime HCl 2 gm/ Sodium (Chloride) 100 mls @ 100 mls/hr IVPB Q8@0600,1400,2200 [facility] Last Admin: 01/29/18 05:17 Dose: 100 mls/hr Vancomycin HCl 1 gm/ Sodium (Chloride) 250 mls @ 166.667 mls/hr IVPB Q12H [facility] Last Admin: 01/29/18 00:15 Dose: 166.667 mls/hr Lactic Acid (Lac-Hydrin 12% Lotion (225 G)) 1 applic TOP 0600,1800 [facility] Last Admin: 01/29/18 05:18 Dose: 1 applic Lactulose (Enulose) 20 gm PO DAILY PRN PRN Reason: Constipation Last Admin: 01/21/18 16:57 Dose: 20 gm Oxycodone HCl (Oxycodone Immediate Release Tab) 5 mg PO Q6 PRN PRN Reason: pain 5-1010 Last Admin: 01/14/18 11:25 Dose: 5 mg Tizanidine HCl (Zanaflex) 8 mg PO [facility] Last Admin: 01/28/18 21:20 Dose: 8 mg - Labs Labs: 01/25/18 06:00 01/25/18 06:00 - Constitutional Appears: No Acute Distress - Head Exam Head Exam: ATRAUMATIC, NORMAL INSPECTION, NORMOCEPHALIC - Eye Exam Eye Exam: EOMI, Normal appearance, PERRL Pupil Exam: NORMAL ACCOMODATION, PERRL - ENT Exam ENT Exam: Mucous Membranes Moist, Normal Exam - Neck Exam Neck Exam: Full ROM, Normal Inspection. absent: Lymphadenopathy - Respiratory Exam Respiratory Exam: Clear to Ausculation Bilateral, NORMAL BREATHING PATTERN - Cardiovascular Exam Cardiovascular Exam: REGULAR RHYTHM, +S1, +S2. absent: Murmur - GI/Abdominal Exam GI & Abdominal Exam: Soft, Normal Bowel Sounds. absent: Tenderness - Rectal Exam Rectal Exam: NORMAL INSPECTION - Extremities Exam Extremities Exam: Full ROM, Normal Capillary Refill, Normal Inspection. absent: Joint Swelling, Pedal Edema - Back Exam Back Exam: NORMAL INSPECTION - Neurological Exam Neurological Exam: Abnormal Gait, Alert, Awake, CN II-XII Intact, Oriented x3 Additional comments: weakness of lower extremities - Psychiatric Exam Psychiatric exam: Normal Affect, Normal Mood - Skin Skin Exam: Dry, Intact, Normal Color, Warm Assessment and Plan - Assessment and Plan (Free Text) Assessment: osteomyelitis of spine discitis Plan: continue aggressive physical and occupational therapy iv antibiotics
--- NOTE | 2018-01-29 12:03 | CP.PCM.PN ---
Subjective - Date & Time of Evaluation Date of Evaluation: 01/29/18 Time of Evaluation: 12:00 - Subjective Subjective: Neurology Follow-Up Note: Mr. Cornelius was evaluated this morning with significant other present. Today he states that he is feeling good. He is pending subacute placement and is nervous about that transition. Ry were recently removed. He admits to improvement in paresthesias to the left hand and left foot. Denies any new complaints. Denies h/a, dizziness, visual changes, chest pain, shortness of breath, calf pain/swelling, abd pain, n/v/d. Objective - Vital Signs/Intake and Output Vital Signs (last 24 hours): Temp Pulse Resp BP Pulse Ox 97.5 F L 69 18 124/72 98 01/29/18 10:00 01/29/18 10:00 01/29/18 10:00 01/29/18 10:00 01/29/18 10:00 - Medications Medications: Current Medications Acetaminophen (Tylenol 325mg Tab) 650 mg PO Q6 PRN PRN Reason: for pain scale 3-4 Aripiprazole (Abilify) 5 mg PO HS [facility] Last Admin: 01/28/18 21:20 Dose: 5 mg Baclofen (Lioresal) 10 mg PO TID [facility] Last Admin: 01/29/18 08:28 Dose: 10 mg Docusate Sodium (Colace) 100 mg PO BID [facility] Last Admin: 01/29/18 08:27 Dose: 100 mg Gabapentin (Neurontin) 600 mg PO HS [facility] Last Admin: 01/28/18 21:20 Dose: 600 mg Home Med (Enemeez) 5 ml [place] [facility] Last Admin: 01/28/18 21:45 Dose: 5 ml Cefepime HCl 2 gm/ Sodium (Chloride) 100 mls @ 100 mls/hr IVPB Q8@0600,1400,2200 [facility] Last Admin: 01/29/18 05:17 Dose: 100 mls/hr Vancomycin HCl 1 gm/ Sodium (Chloride) 250 mls @ 166.667 mls/hr IVPB Q12H [facility] Last Admin: 01/29/18 00:15 Dose: 166.667 mls/hr Lactic Acid (Lac-Hydrin 12% Lotion (225 G)) 1 applic TOP 0600,1800 [facility] Last Admin: 01/29/18 05:18 Dose: 1 applic Lactulose (Enulose) 20 gm PO DAILY PRN PRN Reason: Constipation Last Admin: 01/21/18 16:57 Dose: 20 gm Oxycodone HCl (Oxycodone Immediate Release Tab) 5 mg PO Q6 PRN PRN Reason: pain 5-1010 Last Admin: 01/14/18 11:25 Dose: 5 mg Tizanidine HCl (Zanaflex) 8 mg PO HS [facility] Last Admin: 01/28/18 21:20 Dose: 8 mg - Labs Labs: 01/25/18 06:00 01/25/18 06:00 - Constitutional Appears: Well, Non-toxic, No Acute Distress - Head Exam Head Exam: ATRAUMATIC, NORMAL INSPECTION, NORMOCEPHALIC - Eye Exam Eye Exam: EOMI, Normal appearance Pupil Exam: NORMAL ACCOMODATION, PERRL - ENT Exam ENT Exam: Mucous Membranes Moist - Neck Exam Additional comments: Winona J-Collar maintained - Respiratory Exam Respiratory Exam: NORMAL BREATHING PATTERN - Extremities Exam Extremities Exam: absent: Calf Tenderness, Full ROM, Pedal Edema Additional comments: still has decreased ROM to BLE, however, much improved. Extension of LLE 4/5; + quad weakness noted to LLE, unable to lift thigh with minimal to no resistance. - Neurological Exam Neurological Exam: Abnormal Gait, Alert, Awake, CN II-XII Intact, Oriented x3 Neuro motor strength exam: Left Upper Extremity: 5, Right Upper Extremity: 5, Left Lower Extremity: 4, Right Lower Extremity: 4 Additional comments: still has hyperflexia ble, left greater than right. sensation intact, including to T12 area. no hypertonicity noted. extension of LLE 4/5; + quad weakness noted to LLE, unable to lift thigh with minimal to no resistance. - Psychiatric Exam Psychiatric exam: Normal Affect, Normal Mood - Skin Skin Exam: Normal Color Assessment and Plan (1) Epidural abscess Assessment & Plan: Mr. Cornelius continues to improve neurologically and functionally. -Paresthesias to left hand and left foot likely neuropathic. Continue Neurontin to 600 mg PO HS. -Continue PT/OT therapy. -Removal of Winona J-collar deferred to neurosurgery. -Continue TEDS and elevation of BLE while in bed at night to decrease swelling to ankles -D/c planning to subacute when appropriate. -Please notify neuro team of any acute changes in condition. -We will continue to follow the pt while in rehab. Case discussed with Dr. Brown Status: Acute
--- NOTE | 2018-01-29 13:11 | PCM.PSYTMC ---
Acute Rehab Team Conference - - Vital Signs: Vital Signs (Last 8 Hours): Vital Signs 01/29/18 01/29/18 07:53 10:00 Temperature 97.5 F L 97.5 F L Pulse Rate 69 69 Respiratory 18 18 Rate Blood Pressure 124/72 124/72 O2 Sat by Pulse 98 Oximetry Pain: 0 - Precautions: Precautions: Fall Prevention - Medications/Other Issues: Comment: Still on Vanco and Cefepime IV - Consults: Comment: Dr. Goldberg, Dr. Granado, Dr. Rivas, Dr. Denny - Skin: Incision Site: Posterior neck ( Nape ) Dressing Status: Clean, Dry, Intact Incision: Healing Well, Well Approximated Incision Line Treatment: Cleansed with NSS and covered with dry dressing BID. - Toileting: Toileting: Dependent - Bladder Management: Bladder Pattern: Incontinent Voiding Method: Urinal, Diaper Bladder Management: Dependent Other Intervention:: >5 - Transfers: Transfers: Moderate Assistance - ADL's: ADL's: Maximal Assistance - Pain Management: Other Intervention:: MSIR q6h PRN - Patient/Family Teaching: Other Intervention:: Care post Laminectomy , spinal and safety precautions - Goals/Time Frame: Comment: Per multidisciplinary care plan and goals - Provider: Registered Nurse:: Debra Galvan Physical Therapy - Bed Mobility Bed Mobility: Supervision, Verbal Cues, Contact Guard Comment: -supine to/from sit: CG. -rolling: CS - Transfers Wheelchair to Mat: Verbal Cues, Contact Guard Sit to Stand: Maximum Assistance - Ambulation Distance (ft.): 10 Orthoses: *all gait completed with BLE knee immobilizers in place to assist with stability at the knees and reduce effects of flexion tone to improve weight bearing. *gait with LLE dorsiflexion wrap due to weakness Comment: -10 feet with min/mod A in // bars x 3 trials. -8 feet with mod A of 2 (total A) with BUE platform RW. -requires cues/assistance for weight shifting and sequencing. -assistance with platform RW for platform motion as well as progression/stability of LLE and initiation on RLE as well as stability of RLE during stance. -buckling noted at BLE with anterior buckling on R side and L side flexion of heel. -seated rest breaks between trials - Stair Negotiation Stairs: Level of Assistance: Dependent - Standing Balance Static Stand: Moderate Assistance Comment: // bars, B knee immobilizers, uses BUE for support, limited LE weigh tbearing noted with limited LE activation - Pain Pain (assessed during therapy session): 0 Alleviating Techniques: Medication, Distraction, Exercise Comment: denies - Insight/Carryover Insight/Carryover: Fair - Patient/Family Education Comment: -education completed on: therapy schedule, therapy goals, postural control, use of [place] J collar, integumentary changes, sensation changes, realistic goals, WC mobility, use of brakes, use of call reinoso - Assessment/Plan Assessment: Mr. Cornelius continues to make good progress in therapy. Pt has much improved mood and partcipation over recent week. Pt is ambulating with knee i mmobilizers with max A of 2 with platform rolling walker progressing from parallel bars. Patient continues to make slow but steady progress in therapies. Therapy time is limited by bowel movements during therapy in the morning. Patient continues to present with unrealistic goals for mobility at time of discharge. Pt continues to have impaired strength, sensation and mobility in the BLEs. PT recommends continued intensive therapies and medical management to continue addressing needs s/p SCI. PT recommends discharge to [facility] following completion of full length of stay in acute rehab. Pt returned to room at end of session with girlfriend present, all needs met and call reinoso in reach. - Goals Timeframe: 7 days Goals: -TRANSFERS: lateral transfers without board with CS to each side with min A for set-up. -TRANSFERS: SPT with max A of 1 and mod A of 2nd person for safety. -BED MOBILITY: rolling L and L w/ mod I. -BED MOBILITY: supine to sit w/ S. -BED MOBILITY: sit to supine w/ CS with use of appropriate assistive/lifting device. supervision. -GAIT: 15 feet with max A (mod A of 2) with B platform RW and B knee imobilizers. -WHEELCHAIR: propel manual wheelchair x 200 feet on all surfaces with BUE with S. -EDUCATION: care-taker to assist patient with bed/mat mobility and positioning with contact guard assistance from therapist - Provider Physical Therapist:: Melia Gómez License Number:: [id number] Occupational Therapy - Arousal/Attention/Orientation Level of Consciousness: Awake, Alert Patient Orientation: Person, Place, Time - ADL/IADL Self Feeding: Set-up Help Grooming: Set-up Help Bathing-Upper Ext: Supervision Bathing-Lower Ext: Minimal Assistance Dressing-Upper Ext: Supervision Dressing-Lower Ext: Minimal Assistance Comment: spongebathing performed. dressing completed in long sitting - Sitting Balance Static Sitting: Supervision Dynamic Sitting: Requires supervision - Transfers Wheelchair to Bed Transfers: Contact Guard Comment: cga for lateral transfers - Wheelchair Management Level of Assistance: Modified Independent Distance (ft.): 150 - Upper Extremity Status Right Upper Extremity Comment: WFL Left Upper Extremity Comment: WFL - Pain Pain (assessed during therapy session): 0 - Insight/Carryover Insight/Carryover: Fair - Patient/Family Education Comment: -rehab/OT goals, limitations & plan of care. -self care, transfers/mobility training uisng adaptive/compensatory strategies. -inhibitory strategies, weightbearng for spasms & flexor tone in BLES, extensor tone in trunk. -w/c propulsion/management. -pressure relief techniques in w/c & bed; continued education. -adaptive devices: full stack developer, dressing for lower body dressing, leglifter for bed mobility/positioning BLES while in bed. -w/c & bed positioning. -skin checks/inspections B heel, sacral area - Assessment/Plan Assessment: Pt is a 32 year old R handed male with dx: cervical abcess, osteomylelitis s/p C5-C6 and C6-C7 laminectomy. *PRECACUTIONS: spinal precautions, falls, bed & w/c positioning/skin intergrity, + acosta, cervical brace at all times. Pt limited by the following impairments: spasms in B LEs & trunk, impaired BUES core/trunk strength, impaired BLES strength, involuntary movements and impaired safety, impaired activity tolerance/endurance--which imapct on functional performance of self care, transfers/mobility and IAdls. Pt will continue skilled OT to adddress functional impairments to maxmize function in self care/mobility using compensatory strategies. patient is currently completing ub adls with supervision , feeding/grooming with set-up help. lb adls patient is able to complete lb dressing in long sitting , and lb spongebathing in long sitting with min A. patient is dependent currently for toileting 2' frequent urinary/fecal incontence episodes requiring total assist for hygiene an dclothing mgmt. . *Goal: Mod I from w/c level for self care, transfers/mobility and Iadls with assistive devices. - Goals Timeframe: 1 week Comment: *Goal: Mod I from w/c level for self care, transfers/mobility and Iadls with assistive devices. - Provider Occupational Therapist:: Claudia Newton License Number: [id number] Recreational Therapy - Participation Participation: Participates in Individual and/or Group Sessions - Attendance Attendance: 3-5 times per week - Activities Leisure Activities: Cards and Games - Socialization Level of Socialization: Initiates/interacts freely with care givers and peer - Diversional Time Diversional Time: dominoes, rummikub, video games - Assessment Assessment/Plan: Pt is agreeable to participate in recreation therapy sessions. Pt will self-propel to recreation room and participate in dominoes task, rummikub, and other leisure tasks. Pt verbalizes enjoyment and is independent with leisure tasks following demonstration. Pt plays video games during his free time for diversion. Pt will continue to benefit from participating in recreation therapy sessions following encouragement. Problems Currently Limiting Participation: spinal precautions, neck collar brace to be worn at all times, B/L LE weakness, decrease leisure awareness level, decrease leisure awareness level, decrease activity tolerance level Goals and Time Frame: Pt will be encouraged to participate in 1:1 and group recreation therapy sessions in wheelchair or at bedside 3-5x week to improve activity tolerance level, leisure awareness level, diversion, and attention to task by date of discharge. - Provider Therapist: Nidhi Garces Nutrition - Current Diet Current Diet/Supplement/Feedings: Regular diet - Appetite Percent Meal Consumed: 75-100% - Comments Comments: Pt reports constipation x 1 week. - Assessment/Goals/Time Frame Assessments/Goals/Time Frame: Pt at low nutritional risk. no goals. Follow-up due on 02/06/2018 - Provider Provider: Jocelin Potts Case Management - Psychosocial Assessment Support Systems: Meredith Mercado (significant other) - Psychological Interventions/Needs: Patient is AAOx3. Discharge Concerns: Patient is mod I with wheelchair mobility. Patient/Family Meeting: CM met with patient and rehab team. Intervention/Goal/Outcome: 1. Goal: Contact Guard 2. Plan: [facility] 3. coordinate transportation for transfer on day of discharge 4. prepare chart copy for [facility] 5. continued emotional support - Discharge Plan Discharge Plan: Subacute care - Provider Provider: June Ramírez License Number: [id number] Rehabilitation Plan - Treatment Plan Treatment Plan: Physical Therapy, Occupational Therapy, Dietary, Patient/Family Education - Discharge Plan Estimated Date of Discharge: 01/31/18 Discharge to: Subacute
--- NOTE | 2018-01-29 13:24 | CP.PCM.PN ---
Subjective - Date & Time of Evaluation Date of Evaluation: 01/29/18 Time of Evaluation: 13:23 - Subjective Subjective: Patient seen in the room aware that d/c is planned 01/31/18 denies pain and pain meds stopped no BM yet today continue current care Objective - Vital Signs/Intake and Output Vital Signs (last 24 hours): Temp Pulse Resp BP Pulse Ox 97.5 F L 69 18 124/72 98 01/29/18 10:00 01/29/18 10:00 01/29/18 10:00 01/29/18 10:00 01/29/18 10:00 - Medications Medications: Current Medications Acetaminophen (Tylenol 325mg Tab) 650 mg PO Q6 PRN PRN Reason: for pain scale 3-4 Aripiprazole (Abilify) 5 mg PO HS [facility] Last Admin: 01/28/18 21:20 Dose: 5 mg Baclofen (Lioresal) 10 mg PO TID [facility] Last Admin: 01/29/18 12:25 Dose: 10 mg Docusate Sodium (Colace) 100 mg PO BID [facility] Last Admin: 01/29/18 08:27 Dose: 100 mg Gabapentin (Neurontin) 600 mg PO HS [facility] Last Admin: 01/28/18 21:20 Dose: 600 mg Home Med (Enemeez) 5 ml DE HS [facility] Last Admin: 01/28/18 21:45 Dose: 5 ml Cefepime HCl 2 gm/ Sodium (Chloride) 100 mls @ 100 mls/hr IVPB Q8@0600,1400,2200 [facility] Last Admin: 01/29/18 05:17 Dose: 100 mls/hr Vancomycin HCl 1 gm/ Sodium (Chloride) 250 mls @ 166.667 mls/hr IVPB Q12H [facility] Last Admin: 01/29/18 12:26 Dose: 166.667 mls/hr Lactic Acid (Lac-Hydrin 12% Lotion (225 G)) 1 applic TOP 0600,1800 [facility] Last Admin: 01/29/18 05:18 Dose: 1 applic Lactulose (Enulose) 20 gm PO DAILY PRN PRN Reason: Constipation Last Admin: 01/21/18 16:57 Dose: 20 gm Oxycodone HCl (Oxycodone Immediate Release Tab) 5 mg PO Q6 PRN PRN Reason: pain 5-10 Last Admin: 01/14/18 11:25 Dose: 5 mg Tizanidine HCl (Zanaflex) 8 mg PO HS [facility] Last Admin: 01/28/18 21:20 Dose: 8 mg - Labs Labs: 01/25/18 06:00 01/25/18 06:00
[2018-01-29] MEDS: DOCUSATE PR SCH (21:27)
[2018-01-30] MEDS: Cefepime 2 GM in Sodium Chloride 0.9% 100 ML IVPB SCH ×3 (05:44→21:30)
--- NOTE | 2018-01-30 10:58 | CP.PCM.PN ---
Subjective - Date & Time of Evaluation Date of Evaluation: 01/30/18 Time of Evaluation: 10:58 - Subjective Subjective: CONTINUES TO SHOW CLINICAL IMPROVEMENT SCHEDULED FOR TRANSFER TO SUBACUTE CARE IN AM WILL CONTINUE CURRENT RX Objective - Vital Signs/Intake and Output Vital Signs (last 24 hours): Temp Pulse Resp BP Pulse Ox 90.2 F L 97 H 20 123/67 99 01/30/18 07:38 01/30/18 07:38 01/30/18 07:38 01/30/18 07:38 01/30/18 07:38 - Medications Medications: Current Medications Acetaminophen (Tylenol 325mg Tab) 650 mg PO Q6 PRN PRN Reason: for pain scale 3-4 Aripiprazole (Abilify) 5 mg PO HS [facility] Last Admin: 01/29/18 21:26 Dose: 5 mg Baclofen (Lioresal) 10 mg PO TID [facility] Last Admin: 01/30/18 08:19 Dose: 10 mg Docusate Sodium (Colace) 100 mg PO BID [facility] Last Admin: 01/30/18 08:19 Dose: 100 mg Gabapentin (Neurontin) 600 mg PO HS [facility] Last Admin: 01/29/18 21:29 Dose: 600 mg Home Med (Enemeez) 5 ml CO HS [facility] Last Admin: 01/29/18 21:27 Dose: 5 ml Cefepime HCl 2 gm/ Sodium (Chloride) 100 mls @ 100 mls/hr IVPB Q8@0600,1400,2200 [facility] Last Admin: 01/30/18 05:44 Dose: 100 mls/hr Vancomycin HCl 1 gm/ Sodium (Chloride) 250 mls @ 166.667 mls/hr IVPB Q12H [facility] Last Admin: 01/30/18 00:23 Dose: 166.667 mls/hr Lactic Acid (Lac-Hydrin 12% Lotion (225 G)) 1 applic TOP 0600,1800 [facility] Last Admin: 01/30/18 05:45 Dose: 1 applic Lactulose (Enulose) 20 gm PO DAILY PRN PRN Reason: Constipation Last Admin: 01/21/18 16:57 Dose: 20 gm Oxycodone HCl (Oxycodone Immediate Release Tab) 5 mg PO Q6 PRN PRN Reason: pain 5-11/21 Last Admin: 01/14/18 11:25 Dose: 5 mg Tizanidine HCl (Zanaflex) 8 mg PO HS [facility] Last Admin: 01/29/18 21:29 Dose: 8 mg - Labs Labs: 01/25/18 06:00 01/25/18 06:00 Assessment and Plan - Assessment and Plan (Free Text) 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
[2018-01-30] MEDS ORDERED: Benzocaine/Menthol (Cepacol) Lozenge PO PRN (12:53)
--- NOTE | 2018-01-30 13:31 | CP.PCM.PCO ---
Physician Communication Note - Physician Communication Note Physician Communication Note: patient has infected upper molar right side - needs OMFS eval
--- NOTE | 2018-01-30 13:32 | CP.PCM.PN ---
Subjective - Date & Time of Evaluation Date of Evaluation: 01/30/18 Time of Evaluation: 07:00 - Subjective Subjective: needs OMFS eval' consider transfer to [facility] for this- infected broken upper right molar Objective - Vital Signs/Intake and Output Vital Signs (last 24 hours): Temp Pulse Resp BP Pulse Ox 90.2 F L 97 H 20 123/67 99 01/30/18 07:38 01/30/18 07:38 01/30/18 07:38 01/30/18 07:38 01/30/18 07:38 - Medications Medications: Current Medications Acetaminophen (Tylenol 325mg Tab) 650 mg PO Q6 PRN PRN Reason: for pain scale 3-4 Aripiprazole (Abilify) 5 mg PO HS [facility] Last Admin: 01/29/18 21:26 Dose: 5 mg Baclofen (Lioresal) 10 mg PO TID [facility] Last Admin: 01/30/18 12:55 Dose: 10 mg Benzocaine/Menthol (Cepacol Sore Throat) 1 nickie PO Q3 PRN PRN Reason: Sore Throat Docusate Sodium (Colace) 100 mg PO BID [facility] Last Admin: 01/30/18 08:19 Dose: 100 mg Gabapentin (Neurontin) 600 mg PO HS [facility] Last Admin: 01/29/18 21:29 Dose: 600 mg Home Med (Enemeez) 5 ml RI HS [facility] Last Admin: 01/29/18 21:27 Dose: 5 ml Cefepime HCl 2 gm/ Sodium (Chloride) 100 mls @ 100 mls/hr IVPB Q8@0600,1400,2200 [facility] Last Admin: 01/30/18 05:44 Dose: 100 mls/hr Vancomycin HCl 1 gm/ Sodium (Chloride) 250 mls @ 166.667 mls/hr IVPB Q12H [facility] Last Admin: 01/30/18 12:47 Dose: 166.667 mls/hr Lactic Acid (Lac-Hydrin 12% Lotion (225 G)) 1 applic TOP 0600,1800 [facility] Last Admin: 01/30/18 05:45 Dose: 1 applic Lactulose (Enulose) 20 gm PO DAILY PRN PRN Reason: Constipation Last Admin: 01/21/18 16:57 Dose: 20 gm Oxycodone HCl (Oxycodone Immediate Release Tab) 5 mg PO Q6 PRN PRN Reason: pain 5-11/21 Last Admin: 01/14/18 11:25 Dose: 5 mg Tizanidine HCl (Zanaflex) 8 mg PO HS [facility] Last Admin: 01/29/18 21:29 Dose: 8 mg - Labs Labs: 01/25/18 06:00 01/25/18 06:00 Assessment and Plan (1) Back pain Status: Acute (2) Discitis of cervical region Status: Acute (3) Epidural abscess Status: Acute (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
--- NOTE | 2018-01-30 18:36 | CP.PCM.PN ---
Subjective - Date & Time of Evaluation Date of Evaluation: 01/30/18 Time of Evaluation: 18:35 - Subjective Subjective: Patient seen in the room no pain medications had a BM after magic bullet no LE swelling ambulating 10' making good gains set for d/c to [facility] tomorrow has been an ideal patient Objective - Vital Signs/Intake and Output Vital Signs (last 24 hours): Temp Pulse Resp BP Pulse Ox 90.2 F L 97 H 20 123/67 99 01/30/18 07:38 01/30/18 07:38 01/30/18 07:38 01/30/18 07:38 01/30/18 07:38 - Medications Medications: Current Medications Acetaminophen (Tylenol 325mg Tab) 650 mg PO Q6 PRN PRN Reason: for pain scale 3-4 Aripiprazole (Abilify) 5 mg PO HS [facility] Last Admin: 01/29/18 21:26 Dose: 5 mg Baclofen (Lioresal) 10 mg PO TID [facility] Last Admin: 01/30/18 16:37 Dose: 10 mg Benzocaine/Menthol (Cepacol Sore Throat) 1 nickie PO Q3 PRN PRN Reason: Sore Throat Last Admin: 01/30/18 16:37 Dose: 1 nickie Docusate Sodium (Colace) 100 mg PO BID [facility] Last Admin: 01/30/18 16:37 Dose: 100 mg Gabapentin (Neurontin) 600 mg PO HS [facility] Last Admin: 01/29/18 21:29 Dose: 600 mg Home Med (Enemeez) [address] [facility] Last Admin: 01/29/18 21:27 Dose: 5 ml Cefepime HCl 2 gm/ Sodium (Chloride) 100 mls @ 100 mls/hr IVPB Q8@060 0,1400,2200 [facility] Last Admin: 01/30/18 14:54 Dose: 100 mls/hr Vancomycin HCl 1 gm/ Sodium (Chloride) 250 mls @ 166.667 mls/hr IVPB Q12H [facility] Last Admin: 01/30/18 12:47 Dose: 166.667 mls/hr Lactic Acid (Lac-Hydrin 12% Lotion (225 G)) 1 applic TOP 0600,1800 [facility] Last Admin: 01/30/18 18:30 Dose: 1 applic Lactulose (Enulose) 20 gm PO DAILY PRN PRN Reason: Constipation Last Admin: 01/21/18 16:57 Dose: 20 gm Oxycodone HCl (Oxycodone Immediate Release Tab) 5 mg PO Q6 PRN PRN Reason: pain -11/21 Last Admin: 01/14/18 11:25 Dose: 5 mg Tizanidine HCl (Zanaflex) 8 mg PO HS [facility] Last Admin: 01/29/18 21:29 Dose: 8 mg - Labs Labs: 01/25/18 06:00 01/25/18 06:00
[2018-01-30] MEDS: DOCUSATE PR SCH (22:26)
[2018-01-31] MEDS: Cefepime 2 GM in Sodium Chloride 0.9% 100 ML IVPB SCH (05:11)
[2018-01-31 07:47] VITALS: BP 126/75; PULSE 75; RESP 18; TEMP 98.1; O2SAT 97
--- NOTE | 2018-01-31 08:54 | CP.PCM.DIS ---
Provider - Provider Date of Admission: 01/11/18 15:54 Attending physician: Ryder Guerra MD Consults: 01/11/18 16:44 Physiatry Consult Routine Comment: Consulting Provider: Yoandy Goldberg Consulting Physician: Yoandy Goldberg Reason for Consult: Cervical Epidural Abscess s/p Cervical Laminectomy C4-C7 01/11/18 16:54 Infectious Disease Consult Routine Comment: Consulting Provider: Ant Granado Consulting Physician: Ant Granado Reason for Consult: Cervical Epidural Abscess s/p Cervical Laminectomy C4-C7 Neuro Surgery Consult Routine Comment: Consulting Provider: Derrell Denny Consulting Physician: Derrell Denny Reason for Consult: Cervical Epidural Abscess s/p Cervical Laminectomy C4-C7 Neurology Consult Routine Comment: Consulting Provider: Kerri Rosas Consulting Physician: Kerri Rosas Reason for Consult: Cervical Epidural Abscess s/p Cervical Laminectomy C4-C7 01/11/18 17:02 Case Management Referral Routine Comment: Physician Instructions: Reason For Exam: Eval & Treat s/p Cervical Epidural Abscess Reason for Referral: Discharge Planning 01/14/18 09:15 Psychiatry Consult Routine Comment: Consulting Provider: Rita Rivas Consulting Physician: Rita Rivas Reason for Consult: ANXIETY/DEPRESSION 01/15/18 07:32 Podiatry Consult Routine Comment: Consulting Provider: Sid Sheth Consulting Physician: Sid Sheth Reason for Consult: LONG TOE NAILS, DRY, ROUGH SKIN BOTH FEET Time Spent in preparation of Discharge (in minutes): 30 Diagnosis - Discharge Diagnosis (1) Anemia Status: Acute (2) Weakness of both lower extremities Status: Acute (3) Discitis of cervical region Status: Acute (4) Epidural abscess Status: Acute (5) Osteomyelitis of cervical spine Status: Acute (6) Torticollis Status: Acute Hospital Course - Lab Results Lab Results: Most Recent Lab Values WBC 9.3 K/uL (4.8-10.8) 01/25/18 06:00 RBC 3.80 Mil/uL (4.40-5.90) L 01/25/18 06:00 Hgb 11.8 g/dL (12.0-18.0) L 01/25/18 06:00 Hct 35.9 % (35.0-51.0) 01/25/18 06:00 MCV 94.3 fl (80.0-94.0) H 01/25/18 06:00 MCH 30.9 pg (27.0-31.0) 01/25/18 06:00 MCHC 32.8 g/dL (33.0-37.0) L 01/25/18 06:00 RDW 14.2 % (11.5-14.5) 01/25/18 06:00 Plt Count 194 K/uL (130-400) D 01/25/18 06:00 MPV 6.9 fl (7.2-11.7) L 01/25/18 06:00 Neut % (Auto) 68.3 % (50.0-75.0) 01/25/18 06:00 Lymph % (Auto) 15.4 % (20.0-40.0) L 01/25/18 06:00 [place] % (Auto) 11.2 % (0.0-10.0) H 01/25/18 06:00 Eos % (Auto) 4.3 % (0.0-4.0) H 01/25/18 06:00 Baso % (Auto) 0.8 % (0.0-2.0) 01/25/18 06:00 Neut # (Auto) 6.4 K/uL (1.8-7.0) 01/25/18 06:00 Lymph # (Auto) 1.4 K/uL (1.0-4.3) 01/25/18 06:00 [place] # (Auto) 1.0 K/uL (0.0-0.8) H 01/25/18 06:00 Eos # (Auto) 0.4 K/uL (0.0-0.7) 01/25/18 06:00 Baso # (Auto) 0.1 K/uL (0.0-0.2) 01/25/18 06:00 Neutrophils % (Manual) 90 % (42-75) H 01/20/18 06:00 Lymphocytes % (Manual) 6 % (20-50) L 01/20/18 06:00 Monocytes % (Manual) 4 % (0-10) 01/20/18 06:00 Platelet Estimate Normal (NORMAL) 01/20/18 06:00 RBC Morphology Normal (NORMAL) 01/14/18 05:35 Anisocytosis (manual) Slight 01/20/18 06:00 Microcytosis (manual) Slight 01/20/18 06:00 ESR 28 mm/hr (0-15) H 01/25/18 06:00 Sodium 139 mmol/l (132-148) 01/25/18 06:00 Potassium 4.1 MMOL/L (3.6-5.0) 01/25/18 06:00 Chloride 103 mmol/L (98-107) 01/25/18 06:00 Carbon Dioxide 27 mmol/L (22-30) 01/25/18 06:00 Anion Gap 13 (10-20) 01/25/18 06:00 BUN 24 mg/dl (9-20) H 01/25/18 06:00 Creatinine 0.9 mg/dl (0.8-1.5) 01/25/18 06:00 Est GFR ( Amer) > 60 01/25/18 06:00 Est GFR (Non-Af Amer) > 60 01/25/18 06:00 Random Glucose 96 mg/dL (75-110) 01/25/18 06:00 Calcium 8.9 mg/dL (8.4-10.2) 01/25/18 06:00 Total Bilirubin 0.2 mg/dl (0.2-1.3) 01/25/18 06:00 AST 24 U/L (17-59) 01/25/18 06:00 ALT 39 U/L (21-72) 01/25/18 06:00 Alkaline Phosphatase 54 U/L (38-126) 01/25/18 06:00 C-Reactive Protein < 5.00 mg/L (0.0-9.9) 01/25/18 06:00 Total Protein 6.3 G/DL (6.3-8.2) 01/25/18 06:00 Albumin 3.3 g/dL (3.5-5.0) L 01/25/18 06:00 Globulin 3.0 gm/dL (2.2-3.9) 01/25/18 06:00 Albumin/Globulin Ratio 1.1 (1.0-2.1) 01/25/18 06:00 Vancomycin Trough 7.0 ug/mL (5.0-10.0) 01/25/18 12:30 - Hospital Course Hospital Course: CLINICALLY IMPROVING WITH IV ANTIBIOTICS AND PT/OT BETTER URINARY BLADDER CONTROL STILL HAS PROBLEMS WITH BOWEL MOVEMENTS AND WALKING Discharge Exam - Head Exam Head Exam: ATRAUMATIC, NORMAL INSPECTION, NORMOCEPHALIC - Eye Exam Eye Exam: EOMI, Normal appearance, PERRL Pupil Exam: NORMAL ACCOMODATION, PERRL - GI/Abdominal Exam GI & Abdominal Exam: Normal Bowel Sounds - Rectal Exam Rectal Exam: NORMAL INSPECTION - Extremities Exam Additional comments: LOWER EXTREMITY WEAKNESS - Neurological Exam Neurological exam: Abnormal Gait, Alert, CN II-XII Intact, Oriented x3 - Psychiatric Exam Psychiatric exam: Normal Affect, Normal Mood - Skin Skin Exam: Dry, Intact, Normal Color, Warm Discharge Plan - Follow Up Plan Condition: GOOD Disposition: HOME/ ROUTINE Additional Instructions: CONTINUE AGRESSIVE REHAB FOR TRANSFER TO ANOTHER INSTITUTION TODAY
== END 2018-01-31 12:55 | disposition home or self-care (01) | DRG 466 ==
PROVIDERS: ADMIT Internal Medicine Pulmonary Disease; ATTEND Internal Medicine Pulmonary Disease
PROC: F08Z1FZ Dressing Techniques Treatment using Assistive, Adaptive, Supportive or Protective Equipment (ICD-10-PCS; principal; 2018-01-11)
PROC: F07Z4FZ Wheelchair Mobility Treatment using Assistive, Adaptive, Supportive or Protective Equipment (ICD-10-PCS; 2018-01-11)
PROC: F07Z5FZ Bed Mobility Treatment using Assistive, Adaptive, Supportive or Protective Equipment (ICD-10-PCS; 2018-01-11)
PROC: F07L7ZZ Manual Therapy Techniques Treatment of Musculoskeletal System - Lower Back / Lower Extremity (ICD-10-PCS; 2018-01-11)
PROC: F07Z8FZ Transfer Training Treatment using Assistive, Adaptive, Supportive or Protective Equipment (ICD-10-PCS; 2018-01-11)
PROC: F07L6GZ Therapeutic Exercise Treatment of Musculoskeletal System - Lower Back / Lower Extremity using Aerobic Endurance and Conditioning Equipment (ICD-10-PCS; 2018-01-11)
DX: Z48.811 Encounter for surgical aftercare following surgery on the nervous system (principal); N31.9 Neuromuscular dysfunction of bladder, unspecified; G82.20 Paraplegia, unspecified; M46.42 Discitis, unspecified, cervical region; K59.2 Neurogenic bowel, not elsewhere classified; N39.498 Other specified urinary incontinence; L60.3 Nail dystrophy; F17.200 Nicotine dependence, unspecified, uncomplicated; G62.9 Polyneuropathy, unspecified; L85.9 Epidermal thickening, unspecified; L84 Corns and callosities; G47.00 Insomnia, unspecified; F12.10 Cannabis abuse, uncomplicated; F32.9 Major depressive disorder, single episode, unspecified; Z99.3 Dependence on wheelchair; K59.00 Constipation, unspecified; M46.22 Osteomyelitis of vertebra, cervical region; K04.7 Periapical abscess without sinus; M43.6 Torticollis; D64.9 Anemia, unspecified